=== PATIENT | female | born 1965 | race Two or more races ===

== ENCOUNTER 2023-08-13 10:44 | Outpatient (REF) | payer OTHER, SELFPAY | END 2023-08-13 10:45 | disposition home or self-care (01) | LOC: HO.LNP 10:44 | PROVIDERS: Visit Provider Advanced Practice Midwife | DX: D21.9 Benign neoplasm of connective and other soft tissue, unspecified (principal); R10.2 Pelvic and perineal pain | CPT/HCPCS: 81003; 99202 ==

== ENCOUNTER 2023-08-13 10:44 | Outpatient (AMB) | payer OTHER, SELFPAY ==
[2023-08-13 10:55] VITALS: BP 110/62; BMI 30.4
--- NOTE | 2023-08-13 10:55 | A.OFFVIS_ITS ---
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 She reports a history of low back pain for a year that now has radiated towards the front she feels an intermittent discomfort. She has a history of a myomectomy with subsequent fibroids and treatment with Interventional Radiology in [place]. Last Pap she reports with her primary care recently, records not available, patient reports Pap history is normal. She also has a history of herpes diagnosed a year ago after being newly and needs refills on her medication. She has had several outbreaks since the initial diagnosis. She also reports a vaginal odor that is pretty strong, she has an occasional burning with urination. [facility] Medical History High cholesterol Diabetes mellitus Surgical History H/O myomectomy Hx of section Family History Maternal Aunt History of breast cancer Social History Alcohol intake: current Alcohol intake frequency: holidays/special occasions only Alcohol type: wine Patient Tobacco Use Status: Never used Tobacco Female Reproductive History Menstrual Menopause type: natural Total pregnancies: 3 Full term: 2 Number of Living Children: 2 Ectopics: 1 Review of Systems Const All systems reviewed & are unremarkable except as noted in HPI and below Physical Exam Vital Signs: Last Vital Signs BP 110/62 08/13/23 10:55 BMI result Body Mass Index 30.4 Const General: cooperative, healthy appearing and no acute distress Orientation/consciousness: patient oriented x3 GI Inspection: Yes normal to inspection Palpation (GI): Soft to palpation and Other GI palpation findings present (Nontender) Rectal Exam - Female: visual inspection normal General: Yes bladder normal to palpation External Female Exam: normal appearance of the urethra Speculum Exam - Vagina: normal appearance of the vagina, normal palpation and normal vaginal discharge Speculum Exam - Cervix: normal appearance of the cervix and normal palpation Bimanual exam- vagina & uterus: normal bimanual exam, normal palpation, bladder normal to palpation, normal palpation, uterine shape normal, non-tender and enlarged (Rotated to the left) Bimanual Exam- Adnexa, other: normal adnexae Neuro General: patient oriented x3 Results AMB Urinalysis, Automated UA Leukoctes 0 Joseph/uL Last Edit by HOOD Groves on 08/13/23 11:02 UA Nitrite Negative Last Edit by Naida Blake Kris on 08/13/23 11:02 UA Urobilinogen 0 mg/dL Last Edit by Naida Blake Kris on 08/13/23 11:0 2 UA Protein 0 mg/dL Last Edit by Naida Blake Kris on 08/13/23 11:02 UA pH 6.0 Last Edit by Naida Blake Kris on 08/13/23 11:02 UA Blood 0 Colin/uL Last Edit by Naida Blake Kris on 08/13/23 11:02 UA Specific [place] 1.010 Last Edit by HOOD Groves on 08/13/23 11:02 UA Ketone Negative Last Edit by Naida Blake Kris on 08/13/23 11:02 UA Bilirubin 0 mg/dL Last Edit by Naida Blake Kris on 08/13/23 11:02 UA Glucose 0 mg/dL Last Edit by Naida Blake [facility] on 08/13/23 11:02 Results Reviewed Results Reviewed: Laboratory Last Values Urine pH (Auto) 6.0 08/13/23 11:02 Specific [place] (Auto) 1.010 08/13/23 11:02 Urine Protein (Auto) 0 mg/dL 08/13/23 11:02 Glucose (UA)(Auto) 0 mg/dL 08/13/23 11:02 Urine Ketones (Auto) Negative 08/13/23 11:02 Urine Blood (Auto) 0 Colin/uL 08/13/23 11:02 Urine Nitrite (Auto) Negative 08/13/23 11:02 Urine Bilirubin (Auto) 0 mg/dL 08/13/23 11:02 Urine Urobilinogen (Auto) 0 mg/dL 08/13/23 11:02 Leukocyte Esterase (Auto) 0 Joseph/uL 08/13/23 11:02 Assessment & Plan Assessment & Plan (1) Fibroids: Code(s): D21.9 - Benign neoplasm of connective and other soft tissue, unspecified (2) Pelvic pain: Code(s): R10.2 - Pelvic and perineal pain Plan Discussed: Workup to include cultures, pelvic ultrasound. Release of records for her Pap. Urine dip was normal today. Rx for Valtrex sent in with instructions on how to use episodic treatment. Return to the office pending ultrasound results for plan of care. Patient reports she is returning to [place] at the beginning of August bird 2 week visit and will be back mid August. All of her questions and concerns were addressed to the best of my ability and shared decision making. She is agreeable to the plan of care. This note is constructed using voice recognition software. While every effort has been made to ensure accuracy, paper machine tender errors may have been included. Orders: Orders AMB Urinalysis Automated Today R10.2 - Pelvic and perineal pain CT NG by PCR Today R10.2 - Pelvic and perineal pain Bacterial Vaginosis Panel Today R10.2 - Pelvic and perineal pain US pelvic and transvaginal Today D21.9 - Benign neoplasm of connective and other soft tissue, unspecified, R10.2 - Pelvic and perineal pain Medications: New valacyclovir (Valtrex) take with onset on of symptoms, take for three days, may repeat dosing per episode prn 500 mg PO BID 30 tabs 1RF Coding Level of Care Code New Pt Level 4 (14453) Diagnoses Fibroids D21.9 Pelvic pain R10.2
== END 2023-08-13 11:34 | disposition home or self-care (01) ==
PROVIDERS: Visit Provider Advanced Practice Midwife
DX: D21.9 Benign neoplasm of connective and other soft tissue, unspecified (principal); R10.2 Pelvic and perineal pain
CPT/HCPCS: 99204

== ENCOUNTER 2023-08-13 11:21 | Outpatient (REF) | payer OTHER, SELFPAY ==
[2023-08-13 15:24] LABS: CT PCR NOT DETECTED (Not Detect.); NG PCR NOT DETECTED (Not Detect.)
[2023-08-14 14:04] LABS: BV Int Neg Control Negative (Negative); BV Int Pos Control Positive (Positive)
== END 2023-08-13 11:22 | disposition home or self-care (01) ==
LOC: HO.LAB 11:21
PROVIDERS: Visit Provider Advanced Practice Midwife
DX: R10.2 Pelvic and perineal pain (principal)
CPT/HCPCS: 0353U; 87480; 87510; 87660

== ENCOUNTER 2023-08-15 13:32 | Outpatient (REF) | payer OTHER, SELFPAY ==
--- NOTE | ~2023-08-15 | US_ITS ---
EXAMINATION: US PELVIS CLINICAL INFORMATION: Benign neoplasm of connective tissue. COMPARISON: None available. TECHNIQUE: Ultrasound of the pelvis is performed using both transabdominal and transvaginal transducers along with Doppler. Transvaginal imaging is performed due to inadequate visualization transabdominally. FINDINGS: Uterus: The uterus is anteverted and measures 5.3 x 2.2 x 2.4 cm. The uterus is unremarkable though limited visualization due to bowel gas. The double wall endometrial thickness is 2 mm. Adnexa: The right ovary measures 1.6 x 1.0 x 1.4 cm, volume 1.0 mL. The right ovary appears normal. Color Doppler appears normal. The left ovary is not seen. No free fluid. US/US pelvic and transvaginal IMPRESSION: Nonvisualization of the left ovary. Unremarkable right ovary and uterus though exam is mildly limited due to bowel gas.
== END 2023-08-15 13:33 | disposition home or self-care (01) ==
LOC: HO.US 13:32
PROVIDERS: Visit Provider Advanced Practice Midwife
DX: D21.9 Benign neoplasm of connective and other soft tissue, unspecified (principal); R10.2 Pelvic and perineal pain
CPT/HCPCS: 76830; 76856

== ENCOUNTER 2023-08-27 07:42 | Outpatient (AMB) | payer OTHER, SELFPAY ==
--- NOTE | 2023-08-27 07:51 | MHC.OFFVIS ---
Intake Vital Signs 08/27/23 07:56 Height 5 ft 2 in Weight 166 lb BMI 30.4 BP 122/66 Intake Visit Reasons: Ultrasound follow up Budget Coordinator: Budget Coordinator Present Allergies No Known Allergies Allergy (Verified 08/27/23 07:57) Is last menstrual period known: Yes HPI HPI Comments History of Present Illness Details Is here for a follow up ultrasound. She has a history of lower back pain radiating to the front over the last year. Reports it is occasionally occurring still. History of myomectomy and subsequent fibroids treated with Interventional Radiology in the past. PFSH Medical History High cholesterol Diabetes mellitus Surgical History H/O myomectomy Hx of section Family History Maternal Aunt History of breast cancer Social History Alcohol intake: current Alcohol intake frequency: holidays/special occasions only Alcohol type: wine Patient Tobacco Use Status: Never used Tobacco Review of Systems Const All systems reviewed & are unremarkable except as noted in HPI and below Endo Reports no additional complaints Physical Exam Vital Signs: Last Vital Signs BP 122/66 08/27/23 07:56 BMI result Body Mass Index 30.4 Const General: cooperative, healthy appearing and no acute distress Psych Appearance: well kempt Attitude: cooperative Thought process: Normal thought process present Results Reviewed Results Reviewed: [place] [id number] Ultrasound Report Signed Patient: Karon Ingram MR#: [id number] : 1965 Acct:[id number] Age/Sex: 58 / F ADM Date: 08/15/23 Loc: [facility] Attending Dr: Belia Alvarez CNM Ordering Physician: Belia Alvarez CNM Date of Service: 08/15/23 Procedure(s): US pelvic and transvaginal Accession Number(s): [id number] cc: Belia Alvarez CNM~ EXAMINATION: US PELVIS CLINICAL INFORMATION: Benign neoplasm of connective tissue. COMPARISON: None available. TECHNIQUE: Ultrasound of the pelvis is performed using both transabdominal and transvaginal transducers along with Doppler. Transvaginal imaging is performed due to inadequate visualization transabdominally. FINDINGS: Uterus: The uterus is anteverted and measures 5.3 x 2.2 x 2.4 cm. The uterus is unremarkable though limited visualization due to bowel gas. The double wall endometrial thickness is 2 mm. Adnexa: The right ovary measures 1.6 x 1.0 x 1.4 cm, volume 1.0 mL. The right ovary appears normal. Color Doppler appears normal. The left ovary is not seen. No free fluid. US/US pelvic and transvaginal IMPRESSION: Nonvisualization of the left ovary. Unremarkable right ovary and uterus though exam is mildly limited due to bowel gas. Dictated By: Mu Dang MD Signed By: <Electronically signed by Mu Dang MD in [place]> 08/18/23 1043 DD/ 1409 TD/TT: Laminator Hand: HONORIO Assessment & Plan Assessment & Plan (1) Encounter to discuss test results: Code(s): Z71.2 - Person consulting for explanation of examination or test findings Plan Discussed: Ultrasound findings-normal. Reviewed various causes of low back pain that can radiate to the front may of other origins. Advised to see her primary care for a follow-up of her symptoms for further evaluation. Schedule annual customer operations manager for April 2024. Call if any vaginal bleeding. All of her questions and concerns were addressed to the best of my ability and shared decision making. She is agreeable to the plan of care. This note is constructed using voice recognition software. While every effort has been made to ensure accuracy, wire fence builder errors may have been included. Coding Level of Care Code Est Pt Level 3 (52861) Diagnoses Encounter to discuss test results Z71.2
[2023-08-27 07:56] VITALS: BP 122/66; BMI 30.4
== END 2023-08-27 08:11 | disposition home or self-care (01) ==
LOC: HO.HWS 07:42
PROVIDERS: PCP Internal Medicine; Visit Provider Advanced Practice Midwife
DX: Z71.2 Person consulting for explanation of examination or test findings (principal)
CPT/HCPCS: 99213

== ENCOUNTER → 2023-08-27 07:42 | Outpatient (BNVA) | payer OTHER, SELFPAY | PROVIDERS: PCP Internal Medicine; Visit Provider Advanced Practice Midwife | DX: M54.50 Low back pain, unspecified (principal); Z71.2 Person consulting for explanation of examination or test findings | CPT/HCPCS: 99212 ==

== ENCOUNTER 2023-09-17 09:59 | Outpatient (REF) | payer OTHER, SELFPAY ==
--- NOTE | ~2023-09-17 | MM_ITS ---
EXAMINATION: BONE DENSITOMETRY CLINICAL INDICATION: Postmenopausal. COMPARISON: This is the patient's baseline examination. TECHNIQUE: Using a SuperSport DXA System (software version: 13.1) manufactured by [employer], dual-energy x-ray absorptiometry was performed of the lumbar spine and left hip. The images are of good technical quality. Summary results are attached. FINDINGS: LEFT FEMUR, NECK: BMD 0.945 g/cm2, Z-score -0.7, T-score -0.7, normal. LEFT FEMUR, TOTAL: BMD 1.060 g/cm2, Z-score 0.0, T-score 0.4, normal. AP SPINE L1-L4: BMD 1.262 g/cm2, Z-score 0.7, T-score 0.7, normal. IDENTIFIED RISK FACTORS: Menopause. HISTORY OF FRACTURE: None listed. MEDICATIONS: Multivitamin. MM/XR DEXA axial skeleton IMPRESSION: 1. DIAGNOSIS: Normal bone density based on the lowest T-score value of -0.7 in the femoral neck applying World Health Organization criteria. 2. 10-YEAR FRACTURE RISK PREDICTION, FRAX: According to the guidelines, FRAX calculation should only be performed on patients in the osteopenia bone density category. Therefore, FRAX was not performed on this patient. 3. Treatment Recommendations: NOF guidelines recommend consideration for treatment in postmenopausal women and men age 50 and older presenting with the following: -A hip or vertebral (clinical or morphometric) fracture. -T-score less than or equal to -2.5 at the femoral neck or spine after appropriate evaluation to exclude secondary causes. -Low bone mass at the hip or spine and a 10-year fracture probability by FRAX of greater than or equal to 3% for hip fracture or greater than or equal to 20% for major osteoporotic fracture based on the [place] adapted WHO algorithm. 4. Other Recommendations: All treatment decisions require clinical judgment and consideration of individual patient factors, including patient preferences, comorbidities, previous drug use, risk factors not captured in the FRAX model (e.g. frailty, falls, vitamin D deficiency, increased bone turnover, interval significant decline in bone density) and possible under or overestimation of fracture risk by FRAX. FUTURE SCAN RECOMMENDATION: People with diagnosed cases of osteoporosis or at high risk for fracture should have regular bone mineral density tests. For patients eligible for Medicare, routine testing is allowed once every 2 years. The testing frequency can be increased to one year for patients who have rapidly progressing disease, those who are receiving or discontinuing medical therapy to restore bone mass, or have additional risk factors.
--- NOTE | ~2023-09-17 | MM_ITS ---
EXAMINATION: MM SCREENING DIGITAL BREAST TOMOSYNTHESIS, BILATERAL CLINICAL INFORMATION: Screening. Asymptomatic. The patient is status post bilateral breast reduction performed in the remote past. COMPARISON: Mammography: There are no prior mammograms for comparison at this time. TECHNIQUE: Digital breast tomosynthesis is performed in both the craniocaudal and mediolateral oblique views along with computer-aided detection (CAD). Synthesized 2D images are generated from the tomosynthesis. FINDINGS: There are scattered areas of fibroglandular density (ACR BI-RADS breast composition Category b). There are no significant masses, abnormal calcifications, or other abnormalities. Post reduction changes are present in each breast. There are scattered, bilateral benign calcifications throughout each breast. MM/MM tomosynthesis screening BI IMPRESSION: No mammographic evidence of malignancy. ASSESSMENT: BI-RADS BI-RADS 2 - Benign Findings RECOMMENDATION: Routine annual mammography screening. 1 year F/U This examination should not preclude the clinical evaluation of a suspicious palpable abnormality. This patient's information was entered into a reminder system with a target due date for their next mammogram.
== END 2023-09-17 10:00 | disposition home or self-care (01) ==
LOC: HO.MAMMO 09:59
PROVIDERS: PCP Internal Medicine; Visit Provider Internal Medicine
DX: Z12.31 Encounter for screening mammogram for malignant neoplasm of breast (principal); Z13.820 Encounter for screening for osteoporosis; Z78.0 Asymptomatic menopausal state
CPT/HCPCS: 77063; 77067; 77080

== ENCOUNTER → 2023-09-17 10:00 | Outpatient (BNV) | payer OTHER, SELFPAY | PROVIDERS: PCP Internal Medicine; Visit Provider Radiology Diagnostic Radiology | DX: Z12.31 Encounter for screening mammogram for malignant neoplasm of breast (principal) | CPT/HCPCS: 77063; 77067 ==

== ENCOUNTER 2024-04-07 09:56 | Outpatient (AMB) | payer OTHER, SELFPAY ==
--- NOTE | 2024-04-07 10:03 | MHC.OFFVIS ---
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 She is doing well with concerns: abdominal pain with eating, not seen by her primary care for this concerns. No bowel changes or urinary symptoms. She requests med refill for occasional outbreaks. Pain in low transverse scar area. Attempting to eat a healthy diet with calcium and vitamin D and stays active with exercise. Currently sexually active. Denies any vaginal dryness or irritation. STI testing offered; she declined. Last pap smear; with PCP, no records available, she reports negative in the past. Last mammogram; 2023. Colonoscopy is not done. Denies any family history of ovarian or colon cancer. Breast cancer-M.aunt. [facility] Medical History (Updated 04/07/24 @ 10:36 by Belia Alvarez CNM) Pelvic pain High cholesterol Diabetes mellitus Surgical History (Updated 04/07/24 @ 12:06 by Belia Alvarez CNM) H/O bilateral breast reduction surgery H/O abdominoplasty H/O myomectomy Hx of section Family History Maternal Aunt History of breast cancer Social History Alcohol intake: current Alcohol intake frequency: holidays/special occasions only Alcohol type: wine Patient Tobacco Use Status: Never used Tobacco Female Reproductive History Menstrual Total pregnancies: 3 Full term: 2 Ectopics: 1 Date of Mammogram: 09/17/23 (bi-rad 2) Date of last Bone Density Screenin09/17/23 Review of Systems Const All systems reviewed & are unremarkable except as noted in HPI and below Reports as per HPI Eyes Reports no additional complaints ENT Reports no additional complaints Card Reports no additional complaints Resp Reports no additional complaints GI Reports as per HPI and Reports no additional complaints Reports as per HPI Musc Reports no additional complaints Skin/Breast Reports as per HPI Neuro Reports no additional complaints Psych Reports no additional complaints Endo Reports no additional complaints Bishnu/Lymph Reports no additional complaints Aller/Immun Reports no additional complaints Physical Exam Vital Signs: Last Vital Signs BP 120/72 11/06/24 10:08 BMI result Body Mass Index 31.3 Const General: cooperative, healthy appearing, no acute distress, well developed and alert Orientation/consciousness: patient oriented x3 HEENT Head: Yes normal to inspection Eyes General: appearance normal, both eyes and all related structures Neck Neck: Yes normal visual inspection Thyroid: Thyroid normal Chest Other: Breast reduction scars Chest palpation & inspection: normal inspection of the chest and other (no puckering, dimpling, peau de orange, retraction, discharge, masses) Breast/axilla inspection: normal inspection of the breasts Breast/axilla palpation: normal palpation of the breasts Resp Effort & Inspection: normal respiratory effort GI Inspection: Yes normal to inspection and Yes scar (Reports tenderness in the scar mid region ) Palpation (GI): Soft to palpation Rectal Exam - Female: deferred General: Yes bladder normal to palpation External Female Exam: normal external appearance and normal appearance of the urethra Speculum Exam - Vagina: normal appearance of the vagina, normal palpation and normal vaginal discharge Speculum Exam - Cervix: normal appearance of the cervix and normal palpation Bimanual exam- vagina & uterus: normal bimanual exam, normal palpation, uterine size normal, bladder normal to palpation, normal palpation and non-tender Bimanual Exam- Adnexa, other: no masses Skin General skin exam: no rashes or lesions noted Rashes: no rashes Neuro General: patient oriented x3 Cognition (Neuro): normal cognition Extrem General: Yes normal to inspection Psych Attitude: cooperative Thought process: Normal thought process present Results AMB Urinalysis, Automated UA Leukoctes 0 Joseph/uL Last Edit by HOOD Groves on 04/07/24 10:54 UA Nitrite Negative Last Edit by HOOD Groves on 04/07/24 10:54 UA Urobilinogen 0 mg/dL Last Edit by HOOD Groves on 04/07/24 10:54 UA Protein 0 mg/dL Last Edit by HOOD Groves on 04/07/24 10:54 UA pH 6.0 Last Edit by HOOD Groves on 04/07/24 10:54 UA Blood 0 Colin/uL Last Edit by HOOD Groves on 04/07/24 10:54 UA Specific [place] 1.015 Last Edit by Naida Blake, RMA on 04/07/24 10:54 UA Ketone Negative Last Edit by Naida BlakeBRITTA on 04/07/24 10:54 UA Bilirubin 0 mg/dL Last Edit by Naida Blake, RMA on 04/07/24 10:54 UA Glucose 0 mg/dL Last Edit by Naida Riveraoumar A on 04/07/24 10:54 Results Reviewed Results Reviewed: Laboratory Last Values Urine pH (Auto) 6.0 04/07/24 10:48 Specific [place] (Auto) 1.015 04/07/24 10:48 Urine Protein (Auto) 0 mg/dL 04/07/24 10:48 Glucose (UA)(Auto) 0 mg/dL 04/07/24 10:48 Urine Ketones (Auto) Negative 04/07/24 10:48 Urine Blood (Auto) 0 Colin/uL 04/07/24 10:48 Urine Nitrite (Auto) Negative 04/07/24 10:48 Urine Bilirubin (Auto) 0 mg/dL 04/07/24 10:48 Urine Urobilinogen (Auto) 0 mg/dL 04/07/24 10:48 Leukocyte Esterase (Auto) 0 Joseph/uL 04/07/24 10:48 Assessment & Plan Assessment & Plan (1) Encounter for well woman exam with routine gynecological exam: Code(s): Z01.419 - Encounter for gynecological examination (general) (routine) without abnormal findings Category: Medical (2) Pelvic pain: Code(s): R10.2 - Pelvic and perineal pain Category: Medical Plan Discussed: Current recommendations for pap smears per ASCCP guidelines. Pap smear obtained today. Breast awareness, periodic self breast exams and yearly mammogram. Maintain a healthy lifestyle, well balanced diet including Calcium 1,200 mg and Vitamin D 600 IU daily, and routine exercise. Pelvic ultrasound and follow up in person. Make appointment with your primary care as soon as possible to evaluate your abdominal pain. Contact the office with any postmenopausal bleeding. Patient verbalizes understanding and agrees to the plan of care. She was given opportunity to ask questions and all questions were answered to the best of my ability. RTO in 1 year for annual terrazzo polisher helper exam. This note is constructed using voice recognition software. While every effort has been made to ensure accuracy, highway maintenance crew worker errors may have been included. Orders: Orders US pelvic and transvaginal Today R10.2 - Pelvic and perineal pain HPV High risk Today Z01.419 - Encounter for gynecological examination (general) (routine) without abnormal findings Pap Smear Today Z01.419 - Encounter for gynecological examination (general) (routine) without abnormal findings CT NG by PCR Today R10.2 - Pelvic and perineal pain AMB Urinalysis Automated Today R10.2 - Pelvic and perineal pain Medications: New valacyclovir (Valtrex) Take with onset of symptoms for 3 days 500 mg PO BID 90 tabs 0RF 3 days acyclovir 5% (Zovirax) 1 appl topical 6XD PRN 30 grams 2RF prn 7 days Coding Level of Care Code Est Pt Prev Care 40-64y(36627) Diagnoses Encounter for well woman exam with routine gynecological exam Z01.419 Pelvic pain R10.2
[2024-04-07 10:08] VITALS: BP 120/72; BMI 31.3
== END 2024-04-07 10:51 | disposition home or self-care (01) ==
LOC: HO.HWS 09:57
PROVIDERS: PCP Internal Medicine; Visit Provider Advanced Practice Midwife
DX: Z01.419 Encounter for gynecological examination (general) (routine) without abnormal findings (principal); R10.2 Pelvic and perineal pain
CPT/HCPCS: 99396

== ENCOUNTER 2024-04-07 09:56 | Outpatient (REF) | payer OTHER, SELFPAY ==
[2024-04-08 05:16] LABS: CT PCR NOT DETECTED (Not Detect.); NG PCR NOT DETECTED (Not Detect.)
[2024-04-08 10:31] LABS: HPV 16,18/45 See PAP report
== END 2024-04-07 09:57 | disposition home or self-care (01) ==
LOC: HO.LNP 09:56
PROVIDERS: PCP Internal Medicine; Visit Provider Advanced Practice Midwife
DX: Z01.419 Encounter for gynecological examination (general) (routine) without abnormal findings (principal); R10.2 Pelvic and perineal pain; R87.810 Cervical high risk human papillomavirus (HPV) DNA test positive
CPT/HCPCS: 81003; 87491; 87591; 87624; 88175; 99396

== ENCOUNTER 2024-04-19 14:02 | Outpatient (REF) | payer OTHER, SELFPAY ==
--- NOTE | ~2024-04-19 | US_ITS ---
EXAMINATION:US PELVIS TRANSABDOMINAL AND TRANSVAGINAL CLINICAL INFORMATION: R10.2 - Pelvic and perineal pain COMPARISON: Prior ultrasound August 15, 2023 LMP: Postmenopausal FINDINGS: UTERUS: The uterus is anteverted. Size: 13.3 x 10.2 x 9 cm. Uterine mass: Intramural uterine mass likely fibroid measuring up to 4.4 x 3.3 x 5.1 cm, another fibroid 4.3 x 4.4 x 4.2 cm., Intense shadowing of the fibroids probably due to internal callus patient's necrosis. Cervix: Grossly unremarkable. Endometrium: Endometrium could not be visualized obscured by the fibroid. ADNEXA: Normal Right ovary: Normal in size. Left ovary: Normal in size. Not visualized obscured by bowel gas. Doppler exam: Normal Doppler flow identified in both ovaries. FREE FLUID: Trace amount of free fluid. OTHER FINDINGS: None US/US pelvic and transvaginal IMPRESSION: 1. Enlarged fibroid uterus. Intense shadowing from the fibroids probably calcified necrotic, has obscured the endometrium. 2. Left ovary not visualized obscured by bowel gas. 3. If patient is symptomatic would recommend correlation with follow-up cross-sectional imaging preferably MRI with contrast. If not performed TIN WORKER consultation and D&C may be indicated. Electronically signed by: Agueda Montes MD 05/29/2024 04:17 PM [facility] [place]
== END 2024-04-19 14:03 | disposition home or self-care (01) ==
LOC: HO.HMGCX 14:02
PROVIDERS: Visit Provider Advanced Practice Midwife
DX: D25.9 Leiomyoma of uterus, unspecified (principal)
CPT/HCPCS: 76830; 76856

== ENCOUNTER 2024-06-10 11:10 | Outpatient (AMB) | payer OTHER, SELFPAY ==
--- NOTE | 2024-06-10 11:11 | MHC.OFFVIS ---
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 She reports intimacy is painful, no vaginal bleeding. She is not interested in monitoring the fibroid she reports she would really like to have a hysterectomy at this time to be done with surveillance and worries. PFS Medical History (Updated 06/10/24 @ 11:32 by Belia Alvarez CNM) Fibroid Pelvic pain High cholesterol Diabetes mellitus Surgical History H/O bilateral breast reduction surgery H/O abdominoplasty H/O myomectomy Hx of section Family History Maternal Aunt History of breast cancer Social History Alcohol intake: current Alcohol intake frequency: holidays/special occasions only Alcohol type: wine Patient Tobacco Use Status: Never used Tobacco Review of Systems Const All systems reviewed & are unremarkable except as noted in HPI and below Endo Reports no additional complaints Physical Exam Const General: cooperative, healthy appearing and no acute distress Psych Appearance: well kempt Attitude: cooperative Thought process: Normal thought process present Results Reviewed Results Reviewed: [facility] [address] [place] [address] Ultrasound Report Signed Patient: Karon Ingram MR#: [id number] : 1965 Acct:[id number] Age/Sex: 59 / F ADM Date: 04/19/24 Loc: HO.HMGCX Attending Dr: Belia Alvarez CNM Ordering Physician: Belia Alvarez CNM Date of Service: 04/19/24 Procedure(s): US pelvic and transvaginal Accession Number(s): [id number] cc: Belia Alvarez CNM~ EXAMINATION:US PELVIS TRANSABDOMINAL AND TRANSVAGINAL CLINICAL INFORMATION: R10.2 - Pelvic and perineal pain COMPARISON: Prior ultrasound August 15, 2023 LMP: Postmenopausal FINDINGS: UTERUS: The uterus is anteverted. Size: 13.3 x 10.2 x 9 cm. Uterine mass: Intramural uterine mass likely fibroid measuring up to 4.4 x 3.3 x 5.1 cm, another fibroid 4.3 x 4.4 x 4.2 cm., Intense shadowing of the fibroids probably due to internal callus patient's necrosis. Cervix: Grossly unremarkable. Endometrium: Endometrium could not be visualized obscured by the fibroid. ADNEXA: Normal Right ovary: Normal in size. Left ovary: Normal in size. Not visualized obscured by bowel gas. Doppler exam: Normal Doppler flow identified in both ovaries. FREE FLUID: Trace amount of free fluid. OTHER FINDINGS: None US/US pelvic and transvaginal IMPRESSION: 1. Enlarged fibroid uterus. Intense shadowing from the fibroids probably calcified necrotic, has obscured the endometrium. 2. Left ovary not visualized obscured by bowel gas. 3. If patient is symptomatic would recommend correlation with follow-up cross-sectional imaging preferably MRI with contrast. If not performed HIGHWAY WORKER consultation and D&C may be indicated. Electronically signed by: Agueda Montes MD 05/29/2024 04:17 PM [facility] Dictated By: Agueda Montes MD Signed By: <Electronically signed by Agueda Montes MD in OV> 05/29/24 1617 DD/ 1416 TD/TT: 04/19/24 1500 Bundles Hanger: HS Assessment & Plan Assessment & Plan (1) Fibroid: Code(s): D21.9 - Benign neoplasm of connective and other soft tissue, unspecified Category: Medical (2) Pelvic pain: Code(s): R10.2 - Pelvic and perineal pain Category: Medical (3) Encounter to discuss test results: Code(s): Z71.2 - Person consulting for explanation of examination or test findings Plan Discussed: Ultrasound findings with necrotic tissue and enlarging fibroid, endometrial lining obscured. Plan MRI for further evaluation of fibroid, once report is back to review and then referral will be placed to [facility] for a surgical consult. Await test results for plan of care advised to call if there is any concerns, pelvic pain changes, or any vaginal bleeding. The patient expressed understanding and agreement with the plan of care. All of her questions and concerns were addressed to the best of my ability. This note is constructed using voice recognition software. While every effort has been made to ensure accuracy, supervisor securities vault errors may have been included. Orders: Orders MR pelvis wo/w con Today D21.9 - Benign neoplasm of connective and other soft tissue, unspecified Coding Level of Care Code Est Pt Level 3 (47978) Diagnoses Fibroid D21.9 Pelvic pain R10.2 Encounter to discuss test results Z71.2
== END 2024-06-10 11:29 | disposition home or self-care (01) ==
PROVIDERS: PCP Internal Medicine; Visit Provider Advanced Practice Midwife
DX: D25.9 Leiomyoma of uterus, unspecified (principal); R10.2 Pelvic and perineal pain; Z71.2 Person consulting for explanation of examination or test findings
CPT/HCPCS: 99213

== ENCOUNTER → 2024-06-10 11:10 | Outpatient (BNVA) | payer OTHER, SELFPAY | PROVIDERS: PCP Internal Medicine; Visit Provider Advanced Practice Midwife | DX: Z71.2 Person consulting for explanation of examination or test findings (principal); D21.9 Benign neoplasm of connective and other soft tissue, unspecified; R10.2 Pelvic and perineal pain | CPT/HCPCS: 99212 ==

== ENCOUNTER 2024-06-28 12:50 | Outpatient (REF) | payer OTHER, SELFPAY ==
--- NOTE | ~2024-06-28 | MR_ITS ---
EXAMINATION: MR PELVIS WITHOUT THEN WITH IV CONTRAST HISTORY: D21.9 - Benign neoplasm of connective and other soft tissue, unspecified. TECHNIQUE: Axial T1 and fat-suppressed T2, and sagittal and coronal T2-weighted MR images of the pelvis were obtained. Subsequently, axial fat-suppressed T1-weighted images were obtained after the intravenous administration of 7.5 mm Gadavist. COMPARISON: Correlation is made with a pelvic ultrasound dated 04/19/2024. FINDINGS: The uterus is enlarged and contains multiple T2 hypointense fibroids. The largest fibroids are as follows: Posterior fundal fibroid measuring 4.4 x 4.2 x 4.7 cm without significant enhancement. Anterior subserosal fibroid measuring 5.4 x 3.4 x 3.9 cm which demonstrates intense homogeneous enhancement. Anterior uterine fibroid measuring 2.6 x 2.9 x 3.0 cm which may be submucosal. No significant enhancement. Left-sided intramural fibroid measuring 2.5 x 1.5 x 2.0 cm without significant enhancement. Right-sided subserosal fibroid measuring 2.1 x 1.9 x 2.1 cm, which demonstrates minimal enhancement. Multiple additional smaller fibroids are noted. The endometrium is markedly distorted by the multiple fibroids. The junctional zone does not appear thickened. The right ovary measures 2.1 x 1.2 x 1.6 cm is unremarkable. The left ovary measures 1.2 x 1.9 x 1.3 cm and is unremarkable. No free fluid is seen in the pelvis. There is no lymphadenopathy. There is diverticulosis of the sigmoid colon, without evidence of diverticulitis. The urinary bladder is collapsed. MR/MR pelvis wo/w con IMPRESSION: Fibroid uterus as described. Electronically signed by: Emanuel Olivas MD 06/28/2024 03:14 PM [facility] [place]
[2024-06-28] MEDS: gadobutroL 7.5 ML VIAL IVPUSH (14:01)
--- OUTSIDE RECORDS SUMMARY | 2024-06-28 17:31 | XMS_ITS | Encounter Summary ---
Author Organization [facility] Address [address] [place] [address] Care Team Providers Care Property Portfolio Officer Name Role Phone Yair Eaton MD Primary Care Provider Reason for Visit * Reason Comments Blood Sugar Problem Encounter Details Date Type Department Care Team (Late st Contact Info) Description 06/17/2024 9:30 AM EST Office Visit Endocrinology - [place] [address] [place] [phone] Patricia Lerma MD [address] [place] [address] Type 2 diabetes mellitus with diabetic polyneuropathy, with long-term current use of insulin ([facility]) (Primary Dx) Social History Tobacco Use Types Packs/Day Years Used Date Smoking Tobacco: Never Smokeless Tobacco: Never Tobacco Cessation:Counseling Given: Not Answered Alcohol Use Standard Drinks/Week Comments Yes 0 (1 standard drink = 0.6 oz pur e alcohol) rare Sex and Gender Information Value Date Recorded Sex Assigned at Not on file Gender Identity Not on file Sexual Orientation Not on file Job Start Date Occupation Industry Not on file Not on file Not on file documented as of this encounter Last Filed Vital Signs Vital Sign Reading Time Taken Comments Blood Pressure 137/70 06/17/2024 9:36 AM EST Pulse 88 06/17/2024 9:36 AM EST Temperature 36.1 ??C (97 ??F) 06/17/2024 9:36 AM EST Respiratory Rate - - Oxygen Saturation 96% 06/17/2024 9:36 AM EST Inhaled Oxygen Concentration - - Weight 80.3 kg (177 lb) 06/17/2024 9:36 AM EST Height 157.5 cm (5' 2 ) 06/17/2024 9:36 AM EST Body Mass Index 32.37 06/17/2024 9:36 AM EST documented in this encounter Progress Notes * Patricia Lerma MD - 06/17/2024 9:30 AM EST Scan reader at least 4 times a day. Take insulin Novolog before meals. * Patricia Lerma MD - 06/17/2024 9:30 AM EST CHIEF COMPLAINT: Blood Sugar Problem IDENTIFIER: Karon Ingram is a 59 y.o. old female. HPI: 59 years old F, following for DM type 2 last seen 02/2024. Diagnosed since >20 years Currently on Insulin Levemir 60 units BID, insulin NL 20 units (taking with levemir NOT before meals) metformin 1000 mg BID. NOT taking ozempic, stopped as blamed hair fall, nail issues, constipationand vision issues on it. Checking sugars, on CGM michelle 2, data shows ave 195, in target 44 %, above55 %, below 1%. Capture 61%. Much worse sugars then before. ROS: No new complaints PAST MEDICAL HISTORY: Patient Active Problem List Diagnosis Date Noted Essential thrombocytosis ([facility]) 05/14/2024 Type 2 diabetes mellitus with diabetic polyneuropathy, with long-term current use of insulin ([facility]) 03/16/2024 No past surgical history on file. SOCIAL HISTORY: Social History Tobacco Use Smoking status: Never Smokeless tobacco: Never Substance Use Topics Alcohol use: Yes Comment: rare FAMILY HISTORY: Family History Problem Relation Name Age of Onset Prostate cancer Father Breast cancer Mother's Sister Breast cancer Father's Sister Family Status Relation Name Status Father (Not Specified) Mat Aunt (Not Specified) Pat Aunt (Not Specified) No partnership data on file MEDICATIONS DISCONTINUED/REORDERED: There are no discontinued medications. ACTIVE MEDICATIONS: Outpatient Medications Marked as Taking for the 06/17/24 encounter (Office Visit) with Patricia Lerma MD Medication Sig Dispense Refill aspirin 81 mg chewable tablet Chew 1 tablet (81 mg total) 1 (one) time each day. atorvastatin (LIPITOR) 40 mg tablet Take 1 tablet (40 mg total) by mouth 1 (one) time each day. diclofenac (VOLTAREN) 1 % topical gel Apply 4 g topically 2 times daily. fexofenadine (WARREN) 60 mg tablet Take 1 tablet (60 mg total) by mouth 1 (one) time each day. insulin aspart (NovoLOG Flexpen U-100 Insulin) 100 unit/mL (3 mL) injection pen Inject into the skin 2 times daily. 12 units insulin detemir (LEVEMIR) 100 unit/mL injection Inject into the skin 2 times daily. 60 units metFORMIN (GLUCOPHAGE) 1,000 mg tablet Take 1 Tablet by mouth 2 times daily (with meals). multivitamin (MULTIPLE VITAMINS ORAL) Take by mouth. ALLERGIES: No Known Allergies PHYSICAL EXAM: Visit Vitals BP 137/70 Pulse 88 Temp 36.1 ??C (97 ??F) (Temporal) Ht 1.575 m (62 ) Wt 80.3 kg (177 lb) SpO2 96% BMI 32.37 kg/m?? Smoking Status Never BSA 1.82 m?? APPEARANCE: Alert and in no acute distress EYES: EOMI. No resp distress NEURO: Awake, alert LABS: Lab Results Component Value Date HGBA1C 8.9 (H) 05/17/2024 CHOL 131 05/17/2024 LDL 70 11/13/2023 HDL 49 05/17/2024 TRIG 83 05/17/2024 IMPRESSION: 1. Type 2 diabetes mellitus with diabetic polyneuropathy, with long-term current use of insulin ([facility]) PLAN: Had a detailed discussion, worse control then before. Off ozempic, not taking NL as supposed to. Also not scanning as should so less capture. Asked to scan 4 times atleast, take NL before meals and had a detailed discussion. Asked to fup in 4 weeks. All questions answered. Retinopathy: present; Overdue Neuropathy: present Nephropathy: last UAC in range Lipids: on statin Medication and lab orders: No orders of the defined types were placed in this encounter. Other orders: None Patricia Lerma MD on 06/17/2024 at 10:06 AM EST documented in this encounter Plan of Treatment Upcoming Encounters Date Type Department Care Team (Late st Contact Info) Description 07/16/2024 11:15 AM EST Office Visit Endocrinology - [place] [address] [place] [address] Patricia Lerma MD [address] [place] [address] 08/10/2024 10:00 AM EDT Ancillary Procedure [facility] - [address] [place] [place] [phone] 08/13/2024 10:00 AM EDT Office Visit [facility] Hematology Oncology [address] [place] [phone] Chelo Valencia PA [address] [place] [address] documented as of this encounter Visit Diagnoses Diagnosis Type 2 diabetes mellitus with diabetic polyneuropathy, with long-term current use of insulin ([facility])- Primary documented in this encounter Care Teams Property Portfolio Officer Relationship Specialty Start Date End Date Yair Eaton MD [address] [place] [address] PCP - General 01/01/24 documented as of this encounter
--- OUTSIDE RECORDS SUMMARY | 2024-06-28 17:31 | XMS_ITS | Encounter Summary ---
Author Organization [facility] Address [address] [place] [address] Care Team Providers Care Licensed Social Worker Name Role Phone Yair Eaton MD Primary Care Provider Reason for Visit * Cardiac Stress Testing (Routine) - Closed Specialty Diagnoses / Procedures Referred By Contac t Referred To Contact Cardiology Diagnoses Shortness of breath Procedures Exercise stress test Yair Eaton MD [address] [place] [address] [facility] Referral ID Status Reason Start Date Expiration Date Visits Re quested Visits Authorized [id number] Closed 05/14/2024 05/14/2025 1 1 Encounter Details Date Type Department Care Team (Latest Contact Info) Description 06/15/2024 1:15 PM EST Ancillary Procedure [facility] - [facility] [place] [address] [facility] [address] [place] [phone] Shortness of breath Social History Tobacco Use Types Packs/Day Years Used Date Smoking Tobacco: Never Smokeless Tobacco: Never Alcohol Use Standard Drinks/Week Comments Yes 0 [...] Sign Reading Time Taken Comments Blood Pressure 142/80 06/15/2024 12:51 PM EST Pulse - - Temperature - - Respiratory Rate - - Oxygen Saturation - - Inhaled Oxygen Concentration - - Weight 79.4 kg (175 lb) 06/15/2024 12:51 PM EST Height 157.5 cm (5' 2 ) 06/15/2024 12:51 PM EST Body Mass Index 32.01 06/15/2024 12:51 PM EST documented in this encounter Plan of Treatment Upcoming Encounters Date Type Department Care Team (Late st Contact Info) Description 07/16/2024 11:15 AM EST Office Visit Endocrinology - [place] [address] [place] [address] Patricia Lerma MD [address] [place] [address] 08/10/2024 10:00 AM EDT Ancillary Procedure [facility] - [facility] [address] [facility] [address] [place] [phone] 08/13/2024 10:00 AM EDT Office Visit [facility] Hematology Oncology [address] [place] [address] Chelo Valencia PA [address] [place] [address] documented as of this encounter Procedures Procedure Name Priority Date/Time Associated Diagnosis Comments STRESS TEST ONLY EXERCISE Routine 06/15/2024 1:35 PM EST Shortness of breath documented in this encounter Results * Exercise stress test (06/15/2024 1:35 PM EST) Target HR 137 bpm CV STRESS ONLY Baseline HR 78 bpm CV STRES S ONLY Baseline SBP 142 mmHg CV STRE SS ONLY Baseline DBP 80 mmHg CV STRE SS ONLY O2 sat rest 97 % CV STRES S ONLY Peak HR 176 bpm CV STRESS ONLY Peak SBP 176 mmHg CV STRESS ONLY Peak DBP 60 mmHg CV STRESS ONLY Estimated workload 10.9 METS CV STRESS ONLY Rate Pressure Product 30,976.0 mmHg*bpm CV STRESS ONLY Percent HR 109 % CV STRESS ONLY Exercise/injec tion duration (min) 9 min CV STRESS ONLY Exercise/injec tion duration (sec) 24 sec CV STRESS ONLY Angina Index 0 CV STRE SS ONLY Max HR Percent 107 % CV ST RESS ONLY Anatomical Region Laterality Modality Cardiac Diagnost ic Narrative 06/15/2024 5:26 PM EST ?Probably normal exercise EKG stress test. ?Subtle ST depression at the high heart rate, non diagnostic for ischemia. ?Exercise capacity was above average. Normal blood pressure and heart rate response. ??No chest pain. ?If clinical suspicion persists, would recommend repeating stress testing with images such as with stress echocardiogram. Stress Findings A David protocol stress test was performed. Overall, the patient's exercise capacity was above average. The patient reached stage 4. Total stress time was 9 min and 24 sec. The patient experienced no angina during the test. The test was stopped because the patient experienced fatigue and shortness of breath. The patient's hemodynamic response was adequate for diagnosis. Blood pressure demonstrated a normal response. Heart rate demonstrated a normal response. Onset of symptoms occurred at Stage 4 of the protocol. The patient reported shortness of breath during the stress test. ECG 59-year-old female with a history of shortness of breath with exertion; rule out ischemia. Cardiac risk factors include diabetes, hyperlipidemia, obesity, and a family history of coronary artery disease. No previous cardiac events. Baseline ECG shows sinus rhythm with nonspecific T wave abnormality in lead III only. Arrhythmias during stress: rare premature ventricular contractions (PVCs) . Stress ECG somewhat obscured by baseline movement artifact making accurate interpretation difficult. Exacerbation of baseline T wave abnormality noted as well as 1.0 mm J-point depressions with horizontal to upsloping ST segments in leads V3 through V6 at a heart rate 176. There were no arrhythmias during recovery. ST changes returned to normal during recovery. No diagnostic ECG changes meeting strict criteria for ischemia; however the patient had 1.0 mm J-point depressions with horizontal to upsloping ST segments in leads V3 through V6. If clinical suspicion persists, would recommend repeating stress testing with images such as with stress echocardiogram. Procedure Note Ekaterina Peoples NP / Chuck Lindsay MD - 06/15/2024 ? ? Probably normal exercise EKG stress test. ? ? Subtle ST depression at the high heart rate, non diagnostic forischemia. ? ? Exercise capacity was above average. Normal blood pressure and heartrate response. No chest pain. ? ? If clinical suspicion persists, would recommend repeating stresstesting with images such as with stress echocardiogram. Yair Eaton MD CV STRESS PROC EDURES documented in this encounter Visit Diagnoses Diagnosis Shortness of breath documented in this encounter Care Teams Licensed Social Worker Relationship Specialty Start Date End Date Yair Eaton MD [address] [place] [address] PCP - General 01/01/24 documented as of this encounter
--- OUTSIDE RECORDS SUMMARY | 2024-06-28 17:31 | XMS_ITS | Encounter Summary ---
Author Organization [facility] Address [address] [place] [address] Care Team Providers Care Fountain Waitress/Waiter Name Role Phone Claudette Diego NP Primary Care Provider [phone] Encounter Details Date Type Department Care Team (Late st Contact Info) Description 05/31/2024 Refill [facility] [address] [place] [phone] Economics Professor: Angelina Garza CPhT Type 2 diabetes mellitus without complication, with long-term current use of insulin (CMS/HCC) (HCC) (Primary Dx) Social History Tobacco Use Types Packs/Day Years Used Date Smoking Tobacco: Never Smokeless Tobacco: Never Alcohol Use Standard Drinks/Week Comments Not Currently 0 (1 standard drink = 0.6 oz pur e alcohol) Comments No Sex and Gender Information Value Date Recorded Sex Assigned at Female 03/19/2022 8:42 AM EDT Legal Sex Female 2:23 PM EDT Gender Identity Female 03/19/2022 8:42 AM EDT Sexual Orientation Straight 03/19/2022 8: 42 AM EDT documented as of this encounter Miscellaneous Notes * Telephone Encounter - Angelina Carter CPhT - 05/31/2024 3:39 PM EST Good Afternoon, Levemir has been discontinued by the tape librarian and can not longer be ordered. Pt is due for her basal insulin so an alternative will be required. Test claims show that Lantus, Tresiba and Toujeo are covered while Basaglar, Semglee, and insulin glargine-yfgn are not. Please send one of the covered alternatives the the [facility] when you are able Thank you Angelina documented in this encounter Plan of Treatment Not on file documented as of this encounter Visit Diagnoses Diagnosis Type 2 diabetes mellitus without complication, with long-term current use of insulin (CMS/HCC) (HCC)- Primary documented in this encounter Care Teams Fountain Waitress/Waiter Relationship Specialty Start Date End Date Claudette Diego NP PCP - General 12/04/21 documented as of this encounter
--- OUTSIDE RECORDS SUMMARY | 2024-06-28 17:31 | XMS_ITS | Encounter Summary ---
Author Organization [facility] Address [address] [place] [address] Care Team Providers Care Air Sampler Name Role Phone Yair Eaton MD Primary Care Provider Encounter Details Date Type Department Care Team (Late st Contact Info) Description 05/18/2024 Telephone Adult Medicine [facility] [address] [place], [place] [phone] Yair Eaton MD [address] [place], [place] Social History Tobacco Use Types Packs/Day Years Used Date Smoking Tobacco: Never Smokeless Tobacco: Never Alcohol Use Standard Drinks/Week Comments Not Currently 0 (1 standard drink = 0.6 oz pur e alcohol) Sex and Gender Information Value Date Recorded Sex Assigned at Not on file Gender Identity Not on file Sexual Orientation Not on file Job Start Date Occupation Industry Not on file Not on file Not on file documented as of this encounter Progress Notes * Dede Petersen MA - 05/25/2024 3:22 PM EST Patient is aware of results * Yair Eaton MD - 05/18/2024 4:16 PM EST Please call this patient inform her that her chest x-ray was normal. Her labs show slight worseningin the diabetes numbers. She should follow-up with endocrinology to further adjust her regimen. Herkidney function, electrolytes are normal. Cholesterol is normal. She does have elevated platelets for which she is on a low-dose aspirin and follows with hematology. If she has any question, we can discuss at the next visit in June. documented in this encounter Plan of Treatment Upcoming Encounters Date Type Department Care Team (Late st Contact Info) Description 07/16/2024 11:15 AM EST Office Visit Endocrinology - [place] [address] [place] [address] Patricia Lerma MD [address] [place] [address] 08/10/2024 10:00 AM EDT Ancillary Procedure [facility] - [address] [place] [phone] 08/13/2024 10:00 AM EDT Office Visit [facility] Hematology Oncology [address] [place] [address] Chelo Valencia PA [address] [place] [address] documented as of this encounter Visit Diagnoses Not on filedocumented in this encounter Care Teams Air Sampler Relationship Specialty Start Date End Date Yair Eaton MD [address] [place] [address] PCP - General 01/01/24 documented as of this encounter
--- OUTSIDE RECORDS SUMMARY | 2024-06-28 17:31 | XMS_ITS | Referral Summary ---
Author Organization [facility] Address [address] [place] [address] Care Team Providers Care Grades 1 6 Tutor Name Role Phone ChaseClaudette wu TRISTEN Primary Care Provider Encounters Date Type Department Care Team Description 06/28/2024 Refill [facility] [address] [place] [id number] Nurse Practitioner: Mario Ramírez MD 06/11/2024 Refill [facility] [address] [place] [address] 09[address] Nurse Practitioner: Mario Ramírez MD 06/01/2024 Orders Only [facility] [address] [place] [address]34 Nurse Practitioner: Li Gonzalez NP 05/31/2024 Refill [facility] [address] [place] [address] 14321 Nurse Practitioner: Angelina Garza CPhT Type 2 diabetes mellitus without complication, with long-term current use of insulin ([facility] ([facility]) (Primary Dx) from Last 3 Months Allergies Active Allergy Reactions Criticality Noted Date Comments Pollen Extracts Nasal congestion 11/01/2022 Medications flash glucose scanning reader (Rotech HealthcareStyle Juarez 2 [place]) [facility] Use to monitor blood sugars. 1 each 2 9:49 AM EDT 09/22/19 Active blood glucose diagnostic test strip Use to test 3 times daily. Dx: E11.65 100 strip 11 10/02/19 Active blood glucose diagnostic lancet 28 gauge Use to test 3 times daily. Dx: E11.65 100 each 11 10/02/19 Active blood glucose diagnostic meter Use to test up to 4 times daily. 1 each 10/02/19 Active FreeStyle Lite Meter meter Use 1 daily. E11.65 1 each 2 12:30 PM EDT 12/22/19 Active Freestyle Lite test strips Use 3 daily. E11.65 100 strip 11 2 8:07 AM EDT 12/22/19 Active Freestyle lancets 28 gauge Use 3 daily. E11.65 100 each 11 2 8:07 AM EDT 12/22/19 Active polyethylene glycol 3350 (MIRALAX) 17 gram packet Take 1 packet (17 g total) by mouth daily as needed for constipation. Mix powder in 4 to 8 oz of water, juice, coffee, or tea prior to administration. 30 packet 3 2 1:07 PM EDT 03/22/20 Active estradioL (ESTRACE) 0.01 % (0.1 mg/gram) vaginal cream Insert 2 g into the vagina once a day. Use daily for two weeks, then three times a week for maintenance. 42.5 g 1 2 7:58 AM EST 05/24/20 Active cyanocobalamin 50 mcg tablet Take 1 tablet by oral route daily 01/16/20 Active pen needle, diabetic (BD Ultra-Fine Short Pen Needle) 31 gauge x 5/16 needle Use to inject 4 times daily as directed 360 each 3 4 2:41 AM EDT 09/01/19 Active metFORMIN (GLUCOPHAGE) 1,000 mg tablet Take 1 tablet (1,000 mg total) by mouth 2 times a day with meals. 180 tablet 3 5 9:10 PM EST 09/01/19 24 025 Active atorvastatin (LIPITOR) 40 mg tablet Take 1 tablet (40 mg total) by mouth once a day. 90 tablet 3 5 9:10 PM EST 09/01/19 24 025 Active gabapentin (NEURONTIN) 300 mg capsule Take 1 capsule (300 mg total) by mouth 2 times a day as needed (nerve pain). 60 capsule 5 4 7:25 PM EDT 01/14/20 24 025 Active diclofenac (VOLTAREN) 1% gel Apply 4 g topically 2 times daily. 100 g 2 4 9:16 PM EDT 01/26/20 24 Active aspirin 81 mg EC tablet Take 1 tablet (81 mg total) by mouth daily. 90 tablet 1 5 1:55 AM EST 02/13/20 24 Active insulin detemir U-100 (Levemir FlexPen) 100 units/mL injection pen Inject up to 60 units under the skin 2 times a day. 45 mL 1 4 8:48 AM EDT 03/17/20 24 Active acyclovir (ZOVIRAX) 5 % ointment Apply topically 6 times a day as needed for 7 days 30 g 2 04/07/20 24 Active Lantus Solostar U-100 Insulin 100 unit/mL (3 mL) pen injectionIndic ations:Type 2 diabetes mellitus without complication, with long-term current use of insulin ([facility] ([facility]) Inject up to 60 units under skin twice daily. MDD 120 unit(s). 120 mL 3 5 1:55 AM EST 05/31/20 24 Active insulin aspart 100 unit/mL insulin pen Inject 0-10 Units under the skin 3 times a day with meals. Take as directed. 15 mL 2 5 9:10 PM EST 06/11/19 25 Active flash glucose sensor (FreeStyle Juarez 2 Sensor) kit Use 1 sensor every 14 days. 2 kit 11 06/28/19 25 Active semaglutide (Ozempic) 1 mg/dose (4 mg/3 mL) pen injector Inject 1 mg subcutaneously once per week. E11.65 (please note increased dose of medication). 3 mL 11 4 11:07 AM EST 10/08/19 24 025 Discontinu ed(Discont inued by Patient) valACYclovir (VALTREX) 500 mg tablet Take 1 tablet (500 mg total) by mouth 2 times a day for 3 days. Take with onset of symptoms for 3 days 90 tablet 4 1:33 PM EST 04/07/20 24 024 Hospital, Clinic, or Other Facility Administered Medication Ordered Dose Route Frequency Start Date End Date Status COVID-19 bivalent vaccine PF, mRNA (age 5-11 yr)(Pfizer) injection 0.2 mL 0.2 mL intramuscu Once 03/21/2022 Active Active Problems Problem Noted Date Diagnosed Date Lipoma of forehead 11/01/2022 Hyperlipidemia 03/07/2006 Foot Pain (Soft Tissue) 03/07/2006 Recent Weight Gain (___ Lbs) 11/06/2005 Type 2 diabetes mellitus wit hout complication, with long-term current use of insulin ([facility]) 11/06/2005 Immunizations Name Administration Dates Next Due COVID-19, Pfizer, mRNA, Biva lent Booster, PF, 30 mcg/0.3 mL dose (for age 12 y and up) 03/21/2022 Social History Tobacco Use Types Packs/Day Years Used Date Smoking Tobacco: Never Smokeless Tobacco: Never Tobacco Cessation:Counseling Given: Not Answered Alcohol Use Standard Drinks/Week Comments Not Currently 0 (1 standard drink = 0.6 oz pur e alcohol) Comments No Sex and Gender Information Value Date Recorded Sex Assigned at Female 03/19/2022 8:42 AM EDT Legal Sex Female 2:23 PM EDT Gender Identity Female 03/19/2022 8:42 AM EDT Sexual Orientation Straight 03/19/2022 8: 42 AM EDT Last Filed Vital Signs Vital Sign Reading Time Taken Comments Blood Pressure 131/75 10/08/2023 4:25 PM EDT Pulse 93 10/08/2023 4:25 PM EDT Temperature 37 ??C (98.6 ??F) 06/09/2021 12:50 PM EST Respiratory Rate 18 06/09/2021 12:50 PM EST Oxygen Saturation 99% 06/09/2021 12:50 PM EST Inhaled Oxygen Concentration - - Weight 76 kg (167 lb 8.8 oz) 10/08/2023 4:25 PM EDT Height 157.5 cm (5' 2 ) 08/23/2022 10:32 AM EDT Body Mass Index 30.65 08/23/2022 10:32 AM EDT Plan of Treatment Not on file Procedures * Due to [place] [employer] law, this organization might not be sharing negative HIV tests. Procedure Name Priority Date/Time Associated Diagnosis Comments POCT GLYCOSYLATED HEMOGLOBIN (HGB A1C) Routine 10/08/2023 4:19 PM EDT MADAI BILATERAL SCREENING DIGITAL MAMMOGRAM WITH MEDARDO Routine 01/10/2022 7:51 AM EDT Encounter for screening mammogram for malignant neoplasm of breast PAP W/REFLEX HPV, CONVERSION Routine 11/06/2005 4:21 PM EDT from Last 3 Months or Most Recently Relevant to Health Maintenance Results * Due to [place] [employer] law, this organization might not be sharing negative HIV tests. * (ABNORMAL) POCT Glycosylated Hemoglobin (HGB A1C), interfaced (10/08/2023 4:19 PM EDT) Hemoglobin A1C, POCT 8.1(H) <=5.6 % 10/08/2023 4:32 PM EDT [facility] Comment: A1C Recommendation for Non- Adults with Diabetes: <7.0% ADA 2011 Standards of Medical Care in Diabetes Blood 10/08/2023 4:19 PM EDT 10/08/2023 4:32 PM EDT us Li Medina PRINCIPAL RESEARCH ECONOMIST LAB POCT ORDERABLES - DEVICE Final Result [facility] [address] [place] [address], [place] * MADAI Bilateral Screening Digital Mammogram With Medardo (01/10/2022 7:51 AM EDT) Anatomical Region Laterality Modality Breast Bilateral Mammography Addenda Addendum by Cris Flowers MD on 01/25/2022 9:21 PM EDT Comparison is now made to prior outside mammograms dated 02/21/2016, 06/21/2011, 01/25/2011, 07/03/2010 and 05/31/2010. Findings: The breasts have scattered areas of fibroglandular density. ??Status post bilateral reduction mammoplasty. ??There are benign-appearing calcifications scattered throughout both breasts. ??There is no dominant mass, unexplained architectural distortion or suspicious grouped microcalcifications in either breast. ??There has been no significant change compared to the prior exams. Impression: No specific mammographic evidence of malignancy in either breast. ??Annual screening mammography is recommended. BI-RADS?? ATLAS category (overall): 2 - Benign MANAGEMENT Routine Screening Mammogram in 1 Year is recommended for bilateral. ?? The patient was entered into a reminder system with a target date for their next mammogram. Narrative 01/12/2022 6:25 PM EDT EXAMINATION MADAI Bilateral Screening Digital Mammogram With Medardo. INDICATION Karon Ingram is a 56 y.o. female and is seen for: MADAI Bilateral Screening Digital Mammogram With Medardo. R2 CAD was used in the interpretation of this study. COMPARISON No prior mammograms available for comparison at the time of dictation. Bilateral Breast Findings: The breasts have scattered areas of fibroglandular density. ??Status post bilateral reduction mammoplasty. ??There are benign-appearing calcifications scattered throughout both breasts. ??There is no dominant mass, unexplained architectural distortion or suspicious grouped microcalcifications in either breast. IMPRESSION No specific mammographic evidence of malignancy in either breast. ??No prior mammograms are available for comparison at the time of dictation. ?? Prior outside mammograms have been requested. ??If prior mammograms become available comparison can be made and an addendum to this report may be issued. BI-RADS?? ATLAS category (overall): 2 - Benign MANAGEMENT Routine Screening Mammogram in 1 Year is recommended for bilateral. ??The patient was entered into a reminder system with a target date for their next mammogram. If this radiology report contains a blank impression section, it is an incomplete radiology report. ??Please contact the interpreting radiologist or applicable radiology division as soon as possible to obtain the completed interpretation. Claudette Diego NP IMG BI PROCEDURES Edited Resul t - Final * Pap w/Reflex HPV (11/06/2005 4:21 PM EDT) Path Procedure TPGA ([id number]) 1 ?? Edited by: [id number] [facility] ANATOMIC PATHOLOGY - BIOTECH THREE Specimen Labeled As: 1 CERVICAL/ENDOCERVI RAFI CYTO MATERIAL - Edited by: [id number] [facility] ANATOMIC PATHOLOGY - BIOTECH THREE Diagnosis ThinPrep Pap Test ? Adequacy: Satisfactory for evaluation - no evidence of Transformation Zone ? sampling. ? Interpretation: Negative for Intraepithelial Lesion or Malignancy ? Remarks/Recommenda tions: ?? This is the result of a morphological screening test with an inherent ?? probability of a false negative interpretation. ??A negative HPV test in ?? combination with the morphological Pap test greatly reduces the probability of ?? a serious cervical epithelial abnormality. ??This Pap test was examined in ?? accordance with the [facility] Cytopathology Laboratory written policy. ? This Pap test was examined by the ThinPrep Imaging System, [employer], ?? [place], [place]. ?? Edited by: [id number] [facility] ANATOMIC PATHOLOGY - BIOTECH THREE Gynecologic Clinical Data Specimen source:, THINPREP (CERVICAL AND ENDOCERVICAL) [facility] ANATOMIC PATHOLOGY - BIOTECH THREE Gynecologic Clinical Data First date of LMP:, 10/13/05 [facility] ANATOMIC PATHOLOGY - BIOTECH THREE Marker 1 NILM,NILM [facility] ANATOMIC PATHOLOGY - BIOTECH THREE Marker 2 KATELYNN BURTON [facility] ANATOMIC PATHOLOGY - BIOTECH THREE Cc Results To LISA VALENTINE [id number] [facility] ANATOMIC PATHOLOGY - BIOTECH THREE Signature REPORT SIGNED: KATELYNN DUNBAR 11/12/05 [facility] ANATOMIC PATHOLOGY - BIOTECH THREE Sign Out Audit KATELYNN DUNBAR [id number] FINAL [place] [facility] [id number] [facility] ANATOMIC PATHOLOGY - BIOTECH THREE Cytology / Unknown 6 4:21 PM EDT 11/07/2005 4:21 PM EDT Soha Hodges MD LAB HISTORICAL RESULTS Li hall Result [facility] ANATOMIC PATHOLOGY - BIOTECH THREE [address] [place] [id number], from Last 3 Months or Most Recently Relevant to Health Maintenance Insurance HSNO/FREE CARE [facility] Care Teams Grades 1 6 Tutor Relationship Specialty Start Date End Date Claudette Diego NP PCP - General 12/04/21
--- OUTSIDE RECORDS SUMMARY | 2024-06-28 17:31 | XMS_ITS | Clinical Summary ---
Author Organization [facility] Address [address] [place] [address] Care Team Providers Care Ecological Modeler Name Role Phone Yair Eaton Primary Care Provid er Allergies No known active allergies Medications Medication Sig Dispensed Refills Start Date End Date Status insulin detemir (LEVEMIR) injection 100 units/mL Inject 80 Units under the skin 2 (two) times a day. 0 Active Insulin Aspart FlexPen 100 UNIT/ML SOPN Inject 18 Units under the skin 2 (two) times a day. 0 Active Semaglutide, 1 MG/DOSE, (Ozempic, 1 MG/DOSE,) 2 MG/1.5ML SOPN Inject under the skin. 0 Active atorvastatin (LIPITOR) tablet 40 mg Take 1 tablet (40 mg total) by mouth daily. 0 Active gabapentin (NEURONTIN) 300 MG capsule Take 1 capsule (300 mg total) by mouth 3 (three) times a day. 0 Active metFORMIN (GLUCOPHAGE) tablet 1000 mg Take 1 tablet (1,000 mg total) by mouth 2 (two) times a day with meals. 0 Active aspirin EC 81 MG tablet Take 1 tablet (81 mg total) by mouth daily. 90 tablet 1 02/13/2024 Active Active Problems Problem Noted Date Diagnosed Date Essential thrombocytosis 03/12/2024 Family History Medical History Relation Name Comments Prostate cancer Father Breast cancer Maternal Aunt Breast cancer Paternal Aunt Relation Name Status Comments Father Maternal Aunt Paternal Aunt Social History Tobacco Use Types Packs/Day Years [...] file Not on file Not on file Last Filed Vital Signs Vital Sign Reading Time Taken Comments Blood Pressure 131/68 02/13/2024 11:44 AM EDT Pulse 99 02/13/2024 11:44 AM EDT Temperature 36.7 ??C (98 ??F) 02/13/2024 11:44 AM EDT Respiratory Rate - - Oxygen Saturation 97% 02/13/2024 11:44 AM EDT Inhaled Oxygen Concentration - - Weight 77.1 kg (170 lb) 02/13/2024 11:44 AM EDT Height 157.5 cm (5' 2 ) 02/13/2024 11:44 AM EDT Body Mass Index 31.09 02/13/2024 11:44 AM EDT Plan of Treatment Health Maintenance Due Date Last Done Comments Hepatitis B Vaccines (1 of 3 - 3-dose series) 1965 Hepatitis C Screening 1965 Pneumococcal Vaccine (1 of 2 - PCV) 1971 Depression Screening 1977 Preventative Health Evaluation 1983 DTap / Tdap / Td (1 - Tdap) 02/21/1984 Shingrix-Zoster Vaccine (1 of 2) 02/21/1984 Cervical Cancer Screening (P ap Smear) 1986 Colon Cancer Screening (Colonoscopy) 2010 Breast Cancer Screening (Mammogram) 2015 COVID-19 Vaccine (2 - Pfizer risk series) 04/11/2022 03/21/2022 Influenza Vaccine (#1) 2024 RSV Ped < 20 months Aged Out No longe r eligible based on patient's age to complete this topic Care Teams Ecological Modeler Relationship Specialty Start Date End Date Yair Eaton MBBS [address] [place] [address] PCP - General Internal Medicine 01/01/24
--- OUTSIDE RECORDS SUMMARY | 2024-06-28 17:31 | XMS_ITS | Encounter Summary ---
Author Organization [facility] Address [address] [id number] Care Team Providers Care Oil Rig Roughneck Name Role Phone Claudette Diego LINE STAKER Primary Care Provider [phone] Reason for Visit * Reason Comments Med Refill Encounter Details Date Type Department Care Team (Late st Contact Info) Description 06/28/2024 Refill [facility] [address] [place] [address] Board Stacker: Mikki Nolasco, Mario Cruz MD [address] [place] [phone] Social History Tobacco Use Types Packs/Day Years [...] AM EDT documented as of this encounter Plan of Treatment Not on file documented as of this encounter Visit Diagnoses Not on filedocumented in this encounter Care Teams Oil Rig Roughneck Relationship Specialty Start Date End Date Claudette Diego NP PCP - General 12/04/21 documented as of this encounter
--- OUTSIDE RECORDS SUMMARY | 2024-06-28 17:31 | XMS_ITS | Clinical Summary ---
Author Organization [facility] Address [address] [place] [address] Care Team Providers Care Grain Picker Name Role Phone Claudette Diego MATERIAL EXPEDITER Primary Care Provider [phone] Allergies Active Allergy Reactions Criticality Noted Date Comments Pollen Extracts Nasal congestion 11/01/2022 Medications flash glucose scanning reader (FreeStyle Juarez 2 [place]) [facility] Use to monitor blood sugars. 1 each [...] strip 11 2 8:07 AM EDT 12/22/19 22 Active Freestyle lancets 28 gauge Use 3 daily. E11.65 100 each 2 8:07 AM EDT 12/22/19 Active polyethylene glycol 3350 (MIRALAX) 17 gram packet Take 1 packet (17 g total) by mouth daily as needed for constipation. Mix powder in 4 to 8 oz of water, juice, coffee, or tea prior to administration. 30 packet 3 2 1:07 PM EDT 10/21/20 22 Active estradioL (ESTRACE) 0.01 % (0.1 mg/gram) [...] complication, with long-term current use of insulin ([facility] ([facility]) Inject up to 60 units under skin [...] COVID-19 bivalent vaccine PF, mRNA (age 5-11 yr)(Matchal[employer]) injection 0.2 mL 0.2 mL intramuscu Once 03/21/2022 Active Active Problems Problem Noted Date Diagnosed Date Lipoma of forehead 11/01/2022 Hyperlipidemia 03/07/2006 Foot Pain (Soft Tissue) 03/07/2006 Recent Weight Gain (___ Lbs) 11/06/2005 Type 2 diabetes mellitus wit hout complication, with long-term current use of insulin ([facility]) 11/06/2005 Encounters Date Type Department Care Team Description 06/28/2024 Refill [facility] [address] [place] [address] Tenant Coordinator: Mikki Nolasco, Mario Cruz MD 06/11/2024 Refill [facility] [address] [place] [address] Tenant Coordinator: Mario Ramírez MD 06/01/2024 Orders Only [facility] [address] [place] [address] Tenant Coordinator: Li Gonzalez NP 05/31/2024 Refill [facility] [address] [place] [address] Tenant Coordinator: Angelina Garza, Fr[place] Type 2 diabetes mellitus without complication, with long-term current use of insulin (CMS/HCC) (HCC) (Primary Dx) from Last 3 Months Immunizations Name Administration Dates Next Due COVID-19, [...] 08/23/2022 10:32 AM EDT Plan of Treatment Health Maintenance Due Date Last Done Comments Basic Metabolic Panel 1965 Cologuard 1965 Colon Cancer Screening 1965 Colonoscopy 1965 FOBT / Fit Test 1965 HIV Screening 1965 Hepatitis C Screening 1965 Sigmoidoscopy 1965 Pneumococcal Vaccine: Pediat partha (0-5 Years) and At-Risk Patients (6-64 Years) (1 of 2 - PCV) 1971 Urine Microalbumin 1975 Hepatitis B Vaccines (1 of 3 - 19+ 3-dose series) 02/21/1984 DTaP,Tdap,and Td Vaccines (1 - Tdap) 1987 HPV and Pap Smear 11/06/2010 11/06/2005, , 10/26/2002 Zoster Vaccines (1 of 2) 2015 Ophthalmology Exam 08/22/2022 08/22/2021 Mammogram 01/11/2024 01/10/2022 COVID-19 Vaccine (3 - 2023-2 5 season) 2024 03/21/2022, 10/20/2020 Influenza Vaccine (#1) 2024 04/01/2023, 2021 Hemoglobin A1C 04/09/2024 10/08/2023, 08/01, 06/28/2022, Additional history exists Alcohol/Substance Use Screening 06/02/2024 Depression Screening and Follow-Up 06/02/2024 Social Drivers of Health Nusrat ual Screening 06/02/2024 Cervical Cancer Screening 01/09/2025 Pap Smear 01/09/2025 01/09/2022, 06/0 11/2005, 03/29/2004, Additional history exists RSV Vaccine (60+ years old a nd patients) (1 - 1-dose 75+ series) 02/21/2040 Procedures * Due to [place] state law, this organization might not be sharing [...] to Health Maintenance Results * Due to [place] state law, this organization might not be sharing negative HIV tests. * (ABNORMAL) POCT Glycosylated Hemoglobin (HGB A1C), interfaced (10/08/2023 4:19 PM EDT) Hemoglobin A1C, POCT 8.1(H) <=5.6 % 10/08/2023 4:32 PM EDT [facility] Comment: A1C Recommendation for Non- Adults with Diabetes: <7.0% ADA 2011 Standards of Medical Care in Diabetes Blood 10/08/2023 4:19 PM EDT 10/08/2023 4:32 PM EDT us Li Medina MATERIAL EXPEDITER LAB POCT ORDERABLES - DEVICE Final Result [facility] [address] [place] [address], * MADAI Bilateral Screening Digital Mammogram With [...] obtain the completed interpretation. Claudette Diego NP IM BI PROCEDURES Edited Resul t - Final * Pap w/Reflex HPV (11/06/2005 4:21 PM EDT) Path Procedure TPGA ([id number]) 1 ?? Edited by: [id number] [facility] ANATOMIC PATHOLOGY - BIOTECH THREE Specimen Labeled As: 1 CERVICAL/ENDOCERVI RAFI CYTO MATERIAL - Edited by: [id number] [facility] ANATOMIC PATHOLOGY - BIOTECH THREE Diagnosis [...] was examined in ?? accordance with the [facility] Cytopathology Laboratory written policy. ? This Pap test was examined by the CadeePrep Imaging System, [employer], ?? [place], [place]. ?? Edited by: [id number] [facility] ANATOMIC PATHOLOGY - BIOTECH THREE Gynecologic Clinical Data Specimen source:, THINPREP (CERVICAL AND ENDOCERVICAL) [facility] ANATOMIC PATHOLOGY - BIOTECH THREE Gynecologic Clinical Data First date of LMP:, 10/13/05 [facility] ANATOMIC PATHOLOGY - BIOTECH THREE Marker 1 NILM,NILM [facility] ANATOMIC PATHOLOGY - BIOTECH THREE Marker 2 MIKKI [facility] ANATOMIC PATHOLOGY - BIOTECH THREE Cc Results To LISA VALENTINE [id number] [facility] ANATOMIC PATHOLOGY - BIOTECH THREE Signature REPORT SIGNED: MIKKI DUNBAR 11/12/05 [facility] ANATOMIC PATHOLOGY - BIOTECH THREE Sign Out Audit MIKKI DUNBAR [id number] FINAL [facility] [id number] [facility] ANATOMIC PATHOLOGY - BIOTECH THREE Cytology / Unknown 6 4:21 PM EDT 11/07/2005 4:21 PM EDT us Soha Hodges MD LAB HISTORICAL RESULTS Li hall Result [facility] ANATOMIC PATHOLOGY - [place] [address], from Last 3 Months or Most Recently Relevant to Health Maintenance Insurance HSNO/FREE CARE Care Teams Grain Picker Relationship Specialty Start Date End Date Claudette Diego NP PCP - General 12/04/21
--- OUTSIDE RECORDS SUMMARY | 2024-06-28 17:31 | XMS_ITS | Encounter Summary ---
Author Organization [facility] Address [address] [place] [address] Care Team Providers Care Discharging Machine Operator Name Role Phone Claudette Diego CAN LINE OPERATOR Primary Care Provider [phone] Encounter Details Date Type Department Care Team (Late st Contact Info) Description 06/01/2024 Orders Only [facility] [address] [place] [address] Respiratory Equipment Assistant: Li Gonzalez NP [address] [place] [address] Social History Tobacco Use Types Packs/Day Years [...] on filedocumented in this encounter Care Teams Discharging Machine Operator Relationship Specialty Start Date End Date Claudette Diego NP PCP - General 12/04/21 documented as of this encounter
--- OUTSIDE RECORDS SUMMARY | 2024-06-28 17:31 | XMS_ITS | Encounter Summary ---
Author Organization [facility] Address [address] [id number] Care Team Providers Care Cushion Worker Name Role Phone Claudette Diego ACCOUNT GENERAL MANAGER Primary Care Provider [phone] Reason for Visit * Reason Comments Med Refill Encounter Details Date Type Department Care Team (Late st Contact Info) Description 06/11/2024 Refill [facility] [address] [place] [address] Cement Patcher: Mikki Nolasco, Mario Cruz MD [address] [place] [address] Social History Tobacco Use Types Packs/Day Years [...] on filedocumented in this encounter Care Teams Cushion Worker Relationship Specialty Start Date End Date Claudette Diego NP PCP - General 12/04/21 documented as of this encounter
--- OUTSIDE RECORDS SUMMARY | 2024-06-28 17:31 | XMS_ITS | Clinical Summary ---
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 Phone Unavailable Primary Care Provider Unavailabl e Social History Tobacco Use Types Packs/Day Years Used Date Smoking Tobacco: Never Assessed Comments Unknown Sex and Gender Information Value Date Recorded Sex Assigned at Not on file Legal Sex Female 6:14 PM EDT Gender Identity Female 11/05/2023 6:14 PM EDT Sexual Orientation Straight 11/05/2023 6: 14 PM EDT Plan of Treatment Health Maintenance Due Date Last Done Comments CT Colonography 1965 Colonoscopy 1965 Depression Screening 1965 FIT 1965 FOBT 1965 HIV Screening 1965 Lipid Panel 1965 SDOH Screening 1965 Sigmoidoscopy 1965 Alcohol/Substance Use Screening 1977 Tobacco Screening 1977 Hepatitis C Screening 1983 DTaP/Tdap/Td Vaccines (1 - Tdap) 02/21/1984 Hepatitis B Vaccines (1 of 3 - 19+ 3-dose series) 02/21/1984 Pap Smear 1986 Cervical Cancer Screening 1995 HPV/Cotest 1995 Zoster Vaccines (1 of 2) 2015 Colorectal Cancer Screening 08/03/2022 FIT DNA/Cologuard 08/03/2022 08/03/2021 Mammogram 01/11/2024 01/10/2022 COVID-19 Vaccine (2 - 2023-2 5 season) 2024 03/21/2022 Influenza Vaccine (#1) 2024 RSV Patients and Pa tients Aged 60 years or older (1 - 1-dose 75+ series) 02/21/2040 HIB Vaccines Aged Out No longer eligi ble based on patient's age to complete this topic HPV Vaccines Aged Out No longer eligi ble based on patient's age to complete this topic Hepatitis A Vaccines Aged Out No long er eligible based on patient's age to complete this topic IPV Vaccines Aged Out No longer eligi ble based on patient's age to complete this topic Meningococcal Vaccine Aged Out No radha khadijah eligible based on patient's age to complete this topic Pneumococcal Vaccine: Pediat rics (0 to 5 Years) and At-Risk Patients (6 to 64 Years) Aged Out No longer eligi ble based on patient's age to complete this topic RSV under 20 months Aged Out No longe r eligible based on patient's age to complete this topic Rotavirus Vaccines Aged Out No longer eligible based on patient's age to complete this topic Procedures Procedure Name Priority Date/Time Associated Diagnosis Comments HM FIT DNA/COLOGUARD CANCER SCREENING Routine 08/03/2021 from Last 3 Months or Most Recently Relevant to Health Maintenance Results * FIT DNA/Cologuard Cancer Screening (08/03/2021) Cologuard Cancer Screen Negative Stool Historical Provider MD HEALTH MAINTENANCE Final Result from Last 3 Months or Most Recently Relevant to Health Maintenance
--- OUTSIDE RECORDS SUMMARY | 2024-06-28 17:31 | XMS_ITS | Clinical Summary ---
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 Active diclofenac (VOLTAREN) 1 % topical gel Apply 4 g topically 2 times daily. 01/26/2024 Active fexofenadine (WARREN) 60 mg tablet Take 1 tablet (60 mg total) by mouth 1 (one) time each day. 02/04/2024 Active insulin aspart (NovoLOG Flexpen U-100 Insulin) 100 unit/mL (3 mL) injection pen Inject into the skin 2 times daily. 12 units Active insulin detemir (LEVEMIR) 100 unit/mL injection Inject into the skin 2 times daily. 60 units Active metFORMIN (GLUCOPHAGE) 1,000 mg tablet Take 1 Tablet by mouth 2 times daily (with meals). Active multivitamin (MULTIPLE VITAMINS ORAL) Take by mouth. Active aspirin 81 mg chewable tablet Chew 1 tablet (81 mg total) 1 (one) time each day. Active Active Problems Problem Noted Date Diagnosed Date Essential thrombocytosis 05/14/2024 Type 2 diabetes mellitus wit h diabetic polyneuropathy, with long-term current use of insulin 03/16/2024 Encounters Date Type Department Care Team Description 06/17/2024 9:30 AM EST Office Visit Endocrinology [address] [phone] Patricia Lerma MD Type 2 diabetes mellitus with diabetic polyneuropathy, with long-term current use of insulin (CMS/HCC) (Primary Dx) 06/15/2024 1:15 PM EST Ancillary Procedure [facility] [address] [place] [address] Shortness of breath 05/18/2024 Telephone Adult Medicine [address] [phone] Yair Eaton MD 05/14/2024 3:57 PM EST - 05/14/2024 11:59 PM EST Hospital Encounter [address] [phone] Shortness of breath Discharge Disposition: Home or Self Care 05/14/2024 2:30 PM EST Office Visit Adult Medicine [address] [phone] Yair Eaton MD Type 2 diabetes mellitus with diabetic polyneuropathy, with long-term current use of insulin (CMS/HCC) (Primary Dx); Shortness of breath; Essential thrombocytosis (CMS/HCC); Numbness and tingling of both lower extremities; Sensation of fullness in both ears; Other infective acute otitis externa of right ear; Hair loss; Family history of coronary artery disease in father; Encounter for screening for coronary artery disease 04/13/2024 9:00 AM EST Office Visit Adult Medicine [address] [phone] Feli Calloway NP Plantar fasciitis of right foot (Primary Dx); Chronic pain of right heel; Itching of ear 04/12/2024 Telephone Adult Medicine [address] [phone] Nel Silva LPN 04/09/2024 Telephone Adult Medicine [address] [phone] Yair Eaton MD Foot Pain (Pain on the top of the right foot, abnormally warm to the touch, theres a numbung sensation the radiates all the way the her knee. Patient has been having the pain for 3 days, right ear pain) from Last 3 Months Immunizations Name Administration Dates Next Due Pfizer SARS-CoV-2 COVID-19, mRNA, LNP-S, preservative free 03/21/2022 Medical History Medical History Date Comments Diabetes mellitus ([facility]/HCC) DX:D iabetes mellitus ([facility]) Family History Medical History Relation Name Comments Prostate cancer Father Breast cancer Father's Sister Breast cancer Mother's Sister Relation Name Status Comments Father Father's Sister Mother's Sister Social History Tobacco Use Types Packs/Day Years [...] file Not on file Not on file Obstetrics History Last Filed Vital Signs Vital Sign Reading Time Taken Comments Blood Pressure 137/70 06/17/2024 9:36 AM EST Pulse 88 06/17/2024 9:36 AM EST Temperature 36.1 ??C (97 ??F) 06/17/2024 9:36 AM EST Respiratory Rate 16 05/14/2024 2:33 PM EST Oxygen Saturation 96% 06/17/2024 9:36 AM EST Inhaled Oxygen Concentration - - Weight 80.3 kg (177 lb) 06/17/2024 9:36 AM EST Height 157.5 cm (5' 2 ) 06/17/2024 9:36 AM EST Body Mass Index 32.37 06/17/2024 9:36 AM EST Plan of Treatment Upcoming Encounters Date Type Department Care Team (Late st Contact Info) Description 07/16/2024 11:15 AM EST Office Visit Endocrinology - [place] [address] [place], [place] [phone] Patricia Lerma MD [address] [place] [address] 08/10/2024 10:00 AM EDT Ancillary Procedure [facility] [address] [place] [phone] 08/13/2024 10:00 AM EDT Office Visit [facility] Hematology Oncology [address] [place] [phone] Chelo Valencia PA [address] [place] [address] Health Maintenance Due Date Last Done Comments Pneumococcal Vaccine: Pediatrics (0 to 5 Years) and At-Risk Patients (6 to 64 Years) (1 of 2 - PCV) 1971 Diabetes: Annual Retina Eye Exam 1975 DTaP,Tdap,and Td Vaccines (1 - Tdap) 02/21/1984 Hepatitis B Vaccines (1 of 3 - 19+ 3-dose series) 02/21/1984 Zoster Vaccines (1 of 2) 02/21/1984 Cervical Cancer Screening: P ap Smear 1986 COVID-19 Vaccine (2 - Pfizer risk series) 04/11/2022 03/21/2022 Breast Cancer Screening 01/11/2024 01/10/2022 Influenza Vaccine (#1) 2024 Colorectal Cancer Screening: Colonoscopy 03/10/2024 Depression Screening 03/10/2024 HIV Screening 03/10/2024 Social Influencers of Health Screening 03/10/2024 Diabetes: Blood Sugar Contro l Test (HGBA1C) 11/15/2024 05/17/2024, 11/13/2023, 10/08/2023 Diabetes: Annual Foot Exam 02/03/2025 02/04/2024 Diabetes: Annual Urine Albumin-Creatinine Ratio (uACR) 05/17/2025 05/17/2024, 11/13/2023 Diabetes: Annual GFR (Glomerular Filtration Rate) 05/17/2025 05/17/2024, 11/13/2023 Cholesterol Screening (Lipid Panel) 05/17/2029 05/17/2024, 11/13/2023 RSV Immunization Patients 60 + Years Old (1 - 1-dose 75+ series) 02/21/2040 Hepatitis C Screening Completed 11/13/2023 HIB Vaccines Aged Out No longer eligi [...] on patient's age to complete this topic MMR Vaccines Aged Out No longer eligi ble based on patient's age to complete this topic Meningococcal ACWY Vaccine Aged Out N o longer eligible based on patient's age to complete this topic RSV Immunization Patients Under 20 months Aged Out No longer eligible b ased on patient's age to complete this topic Varicella Vaccines Aged Out No longer eligible based on patient's age to complete this topic Procedures Procedure Name Priority Date/Time Associated Diagnosis Comments STRESS TEST ONLY EXERCISE Routine 06/15/2024 1:35 PM EST Shortness of breath CBC WITH AUTO DIFFERENTIAL Routine 05/17/2024 12:06 PM EST Type 2 diabetes mellitus with diabetic polyneuropathy, with long-term current use of insulin (CMS/HCC) Essential thrombocytosis (CMS/HCC) CBC AND DIFFERENTIAL Routine 05/17/2024 12:06 PM EST Type 2 diabetes mellitus with diabetic polyneuropathy, with long-term current use of insulin (CMS/HCC) Essential thrombocytosis (CMS/HCC) LIPID PANEL WITH REFLEX TO DIRECT LDL Routine 05/17/2024 12:06 PM EST Type 2 diabetes mellitus with diabetic polyneuropathy, with long-term current use of insulin (CMS/HCC) MICROALBUMIN CREATININE URINE RATIO Routine 05/17/2024 12:06 PM EST Type 2 diabetes mellitus with diabetic polyneuropathy, with long-term current use of insulin (CMS/HCC) COMPREHENSIVE METABOLIC PANEL Routine 05/17/2024 12:06 PM EST Type 2 diabetes mellitus with diabetic polyneuropathy, with long-term current use of insulin (CMS/HCC) HEMOGLOBIN A1C Routine 05/17/2024 12:06 PM EST Type 2 diabetes mellitus with diabetic polyneuropathy, with long-term current use of insulin (CMS/HCC) XR CHEST 2 VIEWS Routine 05/14/2024 4:05 PM EST Shortness of breath ECG 12-LEAD TRACING ONLY Routine 05/14/2024 4:03 PM EST Shortness of breath HM DIABETES FOOT EXAM Routine 02/04/2024 HM HEPATITIS C SCREENING Routine 11/13/2023 from Last 3 Months or Most Recently Relevant to Health Maintenance Results * Exercise stress test (06/15/2024 1:35 [...] Yair Eaton MD CV STRESS PROC EDURES * Lipid panel with reflex to direct LDL (05/17/2024 12:06 PM EST) Cholesterol 131 0 - 200 mg/dL LAB CHEMISTRY METHOD 05/17/2024 7:34 PM EST [facility] Triglycerides 83 0 - 150 mg/dL LAB CHEMISTRY METHOD 05/17/2024 7:34 PM EST [facility] HDL 49 >=40 mg/dL LAB CHEMISTRY METHOD 05/17/2024 7:34 PM EST [facility] LDL Calculated 65 0 - 100 mg/dL LAB CHEMISTRY METHOD 05/17/2024 7:34 PM [facility] VLDL Cholesterol Osman 16.6 mg/dL LAB CHEMISTRY METHOD 05/17/2024 7:34 PM [facility] Non HDL Chol. (LDL+VLDL) 82 <145 mg/dL LAB CHEMISTRY METHOD 05/17/2024 7:34 PM [facility] Chol/HDL Ratio 2.7 0.0 - 4.4 LAB CHEMISTRY METHOD 05/17/2024 7:34 PM [facility] Blood Venous blood specimen / Unknown Venipuncture / Unknown 05/17/2024 12:06 PM EST 05/17/2024 12:06 PM EST Yair Eaton MD LAB BLOOD [facility] Organization Address City/State/ZIP Co de Phone Number [facility] [address] [place] [address], * (ABNORMAL) CBC auto differential (05/17/2024 12:06 PM EST) WBC 8.0 4.8 - 10.8 K/mcL LAB HEMETOLOGY METHOD 05/17/2024 2:06 PM [facility] RBC 4.80 3.80 - 4.80 M/mcL LAB HEMETOLOGY METHOD 05/17/2024 2:06 PM [facility] Hemoglobin 13.6 11.5 - 16.0 g/dL LAB HEMETOLOGY METHOD 05/17/2024 2:06 PM [facility] Hematocrit 42.8 35.0 - 47.0 % LAB HEMETOLOGY METHOD 05/17/2024 2:06 PM [facility] MCV 90.1 79.0 - 98.0 FL LAB HEMETOLOGY METHOD 05/17/2024 2:06 PM [facility] MCH 28.6 27.0 - 32.0 pcg LAB HEMETOLOGY METHOD 05/17/2024 2:06 PM [facility] MCHC 31.8(L) 32.0 - 37.0 g/dL LAB HEMETOLOGY METHOD 05/17/2024 2:06 PM [facility] RDW 14.5 11.0 - 15.0 % LAB HEMETOLOGY METHOD 05/17/2024 2:06 PM [facility] Platelets 612(H) 130 - 400 K/mcL LAB HEMETOLOGY METHOD 05/17/2024 2:06 PM [facility] MPV 9.4 7.0 - 11.0 FL LAB HEMETOLOGY METHOD 05/17/2024 2:06 PM [facility] NRBC 0.0 <1.0 % LAB HEMETOLOGY METHOD 05/17/2024 2:06 PM [facility] NRBC Absolute 0.00 <0.10 K/mcL LAB HEMETOLOGY METHOD 05/17/2024 2:06 PM [facility] Neutrophils Relative 57.4 % LAB HEMETOLOGY METHOD 05/17/2024 2:06 PM [facility] Lymphocytes Relative 33.0 % LAB HEMETOLOGY METHOD 05/17/2024 2:06 PM [facility] Monocytes Relative 6.8 % LAB HEMETOLOGY METHOD 05/17/2024 2:06 PM [facility] Eosinophils Relative 1.9 % LAB HEMETOLOGY METHOD 05/17/2024 2:06 PM [facility] Basophils Relative 0.6 % LAB HEMETOLOGY METHOD 05/17/2024 2:06 PM [facility] Immature Granulocytes Relative 0.3 % LAB HEMETOLOGY METHOD 05/17/2024 2:06 PM [facility] Neutrophils Absolute 4.57 1.50 - 7.00 K/mcL LAB HEMETOLOGY METHOD 05/17/2024 2:06 PM EST [facility] Lymphocytes Absolute 2.62 1.00 - 5.00 K/mcL LAB HEMETOLOGY METHOD 05/17/2024 2:06 PM EST [facility] Monocytes Absolute 0.54 0.20 - 1.00 K/mcL LAB HEMETOLOGY METHOD 05/17/2024 2:06 PM EST [facility] Eosinophils Absolute 0.15 0.00 - 0.50 K/mcL LAB HEMETOLOGY METHOD 05/17/2024 2:06 PM EST [facility] Basophils Absolute 0.05 0.00 - 0.20 K/mcL LAB HEMETOLOGY METHOD 05/17/2024 2:06 PM EST [facility] Immature Granulocytes Absolute 0.02 0.00 - 0.03 K/[facility] LAB HEMETOLOGY METHOD 05/17/2024 2:06 PM EST [facility] Blood Venous blood specimen / Unknown Venipuncture / Unknown 05/17/2024 12:06 PM EST 05/17/2024 12:06 PM EST Yair Eaton MD [facility] Organization Address City/State/ZIP Co de Phone Number [facility] [address] [place] [address], * Microalbumin creatinine urine ratio (05/17/2024 12:06 PM EST) Creatinine, Urine 141.0 mg/dL LAB CHEMISTRY METHOD 05/17/2024 5:59 PM [facility] Microalb, Ur 10.0 0.0 - 29.0 mg/L LAB CHEMISTRY METHOD 05/17/2024 5:59 PM [facility] Microalb/Creat Ratio 7 <30 mg/g creat LAB CHEMISTRY METHOD 05/17/2024 5:59 PM EST [facility] Urine Urine specimen obtained by clean catch procedure / Unknown Non-blood Collection / Unknown 05/17/2024 12:06 PM EST 05/17/2024 12:06 PM EST Yair Eaton MD LAB URINE ORDTrung EATON Performing Organization Address [facility]/ZIP Co de Phone Number [facility] [address] [place] [address], [place] [phone] * (ABNORMAL) Hemoglobin A1c (05/17/2024 12:06 PM EST) Hemoglobin A1C 8.9(H) <6.5 % LAB CHEMISTRY METHOD 05/17/2024 10:18 PM EST [facility] Mean Bld Glu Estim. 209 mg/dL LAB CHEMISTRY METHOD 05/17/2024 10:18 PM EST [facility] Blood Venous blood specimen / Unknown Venipuncture / Unknown 05/17/2024 12:06 PM EST 05/17/2024 12:06 PM EST Yair Eaton MD LAB BLOOD ORDTrung EATON Performing Organization Address [facility]/ZIP Co de Phone Number [facility] [address] [place] [address], [place] [phone] * (ABNORMAL) Comprehensive metabolic panel (05/17/2024 12:06 PM EST) Sodium 142 133 - 145 mmol/L LAB CHEMISTRY METHOD 05/17/2024 7:34 PM EST [facility] Potassium 4.5 3.5 - 5.5 mmol/L LAB CHEMISTRY METHOD 05/17/2024 7:34 PM EST [facility] Chloride 109 96 - 110 mmol/L LAB CHEMISTRY METHOD 05/17/2024 7:34 PM EST [facility] CO2 26 21 - 32 mmol/L LAB CHEMISTRY METHOD 05/17/2024 7:34 PM [facility] Anion Gap 7 3 - 11 LAB CHEMISTRY METHOD 05/17/2024 7:34 PM [facility] Glucose 143(H) 70 - 100 mg/dL LAB CHEMISTRY METHOD 05/17/2024 7:34 PM [facility] BUN 10 5 - 25 mg/dL LAB CHEMISTRY METHOD 05/17/2024 7:34 PM [facility] Creatinine 0.70 0.50 - 1.10 mg/dL LAB CHEMISTRY METHOD 05/17/2024 7:34 PM [facility] eGFR 100 >=60 mL/min/1. 73m2 LAB CHEMISTRY METHOD 05/17/2024 7:34 PM [facility] Comment:Calculation based on the??Chronic Kidney Disease Epidemiology Collaboration (CKD-EPI) equation refit??without adjustment for race. BUN/Creatinine Ratio 14.3 LAB CHEMISTRY METHOD 05/17/2024 7:34 PM [facility] Calcium 9.5 8.5 - 10.5 mg/dL LAB CHEMISTRY METHOD 05/17/2024 7:34 PM [facility] AST (SGOT) 28 10 - 42 unit/L LAB CHEMISTRY METHOD 05/17/2024 7:34 PM [facility] ALT (SGPT) 47 10 - 60 unit/L LAB CHEMISTRY METHOD 05/17/2024 7:34 PM [facility] Alkaline Phosphatase 75 42 - 121 unit/L LAB CHEMISTRY METHOD 05/17/2024 7:34 PM [facility] Total Protein 7.1 6.0 - 8.0 g/dL LAB CHEMISTRY METHOD 05/17/2024 7:34 PM [facility] Albumin 3.9 3.2 - 5.0 g/dL LAB CHEMISTRY METHOD 05/17/2024 7:34 PM [facility] Total Bilirubin 0.4 0.0 - 1.4 mg/dL LAB CHEMISTRY METHOD 05/17/2024 7:34 PM EST [facility] Blood Venous blood specimen / Unknown Venipuncture / Unknown 05/17/2024 12:06 PM EST 05/17/2024 12:06 PM EST Yair Eaton MD LAB BLOOD TORI EATON [facility] Organization Address City/State/ZIP Co de Phone Number [facility] [address] [place] [address], [place] [phone] * XR Chest 2 Views (05/14/2024 4:05 PM EST) Anatomical Region Laterality Modality Body Radiographic Hamida ging 05/14/2024 7:14 PM EST Impressions 05/14/2024 7:17 PM EST No evidence of an acute chest process. POS - [id number] -------- FINAL REPORT -------- Dictated By: Angelica Smith Dictated Date: 05/14/2024 19:14 ET Assigned Physician: Angelica Smith Reviewed and Electronically Signed By: Angelica Smith Signed Date: 05/14/2024 19:17 ET Workstation ID: [id number] Transcribed By: Self Edit Transcribed Date: 05/14/2024 19:14 ET Narrative 05/14/2024 7:17 PM EST EXAM: Chest x-ray HISTORY: ??Shortness of breath. COMPARISON: None FINDINGS: PA and lateral views of the chest were performed. ?? No focal infiltrate, pleural effusion, or evidence of pulmonary edema. ??No pneumothorax. ??Heart and mediastinal contours appear within normal limits. Extensive bridging endplate osteophytes. Procedure Note Angelica Smith MD - 05/14/2024 EXAM: Chest x-ray HISTORY: Shortness of breath. COMPARISON: None FINDINGS: PA and lateral views of the chest were performed. No focal infiltrate, pleural effusion, or evidence of pulmonary edema. Nopneumothorax. Heart and mediastinal contours appear within normal limits.Extensive bridging endplate osteophytes. IMPRESSION: No evidence of an acute chest process. POS - [id number] -------- FINAL REPORT -------- Dictated By: Angelica Smith Dictated Date: 05/14/2024 19:14 ET Assigned Physician: Angelica Smith Reviewed and Electronically Signed By: Angelica Smith Signed Date: 05/14/2024 19:17 ET Workstation ID: [id number] Transcribed By: Self Edit Transcribed Date: 05/14/2024 19:14 ET Yair Eaton MD IMG XR PROCEDU RES * ECG 12 lead Tracing Only (05/14/2024 4:03 PM EST) Angela Valenzuela MD ECG ORDERA BLES * Diabetes Foot Exam (02/04/2024) Pathologist [facility] Diabetes: Annual Foot Exam abstracted Historical Provider MD ALMA MCINTYRE E * Hepatitis C Screening (11/13/2023) [facility] Hepatitis C Screening abstracted Historical Provider MD MARQUEZ MAINMURRAY E from Last 3 Months or Most Recently Relevant to Health Maintenance Care Teams 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
== END 2024-06-28 12:51 | disposition home or self-care (01) ==
LOC: HO.MRI 12:50
PROVIDERS: Visit Provider Advanced Practice Midwife
DX: D21.9 Benign neoplasm of connective and other soft tissue, unspecified (principal)
CPT/HCPCS: 72197; A9585

== ENCOUNTER → 2024-06-28 12:57 | Outpatient (BNV) | payer OTHER, SELFPAY | PROVIDERS: Visit Provider Radiology Diagnostic Radiology | DX: D25.9 Leiomyoma of uterus, unspecified (principal) | CPT/HCPCS: 72197 ==

== ENCOUNTER 2024-07-20 09:56 | Outpatient (AMB) | payer OTHER, SELFPAY ==
--- NOTE | 2024-07-20 10:11 | A.OFFVIS_ITS ---
Intake Visit Reasons: MRI Results Interior Design Instructor: Interior Design Instructor Present (Allison) Accompanied by: Self / Same As Patient Allergies No Known Allergies Allergy (Verified 07/20/24 10:12) Is last menstrual period known: Yes HPI Comments Details: Patient is here today for a follow up MRI of the pelvis. She has a history of fibroids. She admits to pelvic pain and pressure. She has tried medical suppression in her 20s, had also reported trial of interventional radiology. At this time she is requesting a hysterectomy to to her discomfort in increasing size in number of fibroids noted. [facility] Medical History (Updated 07/20/24 @ 10:30 by Belia Alvarez CNM) Bloating Fibroid Pelvic pain High cholesterol Diabetes mellitus Surgical History H/O bilateral breast reduction surgery H/O abdominoplasty H/O myomectomy Hx of section Family History Maternal Aunt History of breast cancer Social History Alcohol intake: current Alcohol intake frequency: holidays/special occasions only Alcohol type: wine Patient Tobacco Use Status: Never used Tobacco Review of Systems Const All systems reviewed & are unremarkable except as noted in HPI and below Endo Reports no additional complaints Physical Exam Const General: cooperative, healthy appearing and no acute distress Psych Appearance: well kempt Attitude: cooperative Thought process: Normal thought process present Results Reviewed Results Reviewed: [address] [address] Magnetic Resonance Report Signed Patient: Karon Ingram MR#: [id number] : 1965 Acct:[id number] Age/Sex: 59 / F ADM Date: 06/28/24 Loc: HO.MRI Attending Dr: Belia Alvarez CNM Ordering Physician: Belia Alvarez CNM Date of Service: 06/28/24 Procedure(s): MR pelvis wo/w con Accession Number(s): [id number] cc: Belia Alvarez CNM~ EXAMINATION: MR PELVIS WITHOUT THEN WITH IV CONTRAST HISTORY: D21.9 - Benign neoplasm of connective and other soft tissue, unspecified. TECHNIQUE: Axial T1 and fat-suppressed T2, and sagittal and coronal T2-weighted MR images of the pelvis were obtained. Subsequently, axial fat-suppressed T1-weighted images were obtained after the intravenous administration of 7.5 mm Gadavist. COMPARISON: Correlation is made with a pelvic ultrasound dated 04/19/2024. FINDINGS: The uterus is enlarged and contains multiple T2 hypointense fibroids. The largest fibroids are as follows: Posterior fundal fibroid measuring 4.4 x 4.2 x 4.7 cm without significant enhancement. Anterior subserosal fibroid measuring 5.4 x 3.4 x 3.9 cm which demonstrates intense homogeneous enhancement. Anterior uterine fibroid measuring 2.6 x 2.9 x 3.0 cm which may be submucosal. No significant enhancement. Left-sided intramural fibroid measuring 2.5 x 1.5 x 2.0 cm without significant enhancement. Right-sided subserosal fibroid measuring 2.1 x 1.9 x 2.1 cm, which demonstrates minimal enhancement. Multiple additional smaller fibroids are noted. The endometrium is markedly distorted by the multiple fibroids. The junctional zone does not appear thickened. The right ovary measures 2.1 x 1.2 x 1.6 cm is unremarkable. The left ovary measures 1.2 x 1.9 x 1.3 cm and is unremarkable. No free fluid is seen in the pelvis. There is no lymphadenopathy. There is diverticulosis of the sigmoid colon, without evidence of diverticulitis. The urinary bladder is collapsed. MR/MR pelvis wo/w con IMPRESSION: Fibroid uterus as described. Electronically signed by: Emanuel Olivas MD 06/28/2024 03:14 PM [facility] Dictated By: Emanuel Olivas MD Signed By: <Electronically signed by Emanuel Olivas MD in OV> 06/28/24 1514 DD/ 1257 TD/TT: 06/28/24 1330 Private Eye: Assessment & Plan Assessment & Plan (1) Fibroid: Code(s): D21.9 - Benign neoplasm of connective and other soft tissue, unspecified Category: Medical (2) Encounter to discuss test results: Code(s): Z71.2 - Person consulting for explanation of examination or test findings Plan: Discussed: MRI results-multiple fibroids with new ones described today. Patient requests to proceed with consult for surgery. Plan Counseled re: Leiomyoma: common pelvic neoplasm. Differential diagnosis-may include but not limited to- leiomyosarcoma which is a rare uterine sarcoma 3- 7/100,000, difficult to distinguish from fibroids on ultrasound from uterine sarcoma's. Unlikely any single test will have a highly positive predictive value. Hysterectomy is not recommended for sole purpose of excluding malignant neoplasm. Consult for surgical exploration, medical treatment, other treatments, verses expectant management, pros and cons, risks and benefits. Patient does not want to proceed with the expectant management and requests to have a hysterectomy. Report any PMB, increase pelvic pressure, bloating, or pain. Referral to MD at [facility] for surgical consult. Annual exam scheduled for April of 2025. The patient expressed understanding and agreement with the plan of care. All of her questions and concerns were addressed to the best of my ability. This note is constructed using voice recognition software. While every effort has been made to ensure accuracy, programmer business errors may have been included. Orders: Referrals RN NEUROLOGY Referral D21.9 - Benign neoplasm of connective and other soft tissue, unspecified, R10.2 - Pelvic and perineal pain, R14.0 - Abdominal distension (gaseous) Coding Level of Care Code Est Pt Level 3 (71237) Diagnoses Fibroid D21.9 Encounter to discuss test results Z71.2
--- OUTSIDE RECORDS SUMMARY | 2024-07-20 10:40 | XMS_ITS | Clinical Summary ---
Author Organization [employer] Address [address] [place] [address] [address] [place] [address] Care Team Providers Care Hot Blast Worker Name Role Phone Unavailable Primary Care Provider [...] 1986 Cervical Cancer Screening 1995 HPV/Cotest 1995 Pneumococcal Vaccine: 50+ Ye ars (1 of 1 - PCV) 2015 Zoster Vaccines (1 of 2) 2015 Colorectal [...] Screening (08/03/2021) Cologuard Cancer Screen Negative Stool us Historical Provider MD HEALTH MAINTENANCE Final Result from Last 3 Months or Most Recently Relevant to Health Maintenance
--- OUTSIDE RECORDS SUMMARY | 2024-07-20 10:41 | XMS_ITS | Referral Summary ---
Author Organization [facility] Address [address] [place] [address] Care Team Providers Care Fibreglass Laminator Name Role Phone ChaseClaudette wu TRISTEN Primary Care Provider [phone] Encounters Date Type Department Care Team Description 06/28/2024 Refill [facility] [address] [place] [id number] Agent Producer: Mario Ramírez MD 06/11/2024 Refill [facility] [address] [place] [id number] Agent Producer: Mario Ramírez MD 06/01/2024 Orders Only [facility] [address] [place] [phone] Agent Producer: Li Gonzalez NP 05/31/2024 Refill [facility] [address] [place] [id number] Agent Producer: Angelina Garza CPhT Type 2 diabetes mellitus without complication, with long-term current use of insulin ([facility]) ([facility]) (Primary Dx) from Last 3 Months Allergies Active Allergy Reactions Criticality Noted Date Comments Pollen Extracts Nasal congestion 11/01/2022 Medications flash glucose scanning reader (PageStitchStyle Juarez 2 Mccrory) [facility] Use to monitor blood sugars. 1 each 10/10/2021 9:49 AM EDT 2 Active blood glucose diagnostic test strip Use to test 3 times daily. Dx: E11.65 100 strip 11 2 Active blood glucose diagnostic lancet 28 gauge Use to test 3 times daily. Dx: E11.65 100 each 11 2 Active blood glucose diagnostic meter Use to test up to 4 times daily. 1 each 2 Active FreeStyle Lite Meter meter Use 1 daily. E11.65 1 each 12/21/2021 12:30 PM EDT 2 Active Freestyle Lite test strips Use 3 daily. E11.65 100 strip 11 02/18/2022 8:07 AM EDT 2 Active Freestyle lancets 28 gauge Use 3 daily. E11.65 100 each 11 02/18/2022 8:07 AM EDT 2 Active polyethylene glycol 3350 (MIRALAX) 17 gram packet Take 1 packet (17 g total) by mouth daily as needed for constipation. Mix powder in 4 to 8 oz of water, juice, coffee, or tea prior to administratio n. 30 packet 3 03/22/2022 1:07 PM EDT 2 Active estradioL (ESTRACE) 0.01 % (0.1 mg/gram) vaginal cream Insert 2 g into the vagina once a day. Use daily for two weeks, then three times a week for maintenance. 42.5 g 1 05/30/2022 7:58 AM EST 2 Active cyanocobalamin 50 mcg tablet Take 1 tablet by oral route daily 2 Active pen needle, diabetic (BD Ultra-Fine Short Pen Needle) 31 gauge x 5/16 needle Use to inject 4 times daily as directed 360 each 3 12/24/2023 2:41 AM EDT 4 Active metFORMIN (GLUCOPHAGE) 1,000 mg tablet Take 1 tablet (1,000 mg total) by mouth 2 times a day with meals. 180 tablet 3 06/15/2024 9:10 PM EST 4 09/24/19 25 Active atorvastatin (LIPITOR) 40 mg tablet Take 1 tablet (40 mg total) by mouth once a day. 90 tablet 3 06/15/2024 9:10 PM EST 4 09/24/19 25 Active gabapentin (NEURONTIN) 300 mg capsule Take 1 capsule (300 mg total) by mouth 2 times a day as needed (nerve pain). 60 capsule 5 01/14/2024 7:25 PM EDT 4 01/14/20 25 Active diclofenac (VOLTAREN) 1% gel Apply 4 g topically 2 times daily. 100 g 2 01/27/2024 9:16 PM EDT 4 Active aspirin 81 mg EC tablet Take 1 tablet (81 mg total) by mouth daily. 90 tablet 1 06/04/2024 1:55 AM EST 4 Active acyclovir (ZOVIRAX) 5 % ointment Apply topically 6 times a day as needed for 7 days 30 g 2 4 Active Lantus Solostar U-100 Insulin 100 unit/mL (3 mL) pen injectionIndica tions:Type 2 diabetes mellitus without complication, with long-term current use of insulin ([facility]) ([facility]) Inject up to 60 units under skin twice daily. MDD 120 unit(s). 120 mL 3 07/06/2024 4:56 PM EST 4 Active insulin aspart 100 unit/mL insulin pen Inject 0-10 Units under the skin 3 times a day with meals. Take as directed. 15 mL 2 06/15/2024 9:10 PM EST 5 Active flash glucose sensor (FreeStyle Juarez 2 Sensor) kit Use 1 sensor every 14 days. 2 kit 11 07/05/2024 3:21 PM EST 5 Active tirzepatide (Mounjaro) 2.5 mg/0.5 mL pen injector Inject 0.5 mL (2.5 mg total) under the skin every 7 (seven) days. 2 mL 1 5 Active insulin detemir U-100 (Levemir FlexPen) 100 units/mL injection pen Inject up to 60 units under the skin 2 times a day. 45 mL 1 03/27/2024 8:48 AM EDT 4 07/02/19 25 Discontinu ed(Other (enter Order note)) Hospital, Clinic, or Other Facility Administered Medication [...] complication, with long-term current use of insulin ([facility]) 11/06/2005 Immunizations Immunization Administration Dates Next Due COVID-19, Pfizer, mRNA, [...] Not on file Procedures * Due to [place] state law, this organization might not be [...] to Health Maintenance Results * Due to [place] state law, this organization might not be sharing negative HIV tests. * (ABNORMAL) POCT Glycosylated Hemoglobin (HGB A1C), interfaced (10/08/2023 4:19 PM EDT) Hemoglobin A1C, POCT 8.1(H) <=5.6 % 10/08/2023 4:32 PM EDT [facility], [facility] Comment: A1C Recommendation for Non- Adults with Diabetes: <7.0% ADA 2011 Standards of Medical Care in Diabetes Blood 10/08/2023 4:19 PM EDT 10/08/2023 4:32 PM EDT us Li Medina TANKAGE GRINDER LAB POCT ORDERABLES - DEVICE Final Result Performing Organization Address City/State/[facility] Co de Phone Number [facility] [address] [place] [address], [place] * [facility] Bilateral Screening Digital Mammogram With Medardo (01/10/2022 [...] as possible to obtain the completed interpretation. us Claudette Diego NP IMG BI PROCEDURES Edited Resul t - Final * Pap w/Reflex HPV (11/06/2005 4:21 PM EDT) Path Procedure TPGA ([id number]) 1 ?? Edited by: [id number] [facility] ANATOMIC PATHOLOGY - BI[facility] THREE Specimen Labeled As: 1 CERVICAL/ENDOCERVI RAFI CYTO MATERIAL - Edited by: [id number] KANAR[facility] ANATOMIC PATHOLOGY - BIOTECH THREE Diagnosis [...] was examined in ?? accordance with the [facility] Cytopathology Laboratory written policy. ? This Pap test was examined by the ThinPrep Imaging System, [employer], ?? [place], [place]. ?? Edited by: [id number] DENNY [facility] ANATOMIC PATHOLOGY - BIOTECH THREE Gynecologic Clinical Data Specimen source:, THINPREP (CERVICAL AND ENDOCERVICAL) [facility] ANATOMIC PATHOLOGY - BIOTECH THREE Gynecologic Clinical Data First date of LMP:, 10/13/05 [facility] ANATOMIC PATHOLOGY - [facility] THREE Marker 1 NILM,NILM [facility] ANATOMIC PATHOLOGY - BIOTECH THREE Marker 2 KATELYNN BURTON [facility] ANATOMIC PATHOLOGY - BIOTECH THREE Cc Results To LISA VALENTINE [id number] [facility] ANATOMIC PATHOLOGY - BI[facility] THREE Signature REPORT SIGNED: KATELYNN DUNBAR 11/12/05 [facility] ANATOMIC PATHOLOGY - [facility] THREE Sign Out Audit KATELYNN DUNBAR [id number] FINAL [place] [id number] [facility] ANATOMIC PATHOLOGY - BIOTE[facility] THREE Cytology / Unknown 6 4:21 PM EDT 11/07/2005 4:21 PM EDT us Soha Hodges MD LAB HISTORICAL RESULTS Li hall Result [facility] ANATOMIC PATHOLOGY - BIOTECH THREE [address] [place] [address], from Last 3 Months or Most Recently Relevant to Health Maintenance Insurance HSNO/FREE CARE [facility] Care Teams Fibreglass Laminator Relationship Specialty Start Date End Date Claudette Diego NP PCP - General 12/04/21
--- OUTSIDE RECORDS SUMMARY | 2024-07-20 10:41 | XMS_ITS | Encounter Summary ---
Author Organization [facility] Address [address] [id number] Care Team Providers Care Wicker Worker Name Role Phone Claudette Diego COLLECTION SYSTEMS WORKER Primary Care Provider [phone] Reason for Visit * Reason Comments Med Refill Encounter Details Date Type Department Care Team (Late st Contact Info) Description 06/28/2024 Refill [facility] [address] [place] [address] Internet Marketing Intern: Mikki Nolasco, Mario Cruz MD [address] [place] [address] Social History Tobacco Use Types Packs/Day Years [...] on filedocumented in this encounter Care Teams Wicker Worker Relationship Specialty Start Date End Date Claudette Diego NP PCP - General 12/04/21 documented as of this encounter
--- OUTSIDE RECORDS SUMMARY | 2024-07-20 10:41 | XMS_ITS | Clinical Summary ---
Author Organization [facility] Address [address] [place] [address] Care Team Providers Care Auto Overhauler Name Role Phone Yair Eaton Primary Care [...] age to complete this topic Care Teams Auto Overhauler Relationship Specialty Start Date End Date Yair Eaton MBBS [address] [place] [address] PCP - General Internal Medicine 01/01/24
--- OUTSIDE RECORDS SUMMARY | 2024-07-20 10:41 | XMS_ITS | Clinical Summary ---
Author Organization [facility] Address [address] [place] [address] Care Team Providers Care Newspaper Library Manager Name Role Phone Claudette Diego EDITOR PUBLICATIONS Primary Care Provider [phone] Allergies Active Allergy Reactions Criticality Noted Date Comments Pollen Extracts Nasal congestion 11/01/2022 Medications flash glucose scanning reader (FreeStyle Juarez 2 Booker) [facility] [place] Use to monitor blood sugars. 1 each [...] long-term current use of insulin (CMS/HCC) (HCC) Inject up to 60 units under skin [...] COVID-19 bivalent vaccine PF, mRNA (age 5-11 yr)([place] Pellets) injection 0.2 mL 0.2 mL intramuscu Once 03/21/2022 Active Active Problems Problem Noted Date Diagnosed Date Lipoma of forehead 11/01/2022 Hyperlipidemia 03/07/2006 Foot Pain (Soft Tissue) 03/07/2006 Recent Weight Gain (___ Lbs) 11/06/2005 Type 2 diabetes mellitus wit hout complication, with long-term current use of insulin ([facility]) 11/06/2005 Encounters Date Type Department Care Team Description 06/28/2024 Refill [facility] [address] [place] [phone] Fur Remodeler: Mario Ramírez MD 06/11/2024 Refill [facility] [address] [place] [address] Fur Remodeler: Mario Ramírez MD 06/01/2024 Orders Only [facility] [address] [place] [phone] Fur Remodeler: Li Gonzalez NP 05/31/2024 [facility] [address] [place] [address] Fur Remodeler: Angelina Garza CPhT Type 2 diabetes mellitus without complication, with long-term current use of insulin (CMS/HCC) (HCC) (Primary Dx) from Last 3 Months Immunizations Immunization Administration Dates Next Due COVID-19, [...] Pediat partha (0-5 Years) and At-Risk Patients (6-50 Years) (1 of 2 - PCV) 1971 Urine Microalbumin 1975 Hepatitis B Vaccines (1 of 3 - 19+ 3-dose series) 02/21/1984 Pneumococcal Vaccine: 50+ Ye ars (1 of 2 - PCV) 02/21/1984 DTaP,Tdap,and Td Vaccines (1 - Tdap) [...] 75+ series) 02/21/2040 Procedures * Due to [place] state law, this organization might not be [...] to Health Maintenance Results * Due to [place] state law, this organization might not be sharing negative HIV tests. * (ABNORMAL) POCT Glycosylated Hemoglobin (HGB A1C), interfaced (10/08/2023 4:19 PM EDT) Hemoglobin A1C, POCT 8.1(H) <=5.6 % 10/08/2023 4:32 PM EDT [facility], POC Comment: A1C Recommendation for Non- Adults with Diabetes: <7.0% ADA 2011 Standards of Medical Care in Diabetes Blood 10/08/2023 4:19 PM EDT 10/08/2023 4:32 PM EDT us Li Medina EDITOR PUBLICATIONS LAB POCT ORDERABLES - DEVICE Final Result Performing Organization Address City/State/[facility] Co de Phone Number [facility] [address] [place] [address], [place] * [facility] Bilateral Screening Digital Mammogram [...] obtain the completed interpretation. Claudette Diego NP [facility] BI PROCEDURES Edited Resul t - Final * Pap w/Reflex HPV (11/06/2005 4:21 PM EDT) Path Procedure TPGA ([id number]) 1 ?? Edited by: [id number] [facility] ANATOMIC PATHOLOGY - BIOTECH THREE Specimen Labeled As: 1 CERVICAL/ENDOCERVI RAFI CYTO MATERIAL - Edited by: [id number] [facility] ANATOMIC PATHOLOGY - BIOTECH THREE Diagnosis [...] was examined in ?? accordance with the [facility] Cytopathology Laboratory written policy. ? This Pap test was examined by the [employer] Imaging System, [employer], ?? [place], [place]. ?? Edited by: [id number] [address]NY [facility] ANATOMIC PATHOLOGY - BIOTECH THREE Gynecologic Clinical Data Specimen source:, THINPREP (CERVICAL AND ENDOCERVICAL) [facility] ANATOMIC PATHOLOGY - BIOTECH THREE Gynecologic Clinical Data First date of LMP:, 10/13/05 [facility] ANATOMIC PATHOLOGY - BIOTECH THREE Marker 1 NILM,NILM [facility] ANATOMIC PATHOLOGY - BIOTECH THREE Marker 2 KATELYNN BURTON [facility] ANATOMIC PATHOLOGY - BIOTECH THREE Cc Results To LISA VALENTINE [id number] [facility] ANATOMIC PATHOLOGY - BIOTECH THREE Signature REPORT SIGNED: KATELYNN DUNBAR 11/12/05 [facility] ANATOMIC PATHOLOGY - BIOTECH THREE Sign Out Audit KATELYNN DUNBAR [id number] FINAL [place] [id number] [facility] ANATOMIC PATHOLOGY - BIOTECH THREE Cytology / Unknown 6 4:21 PM EDT 11/07/2005 4:21 PM EDT us Soha Hodges MD LAB HISTORICAL RESULTS Li hall Result [facility] ANATOMIC PATHOLOGY - BIOTECH THREE [address] [place] [address], from Last 3 Months or Most Recently Relevant to Health Maintenance Insurance HSNO/FREE CARE Care Teams Newspaper Library Manager Relationship Specialty Start Date End Date Claudette Diego NP PCP - General 12/04/21
--- OUTSIDE RECORDS SUMMARY | 2024-07-20 10:41 | XMS_ITS | Encounter Summary ---
Author Organization [facility] Address [address] [place] [address] Care Team Providers Care Air Bag Curer Name Role Phone Yair Eaton MD Primary Care Provider Reason for Visit * Reason Comments Blood Sugar Problem Encounter Details Date Type Department Care Team ([facility] st Contact Info) Description 07/16/2024 11:15 AM EST Office Visit Endocrinology - [place] [id number] [place] [phone] Patricia Lerma MD [address] [place] [address] Type 2 diabetes mellitus with diabetic polyneuropathy, with long-term current use of insulin ([facility]) (Primary Dx) Social History Tobacco Use Types Packs/Day Years Used Date Smoking Tobacco: Never Smokeless Tobacco: Never Tobacco Cessation:Counseling Given: Not Answered Alcohol Use Standard Drinks/Week Comments Yes 0 (1 standard drink = 0.6 oz pur e alcohol) rare Comments Unknown Sex and Gender Information Value Date Recorded Sex Assigned at Not on file Legal Sex Female 11:40 AM EDT Gender Identity Not on file Sexual Orientation Not on file documented as of this encounter Last Filed Vital Signs Vital Sign Reading Time Taken Comments Blood Pressure 138/72 07/16/2024 11:11 AM EST Pulse 77 07/16/2024 11:11 AM EST Temperature 36.2 ??C (97.2 ??F) 07/16/2024 11:[address] Respiratory Rate - - Oxygen Saturation 98% 07/16/2024 11:11 AM EST Inhaled Oxygen Concentration - - Weight 79.8 kg (176 lb) 07/16/2024 11:11 AM EST Height 157.5 cm (5' 2 ) 07/16/2024 11:11 AM EST Body Mass Index 32.19 07/16/2024 11:11 AM EST documented in this encounter Ordered Prescriptions Prescription Sig Dispense Quantity Refills Last Filled Start Date End Date tirzepatide (Mounjaro) 2.5 mg/0.5 mL injectionIndication s:Type 2 diabetes mellitus with diabetic polyneuropathy, with long-term current use of insulin ([facility]) Inject 0.5 mL (2.5 mg total) under the skin every 7 (seven) days. 2 mL 1 07/16/2024 documented in this encounter Progress Notes * Patricia Lerma MD - 07/16/2024 11:15 AM EST Start on Mounjaro at 2.5 mg weekly. Cut down on the insulin levemir to 55 units two times a day * Patricia Lerma MD - 07/16/2024 11:15 AM EST CHIEF COMPLAINT: Blood Sugar Problem IDENTIFIER: Karon Ingram is a 59 y.o. old female. HPI: 59 years old F, following for DM type 2 last seen 02/2024. Diagnosed since >20 years Currently on Insulin Levemir 60 units BID, insulin NL 20 units before dinner, metformin 1000 mg BID. NOT taking ozempic, stopped as blamed hair fall, nail issues, constipation and vision issues on it. Checking sugars, on CGM michelle 2, data shows ave [address], in target 47 %, above 53 %, below 0%. Bulcdor82%. It seems has spikes after dinner, on detailed questioning has snacks after. ROS: No new complaints PAST MEDICAL HISTORY: Patient Active Problem List Diagnosis Date Noted Essential thrombocytosis ([facility]) 05/14/2024 Type 2 diabetes mellitus with diabetic polyneuropathy, with long-term current use of insulin ([facility]) 03/16/2024 No past surgical history on file. [...] Outpatient Medications Marked as Taking for the 07/16/24 encounter (Office Visit) with Patricia Lerma MD [...] Known Allergies PHYSICAL EXAM: Visit Vitals BP 138/72 Pulse 77 Temp 36.2 ??C (97.2 ??F) (Temporal) Ht 1.575 m (62 ) Wt 79.8 kg (176 lb) SpO2 98% BMI 32.19 kg/m?? Smoking Status Never BSA 1.81 m?? APPEARANCE: Alert and in no acute distress EYES: EOMI. No resp distress NEURO: Awake, alert LABS: Lab Results Component Value Date HGBA1C 8.9 (H) 05/17/2024 CHOL 131 05/17/2024 LDL 70 11/13/2023 HDL 49 05/17/2024 TRIG 83 05/17/2024 IMPRESSION: 1. Type 2 diabetes mellitus with diabetic polyneuropathy, with long-term current use of insulin ([facility]) PLAN: Had a detailed discussion, discussed options.She agrees for mounjaro, asked to be watchful of diet.take NL before meals and had a detailed discussion. Asked to fup in 4 weeks. All questions answered. Retinopathy: present; Overdue Neuropathy: present Nephropathy: last UAC in range Lipids: on statin Medication and lab orders: No orders of the defined types were placed in this encounter. Other orders: None Patricia Lerma MD on 07/16/2024 at 12:39 PM EST documented in this encounter Plan of Treatment Upcoming Encounters Date Type Department Care Team (Late st Contact Info) Description 08/10/2024 10:00 AM EDT Ancillary Procedure [facility] - [facility] [address] [facility] [address] [place] [phone] 08/13/2024 10:00 AM EDT Office Visit [facility] Hematology Oncology [address] [place] [address] Chelo Valencia PA [address] [place] [address] 08/20/2024 11:00 AM EDT Office Visit Endocrinology [facility] [address] [place] [phone] Patricia Lerma MD [address] [place] [phone] documented as of this encounter Visit Diagnoses Diagnosis Type 2 diabetes mellitus with diabetic polyneuropathy, with long-term current use of insulin ([facility])- Primary documented in this encounter Care Teams Air Bag Curer Relationship Specialty Start Date End Date Yair Eaton MD [address] [place] [address] PCP - General 01/01/24 documented as of this encounter
--- OUTSIDE RECORDS SUMMARY | 2024-07-20 10:41 | XMS_ITS | Clinical Summary ---
Author Organization [facility] [address] [place] [address] Address [address] [place] [address] Phone Care Team Providers Care Field Marketing Lead Name Role Phone Yair Eaton MD Primary Care Provider Allergies No known active allergies Medications atorvastatin (LIPITOR) 40 mg tablet Take 1 tablet (40 mg total) by mouth 1 (one) time each day. Active diclofenac (VOLTAREN) 1 % topical gel Apply 4 g topically 2 times daily. 4 Active fexofenadine (WARREN) 60 mg tablet Take 1 tablet (60 mg total) by mouth 1 (one) time each day. 4 Active insulin aspart (NovoLOG Flexpen U-100 Insulin) [...] total) 1 (one) time each day. Active tirzepatide (Mounjaro) 2.5 mg/0.5 mL injectionIndica tions:Type 2 diabetes mellitus with diabetic polyneuropathy, with long-term current use of insulin ([facility]) Inject 0.5 mL (2.5 mg total) under the skin every 7 (seven) days. 2 mL 1 Active Active Problems Problem Noted Date Diagnosed Date Essential thrombocytosis 05/14/2024 Type 2 diabetes mellitus wit h diabetic polyneuropathy, with long-term current use of insulin 03/16/2024 Encounters Date Type Department Care Team Description 07/16/2024 11:15 AM EST Office Visit [address] [phone] Patricia Lerma MD Type 2 diabetes mellitus with diabetic polyneuropathy, with long-term current use of insulin (CMS/HCC) (Primary Dx) 06/17/2024 9:30 AM EST Office Visit [address] [phone] Patricia Lerma MD Type 2 diabetes mellitus with diabetic polyneuropathy, with long-term current use of insulin (CMS/HCC) (Primary Dx) 06/15/2024 1:15 PM EST Ancillary Procedure [facility] - [facility] [address] [facility] [address] [place] [address] Shortness of breath 05/18/2024 Telephone Adult Medicine [address] [phone] Yair Eaton MD 05/14/2024 3:57 PM EST - 05/14/2024 11:59 PM EST Hospital Encounter [address] [phone] Shortness of breath Discharge Disposition: Home or Self Care 05/14/2024 2:30 PM EST Office Visit Adult Medicine [address] [phone] Yair Eaton MD Type 2 diabetes mellitus with diabetic polyneuropathy, with long-term current use of insulin (CMS/HCC) (Primary Dx); Shortness of breath; Essential thrombocytosis (CMS/HCC); Numbness and tingling of both lower extremities; Sensation of fullness in both ears; Other infective acute otitis externa of right ear; Hair loss; Family history of coronary artery disease in father; Encounter for screening for coronary artery disease from Last 3 Months Immunizations Name Administration Dates Next Due Pfizer SARS-CoV-2 COVID-19, mRNA, LNP-S, preservative free 03/21/2022 Medical History Medical History Date Comments Diabetes mellitus (CMS/HCC) DX:D iabetes mellitus (HCC) Family History Medical History Relation Name Comments [...] on file Sexual Orientation Not on file Obstetrics History Last Filed Vital Signs Vital Sign Reading Time Taken Comments Blood Pressure 138/72 07/16/2024 11:11 AM EST Pulse 77 07/16/2024 11:11 AM EST Temperature 36.2 ??C (97.2 ??F) 07/16/2024 11:[address] Respiratory Rate 16 05/14/2024 2:33 PM EST Oxygen Saturation 98% 07/16/2024 11:11 AM EST Inhaled Oxygen Concentration - - Weight 79.8 kg (176 lb) 07/16/2024 11:11 AM EST Height 157.5 cm (5' 2 ) 07/16/2024 11:11 AM EST Body Mass Index 32.19 07/16/2024 11:11 AM EST Plan of Treatment Upcoming Encounters Date Type Department Care Team (Late st Contact Info) Description 08/10/2024 10:00 AM EDT Ancillary Procedure [facility] - [address] [place] [address] 08/13/2024 10:00 AM EDT Office Visit [facility] Hematology Oncology [address] [place] [phone] Chelo Valencia PA [address] [place] [address] 08/20/2024 11:00 AM EDT Office Visit Endocrinology [address] [phone] Patricia Lerma MD [address] [place] [address] Health Maintenance Due Date Last Done Comments Diabetes: Annual Retina Eye Exam 1975 DTaP,Tdap,and Td Vaccines (1 - Tdap) 02/21/1984 Hepatitis B Vaccines (1 of 3 - 19+ 3-dose series) 02/21/1984 Pneumococcal Vaccine: 50+ Years (1 of 2 - PCV) 02/21/1984 Pneumococcal Vaccine: Pediatrics (0 to 5 Years) and At-Risk Patients (6 to 64 Years) (1 of 2 - PCV) 02/21/1984 Zoster Vaccines (1 of 2) 02/21/1984 [...] patient's age to complete this topic Meningococcal B Vacine Aged Out No lo nger eligible based on patient's age to complete [...] breath HM DIABETES FOOT EXAM Routine 02/04/2024 HEPATITIS C SCREENING Routine 11/13/2023 from Last [...] with images such as with stress echocardiogram. us Yair Eaton MD CV STRESS PROCEDURES F inal Result * Lipid panel with reflex to direct LDL (05/17/2024 12:06 PM EST) Cholesterol 131 0 - 200 mg/dL LAB CHEMISTRY METHOD 05/17/2024 7:34 PM EST [facility] Triglycerides 83 0 - 150 mg/dL LAB CHEMISTRY METHOD 05/17/2024 7:34 PM EST [facility] HDL 49 >=40 mg/dL LAB CHEMISTRY METHOD 05/17/2024 7:34 PM EST [facility] LDL Calculated 65 0 - 100 mg/dL LAB CHEMISTRY METHOD 05/17/2024 7:34 PM EST [facility] VLDL Cholesterol Osman 16.6 mg/dL LAB CHEMISTRY METHOD 05/17/2024 7:34 PM [facility] Non HDL Chol. (LDL+VLDL) 82 <145 mg/dL LAB CHEMISTRY METHOD 05/17/2024 7:34 PM [facility] Chol/HDL Ratio 2.7 0.0 - 4.4 LAB CHEMISTRY METHOD 05/17/2024 7:34 PM [facility] Blood Venous blood specimen / Unknown Venipuncture / Unknown 05/17/2024 12:06 PM EST 05/17/2024 12:06 PM EST us Yair Eaton MD LAB BLOOD ORDERABLES F inal Result [facility] [address] [place] [address], [place] [phone] * (ABNORMAL) CBC auto differential (05/17/2024 12:06 PM EST) WBC 8.0 4.8 - 10.8 K/mcL LAB HEMETOLOGY METHOD 05/17/2024 2:06 PM [facility] RBC 4.80 3.80 - 4.80 M/mcL LAB HEMETOLOGY METHOD 05/17/2024 2:06 PM [facility] Hemoglobin 13.6 11.5 - 16.0 g/dL LAB HEMETOLOGY METHOD 05/17/2024 2:06 PM [facility] Hematocrit 42.8 35.0 - 47.0 % LAB HEMETOLOGY METHOD 05/17/2024 2:06 PM [facility] MCV 90.1 79.0 - 98.0 FL LAB HEMETOLOGY METHOD 05/17/2024 2:06 PM [facility] MCH 28.6 27.0 - 32.0 pcg LAB HEMETOLOGY METHOD 05/17/2024 2:06 PM [facility] MCHC 31.8(L) 32.0 - 37.0 g/dL LAB HEMETOLOGY METHOD 05/17/2024 2:06 PM [facility] RDW 14.5 11.0 - 15.0 % LAB HEMETOLOGY METHOD 05/17/2024 2:06 PM [facility] Platelets 612(H) 130 - 400 K/mcL LAB HEMETOLOGY METHOD 05/17/2024 2:06 PM [facility] MPV 9.4 7.0 - 11.0 FL LAB HEMETOLOGY METHOD 05/17/2024 2:06 PM [facility] NRBC 0.0 <1.0 % LAB HEMETOLOGY METHOD 05/17/2024 2:06 PM [facility] NRBC Absolute 0.00 <0.10 K/mcL LAB HEMETOLOGY METHOD 05/17/2024 2:06 PM [facility] Neutrophils Relative 57.4 % LAB HEMETOLOGY METHOD 05/17/2024 2:06 PM [facility] Lymphocytes Relative 33.0 % LAB HEMETOLOGY METHOD 05/17/2024 2:06 PM [facility] Monocytes Relative 6.8 % LAB HEMETOLOGY METHOD 05/17/2024 2:06 PM [facility] Eosinophils Relative 1.9 % LAB HEMETOLOGY METHOD 05/17/2024 2:06 PM [facility] Basophils Relative 0.6 % LAB HEMETOLOGY METHOD 05/17/2024 2:06 PM [facility] Immature Granulocytes Relative 0.3 % LAB HEMETOLOGY METHOD 05/17/2024 2:06 PM [facility] Neutrophils Absolute 4.57 1.50 - 7.00 K/mcL LAB HEMETOLOGY METHOD 05/17/2024 2:06 PM EST [facility] Lymphocytes Absolute 2.62 1.00 - 5.00 K/mcL LAB HEMETOLOGY METHOD 05/17/2024 2:06 PM EST [facility] Monocytes Absolute 0.54 0.20 - 1.00 K/[facility] LAB HEMETOLOGY METHOD 05/17/2024 2:06 PM EST [facility] Eosinophils Absolute 0.15 0.00 - 0.50 K/[facility] LAB HEMETOLOGY METHOD 05/17/2024 2:06 PM EST [facility] Basophils Absolute 0.05 0.00 - 0.20 K/[facility] LAB HEMETOLOGY METHOD 05/17/2024 2:06 PM [facility] Immature Granulocytes Absolute 0.02 0.00 - 0.03 K/[facility] LAB HEMETOLOGY METHOD 05/17/2024 2:06 PM [facility] Blood Venous blood specimen / Unknown Venipuncture / Unknown 05/17/2024 12:06 PM EST 05/17/2024 12:06 PM EST us Yair Eaton MD LAB BLOOD ORDERABLES F inal Result [facility] [address] [place] [address], * Microalbumin creatinine urine ratio (05/17/2024 12:06 PM EST) Creatinine, Urine 141.0 mg/dL LAB CHEMISTRY METHOD 05/17/2024 5:59 PM [facility] Microalb, Ur 10.0 0.0 - 29.0 mg/L LAB CHEMISTRY METHOD 05/17/2024 5:59 PM [facility] Microalb/Creat Ratio 7 <30 mg/g creat LAB CHEMISTRY METHOD 05/17/2024 5:59 PM EST [facility] Urine Urine specimen obtained by clean catch procedure / Unknown Non-blood Collection / Unknown 05/17/2024 12:06 PM EST 05/17/2024 12:06 PM EST us Yair Eaton MD LAB URINE ORDERABLES F inal Result Performing Organization Address [facility]/ZIP Co de Phone Number [facility] [address] [place] [address], [place] [phone] * (ABNORMAL) Hemoglobin A1c (05/17/2024 12:06 PM EST) Hemoglobin A1C 8.9(H) <6.5 % LAB CHEMISTRY METHOD 05/17/2024 10:18 PM EST [facility] Mean Bld Glu Estim. 209 mg/dL LAB CHEMISTRY METHOD 05/17/2024 10:18 PM EST [facility] Blood Venous blood specimen / Unknown Venipuncture / Unknown 05/17/2024 12:06 PM EST 05/17/2024 12:06 PM EST us Yair Eaton MD LAB BLOOD ORDERABLES F inal Result Performing Organization Address [facility]/ZIP Co de Phone Number [facility] [address] [place] [address], [place] [phone] * (ABNORMAL) Comprehensive metabolic panel (05/17/2024 12:06 PM EST) Sodium 142 133 - 145 mmol/L LAB CHEMISTRY METHOD 05/17/2024 7:34 PM EST [facility] Potassium 4.5 3.5 - 5.5 mmol/L LAB CHEMISTRY METHOD 05/17/2024 7:34 PM EST [facility] Chloride 109 96 - 110 mmol/L LAB CHEMISTRY METHOD 05/17/2024 7:34 PM [facility] CO2 26 21 - 32 mmol/L LAB CHEMISTRY METHOD 05/17/2024 7:34 PM [facility] Anion Gap 7 3 - 11 LAB CHEMISTRY METHOD 05/17/2024 7:34 PM [facility] Glucose 143(H) 70 - 100 mg/dL LAB CHEMISTRY METHOD 05/17/2024 7:34 PM [facility] BUN 10 5 - 25 mg/dL LAB CHEMISTRY METHOD 05/17/2024 7:34 PM [facility] Creatinine 0.70 0.50 - 1.10 mg/dL LAB CHEMISTRY METHOD 05/17/2024 7:34 PM [facility] eGFR 100 >=60 mL/min/1. 73m2 LAB CHEMISTRY METHOD 05/17/2024 7:34 PM [facility] Comment:Calculation based on the??Chronic Kidney Disease Epidemiology Collaboration (CKD-EPI) equation refit??without adjustment for race. BUN/Creatinine Ratio 14.3 LAB CHEMISTRY METHOD 05/17/2024 7:34 PM [facility] Calcium 9.5 8.5 - 10.5 mg/dL LAB CHEMISTRY METHOD 05/17/2024 7:34 PM [facility] AST (SGOT) 28 10 - 42 unit/L LAB CHEMISTRY METHOD 05/17/2024 7:34 PM [facility] ALT (SGPT) 47 10 - 60 unit/L LAB CHEMISTRY METHOD 05/17/2024 7:34 PM [facility] Alkaline Phosphatase 75 42 - 121 unit/L LAB CHEMISTRY METHOD 05/17/2024 7:34 PM [facility] Total Protein 7.1 6.0 - 8.0 g/dL LAB CHEMISTRY METHOD 05/17/2024 7:34 PM [facility] Albumin 3.9 3.2 - 5.0 g/dL LAB CHEMISTRY METHOD 05/17/2024 7:34 PM EST [facility] Total Bilirubin 0.4 0.0 - 1.4 mg/dL LAB CHEMISTRY METHOD 05/17/2024 7:34 PM EST [facility] Blood Venous blood specimen / Unknown Venipuncture / Unknown 05/17/2024 12:06 PM EST 05/17/2024 12:06 PM EST us Yair Eaton MD LAB BLOOD ORDERABLES F inal Result [facility] [address] [place] [address], [place] [phone] * XR Chest 2 Views (05/14/2024 4:05 PM EST) Anatomical Region Laterality Modality Body Radiographic Hamida ging 05/14/2024 7:14 PM EST Impressions 05/14/2024 7:17 PM EST No evidence of an acute chest process. POS - [id number] -------- FINAL REPORT -------- Dictated By: Angelica Smith Dictated Date: 05/14/2024 19:14 ET Assigned Physician: Angelica Smith Reviewed and Electronically Signed By: Angelica Smith Signed Date: 05/14/2024 19:17 ET Workstation ID: [id number] Transcribed By: Self Edit Transcribed Date: 05/14/2024 [...] of an acute chest process. POS - [id number] -------- FINAL REPORT -------- Dictated By: Angelica Smith Dictated Date: 05/14/2024 19:14 ET Assigned Physician: Angelica Smith Reviewed and Electronically Signed By: Angelica Smith Signed Date: 05/14/2024 19:17 ET Workstation ID: [id number] Transcribed By: Self Edit Transcribed Date: 05/14/2024 19:14 ET us Yair Eaton MD IMG XR PROCEDURES Li l Result * ECG 12 lead Tracing Only (05/14/2024 4:03 PM EST) Angela Valenzuela MD ECG ORDERABLES Fi nal Result * Diabetes Foot Exam (02/04/2024) Pathologist formerly [facility] Diabetes: Annual Foot Exam abstracted Historical Provider HEALTH MAINTENANCE Final Result * Hepatitis C Screening (11/13/2023) [facility] Hepatitis C Screening abstracted Historical Provider HEALTH MAINTENANCE Final Result from Last 3 Months or Most Recently Relevant to Health Maintenance Insurance [facility] Care Teams Field Marketing Lead Relationship Specialty Start Date End Date Yair Eaton MD [address] [place] [address] [facility] - General 01/01/24
== END 2024-07-20 10:52 | disposition home or self-care (01) ==
LOC: HO.HWS 09:56
PROVIDERS: Visit Provider Advanced Practice Midwife
DX: D21.9 Benign neoplasm of connective and other soft tissue, unspecified (principal); Z71.2 Person consulting for explanation of examination or test findings
CPT/HCPCS: 99213

== ENCOUNTER → 2024-07-20 09:56 | Outpatient (BNVA) | payer OTHER, SELFPAY | PROVIDERS: Visit Provider Advanced Practice Midwife | DX: R10.2 Pelvic and perineal pain (principal); D21.9 Benign neoplasm of connective and other soft tissue, unspecified; R14.0 Abdominal distension (gaseous); Z71.2 Person consulting for explanation of examination or test findings | CPT/HCPCS: 99212 ==

== ENCOUNTER → 2024-10-15 11:45 | Outpatient (BNV) | payer OTHER, SELFPAY | PROVIDERS: PCP Internal Medicine; Visit Provider Internal Medicine | DX: Z12.31 Encounter for screening mammogram for malignant neoplasm of breast (principal) | CPT/HCPCS: 77063; 77067 ==

== ENCOUNTER 2024-10-15 13:27 | Outpatient (REF) | payer OTHER, SELFPAY ==
--- OUTSIDE RECORDS SUMMARY | 2024-10-15 13:31 | XMS_ITS | Clinical Summary ---
Author Organization [employer] Address [address] [place] [address] [address] [place] [address] Care Team Providers Care Comb Winder Name Role Phone Unavailable Primary Care Provider [...] Colonoscopy 1965 Depression Screening 1965 FIT 1965 HIV Screening 1965 SDOH Screening 1965 Sigmoidoscopy 1965 Alcohol/Substance [...] Cancer Screening 08/03/2022 FIT DNA/Cologuard 08/03/2022 08/03/2021 FOBT 08/03/2022 08/03/2021 Mammogram 01/11/2024 01/10/2022 COVID-19 Vaccine [...] age to complete this topic Meningococcal B Vaccine Aged Out No l onger eligible based on patient's age to complete [...]
--- OUTSIDE RECORDS SUMMARY | 2024-10-15 13:31 | XMS_ITS | Clinical Summary ---
Author Organization [facility] Address [address] [place] [address] Care Team Providers Care Boats Renter Name Role Phone Claudette Diego VICE CHAIRMAN Primary Care Provider [phone] Allergies Active Allergy Reactions Criticality Noted Date Comments Pollen Extracts Nasal congestion 11/01/2022 Medications flash glucose scanning reader (FreeStyle Juarez 2 [place]) [facility] Use to monitor blood sugars. 1 each [...] water, juice, coffee, or tea prior to administration . 30 packet 3 03/22/2022 1:07 PM EDT [...] times daily as directed 360 each 3 08/03/2024 1:38 PM EST 4 Active gabapentin (NEURONTIN) 300 mg capsule Take [...] complication, with long-term current use of insulin (HCC) Inject up to 60 units under skin twice daily. MDD 120 unit(s). 120 mL 3 08/03/2024 1:38 PM EST 4 Active insulin aspart 100 unit/mL insulin pen Inject 0-10 Units under the skin 3 times a day with meals. Take as directed. 15 mL 2 08/03/2024 1:38 PM EST 5 Active flash glucose sensor (FreeStyle Juarez 2 Sensor) kit Use 1 sensor every 14 days. 2 kit 11 08/03/2024 1:38 PM EST 5 Active metFORMIN (GLUCOPHAGE) 1,000 mg tablet Take 1 tablet (1,000 mg total) by mouth 2 times a day with meals. 180 tablet 3 09/13/2024 4:12 PM EDT 5 09/10/19 26 Active atorvastatin (LIPITOR) 40 mg tablet Take 1 tablet (40 mg total) by mouth once a day. 90 tablet 3 09/13/2024 4:12 PM EDT 5 09/10/19 26 Active dulaglutide (Trulicity) 0.75 mg/0.5 mL injection dose Inject 0.5 mL (0.75 mg total) under the skin every 7 (seven) days. 2 mL 1 5 Active Hospital, Clinic, or Other Facility Administered Medication [...] complication, with long-term current use of insulin 11/06/2005 Encounters Date Type Department Care Team Description 09/09/2024 Refill [facility] [address] [place] [address] Polymerization Helper: Mikki Nolasco, Mario Cruz MD from Last 3 Months Immunizations Immunization Administration [...] 1965 Hepatitis C Screening 1965 Sigmoidoscopy 1965 Urine Microalbumin 1975 Hepatitis B Vaccines (1 of 3 - 19+ 3-dose series) 02/21/1984 Pneumococcal Vaccine: 50+ Ye ars (1 of 2 - PCV) 02/21/1984 DTaP,Tdap,and Td Vaccines (1 - Tdap) 1987 HPV and Pap Smear 11/06/2010 11/06/2005, , 10/26/2002 Zoster Vaccines (1 of 2) 2015 Ophthalmology Exam 08/22/2022 08/22/2021 Mammogram 01/11/2024 01/10/2022 COVID-19 Vaccine (3 - 2023-2 5 season) 2024 03/21/2022, 10/20/2020 Hemoglobin A1C 04/09/2024 10/08/2023, 08/01, 06/28/2022, Additional history exists Alcohol/Substance Use Screening 06/02/2024 Depression Screening and Follow-Up 06/02/2024 Social Drivers of Health Nusrat ual Screening 06/02/2024 Cervical Cancer Screening 01/09/2025 Pap Smear 01/09/2025 01/09/2022, 0611/2005, 03/29/2004, Additional history exists Influenza Vaccine (Season Ended) 2025 04/01/20, 04/19/2022 RSV Vaccine (60+ years old a nd patients) (1 - 1-dose 75+ series) 02/21/2040 Procedures * Due to [place] [employer] law, this organization might not be sharing [...] to Health Maintenance Results * Due to [place] [employer] law, this organization might not be sharing negative HIV tests. * (ABNORMAL) POCT Glycosylated Hemoglobin (HGB A1C), interfaced (10/08/2023 4:19 PM EDT) Hemoglobin A1C, POCT 8.1(H) <=5.6 % 10/08/2023 4:32 PM EDT [facility] Comment: A1C Recommendation for Non- Adults with Diabetes: <7.0% ADA 2011 Standards of Medical Care in Diabetes Blood 10/08/2023 4:19 PM EDT 10/08/2023 4:32 PM EDT us Li Medina VICE CHAIRMAN LAB POCT ORDERABLES - DEVICE Final Result [facility] [address] [place] [address], * [facility] Bilateral Screening Digital Mammogram With [...] (11/06/2005 4:21 PM EDT) Path Procedure TPGA ([id number]) 1 ?? Edited by: [id number] [facility] ANATOMIC PATHOLOGY - BIOTECH THREE Specimen Labeled As: 1 CERVICAL/ENDOCERVI RAFI CYTO MATERIAL - Edited by: [id number] [facility] ANATOMIC PATHOLOGY - BIOTECH THREE Diagnosis [...] in ?? accordance with the [facility] Cytopathology Laboratory written policy. ? This Pap test was examined by the ThinPrep Imaging System, [employer], ?? [place], [place]. ?? Edited by: [id number] - [address] [facility] ANATOMIC PATHOLOGY - BIOTECH THREE Gynecologic Clinical Data Specimen source:, THINPREP (CERVICAL AND ENDOCERVICAL) [facility] ANATOMIC PATHOLOGY - BIOTECH THREE Gynecologic Clinical Data First date of LMP:, 10/13/05 [facility] ANATOMIC PATHOLOGY - BIOTECH THREE Marker 1 NILM,NILM [facility] ANATOMIC PATHOLOGY - BIOTECH THREE Marker 2 MIKKI BURTON [facility] ANATOMIC PATHOLOGY - BIOTECH THREE Cc Results To LISA VALENTINE [id number] [facility] ANATOMIC PATHOLOGY - BIOTECH THREE Signature REPORT SIGNED: MIKKI DUNBAR 11/12/05 [facility] ANATOMIC PATHOLOGY - BIOTECH THREE Sign Out Audit MIKKI DUNBAR [id number] [place] [id number] [facility] ANATOMIC PATHOLOGY - BIOTECH THREE Cytology / Unknown 6 4:21 PM EDT 11/07/2005 4:21 PM EDT us Soha Hodges MD LAB HISTORICAL RESULTS Li hall Result [facility] ANATOMIC PATHOLOGY - BIOTECH THREE [address] [place] [id number], from Last 3 Months or Most Recently Relevant to Health Maintenance Insurance HSNO/[place] [address] Care Teams Boats Renter Relationship Specialty Start Date End Date Claudette Diego NP PCP - General 12/04/21
--- OUTSIDE RECORDS SUMMARY | 2024-10-15 13:31 | XMS_ITS | Referral Summary ---
Author Organization [facility] Address [address] [place] [address] Care Team Providers Care Cocoa Bean Roaster Name Role Phone Claudette Diego TRISTEN Primary Care Provider Encounters Date Type Department Care Team Description 09/09/2024 Refill [facility] [address] [place] [id number] Lawnmower Mechanic: Mikki Nolasco, Mario Cruz MD from Last 3 Months Allergies Active Allergy Reactions Criticality Noted Date Comments Pollen Extracts Nasal congestion 11/01/2022 Medications flash glucose scanning reader (FreeStyle Juarez 2 [place]) [facility] Use to monitor blood sugars. 1 each [...] 2 kit 11 08/03/2024 1:38 PM EST Active metFORMIN (GLUCOPHAGE) 1,000 mg tablet Take 1 tablet (1,000 mg total) by mouth 2 times a day with meals. 180 tablet 3 09/13/2024 4:12 PM EDT 5 09/10/19 Active atorvastatin (LIPITOR) 40 mg tablet Take 1 tablet (40 mg total) by mouth once a day. 90 tablet 3 09/13/2024 4:12 PM EDT 5 09/10/19 26 Active dulaglutide (Trulicity) 0.75 mg/0.5 mL injection dose Inject 0.5 mL (0.75 mg total) under the skin every 7 (seven) days. 2 mL 1 Active Hospital, Clinic, or Other Facility Administered [...] with long-term current use of insulin 11/06/2005 Immunizations Immunization Administration Dates Next Due [...] Not on file Procedures * Due to [place] Known law, this organization might not be sharing [...] to Health Maintenance Results * Due to [place] Known law, this organization might not be sharing negative HIV tests. * (ABNORMAL) POCT Glycosylated Hemoglobin (HGB A1C), interfaced (10/08/2023 4:19 PM EDT) Hemoglobin A1C, POCT 8.1(H) <=5.6 % 10/08/2023 4:32 PM EDT [facility] Comment: A1C Recommendation for Non- Adults with Diabetes: <7.0% ADA 2011 Standards of Medical Care in Diabetes Blood 10/08/2023 4:19 PM EDT 10/08/2023 4:32 PM EDT Li Medina RETAIL STORE ASSOCIATE LAB POCT ORDERABLES - DEVICE Final Result [facility] [address] [place] [address], * [facility] Bilateral Screening Digital Mammogram With Medardo (01/10/2022 [...] mammogram. Narrative 01/12/2022 6:25 PM EDT EXAMINATION [facility] Bilateral Screening Digital Mammogram With Medardo. INDICATION Karon Ingram is a 56 y.o. female and is seen for: [facility] Bilateral Screening Digital Mammogram With Medardo. R2 [...] (11/06/2005 4:21 PM EDT) Path Procedure TPGA ([id number]) 1 ?? Edited by: [id number] [facility] ANATOMIC PATHOLOGY - BIOTECH THREE Specimen Labeled As: 1 CERVICAL/ENDOCERVI RAFI CYTO MATERIAL - Edited by: [id number] [facility] ANATOMIC PATHOLOGY - BIOTECH THREE Diagnosis ThinPrep [...] was examined in ?? accordance with the [facility] Cytopathology Laboratory written policy. ? This Pap test was examined by the ThinPrep Imaging System, [employer], ?? [place], [place]. ?? Edited by: [id number] - [id number] [facility] ANATOMIC PATHOLOGY - BIOTECH THREE Gynecologic Clinical Data Specimen source:, THINPREP (CERVICAL AND ENDOCERVICAL) [facility] ANATOMIC PATHOLOGY - BIOTECH THREE Gynecologic Clinical Data First date of LMP:, 10/13/05 [facility] ANATOMIC PATHOLOGY - BIOTECH THREE Marker 1 NILM,NILM [facility] ANATOMIC PATHOLOGY - BIOTECH THREE Marker 2 MIKKI BURTON [facility] ANATOMIC PATHOLOGY - BIOTECH THREE Cc Results To LISA VALENTINE [id number] [facility] ANATOMIC PATHOLOGY - BIOTECH THREE Signature REPORT SIGNED: [email or web address] 11/12/05 [facility] ANATOMIC PATHOLOGY - BIOTECH THREE Sign Out Audit MIKKI DUNBAR [id number] [place]AL [place] [id number] [facility] ANATOMIC PATHOLOGY - BIOTECH THREE Cytology / Unknown 6 4:21 PM EDT 11/07/2005 4:21 PM EDT us Soha Hodges MD LAB HISTORICAL RESULTS Li hall Result [facility] ANATOMIC PATHOLOGY - BIOTECH THREE [address] [place] [address], from Last 3 Months or Most Recently Relevant to Health Maintenance Insurance HSNO/FREE CARE Care Teams Cocoa Bean Roaster Relationship Specialty Start Date End Date Claudette Diego NP [facility] - General 12/04/21
--- OUTSIDE RECORDS SUMMARY | 2024-10-15 13:31 | XMS_ITS | Clinical Summary ---
Author Organization [facility] Address [address] [place] [address] Care Team Providers Care Forging Machine Operator Name Role Phone Yair Eaton Primary Care [...] age to complete this topic Care Teams Forging Machine Operator Relationship Specialty Start Date End Date Yair Eaton MBBS [address] [place] [address] PCP - General Internal Medicine 01/01/24
--- OUTSIDE RECORDS SUMMARY | 2024-10-15 13:31 | XMS_ITS | Encounter Summary ---
Author Organization [facility] Address [address] [place] [address] Care Team Providers Care Mill Attendant Name Role Phone Yair Eaton MD Primary Care Provider Reason for Visit * Reason Onset Date Comments PRIOR AUTHORIZATION 09/27/2024 Encounter Details Date Type Department Care Team (Late st Contact Info) Description 09/27/2024 Telephone [facility] [address], [place] [phone] Patricia Lerma MD [address] [place] [address] PRIOR AUTHORIZATION Social History Tobacco Use Types Packs/Day Years Used Date Smoking Tobacco: Never Smokeless Tobacco: Never Alcohol Use Standard Drinks/Week Comments Yes 0 (1 standard drink = 0.6 oz pur e alcohol) rare Comments No Sex and Gender Information Value Date Recorded Sex Assigned at Not on file Legal Sex Female 11:40 AM EDT Gender Identity Not on file Sexual Orientation Not on file documented as of this encounter Progress Notes * Pilar Avila MA - 10/08/2024 12:25 PM EDT Pt has a commerical plan therefore pt must try another oral medication first. Sorry my mistake. Then it has to be trulicity . Thank you Please reply back to [facility] (Prior Auth [place]) Pilar [facility] Prior Authorization Ext [phone] * Selene Jill - 09/27/2024 12:49 PM EDT Prior Authorization for Medication-do not complete and send this encounter unless you have the fax from the pharmacy. Is this a Cover My Meds request: Cross Keys of Medication Trulicity Dose of Medication 0.75 What is the RX # from the faxed refill? [id number] How does patient take this med? Inject 0.5 mL (0.75 mg total) under the skin every 7 (seven) days., What Pharmacy did the fax come from: [facility] Pharmacy fax #: [phone] [employer] Party Information from fax: What Prescription Plan does the patient have? [facility] BIN/PCN if applicable: Cardholder ID: [id number] Person Code: Relationship Code: Help desk phone: [phone] documented in this encounter Plan of Treatment Upcoming Encounters Date Type Department Care Team (Late st Contact Info) Description 08/15/2025 10:00 AM EDT Office Visit [facility] Hematology Oncology [address] [place] [phone] Chelo Valencia PA [address] [place] [address] documented as of this encounter Visit Diagnoses Not on filedocumented in this encounter Care Teams Mill Attendant Relationship Specialty Start Date End Date Yair Eaton MD [address] [place] [address] PCP - General 01/01/24 documented as of this encounter
--- OUTSIDE RECORDS SUMMARY | 2024-10-15 13:31 | XMS_ITS | Clinical Summary ---
Author Organization [facility] [address] [place] [address] Address [address] [place] [address] Phone Care Team Providers Care Joint Supervisor Name Role Phone Yair Eaton MD Primary Care Provider Allergies No known active allergies Medications atorvastatin (LIPITOR) 40 mg tablet Take 1 tablet (40 mg total) by mouth 1 (one) time each day. Active fexofenadine (WARREN) 60 mg tablet Take 1 tablet (60 mg total) by mouth 1 (one) time each day. 4 Active insulin aspart (NovoLOG Flexpen U-100 Insulin) 100 unit/mL (3 mL) injection pen Inject into the skin 2 times daily. 12 units Active metFORMIN (GLUCOPHAGE) 1,000 mg tablet Take 1 Tablet by mouth 2 times daily (with meals). Active multivitamin (MULTIPLE VITAMINS ORAL) Take by mouth. Active aspirin 81 mg chewable tablet Chew 1 tablet (81 mg total) 1 (one) time each day. 90 each 1 5 02/04/20 25 Active Lantus Solostar U-100 Insulin 100 unit/mL (3 mL) injection pen 5 Active dulaglutide (Trulicity) 0.75 mg/0.5 mL pen injector injectionIndica tions:Type 2 diabetes mellitus with diabetic polyneuropathy, with long-term current use of insulin (CMS/HCC V24, CMS/HCC V28) Inject 0.5 mL (0.75 mg total) under the skin every 7 (seven) days. 2 mL 1 5 Active tirzepatide (Mounjaro) 2.5 mg/0.5 mL injectionIndica tions:Type 2 diabetes mellitus with diabetic polyneuropathy, with long-term current use of insulin ([facility] V24, [facility] V28) Inject 0.5 mL (2.5 mg total) under the skin every 7 (seven) days. 2 mL 1 5 09/27/19 25 Discontinued Active Problems Problem Noted Date Diagnosed Date Essential thrombocytosis ([facility] V24, [facility] V 28) 05/14/2024 Type 2 diabetes mellitus wit h diabetic polyneuropathy, with long-term current use of insulin ([facility] V24, [facility] V28) 03/16/2024 Encounters Date Type Department Care Team Description 09/27/2024 [address]ocr[address] [phone] Patricia Lerma MD PRIOR AUTHORIZATION 09/14/2024 Telephone Endocrinology [address] [phone] Patricia Lerma MD PRIOR AUTHORIZATION 08/18/2024 Telephone Adult Medicine [address] [phone] Yair Eaton MD 08/13/2024 10:00 AM EDT Office Visit [facility] Hematology Oncology [address] [place] [phone] Chelo Valencia PA Right ear pain (Primary Dx); Facial pain; Essential thrombocytosis ([facility] V24, [facility] V28) 08/10/2024 10:00 AM EDT Ancillary Procedure [facility] [address] [facility] Jerod [address] [place] [phone] Shortness of breath 08/03/2024 10:15 AM EST Office Visit Adult Medicine [address] [phone] Landy Cazares PA Elevated blood pressure reading (Primary Dx); Type 2 diabetes mellitus with diabetic polyneuropathy, with long-term current use of insulin ([facility] V24, [facility] V28) 08/03/2024 Telephone Adult Medicine [address] [phone] Yair Eaton MD Hypertension (Bp: 179/110 Pulse:89 as of this morning); Dizziness; Vomiting; Fatigue from Last 3 Months Immunizations Name Administration Dates Next Due Pfizer SARS-CoV-2 COVID-19, mRNA, LNP-S, preservative free 03/21/2022 Medical History Medical History Date Comments Diabetes mellitus ([facility] V24, [facility] V28) DX:Diabetes mellitus ([facility]) Family History Medical History [...] Sign Reading Time Taken Comments Blood Pressure 120/59 08/13/2024 10:08 AM EDT Pulse 84 08/13/2024 10:08 AM EDT Temperature 36.3 ??C (97.3 ??F) 08/13/2024 10:08 AM E DT Respiratory Rate 18 08/03/2024 10:11 AM EST Oxygen Saturation 100% 08/13/2024 10:08 AM EDT Inhaled Oxygen Concentration - - Weight 78.9 kg (174 lb) 08/13/2024 10:08 AM EDT Height 157.5 cm (5' 2 ) 08/13/2024 10:08 AM EDT Body Mass Index 31.83 08/13/2024 10:08 AM EDT Plan of Treatment Upcoming Encounters Date Type Department Care Team (Late st Contact Info) Description 08/15/2025 10:00 AM EDT Office Visit [facility] Hematology Oncology [address] [phone] Chelo Valencia PA [address] [place] [address] Health Maintenance Due Date Last Done Comments [...] 04/11/2022 03/21/2022 Breast Cancer Screening 01/11/2024 01/10/2022 Colorectal Cancer Screening: Colonoscopy 03/10/2024 Depression Screening 03/10/2024 HIV Screening 03/10/2024 Social Influencers of Health Screening 03/10/2024 Diabetes: Blood Sugar Contro l Test (HGBA1C) 11/15/2024 05/17/2024, 11/13/2023, 10/08/2023 Influenza Vaccine (Season Ended) 2025 Diabetes: Annual Foot Exam 02/03/2025 02/04/2024 Diabetes: Annual Urine Albumin-Creatinine Ratio (uACR) 05/17/2025 05/17/2024, 11/13/2023 Diabetes: Annual GFR (Glomerular Filtration Rate) 05/17/2025 05/17/2024, 11/13/2023 Cholesterol Screening (Lipid Panel) 05/17/2029 05/17/2024, 11/13/2023 RSV Immunization Adult Patients (1 - 1-dose 75+ series) 02/21/2040 Hepatitis [...] Procedure Name Priority Date/Time Associated Diagnosis Comments CBC WITH AUTO DIFFERENTIAL Routine 08/13/2024 10:40 AM EDT Essential thrombocytosis ([facility] V24, [facility] V28) CBC AND DIFFERENTIAL Routine 08/13/2024 10:40 AM EDT Essential thrombocytosis ([facility] V24, [facility] V28) ..MISCELLANEOUS REFERENCE LAB TEST 08/13/2024 TRANSTHORACIC ECHOCARDIOGRAM (TTE) COMPLETE W/ CONTRAST Routine 08/10/2024 11:03 AM EDT Shortness of breath MICROALBUMIN CREATININE URINE RATIO Routine 05/17/2024 12:06 PM EST Type 2 diabetes mellitus with diabetic polyneuropathy, with long-term current use of insulin ([facility] V24, [facility] V28) COMPREHENSIVE METABOLIC PANEL Routine 05/17/2024 12:06 PM EST Type 2 diabetes mellitus with diabetic polyneuropathy, with long-term current use of insulin ([facility] V24, [facility] V28) HEMOGLOBIN A1C Routine 05/17/2024 12:06 PM EST Type 2 diabetes mellitus with diabetic polyneuropathy, with long-term current use of insulin ([facility] V24, [facility] V28) LIPID PANEL WITH REFLEX TO DIRECT LDL Routine 05/17/2024 12:06 PM EST Type 2 diabetes mellitus with diabetic polyneuropathy, with long-term current use of insulin ([facility] V24, [facility] V28) DIABETES FOOT EXAM Routine 02/04/2024 HEPATITIS C SCREENING Routine 11/13/2023 from Last 3 Months or Most Recently Relevant to Health Maintenance Results * (ABNORMAL) CBC auto differential (08/13/2024 10:40 AM EDT) [facility] WBC 7.2 4.8 - 10.8 K/mcL LAB HEMETOLOGY METHOD 08/13/2024 12:27 PM EDT [facility] RBC 4.60 3.80 - 4.80 M/mcL [facility] Hemoglobin 13.3 11.5 - 16.0 g/dL LAB HEMETOLOGY METHOD 08/13/2024 12:27 PM [facility] Hematocrit 42.2 35.0 - 47.0 % LAB HEMETOLOGY METHOD 08/13/2024 12:27 PM [facility] MCV 90.9 79.0 - 98.0 FL LAB HEMETOLOGY METHOD 08/13/2024 12:27 PM [facility] MCH 28.7 27.0 - 32.0 pcg LAB HEMETOLOGY METHOD 08/13/2024 12:27 PM [facility] MCHC 31.5(L) 32.0 - 37.0 g/dL LAB HEMETOLOGY METHOD 08/13/2024 12:27 PM [facility] RDW 14.2 11.0 - 15.0 % LAB HEMETOLOGY METHOD 08/13/2024 12:27 PM [facility] Platelets 612(H) 130 - 400 K/mcL LAB HEMETOLOGY METHOD 08/13/2024 12:27 PM EDT [facility] MPV 9.6 7.0 - 11.0 FL LAB HEMETOLOGY METHOD [facility] NRBC 0.0 <1.0 % LAB HEMETOLOGY METHOD 08/13/2024 12:27 PM [facility] NRBC Absolute 0.00 <0.10 K/mcL LAB HEMETOLOGY METHOD 08/13/2024 12:27 PM [facility] Neutrophils Relative 48.1 % LAB HEMETOLOGY METHOD 08/13/2024 12:27 PM [facility] Lymphocytes Relative 41.2 % LAB HEMETOLOGY METHOD 08/13/2024 12:27 PM [facility] Monocytes Relative 7.7 % LAB HEMETOLOGY METHOD 08/13/2024 12:27 PM [facility] Eosinophils Relative 2.1 % LAB HEMETOLOGY METHOD 08/13/2024 12:27 PM [facility] Basophils Relative 0.6 % LAB HEMETOLOGY METHOD 08/13/2024 12:27 PM [facility] Immature Granulocytes Relative 0.3 % LAB HEMETOLOGY METHOD 08/13/2024 12:27 PM [facility] Neutrophils Absolute 3.48 1.50 - 7.00 K/mcL LAB HEMETOLOGY METHOD 08/13/2024 12:27 PM [facility] Lymphocytes Absolute 2.98 1.00 - 5.00 K/mcL LAB HEMETOLOGY METHOD 08/13/2024 12:27 PM [facility] Monocytes Absolute 0.56 0.20 - 1.00 K/mcL LAB HEMETOLOGY METHOD 08/13/2024 12:27 PM [facility] Eosinophils Absolute 0.15 0.00 - 0.50 K/mcL LAB HEMETOLOGY METHOD 08/13/2024 12:27 PM EDT [facility] Basophils Absolute 0.04 0.00 - 0.20 K/mcL LAB HEMETOLOGY METHOD 08/13/2024 12:27 PM EDT [facility] Immature Granulocytes Absolute 0.02 0.00 - 0.03 K/mcL LAB HEMETOLOGY METHOD 08/13/2024 12:27 PM EDT [facility] Blood Venous blood specimen / Unknown Venipuncture / Unknown 08/13/2024 10:40 AM EDT 08/13/2024 11:40 AM EDT us Chelo HANKINS LAB BLOOD ORDERABLES Final Re sult [facility] [address] [place] [address], [place] [phone] * Miscellaneous reference lab test (08/13/2024) us Provider Onbase MD LAB BLOOD ORDERABLES Final Re sult * (ABNORMAL) TRANSTHORACIC ECHOCARDIOGRAM (TTE) COMPLETE W/ CONTRAST (08/10/2024 11:03 AM EDT) Left Atrium Minor [place] 5.2 cm CV PACS Left Atrium Major [place] 5.0 cm CV PACS LA Area Sys (A2C) 17 cm2 CV PACS LA Area Sys (A4C) 15 cm2 CV PACS LA Volume (BP) 40 mL CV PACS RA Area 12.7 cm2 CV PACS RA 2D Volume 31 mL CV PACS AV Mean Gradient 6 mmHg CV PACS AV Mean Gradient 6 mmHg CV PACS Ao VTI 28.5 cm CV PACS AV Peak Robby 1.6 m/s CV PACS AV Peak Robby 1.6 m/s CV PACS AV Peak Gradient 10 mmHg CV PACS AV Area Continuity Equation 2.0 cm2 CV PACS AV Area Peak Velocity 2.0 cm2 CV PACS Aortic Sinus Valsalva 2.8 cm CV PACS Ascending Aorta 3.5 cm CV PACS IVSD 1.0(A) 0.6 - 0.9 cm CV PACS LVIDD 3.6(A) 3.8 - 5.2 cm CV PACS LVIDS 2.2 2.2 - 3.5 cm CV PACS LVOT Diameter 1.8 cm CV PACS LVOT Mean Robby 0.9 m/s CV PACS LVOT Mean Grad 3 mmHg CV PACS LVOT Mean Grad 3 mmHg CV PACS LVOT Peak VTI 22.2 cm CV PACS LVOT Peak Robby 1.3 m/s CV PACS LVOT Peak Gradient 7 mmHg CV PACS LVPWD 1.0(A) 0.6 - 0.9 cm CV PACS MV E' Tissue Velocity Lateral 7 cm/s CV PACS MV E' Tissue Velocity Septal 6 cm/s CV PACS LVOT Area 2.5 cm2 CV PACS LVOT Stroke Volume 56 mL CV PACS MV Deceleration [place] 3.9 m/s2 CV PACS E Wave Deceleration Time 133 119 - 242 ms CV PACS MV PHT 39 ms CV PACS MV Peak A Robby 0.79 m/s CV PACS MV Peak E Robby 0.51 m/s CV PACS MV Mean Gradient 2 mmHg CV PACS MV VTI 17.9 cm CV PACS Mitral Valve Max Velocity 0.9 m/s CV PACS MV Peak Gradient 3 mmHg CV PACS MV Area PHT 5.6 cm2 CV PACS MV Area Continuity Equation 3.2 cm2 CV PACS PV Acceleration Time 115 ms CV PACS RV Diastolic Basal Dimension 3.0 2.5 - 4.1 cm CV PACS RV S' 14 cm/s CV PACS TAPSE 22 mm CV PACS TR Peak Velocity 1.60 m/s CV PACS TR Peak Gradient 10 mmHg CV PACS E/E' Ratio Septal 9 CV PACS E/E' Ratio Averaged 8 CV PACS Relative Wall Thickness ratio 0.56 CV PACS LVOT:AV VTI Index 0.78 CV PACS FS 39 % CV PACS LV Mass 2D 108 g CV PACS MV VTI:LVOT VTI ratio 0.8 CV PACS LVOT flow 229 mL/s CV PACS E/A Ratio 0.6 CV PACS E/E' Ratio Lateral 7 CV PACS BSA 1.84 m2 CV PACS LA Volume Index (BP) 22 mL/m2 CV PACS LVIDD Index 2.01 cm/m2 CV PACS LVIDS Index 1.23 cm/m2 CV PACS LV Mass Index 2D 60 44 - 88 g/m2 CV PACS LVOT Stroke Index 31 mL/m2 CV PACS RA 2D Volume Index 17 15 - 27 mL/m2 CV PACS JOHN Index (VTI) 1.11 cm2/m2 CV PACS JOHN Index (Pk Robby) 1.12 cm2/m2 CV PACS Ascending Aorta Index 1.96 cm/m2 CV PACS Anatomical Region Laterality Modality Ultrasound Narrative 08/12/2024 1:34 PM EDT ?This echo was technically limited but enhanced by Definity echo contrast. ??LV wall thickness is upper limits of normal at 1 cm. ??Systolic function is quite vigorous without wall motion abnormality. ??EF in the range of 65%. ??Parameters of diastolic function are normal. ?RV size and function normal. ?Left and right atrium normal. ?No significant valvular abnormalities. ?Inferior vena cava diameter normal suggesting a normal CVP. ?No prior echo for comparison. Left Ventricle Left ventricle cavity size is normal. Wall thickness is normal. Systolic function is normal with an ejection fraction of 60-65%. There are no regional LV wall motion abnormalities. Diastolic function is indeterminate. Right Ventricle Right ventricle cavity appears normal. Systolic function is normal. Left Atrium Left atrium cavity size is normal. Right Atrium Right atrium cavity is normal. IVC/SVC Inferior vena cava structure is normal. RA pressures is estimated to be 3 mmHg (IVC diameter <21 mm and decreases >50% during inspiration). Mitral Valve The leaflets are mildly thickened. There is mild annular calcification. There is trace regurgitation. There is no evidence of mitral valve stenosis. Tricuspid Valve Tricuspid valve structure is normal. There is trace regurgitation. There is no evidence of tricuspid valve stenosis. Aortic Valve The aortic valve is trileaflet. The leaflets are mildly thickened. There is no regurgitation or stenosis. Pulmonic Valve Pulmonic valve structure is normal. No significant pulmonic valve regurgitation. There is no evidence of pulmonic valve stenosis. Ascending Aorta The Sinus of Valsalva is (2.8 cm). The ascending aorta is (3.5 cm). Pericardium Pericardium appears normal. There is no pericardial effusion. Study Details Overall the study quality was suboptimal. Definity contrast was given to enhance imaging. Study was difficult due to: poor endocardial visualization. us Yair Eaton MD CV ECHO PROCEDURES Fin al Result * Lipid panel with reflex to direct LDL (05/17/2024 12:06 PM EST) Cholesterol 131 0 - 200 mg/dL LAB CHEMISTRY METHOD 05/17/2024 7:34 PM EST [facility] Triglycerides 83 0 - 150 mg/dL LAB CHEMISTRY METHOD 05/17/2024 7:34 PM EST [facility] HDL 49 >=40 mg/dL LAB CHEMISTRY METHOD 05/17/2024 7:34 PM EST [facility] LDL Calculated 65 0 - 100 mg/dL LAB CHEMISTRY METHOD 05/17/2024 7:34 PM EST [facility] VLDL Cholesterol Osman 16.6 mg/dL LAB CHEMISTRY METHOD 05/17/2024 7:34 PM EST [facility] Non HDL Chol. (LDL+VLDL) 82 <145 mg/dL LAB CHEMISTRY METHOD 05/17/2024 7:34 PM EST [facility] Chol/HDL Ratio 2.7 0.0 - 4.4 LAB CHEMISTRY METHOD 05/17/2024 7:34 PM EST [facility] Blood Venous blood specimen / Unknown Venipuncture / Unknown 05/17/2024 12:06 PM EST 05/17/2024 12:06 PM EST us Yair Eaton MD LAB BLOOD ORDERABLES F inal Result [facility] [address] [place] [address], [place] [phone] * Microalbumin creatinine urine ratio (05/17/2024 12:06 PM EST) Creatinine, Urine 141.0 mg/dL LAB CHEMISTRY METHOD 05/17/2024 5:59 PM EST [facility] Microalb, Ur 10.0 0.0 - 29.0 mg/L LAB CHEMISTRY METHOD 05/17/2024 5:59 PM EST [facility] Microalb/Creat Ratio 7 <30 mg/g creat LAB CHEMISTRY METHOD 05/17/2024 5:59 PM EST [facility] Urine Urine specimen obtained by clean catch procedure / Unknown Non-blood Collection / Unknown 05/17/2024 12:06 PM EST 05/17/2024 12:06 PM EST us Yair Eaton MD LAB URINE ORDERABLES F inal Result Performing Organization Address [facility]/ZIP Co de Phone Number [facility] [address] [place] [address], [place] [phone] * (ABNORMAL) Hemoglobin A1c (05/17/2024 12:06 PM EST) Hemoglobin A1C 8.9(H) <6.5 % LAB CHEMISTRY METHOD 05/17/2024 10:18 PM EST [facility] Mean Bld Glu Estim. 209 mg/dL LAB CHEMISTRY METHOD 05/17/2024 10:18 PM EST [facility] Blood Venous blood specimen / Unknown Venipuncture / Unknown 05/17/2024 12:06 PM EST 05/17/2024 12:06 PM EST Yair Eaton MD LAB BLOOD ORDERABLES F inal Result [facility] [address] [place] [address], [place] [phone] * (ABNORMAL) Comprehensive metabolic panel (05/17/2024 12:06 PM EST) Sodium 142 133 - 145 mmol/L LAB CHEMISTRY METHOD 05/17/2024 7:34 PM [facility] Potassium 4.5 3.5 - 5.5 mmol/L LAB CHEMISTRY METHOD 05/17/2024 7:34 PM [facility] Chloride 109 96 - 110 mmol/L LAB CHEMISTRY METHOD 05/17/2024 7:34 PM [facility] CO2 26 21 - 32 mmol/L LAB CHEMISTRY METHOD 05/17/2024 7:34 PM [facility] Anion Gap 7 3 - 11 LAB CHEMISTRY METHOD 05/17/2024 7:34 PM [facility] Glucose 143(H) 70 - 100 mg/dL LAB CHEMISTRY METHOD 05/17/2024 7:34 PM [facility] BUN 10 5 - 25 mg/dL LAB CHEMISTRY METHOD 05/17/2024 7:34 PM [facility] Creatinine 0.70 0.50 - 1.10 mg/dL LAB CHEMISTRY METHOD 05/17/2024 7:34 PM [facility] eGFR 100 >=60 mL/min/1. 73m2 LAB CHEMISTRY METHOD 05/17/2024 7:34 PM [facility] Comment:Calculation based on the??Chronic Kidney Disease Epidemiology Collaboration (CKD-EPI) equation refit??without adjustment for race. BUN/Creatinine Ratio 14.3 LAB CHEMISTRY METHOD 05/17/2024 7:34 PM [facility] Calcium 9.5 8.5 - 10.5 mg/dL LAB CHEMISTRY METHOD 05/17/2024 7:34 PM [facility] AST (SGOT) 28 10 - 42 unit/L LAB CHEMISTRY METHOD 05/17/2024 7:34 PM [facility] ALT (SGPT) 47 10 - 60 unit/L LAB CHEMISTRY METHOD 05/17/2024 7:34 PM [facility] Alkaline Phosphatase 75 42 - 121 unit/L LAB CHEMISTRY METHOD 05/17/2024 7:34 PM [facility] Total Protein 7.1 6.0 - 8.0 g/dL LAB CHEMISTRY METHOD 05/17/2024 7:34 PM EST [facility] Albumin 3.9 3.2 - 5.0 g/dL LAB CHEMISTRY METHOD 05/17/2024 7:34 PM EST [facility] Total Bilirubin 0.4 0.0 - 1.4 mg/dL LAB CHEMISTRY METHOD 05/17/2024 7:34 PM EST [facility] Blood Venous blood specimen / Unknown Venipuncture / Unknown 05/17/2024 12:06 PM EST 05/17/2024 12:06 PM EST Yair Eaton MD LAB BLOOD ORDERABLES F inal Result [facility] [address] [place] [address], * Diabetes Foot Exam (02/04/2024) Pathologist Critical [facility] hospital Diabetes: Annual Foot Exam abstracted Historical Provider HEALTH MAINTENANCE Final Result * Hepatitis C Screening (11/13/2023) [facility] Hepatitis C Screening abstracted Historical Provider HEALTH MAINTENANCE Final Result from Last 3 Months or Most Recently Relevant to Health Maintenance Insurance [facility] Care Teams Joint Supervisor Relationship Specialty Start Date End Date Yair Eaton MD [address] [place] [address] PCP - General 01/01/24
--- OUTSIDE RECORDS SUMMARY | 2024-10-15 13:31 | XMS_ITS | Data Portability ---
Author Organization [place] - [facility], Allergy Address [address] [address] Care Team Providers Care Window Installation Subcontractor Name Role Phone SALENA JONES Primary Care Provider Assessment Encounter Date Assessment Date Assessment LastModified by Organization Details LastModified Time 09/24/2024 09/24/2024 59-year-old female presents for evaluation of intermittent sharp otalgia. Physical exam reveals no identifiable source of otalgia involving the auricle, external auditory canal, or tympanic membrane. Audiometry demonstrated normal sloping to moderate sensorineural hearing loss with excellent word recognition. Tympanometry is normal. The patient's auricular discomfort is most likely consistent with intermittent inflammation of the jaw joint or spasm of the surrounding musculature. I recommended the patient use light massage, warm compresses and anti-inflammator ies for symptomatic management. Stressed chewing evenly on both sides of the mouth to keep from overworking the jaw joint. Use soft food diet as needed. Jaw Joint Program information sheet was shared. Recommend considering medical-grade mouth guard through their dentist if symptoms persist despite supportive management. She will follow-up as needed. [email or web address] Not available 09/24/2024 15:14:50 Plan of Treatment Reminders Order Date Submit Date Provider Last Modified By Organization Details Last Modified Time Details Appointments None record ed. Lab None record ed. Referral None record ed. Procedures None record ed. Surgeries None record ed. Imaging None record ed. Medication Orders None record ed. Patient TargetsNo targets recorded. Patient InstructionsNo instructions recorded. Reason for Referral None Reported. Results Created Date Observation Date Name Description Value Unit Range Abnormal Flag Note LastModifiedBy Organization Detail LastModifiedTime 09/25/19 25 audio gram No observ ation record ed. BARCODE Not Available 2024 17:09:05 Result Notes None recorded. Problems Name Problem SNOMED Code Status Onset Date Resolution Date Notes Provider Name and Address Organization Details Recorded Time Sensorineur al hearing loss of bilateral ears 869452793 Active 2024 JUAN JOSE EUBANKS, Rachael [address] [facility] [address], [place], [address], [facility] 14:41:10 Referred otalgia of right ear [id number] 100 Active 2024 SUE VINCENT PA-C 100 [facility] 100, [place], [address], [facility] 15:14:58 Problem Notes None recorded. Procedures Surgical History Date Name Laterality Status Provider Name and Address Organization Details Recorded Time 09/24/2024 Comp Audio with Tymps - 02110 & 27465 completed Rachael DIEGO [address] [facility] [address], [place], [address], [facility] 09/24/2024 14:30:24 Imaging Results Imaging Date Name Status LastModified by Organiz ation Details LastModified Time 09/24/2024 audiogram completed BARCODE Information no t available 09/24/2024 17:09:05 Procedure Notes None recorded. Medical Equipment None Reported. Allergies No known drug allergies Medications Name Sig Start Date Stop Date Status Note LastModified by Organization Details LastModified Time atorvastati n 40 mg tablet active Not Available Not Available Not Available neomycin-po lymyxin-hyd rocort 3.5 mg/mL-10,00 0 unit/mL-1 % ear solution INSTILL 3 DROPS INTO RIGHT EAR 3 TIMES A DAY FOR 7 DAYS active Not Available Not Available No t Available fexofenadin e 60 mg tablet TAKE 1 TABLET BY MOUTH EVERY DAY active Not Available Not Available No t Available valacyclovi r 500 mg tablet PLEASE SEE ATTACHED FOR DETAILED DIRECTION S active Not Available Not Available No t Available aspirin 81 mg tablet,henry yed release 09/24 completed Not Available Not Available Not Available acyclovir 5 % topical ointment APPLY 1 APPLICATI ON TOPICALLY 6 TIMES A DAY FOR 7 DAYS active Not Available Not Available No t Available metformin 1,000 mg tablet active Not Available Not Available Not Available gabapentin 300 mg capsule active Not Available Not Available Not Available aspirin 81 mg chewable tablet CHEW 1 TABLET BY MOUTH EVERY DAY active Not Available Not Available No t Available ibuprofen 600 mg tablet TAKE 1 TABLET BY MOUTH 3 TIMES A DAY IF NEEDED FOR MILD PAIN active Not Available Not Available No t Available amoxicillin 500 mg-potassiu m clavulanate 125 mg tablet TAKE 1 TABLET BY MOUTH TWICE A DAY FOR 7 DAYS 09/24 completed Not Available Not Available Not Available Novolog FlexPen U-100 Insulin aspart 100 unit/mL (3 mL) subcutaneou s active Not Available Not Available Not Available Levemir FlexPen 100 unit/mL (3 mL) solution subcutaneou s insulin pen active Not Available Not Available Not Available BD Ultra-Fine Short Pen Needle 31 gauge x 5/16 active Not Available Not Available Not Available Lantus Solostar U-100 Insulin 100 unit/mL (3 mL) subcutaneou s pen active Not Available Not Available Not Available diclofenac 1 % topical gel active Not Available Not Available Not Available FreeStyle Juarez 2 Sensor kit active Not Available Not Available N ot Available Ozempic 1 mg/dose (4 mg/3 mL) subcutaneou s pen injector active Not Available Not Available Not Available Ozempic 0.25 mg or 0.5 mg (2 mg/3 mL) subcutaneou s pen injector active Not Available Not Available Not Available Vitals Date Recorded Body height Body mass index (BMI) Body weight Provider Name and Address Organization Details Last Updated DateTime 09/24/2024 157.48 cm 30.7 kg/m2 92209.52 g Va Shaffer [place] - [facility] 09/24/2024 14:53:18 Social History None recorded. Functional Status Question Answer Note LastModified by Organization D etails LastModified Time What is your level of alcohol consumption? None [email or web address] Information not available 09/24/2024 Mental Status None recorded. Family History Nothing Reported. Medical History Condition Response Allergies/Hayfever N Heart Problems N Anxiety N Tonsil Infections N Emphysema N Migraines N Thyroid Problems N Glaucoma N Depression N COPD N Developmental Delay N Nasal or Sinus Problems N Anemia N Immune System Disorder N Anesthesia Complications N Heart Attack ([place]) N Other Skin Condition N Diabetes Y Rhinitis N Bleeding Disorder N Food Allergy N Arthritis N Hearing Loss N Hyperlipidemia N Cancer N Stroke N Dementia N Nasal polyps N Asthma N High Cholesterol Y Sleep Disorder N GERD/Reflux N Liver Disease N Headaches N Fibromyalgia N Hypertension N Speech Delay N Kidney Disease N Gynecological HistoryNo gynecological history recorded. Obstetrics History GPAL:G 0 P 0 0 0 0 Past Encounters Encounter ID Performer Location Encounter Start Date Encounter Closed Date Diagnosis/Indication Diagnosis SNOMED-CT Code Diagnosis ICD10 Code Diagnosis Note [id number] SUE VINCENT PA-C [facility] [address] [address] 09/24/2024 13:58:41 09/24/2024 16:00:49 Sensorineural hearing loss of bilateral ears 459155827 H90.3 Audiologic al evaluation results: Right ear: {{Normal* Mild Moder ate Modera tely severe Sev ere Profou nd No response}} {{hearing* sensorine ural hearing loss condu ctive hearing loss mixed hearing loss}} from 250 through {{500 313 7718 1500 2000 3000 4000* 6000 8000}} Hz {{sloping to* rising to}} {{normal a mild a moderate* a moderately severe a severe a profound}} {{hearing with senso rineural hearing loss with* cond uctive hearing loss with mixed hearing loss with}} {{excellen t* good fa ir poor no measurable }} word recognitio n. Left ear: {{Normal* Mild Moder ate Modera tely severe Sev ere Profou nd No response}} {{hearing* sensorine ural hearing loss condu ctive hearing loss mixed hearing loss}} from 250 through {{233 267 3463 1500 2000 3000 4000* 6000 8000}} Hz {{sloping to* rising to}} {{normal a mild a moderate* a moderately severe a severe a profound}} {{hearing with senso rineural hearing loss with* cond uctive hearing loss with mixed hearing loss with}} {{excellen t* good fa ir poor no measurable }} word recognitio n. Tympanomet ry: Right Ear:{{Type A* Type A with rounded peak Type A with double peak Type As Type As with rounded peak Type Ad Type C Type C, shallow & rounded peak Type B Type B with large volume Cou ld not maintain a hermetic seal}} Left Ear:{{Type A* Type A with rounded peak Type A with double peak Type As Type As with rounded peak Type Ad Type C Type C, shallow & rounded peak Type B Type B with large volume Cou ld not maintain a hermetic seal}} Referred o talgia of right ear [id number] 490783 H92.01 Health Concerns Section Related Observation LastModified by Organization Detai ls LastModified Time None Recorded Concern Status LastModified by Organization Details LastModified Time None Recorded Advance Directives Directive None Recorded Payers Insurance Date Sequence Insurance Name Policy Number Policy Bender Covered Member ID Bender Member ID Guarantor Name 09/24/2024 1 [facility] (MEDICAID HMO) [id number] Karon Ingram [id number] Karon Ingram Notes Date Note Type Note Provider Name and Address Organization Details Recorded Time 09/24/2024 text/html 59yo female with diabetes mellitus and allergic rhinitis presents for evaluation of recurrent right-sided ear pain. This started 2 months ago. Episodes last 1 week. She describes the pain as sharp and denies any noticeable triggers. Associated ear itchiness. She notices mild left-sided hearing loss. Denies ear drainage or associated dizziness. Denies prior ear infections or ear surgeries. No history of loud noise exposure. SUE VINCENT PA-C [address] [place] [address], [phone], [facility] - [facility] 09/24/2024 15:15:12 OBGyn Episode No OBEpisode recorded.
--- OUTSIDE RECORDS SUMMARY | 2024-10-15 13:31 | XMS_ITS ---
Author Name [facility] Organization Unknown Encounters Encounter Type Encounter Reason Primary Diagnosis Location Date Ambulatory [facility] 03/12/2024 Care Team Organization Name Specialty Phone Email Start Date End Da te [facility] 2024
== END 2024-10-15 13:28 | disposition home or self-care (01) ==
LOC: HO.MAMMO 13:27
PROVIDERS: PCP Internal Medicine; Visit Provider Internal Medicine
DX: Z12.31 Encounter for screening mammogram for malignant neoplasm of breast (principal)
CPT/HCPCS: 77063; 77067

== ENCOUNTER 2025-03-11 10:21 | Outpatient (REF) | payer OTHER, SELFPAY ==
[2025-03-11 12:28] LABS: Hematocrit 44.3 % (37.0-47.0); Hemoglobin 14.1 g/dl (12.0-16.0); Mean Corpuscular HGB Conc 31.8 g/dl (31.0-35.0); Mean Corpuscular Hemoglobin 28.0 pg (27.0-33.0); Mean Corpuscular Volume 88.1 fL (80.0-98.0); NRBC Abs Auto 0.000 X10*3/uL (0.0-0.012); NRBC Pct Auto 0.0 /100WBC (0.0-0.2); Platelet Count 575 X10*3/uL (160-400); Red Blood Count 5.03 X10*6/uL (4.20-5.50); White Blood Count 8.1 X10*3/uL (4.8-10.8)
[2025-03-11 13:40] LABS: Vitamin B12 701 pg/mL (200-900)
[2025-03-11 13:45] LABS: Microalbum/Creatinine Ratio Ur 12.9 ug/mg cr (<30)
[2025-03-11 13:47] LABS: Alanine Aminotransferase 42 U/L (0-31); Aspartate Amino Transferase 34 U/L (5-31); Cholesterol 147 mg/dL (<200); Estimated Glomerular Filt Rate > 60; HDL Cholesterol 41 mg/dL (>40); Triglycerides 117 mg/dL (<150)
== END 2025-03-11 10:22 | disposition home or self-care (01) ==
LOC: HO.LAB 10:21
PROVIDERS: PCP Internal Medicine; Visit Provider Student in an Organized Health Care Education/Training Program
DX: E11.42 Type 2 diabetes mellitus with diabetic polyneuropathy (principal); E11.69 Type 2 diabetes mellitus with other specified complication; E78.5 Hyperlipidemia, unspecified; E66.811 Obesity, class 1; Z68.33 Body mass index [BMI] 33.0-33.9, adult; Z79.4 Long term (current) use of insulin
CPT/HCPCS: 36415; 80061; 82043; 82565; 82570; 82607; 82947; 83036; 84450; 84460; 84681; 85027; 86341; 99202

== ENCOUNTER 2025-03-11 10:21 | Outpatient (AMB) | payer OTHER, SELFPAY ==
[2025-03-11 10:30] VITALS: BP 132/66; PULSE 82; O2SAT 95; BMI 33.2
--- NOTE | 2025-03-11 10:30 | A.OFFVIS_ITS ---
Vital Signs 3 03/11/25 10:30 Height 5 ft 2 in Weight 181 lb 7.047 oz BMI 33.2 BP 132/66 Blood Pressure Location Lt brachial Position Sitting Pulse 82 Pulse Source Pulse Oximeter Pulse Oximetry (%) 95 Oxygen Delivery Method Room Air Intake Visit Reasons: T2DM w/diabetic polyneuropathy Intake Note: Patient present today for Type 2 Diabetes Mellitus with diabetic polyneuropathy. Last Diabetic eye exam: Last exam was about a year ago Last Podiatry Visit: Doesn't have one but would like a referral to one. Random Glucose: 86 mg/dl HgA1C: 8.7% Roofing Apprentice Required: No Accompanied by: Self / Same As Patient Allergies No Known Allergies Allergy (Verified 03/11/25 10:36) Medication List - Last Reconciled 03/11/25 by Tessie Marlow MD acyclovir 5% 1 appl topical 6XD 7 days aspirin 81 mg PO DAILY atorvastatin 40 mg PO DAILY insulin aspart U-100 1 sliding scale dose subcut USEASDIRECTD insulin glargine (Lantus Solostar U-100 Insulin) units subcut metformin 1,000 mg PO BID valacyclovir (Valtrex) 500 mg PO BID 3 days HPI Comments Details: 60-year-old female coming in today for initial evaluation of type 2 diabetes mellitus History of diabetes Diagnosed at age [address] Jj Lerma at [place], last seen November 2024. Wants to switch care because wasnt happy with her care A1c 03/11/25 : 8.7 % 12/02/24: 8.2% Random Glucose: 86 mg/dl Prior therapy: Ozempic in 2021, was having vision changes, numbness intolerant to it Jardiance cause yeast infections repeatedly Current regimen: Metformin 1000 mg b.i.d. Insulin Lantus 62 units BID in AM and before dinner NovoLog 12 to 20 units twice daily, always has dinner, sometimes she skips breakfast sometimes she skips lunch Denies any symptoms of hyperglycemia including polyphagia, polyuria, polydipsia. Denies any hypoglycemic symptoms. SMBG's Wears Aptara juarez 2 , not wearing it for the past 2 weeks as she doesnt wear it on vacations Didnt bring meter today Was checking sugars twice daily Fasting from recall in 200s Before dinner late 300s Reports few hypoglycemic episodes, mostly when she goes without food for long periods Treats lows with candy , juice Feels symptoms in 60s . Vaccines: still has to flu shot this season Vaccinated for voicd initally with 1 booster Complications Last Diabetic eye exam: Last exam was in Jul 2024, no retinopathy, goes to [facility] Reports neuropathy sx: numbness tingling in feet B/L . Last Podiatry Visit: Doesn't have one but would like a referral to one. Kidney disease: no history egfr > November Macrovascular complications: No history of macrovascular complications. Statin:atorvastatin 40 mg daily SHAYNE/ARB: none Exercise: walk 2 miles 2 days a week, does home pilates 3 times a week 30 mins Diet control: BF: 9 am : skips some days, scrambled eggs with coffee with stevia and cream with keto bread 2 slices, sometimes sausage snack noon: apple or and orange Dinner at 8 pm: mashed potatoes with salad plus de la cruz, protein with some potatoes and salad Diet marii quinton No juices or reg sodas Sometimes fruit after dinner Has seen sanitary landfill operator long time ago He has never had any hospitalizations for DKA/ hyperglycemia/hypoglycemia. Physical exam General: sitting comfortably in no acute distress HEENT: normocephalic/atraumatic, Neck: supple, Cardiac: normal heart sounds Pulm: normal breath sounds B/L, no added breath sounds Abd: not distended, no tenderness Extremities: no edema, no signs of myxedema Foot exam: intact sensation to monofilament, intact pulses, intact vibration PFSH Medical History (Updated 03/11/25 @ 11:55 by Tessie Marlow MD) Dyslipidemia associated with type 2 diabetes mellitus Obesity (BMI 30.0-34.9) Type 2 diabetes mellitus Bloating Fibroid Pelvic pain High cholesterol Diabetes mellitus Surgical History H/O bilateral breast reduction surgery H/O abdominoplasty H/O myomectomy Hx of section Family History Maternal Aunt History of breast cancer Social History Alcohol intake: current Alcohol intake frequency: holidays/special occasions only Alcohol type: wine Patient Tobacco Use Status: Never used Tobacco Physical Exam Vital Signs: Last Vital Signs Pulse 82 03/11/25 10:30 BP 132/66 03/11/25 10:30 Pulse Ox 95 03/11/25 10:30 Oxygen Delivery Method Room Air 03/11/25 10:30 BMI result Body Mass Index 33.2 Results AMB Hemoglobin A1c 2 AMB Hemoglobin A1c 8.7 % Last Edit by HOOD Leung on 03/11/25 11:17 Results Reviewed Results Reviewed: Laboratory Last Values Glucose (Clinic) 86 mg/dL (60-115) 03/11/25 10:40 Assessment & Plan Assessment & Plan (1) Type 2 diabetes mellitus: Code(s): E11.9 - Type 2 diabetes mellitus without complications Category: Medical Qualifiers: Diabetes mellitus adjunct faculty for medical terminology insulin use: with residential use Diabetes mellitus complication status: with neurologic complications Diabetes mellitus complication detail: with polyneuropathy Qualified Code(s): E11.42 - Type 2 diabetes mellitus with diabetic polyneuropathy; Z79.4 - half-way (current) use of insulin Plan: 60-year-old female with type 2 diabetes mellitus with complications of neuropathy with long-term insulin use. A1c POC 03/11/2025 at 8.7% up from 8.2% back in November 2024. She is very insulin resistant and using a lot of insulin. She was diagnosed early in her late 20s with type 2 diabetes mellitus, I will check her antibody levels and C-peptide level to confirm this is indeed type 2 diabetes mellitus. She is obese and does have multiple family members with type 2 diabetes mellitus so that is consistent with having history of type 2 diabetes mellitus. At this time I would not have much data today as she did not bring her meter, and has not been wearing her sensor. We will upgrade her to freestyle Juarez 3+. I have sent her new prescriptions if she has any trouble with connecting the new sensor she is going to call us for educator appointment She is obese with BMI of 33.2 kilogram/meters squared with current weight 181 lb She has tried Ozempic in the past, could not tolerate it due to vision changes/numbness. She would be a good candidate for GLP 1/GI P inhibitor. We will start her on Mounjaro 2.5 mg weekly injection. Discussed with her common side effects of GI intolerance as well as rare side effects of worsening retinopathy, pancreatitis, association of medullary thyroid cancer in mice. She does not have gallstones, denies history of pancreatitis, minimal alcohol use, no family history of thyroid cancer. She is not a good candidate for SGLT2 inhibitors due to prior history of yeast infections. I will also give more structure to her NovoLog use. Right now she is just guessing how many units to give. Very infrequent hypoglycemia mostly when she is not consistent with her eating. Plan: -Continue insulin Lantus current dose 62 units twice daily -For insulin NovoLog follow the instructions below: <100:10 units 101-200: 12 units > 200:14 units 3 times daily with meals -Start Mounjaro 2.5 mg weekly injection, if you do not hear from the pharmacy with the in the next 2-3 weeks regarding this medication, please give our office a call during office our to follow the status of your prescription -Continue monitoring blood sugars, please put back your sensor on, we have sent a prescription for Juarez 3+, if you are unable to set this up, please call our office to request a family life educator appointment -See the sanitary landfill operator -Referral to Podiatry sent, see youth services specialist -Follow up with the eye doctor annually -ordered fasting blood work and urine test (2) Obesity (BMI 30.0-34.9): Code(s): E66.811 - Obesity, class 1 Category: Medical Plan: See above (3) Dyslipidemia associated with type 2 diabetes mellitus: Code(s): E11.69 - Type 2 diabetes mellitus with other specified complication; E78.5 - Hyperlipidemia, unspecified Category: Medical Plan: No recent lipid panel in the chart Lipid panel ordered Continue atorvastatin 40 mg daily Plan I spent 60 minutes in reviewing the record, seeing the patient and documenting in the medical record. Orders: Orders 2 AMB Hemoglobin A1c Today E11.42 - Type 2 diabetes mellitus with diabetic polyneuropathy, Z13.9 - Encounter for screening, unspecified, Z79.4 - intermodal owner operator truck driver (current) use of insulin Glutamic acid decarboxylase Ab Today E11.42 - Type 2 diabetes mellitus with diabetic polyneuropathy, Z79.4 - intermodal owner operator truck driver (current) use of insulin Lipid Panel Today E11.42 - Type 2 diabetes mellitus with diabetic polyneuropathy, Z79.4 - half-way (current) use of insulin Islet Cell Antibody Scrn/Titer Today E11.42 - Type 2 diabetes mellitus with diabetic polyneuropathy, Z79.4 - half-way (current) use of insulin C Peptide Today E11.42 - Type 2 diabetes mellitus with diabetic polyneuropathy, Z79.4 - intermodal owner operator truck driver (current) use of insulin Aspartate Amino Transferase Today E11.42 - Type 2 diabetes mellitus with diabetic polyneuropathy, Z79.4 - intermodal owner operator truck driver (current) use of insulin Complete Blood Count no Diff Today E11.42 - Type 2 diabetes mellitus with diabetic polyneuropathy, Z79.4 - half-way (current) use of insulin Vitamin B12 Today E11.42 - Type 2 diabetes mellitus with diabetic polyneuropathy, Z79.4 - half-way (current) use of insulin Microalbumin, Random (w Creat) Today E11.42 - Type 2 diabetes mellitus with diabetic polyneuropathy, Z79.4 - intermodal owner operator truck driver (current) use of insulin Glucose Random Today E11.42 - Type 2 diabetes mellitus with diabetic polyneuropathy, Z79.4 - intermodal owner operator truck driver (current) use of insulin Creatinine Today E11.42 - Type 2 diabetes mellitus with diabetic polyneuropathy, Z79.4 - intermodal owner operator truck driver (current) use of insulin Alanine Aminotransferase Today E11.42 - Type 2 diabetes mellitus with diabetic polyneuropathy, Z79.4 - half-way (current) use of insulin Referrals 2 Podiatry Referral E11.42 - Type 2 diabetes mellitus with diabetic polyneuropathy, Z79.4 - intermodal owner operator truck driver (current) use of insulin Building Energy Retrofit Technician Nutrition Referral E11.42 - Type 2 diabetes mellitus with diabetic polyneuropathy, Z79.4 - half-way (current) use of insulin Medications: New 2 blood-glucose,rolling mill operator,cont (FreeStyle Juarez 3 [place]) As directed to monitor sugars continuously 1 ea 0RF E11.42 - Type 2 diabetes mellitus with diabetic polyneuropathy, Z79.4 - half-way (current) use of insulin blood-glucose sensor (FreeStyle Juarez 3 Plus Sensor device) As directed every 15 days 6 ea 3RF E11.42 - Type 2 diabetes mellitus with diabetic polyneuropathy, Z79.4 - half-way (current) use of insulin Lantus Solostar U-100 Insulin (insulin glargine) 62 units (0.62 mL) subcut BID 45 mL 3RF NS E11.42 - Type 2 diabetes mellitus with diabetic polyneuropathy, Z79.4 - intermodal owner operator truck driver (current) use of insulin Novolog FlexPen U-100 Insulin (insulin aspart U-100) subcutaneously 3 times a day; <100: 10 units <200 : 12 units >200: 14 units max 42 units daily 15 mL 6RF NS tirzepatide (Mounjaro) for 4 weeks 2.5 mg (0.5 mL) subcut QWEEK 2 mL 4RF E11.42 - Type 2 diabetes mellitus with diabetic polyneuropathy, Z79.4 - intermodal owner operator truck driver (current) use of insulin Patient Instructions: Continue insulin Lantus current dose 62 units twice daily For insulin NovoLog follow the instructions below: <100:10 units 101-200: 12 units > 200:14 units 3 times daily with meals Start Mounjaro 2.5 mg weekly injection, if you do not hear from the pharmacy with the in the next 2-3 weeks regarding this medication, please give our office a call during office our to follow the status of your prescription Continue monitoring blood sugars, please put back your sensor on, we have sent a prescription for Juarez 3+, if you are unable to set this up, please call our office to request a family life educator appointment See the sanitary landfill operator Referral to Podiatry sent, see youth services specialist Follow up with the eye doctor annually Check your feet daily looking for any signs of infection, drainage, redness, ulceration and seek medical attention if this occurs. Break in shoes gradually and do not wear open-toed shoes or walk bare footed Rule of 15 Treatment for Hypoglycemia (Low blood sugar) If your blood glucose is low (70 and below)*, follow the steps below to treat: Eat or drink something from the list below equal to 15 grams of carbohydrate (carb). Rest for 15 minutes Re-check your blood glucose. If it is still low, (below 70), repeat step 1 above. ? If your next meal is more than an hour away, you will need to eat one carbohydrate choice as a snack to keep your blood glucose from going low again. ?If you can't figure out why you have low blood glucose, call your healthcare provider, as your medicine may need to be adjusted. ?Always carry something with you to treat an insulin reaction. Use food from the list below. ? Foods equal to One Carbohydrate Choice (15 grams of carbohydrate): 3 Glucose ?tablets or 4 Dextrose tablets 4 ounces of fruit juice 5-6 ounces (about 1/2 can) of regular soda such as Coke or Pepsi ? 7-8 gummy or regular Life Savers ? 1 Tbsp. of sugar or jelly NOTE: If your blood sugar is less than 50, double the portion above for a total of 30 gm. ?Carbohydrate. ? Follow meal plan of 45-60 g of consistent carbohydrates at 3 meals each day and 15 g of carbohydrate at 1-2 snacks each day. do fasting blood work and urine test Coding Level of Care Code New Pt Level 5 (88095) Complex EM visit Add On G2211 Diagnoses Type 2 diabetes mellitus with diabetic polyneuropathy, with long-term current use of insulin E11.42; Z79.4 Diabetes mellitus residential insulin use: with residential use Diabetes mellitus complication status: with neurologic complications Diabetes mellitus complication detail: with polyneuropathy Obesity (BMI 30.0-34.9) E66.811 Dyslipidemia associated with type 2 diabetes mellitus E11.69; E78.5 Time Spent (min) 60
[2025-03-11 10:46] LABS: Glucose, Whole Blood 86 mg/dL (60-115)
== END 2025-03-11 11:48 | disposition home or self-care (01) ==
LOC: HO.ENCR 10:21
PROVIDERS: PCP Internal Medicine; Visit Provider Student in an Organized Health Care Education/Training Program
DX: E11.42 Type 2 diabetes mellitus with diabetic polyneuropathy (principal); Z79.4 Long term (current) use of insulin; E11.69 Type 2 diabetes mellitus with other specified complication; E66.9 Obesity, unspecified; E78.5 Hyperlipidemia, unspecified; Z13.9 Encounter for screening, unspecified
CPT/HCPCS: 99205

== ENCOUNTER 2025-03-28 09:47 | Outpatient (AMB) | payer OTHER, SELFPAY ==
[2025-03-28 09:57] VITALS: BMI 32.0
--- NOTE | 2025-03-28 09:57 | A.OFFVIS_ITS ---
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 Pt reports her glucose is currently at 135 this morning and her last reported A1c was 8.7%. She experiences numbness and tingling with a burning sensation in both her feet however she notes she experiences this more in the left foot. Patient denies and any history of injuries to her back or feet and no previous history of wounds or amputations to her feet. She experiences occasional low back back with no injury for almost a year and has worsened in the past month. Patient mentioned she stopped taking her gabapentin prescription recently due to finding it has not helped aleviate her pain symptoms. 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 She is seeing improvement with the new Mounjaro prescription. She complains of burning numbness and tingling in her feet, worst during the nighttime. She also complains of soreness to her feet that worsens after activity. She is taking oral analgesic for pain. She has tried multiple various orthotics before including a custom diabetic shoe, however she states she is unable to wear the shoes since they are large and heavy for her. She also endorses lower back pain, stating she has not had treatment for it so far either. [facility] Medical History (Updated 03/28/25 @ 13:00 by Bassem Rushing DPM) Dyslipidemia associated with type 2 diabetes mellitus Obesity (BMI 30.0-34.9) Type 2 diabetes mellitus Bloating Fibroid Pelvic pain High cholesterol Diabetes mellitus Surgical History H/O bilateral breast reduction surgery H/O abdominoplasty H/O myomectomy Hx of section Family History Maternal Aunt History of breast cancer Social History Alcohol intake: current Alcohol intake frequency: holidays/special occasions only Alcohol type: wine Patient Tobacco Use Status: Never used Tobacco Review of Systems Const All systems reviewed & are unremarkable except as noted in HPI and below Physical Exam Vital Signs: BMI result Body Mass Index 32.0 Extrem Other: *Bilateral Lower Extremity Focused Diabetic Foot Exam Vascular: DP/PT 2/4, CFT<3s to digits, TG warm to cool, no pedal edema, pedal hair present Derm: Skin: No open lesions, ulcerations, or calluses. Interdigital spaces: Clear, no maceration or fungal infection. Nails: No onychomycosis, paronychia, or ingrown nails. Neuro: Lincoln-ricardo monofilament (10g) test 101/10 intact to right foot, 0/10 intact to left foot. Msk: Severe medial arch collapse pes planus deformity with talar uncovering, no significant abduction. Proximally 5 degree heel valgus bilaterally, calcaneus inverts on bilateral heel raise. Deformities: No evidence of hammertoes, bunions, Charcot changes. Muscle strength: 5/5 in all muscle groups. Gait: Early heel rise bilaterally. Footwear Assessment: Shoes inspected; appropriate fit, no excessive wear, or foreign objects noted. Assessment & Plan Assessment & Plan (1) Diabetes mellitus with neuropathy: Code(s): E11.40 - Type 2 diabetes mellitus with diabetic neuropathy, unspecified Category: Medical Qualifiers: Diabetes mellitus type: type 2 Diabetes mellitus superintendent container terminal insulin use: unspecified snf insulin use status Qualified Code(s): E11.40 - Type 2 diabetes mellitus with diabetic neuropathy, unspecified Plan: Risk Stratification: No current ulceration, infection, or pre-ulcerative lesion. Mild loss of protective sensation. No peripheral arterial disease. No plans for further testing/referrals for non-invasive vascular studies. Patient is at low risk for diabetic foot complications at this time. Recommendations: Continue routine foot care and daily self-inspection. Recommend moisturizing joel ly. Recommend supportive proper fitting shoe-wear. The patient may require diabetic shoes in the future. Reinforced diabetic foot education and risks from peripheral neuropathy. * Referred to pain management for Qutenza treatment. (2) Posterior tibial tendon dysfunction (PTTD) of both lower extremities: Code(s): M76.821 - Posterior tibial tendinitis, right leg; M76.822 - Posterior tibial tendinitis, left leg Category: Medical Plan: * Recommended range of motion and stretching exercises * Instructed to use over the counter orthotics and supportive sneakers/shoes. * Rx bilateral foot x-rays (3) Pes planus of both feet: Code(s): M21.41 - Flat foot [pes planus] (acquired), right foot; M21.42 - Flat foot [pes planus] (acquired), left foot Category: Medical Plan: * Recommended Powerstep orthotics. * May require custom foot orthotics in the future. 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 (4) Lumbar radiculopathy, chronic: Code(s): M54.16 - Radiculopathy, lumbar region Category: Medical Plan: * Referred to Pain management Orders: Referrals Pain Management Referral E11.40 - Type 2 diabetes mellitus with diabetic neuropathy, unspecified, M54.16 - Radiculopathy, lumbar region Coding Level of Care Code New Pt Level 4 (51851) Diagnoses Type 2 diabetes mellitus with diabetic neuropathy, unspecified whether superintendent container terminal insulin use E11.40 Diabetes mellitus type: type 2 Diabetes mellitus superintendent container terminal insulin use: unspecified snf insulin use status Posterior tibial tendon dysfunction (PTTD) of both lower extremities M76.821; M76.822 Pes planus of both feet M21.41; M21.42 Lumbar radiculopathy, chronic M54.16 Time Spent (min) 45
--- OUTSIDE RECORDS SUMMARY | 2025-03-28 11:17 | XMS_ITS | Clinical Summary ---
Author Organization [email or web address] Address [address] [place] [address] [address] [place] [address] Care Team Providers Care Relocation Commissioner Name Role Phone Unavailable Primary Care Provider [...] Colonoscopy 1965 Depression Screening 1965 FIT 1965 Sigmoidoscopy 1965 Disability Screening 1965 Alcohol/Substance Use Screening 1977 Tobacco Screening 1977 DTaP/Tdap/Td Vaccines (1 - Tdap) 02/21/1984 Pap Smear 1986 Cervical Cancer Screening 1995 HPV/Cotest 1995 Pneumococcal Vaccine: 50+ Ye ars (1 of 1 - PCV) 2015 Zoster Vaccines (1 of 2) 2015 Colorectal Cancer Screening 08/03/2022 FIT DNA/Cologuard 08/03/2022 08/03/2021 FOBT 08/03/2022 08/03/2021 Mammogram 01/11/2024 01/10/2022 COVID-19 Vaccine (2 - 2024-2 6 season) 2025 03/21/2022 Influenza Vaccine (#1) 2025 RSV Patients and Pa tients Aged 60 [...] patient's age to complete this topic Hepatitis B Vaccines Aged Out No long er eligible [...] Procedure Name Priority Date/Time Associated Diagnosis Comments FIT DNA/COLOGUARD CANCER SCREENING Routine 08/03/2021 from Last 3 Months or Most Recently Relevant to Health Maintenance Results * FIT DNA/Cologuard Cancer Screening (08/03/2021) Cologuard Cancer Screen Negative Stool Historical Provider MD HEALTH MAINTENANCE Final Result from Last 3 Months or Most Recently Relevant to Health Maintenance
--- OUTSIDE RECORDS SUMMARY | 2025-03-28 11:17 | XMS_ITS | Patient Health Record ---
Author Organization Diabetes And Endocri nology [facility] Address [address] [place], [place] [id number] Care Team Providers Care Broomcorn Thresher Name Role Phone dr Izaiah Bryan Unavailable Unavaila ble Reason For Referral No Information Medications Medication SIG (Take, Route, Frequency, Duration) Notes Start Date End Date Status FreeStyle Juarez 14 Day [place] - as directed subq [id number]; Duration: 90 days Active BD Pen Needle Paulette U/F 32G X 4 MM 5x daily 5x; Duration: 90 days 06/11/2018 Active Lisinopril 10 MG 1 tablet Orally Once a day; Duration: 90 days Active Pravastatin Sodium 10 MG 1 tablet Orally Once a day; Duration: 90 days 04/07/2018 Active FreeStyle Juarez 14 Day Sensor - as directed subq 14 days; Duration: 90 days Active Tresiba FlexTouch 100 UNIT/ML as directed Subcutaneous 92u qhs; Duration: 90 days 10/30/2018 Activ e metFORMIN HCl 500 MG 1 tablet with meals Orally Twice a day; Duration: 90 days Active Jardiance 10 MG 1 tablet Orally Once a day; Duration: 90 days 10/30/2018 Active HumaLOG KwikPen 100 UNIT/ML 38u units AC TID Subcutaneous AC TID; Duration: 90 days Active Social History Tobacco Use: Social History Observation Description Date Details (start date - stop date) Never Smoker NA - NA Tobacco Use/Smoking Question Answer Notes Are you a nonsmoker Problems Problem Type SNOMED Code ICD Code Onset Dates Problem Status W/U Status Risk Notes Problem Neurologic disorder associated with type II diabetes mellitus (538537062) Type 2 diabetes mellitus with other diabetic neurological complication (E11.49) Active confirmed Problem Hyperglycemia due to type 2 diabetes mellitus (884191472100277) Type 2 diabetes mellitus with hyperglycemia (E11.65) Active confirmed Problem Mixed hyperlipidemia (317089082) Mixed hyperlipidemia (E78.2) Active confirmed Problem Non-toxic nodular goiter (353934716) Nontoxic nodular goiter (E04.9) Active confirmed Problem Essential hypertension (58504528) Essential hypertension (I10) Active confirmed Problem Obese class I (finding) (412706442984172) Obesity (BMI 30.0-34.9) (E66.9) Active confirmed Problem Obesity (691909280) Obesity (BMI 30-39.9) (E66.9) Active confirmed Plan Of Treatment No Information Insurance Providers Payer Name Payer Address Payer Phone Subscriber Number Group Number Insured Name Patient Relationship to Insured Coverage Start Date Coverage End Date [facility] [address] [place] [address] [phone] [id number] Karon Ingram Self - patient is the insured 8 Medical (General) History Medical History History ICD Code back trouble diabetes Surgical History Surgery Date(Month/Year)
--- OUTSIDE RECORDS SUMMARY | 2025-03-28 11:17 | XMS_ITS | Patient Health Record ---
Author Organization [facility] Address [address] [place] [address] Care Team Providers Care Motor Tune Up Specialist Name Role Phone Kennedy Hurtado Primary Care Provider [phone] Reason For Referral No Information Medications Medication SIG (Take, Route, Frequency, Duration) Notes Start Date End Date Status Levemir 100 UNIT/ML 12 units Subcutaneou s three times a day; Duration: 30 days Active Aspirin 81 MG 1 tablet Orally Once a day Active HumaLOG 100 UNIT/ML Subcutaneous Active Doxycycline Hyclate 100 MG 1 capsule Ora lly every 12 hrs; Duration: 5 day(s) 12/12/2015 Active Lisinopril 10 MG 1 tablet Orally Once a day Active Naproxen 500 MG 1 tablet as needed O rally every 12 hrs; Duration: 14 days 12/13/2015 Active Diflucan 150 MG 1 tablet Orally toda y and then in 72 hours; Duration: 4 days 01/09/2016 Active Atorvastatin Calcium 10 MG 1 tablet Orally Once a day Active Problems No Known Problems Plan Of Treatment Pending Test Test Name Order Date Electrocardiogram (EKG) 01/09/2016 Urinalysis, Routine 01/09/2016 Genital Culture, Routine 01/09/2016 rapid glucose 01/09/2016 TSH, 3RD GENERATION 01/09/2016 TSH, 3RD GENERATION 12/12/2015 CBC (INCLUDES DIFF/PLT) 12/12/2015 CBC (INCLUDES DIFF/PLT) 01/09/2016 COMPREHENSIVE METABOLIC$PANEL W/EGFR 02/2016 COMPREHENSIVE METABOLIC$PANEL W/EGFR 05/2016 ThinPrep Imaging System Pap 01/09/2016 Lipid Panel With LDL/HDL Ratio 6 Lipid Panel With LDL/HDL Ratio 6 Medical (General) History Medical History History ICD Code DM II Hyperlipidemia Surgical History Surgery Date(Month/Year) Fibroids Removed Breast Reduction
--- OUTSIDE RECORDS SUMMARY | 2025-03-28 11:17 | XMS_ITS | Clinical Summary ---
Author Organization [facility] [address] [place] [address] Address [address] [place] [address] Phone Care Team Providers Care Customer Engagement Analyst Name Role Phone Yair Eaton MD Primary [...] (MULTIPLE VITAMINS ORAL) Take by mouth. Active Lantus Solostar U-100 Insulin 100 unit/mL (3 mL) injection pen 5 Active tirzepatide (Mounjaro) 2.5 mg/0.5 mL injectionIndicati ons:Type 2 diabetes mellitus with diabetic polyneuropathy, with long-term current use of insulin (CMS/[facility] V24, CMS/HCC V28) Inject 0.5 mL (2.5 mg total) under the skin every 7 (seven) days. 2 mL 1 5 Active Additional Information Patient not taking.Reported on 12/07/2024 aspirin 81 mg chewable tablet CHEW 1 TABLET BY MOUTH EVERY DAY 90 tablet 1 5 Active naproxen (NAPROSYN) 500 mg tabletIndications :Type 2 diabetes mellitus with diabetic polyneuropathy, with long-term current use of insulin ([facility] V24, [facility] V28),Bilateral shoulder bursitis,Lateral epicondylitis of right elbow TAKE 1 TABLET BY MOUTH TWICE A DAY NEEDED FOR MILD PAIN 60 tablet 5 Active Active Problems Problem Noted Date Diagnosed Date Essential thrombocytosis ([facility] V24, [facility] V 28) 05/14/2024 Type 2 diabetes mellitus wit h diabetic polyneuropathy, with long-term current use of insulin ([facility] V24, [facility] V28) 03/16/2024 Encounters Date Type Department Care Team Description 03/23/2025 Results Follow-Up [facility] Hematology Oncology [address] [place] [address] Chelo Valencia PA 02/11/2025 9:00 AM EDT Treatment Outpatient Rehabilitation [address] [phone] Evi Cortes, RN CIRCULATING Bilateral shoulder bursitis (Primary Dx); Lateral epicondylitis of both elbows 02/04/2025 10:30 AM EDT Treatment Outpatient [address] [phone] Evi Cortes, RN CIRCULATING Bilateral shoulder bursitis (Primary Dx); Lateral epicondylitis of both elbows 02/01/2025 12:30 PM EDT Treatment Outpatient [address] [phone] Heladio Raygoza, PT Bilateral shoulder bursitis (Primary Dx) 01/28/2025 10:30 AM EDT Treatment Outpatient [address] [phone] Heladio Raygoza, PT Bilateral shoulder bursitis (Primary Dx) 01/24/2025 11:00 AM EDT Treatment Outpatient [address] [phone] Dina Lackey, RN CIRCULATING Bilateral shoulder bursitis (Primary Dx); Lateral epicondylitis of both elbows 01/17/2025 11:30 AM EDT Treatment Outpatient Rehabilitation [address] [phone] Evi Cortes H, RN CIRCULATING Bilateral shoulder bursitis (Primary Dx); Lateral epicondylitis of both elbows 01/13/2025 11:30 AM EDT Treatment Outpatient [address] [phone] Evi Cortes H, RN CIRCULATING Bilateral shoulder bursitis (Primary Dx); Lateral epicondylitis of both elbows 01/06/2025 12:30 PM EDT Treatment Outpatient [address] [phone] Heladio Raygoza, PT Bilateral shoulder bursitis (Primary Dx) 12/28/2024 12:30 PM EDT Evaluation Outpatient [facility] [address] [phone] Heladio Raygoza, PT Lateral epicondylitis of both elbows (Primary Dx); Bilateral shoulder bursitis from Last 3 Months Immunizations Immunization Administration Dates Next Due Pfizer SARS-CoV-2 COVID-19, mRNA, LNP-S, preservative free 03/21/2022 Medical History Medical History Date Comments Diabetes mellitus ([facility]/HCC V24, CMS/HCC V28) DX:Diabetes mellitus (HCC) Family History Medical History Relation [...] = 0.6 oz pur e alcohol) rare Housing Instability Answer Date Recorde d Are you worried that in the next 2 months you may not have stable housing? No 11/16/2024 Food Access & Nutrition Answer Date Rec orded Do you have access to a vari ety of food including fruits and vegetables? Yes 11/16/2024 Health Literacy Answer Date Recorded How often do you need to hav e someone help you when you read instructions, pamphlets, or other written material from your doctor or pharmacy? Never 11/16/2024 Caregiver: How often do you need to have someone help you when you read instructions, pamphlets, or other written material from your doctor or pharmacy? Not on file 11/16/2024 Financial Risk Answer Date Recorded How hard is it for you to pa y for the very basics like food, housing, medical care, and air conditioning / heating? Very hard 11/16/2024 Transportation Answer Date Recorded Has the lack of transportati on kept you from meetings, work, or from getting things needed for daily living? No Has the lack of transportati on kept you from medical appointments or from getting medications? No 11/16/2024 Social Isolation Answer Date Recorded How often do you feel lonely or isolated from th ose around you? Never 11/16/2024 Food Risk Answer Date Recorded Within the past 12 months we worried whether our food would run out before we got money to buy more. Never true 11/16/2024 Within the past 12 months th e food we bought just didn't last and we didn't have money to get more. Never true 11/16/2024 Dependent Care Answer Date Recorded Do you need help finding or paying for care for your loved ones. For example, child support investigator or elderly care for an older adult? No 11/16/2024 Education Answer Date Recorded Do you think completing more education or training, like finishing a GED, going to college, or learning a trade, would be helpful for you? No 11/16/2024 Employment and Income Answer Date Recor ded During the last four weeks, have you been actively looking for work? No 11/16/2024 Living Situation Answer Date Recorded What is your living situation? Unrecognized valu e 11/16/2024 Comments No Sex and Gender Information Value Date Recorded Sex Assigned at Not on file Legal Sex Female 11:40 AM EDT Gender Identity Not on file Sexual Orientation Not on file Obstetrics History Last Filed Vital Signs Vital Sign Reading Time Taken Comments Blood Pressure 119/72 12/07/2024 12:36 PM EDT Pulse 83 12/07/2024 12:36 PM EDT Temperature 36.6 C (97.8 F) 12/07/2024 12:36 PM EDT Respiratory Rate 16 11/16/2024 8:22 AM EDT Oxygen Saturation 97% 10/26/2024 3:49 PM EDT Inhaled Oxygen Concentration - - Weight 79.8 kg (176 lb) 12/07/2024 12:36 PM EDT Height 157.5 cm (5' 2 ) 11/16/2024 8:22 AM EDT Body Mass Index 32.19 11/16/2024 8:22 AM EDT Plan of Treatment Upcoming Encounters Date Type Department Care Team (Late st Contact Info) Description 08/15/2025 10:00 AM EDT Office Visit [facility] Hematology Oncology [address] [place] [id number] Chelo Valencia PA [address] [place] [address] Health Maintenance Due Date Last Done Comments Colorectal Cancer Screening: Colonoscopy 1965 Diabetes: Annual Retina Eye Exam 1975 DTaP,Tdap,and Td Vaccines (1 - Tdap) 02/21/1984 Pneumococcal Vaccine: 50+ Years (1 of 2 - PCV) 02/21/1984 Zoster Vaccines (1 of 2) 02/21/1984 Cervical Cancer Screening: Pap Smear 1986 RSV Immunization Adult Patients (1 - Risk 50-74 years 1-dose series) 2015 COVID-19 Vaccine (2 - Pfizer risk series) 04/11/2022 03/21/2022 HIV Screening 03/10/2024 Influenza Vaccine (#1) 2025 Diabetes: Annual Foot Exam 02/03/2025 02/04/2024 Diabetes: Annual Urine Albumin-Creatinine Ratio (uACR) 05/17/2025 05/17/2024, 11/13/2023 Diabetes: Blood Sugar Control Test (HGBA1C) 06/04/2025 12/02/2024, 05/17/2024, 11/13/2023, Additional history exists Social Influencers of Health Screening 11/16/2025 11/16/2024 Diabetes: Annual GFR (Glomerular Filtration Rate) 12/02/2025 12/02/2024, 05/17/2024, 11/13/2023 Breast Cancer Screening 10/15/2026 10/15/2024, 01/10 Cholesterol Screening (Lipid Panel) 05/17/2029 05/17/2024, 11/13/2023 Hepatitis C Screening Completed 11/13/2023 Depression Screening Completed 11/16/2024 HIB Vaccines Aged Out No longer eligi [...] 20 months Aged Out No longer eligible based on patient's age to complete this topic Varicella Vaccines Aged Out No longer eligible based on patient's age to complete this topic Goals Goal Patient Goal Type Associated Problems Recent Progress Patient-Stated? Author STG's 6 visits General Yes Heladio Raygoza, PT Note: Pt will report a 50% or better decrease in B elbow pain during daily activities and work activities. (Met) Pt will demonstrate a 5 foot lb torque improvement of R chief hospital administrator strength. Met) Pt is Independent and compliant with initial HEP. (Met). 01/28/2025 Pt will demonstrate B shoulder elevations to 140 degrees or better for overhead IADL's Pt will demonstrate combined bilateral shoulder ext, adduction and IR to L4 for dressing behind back. LTG's 12 visits General Yes Heladio Raygoza, PT Note: Pt will report a 75% or better decrease in B elbow pain during daily activities and work activities. Pt will demonstrate a 10 foot lb torque improvement of R chief hospital administrator strength. Pt will be Independent and compliant with final HEP. 01/28/2025 Pt will demonstrate B shoulder elevations to 140 degrees or better for overhead IADL's. Pt will demonstrate combined bilateral shoulder extension, adduction and IR to T12 or better for dressing behind back. Procedures Procedure Name Priority Date/Time Associated Diagnosis Comments CBC WITH AUTO DIFFERENTIAL Routine 03/17/2025 10:25 AM EDT Essential thrombocytosis ([facility]/HCC V24, CMS/[facility] V28) CBC AND DIFFERENTIAL Routine 03/17/2025 10:25 AM EDT Essential thrombocytosis ([facility]/HCC V24, CMS/HCC V28) EXTERNAL CLINICAL LAB 03/11/2025 CREATININE, SERUM Routine 12/02/2024 10: 35 AM EDT Type 2 diabetes mellitus with diabetic polyneuropathy, with long-term current use of insulin ([facility] V24, CMS/[facility] V28) HEMOGLOBIN A1C Routine 12/02/2024 10:35 AM EDT Type 2 diabetes mellitus with diabetic polyneuropathy, with long-term current use of insulin ([facility] V24, CMS/[facility] V28) EXTERNAL MAMMOGRAM REPORT 10/15/2024 MICROALBUMIN CREATININE URINE RATIO Routine 05/17/2024 12:06 PM EST Type 2 diabetes mellitus with diabetic polyneuropathy, with long-term current use of insulin ([facility] V24, CMS/[facility] V28) LIPID PANEL WITH REFLEX TO DIRECT LDL Routine 05/17/2024 12:06 PM EST Type 2 diabetes mellitus with diabetic polyneuropathy, with long-term current use of insulin ([facility] V24, CMS/[facility] V28) DIABETES FOOT EXAM Routine 02/04/2024 HEPATITIS C SCREENING Routine 11/13/2023 from Last 3 Months or Most Recently Relevant to Health Maintenance Results * (ABNORMAL) CBC auto differential (03/17/2025 10:25 AM EDT) WBC 7.9 4.8 - 10.8 K/[facility] LAB HEMETOLOGY METHOD 03/17/2025 12:43 PM [facility] RBC 4.80 3.80 - 4.80 M/mcL LAB HEMETOLOGY METHOD 03/17/2025 12:43 PM [facility] Hemoglobin 13.5 11.5 - 16.0 g/dL LAB HEMETOLOGY METHOD 03/17/2025 12:43 PM [facility] Hematocrit 42.8 35.0 - 47.0 % LAB HEMETOLOGY METHOD 03/17/2025 12:43 PM [facility] MCV 89.9 79.0 - 98.0 FL LAB HEMETOLOGY METHOD 03/17/2025 12:43 PM [facility] MCH 28.4 27.0 - 32.0 pcg LAB HEMETOLOGY METHOD 03/17/2025 12:43 PM [facility] MCHC 31.5(L) 32.0 - 37.0 g/dL LAB HEMETOLOGY METHOD 03/17/2025 12:43 PM [facility] RDW 14.6 11.0 - 15.0 % LAB HEMETOLOGY METHOD 03/17/2025 12:43 PM [facility] Platelets 621(H) 130 - 400 K/mcL LAB HEMETOLOGY METHOD 03/17/2025 12:43 PM [facility] MPV 9.4 7.0 - 11.0 FL LAB HEMETOLOGY METHOD 03/17/2025 12:43 PM [facility] NRBC 0.0 <1.0 % LAB HEMETOLOGY METHOD 03/17/2025 12:43 PM [facility] NRBC Absolute 0.00 <0.10 K/mcL LAB HEMETOLOGY METHOD 03/17/2025 12:43 PM [facility] Neutrophils Relative 54.6 % LAB HEMETOLOGY METHOD 03/17/2025 12:43 PM [facility] Lymphocytes Relative 33.1 % LAB HEMETOLOGY METHOD 03/17/2025 12:43 PM [facility] Monocytes Relative 8.2 % LAB HEMETOLOGY METHOD 03/17/2025 12:43 PM [facility] Eosinophils Relative 3.0 % LAB HEMETOLOGY METHOD 03/17/2025 12:43 PM [facility] Basophils Relative 0.5 % LAB HEMETOLOGY METHOD 03/17/2025 12:43 PM [facility] Immature Granulocytes Relative 0.6 % LAB HEMETOLOGY METHOD 03/17/2025 12:43 PM [facility] Neutrophils Absolute 4.30 1.50 - 7.00 K/mcL LAB HEMETOLOGY METHOD 03/17/2025 12:43 PM [facility] Lymphocytes Absolute 2.61 1.00 - 5.00 K/mcL LAB HEMETOLOGY METHOD 03/17/2025 12:43 PM [facility] Monocytes Absolute 0.65 0.20 - 1.00 K/mcL LAB HEMETOLOGY METHOD 03/17/2025 12:43 PM [facility] Eosinophils Absolute 0.24 0.00 - 0.50 K/mcL LAB HEMETOLOGY METHOD 03/17/2025 12:43 PM [facility] Basophils Absolute 0.04 0.00 - 0.20 K/mcL LAB HEMETOLOGY METHOD 03/17/2025 12:43 PM [facility] Immature Granulocytes Absolute 0.05(H) 0.00 - 0.03 K/mcL LAB HEMETOLOGY METHOD 03/17/2025 12:43 PM [facility] Blood Venous blood specimen / Unknown Venipuncture / Unknown 03/17/2025 10:25 AM EDT 03/17/2025 12:10 PM EDT us Chelo HANKINS LAB BLOOD ORDERABLES Final Re sult Performing Organization Address City/[facility]/ZIP Co de Phone Number [facility] [address] [place] [address], [place] [phone] * External clinical lab (03/11/2025) us Provider [facility] LAB BLOOD ORDERABLES Fin al Result * Creatinine (12/02/2024 10:35 AM EDT) Creatinine 0.62 0.50 - 1.10 mg/dL LAB CHEMISTRY METHOD 12/02/2024 1:[address] [facility] eGFR 103 >=60 mL/min/1. 73m2 LAB CHEMISTRY METHOD 12/02/2024 1:[address] [facility] Comment:Calculation based on the Chronic Kidney Disease Epidemiology Collaboration (CKD-EPI) equation refit without adjustment for race. Blood Venous blood specimen / Unknown Venipuncture / Unknown 12/02/2024 10:35 AM EDT 12/02/2024 10:35 AM EDT Patricia Lerma MD LAB BLOOD ORDERABLES Final Resul t Performing Organization Address City/[facility]/ZIP Co de Phone Number [facility] [address] [place] [address], [place] [phone] * (ABNORMAL) Hemoglobin A1c (12/02/2024 10:35 AM EDT) Hemoglobin A1C 8.2(H) <6.5 % LAB CHEMISTRY METHOD 12/02/2024 2:[address] [facility] Mean Bld Glu Estim. 189 mg/dL LAB CHEMISTRY METHOD 12/02/2024 2:[address] [facility] Blood Venous blood specimen / Unknown Venipuncture / Unknown 12/02/2024 10:35 AM EDT 12/02/2024 10:35 AM EDT us Patricia Lerma MD LAB BLOOD ORDERABLES Final Resul t [facility] [address] [place] [address], [place] [phone] * External Mammogram Report (10/15/2024) Anatomical Region Laterality Modality Mammography us Provider [facility] IMG BI PROCEDURES Final Result * Lipid panel with reflex to direct LDL (05/17/2024 12:06 PM EST) Cholesterol 131 0 - 200 mg/dL LAB CHEMISTRY METHOD 05/17/2024 7:34 PM [facility] Triglycerides 83 0 - 150 mg/dL LAB CHEMISTRY METHOD 05/17/2024 7:34 PM [facility] HDL 49 >=40 mg/dL LAB CHEMISTRY METHOD 05/17/2024 7:[address] [facility] LDL Calculated 65 0 - 100 mg/dL LAB CHEMISTRY METHOD 05/17/2024 7:34 PM [facility] VLDL Cholesterol Osman 16.6 mg/dL LAB CHEMISTRY METHOD 05/17/2024 7:34 PM [facility] Non HDL Chol. (LDL+VLDL) 82 <145 mg/dL LAB CHEMISTRY METHOD 05/17/2024 7:34 PM [facility] Chol/HDL Ratio 2.7 0.0 - 4.4 LAB CHEMISTRY METHOD 05/17/2024 7:34 PM [facility] Blood Venous blood specimen / Unknown Venipuncture / Unknown 05/17/2024 12:06 PM EST 05/17/2024 12:06 PM EST Yair Eaton MD LAB BLOOD ORDERABLES F inal Result Performing Organization Address [facility]/ZIP Co de Phone Number [facility] [address] [place] [address], * Microalbumin creatinine urine ratio (05/17/2024 12:06 PM EST) [facility] Creatinine, Urine 141.0 mg/dL LAB CHEMISTRY METHOD 05/17/2024 5:[address] [facility] Microalb, Ur 10.0 0.0 - 29.0 mg/L LAB CHEMISTRY METHOD 05/17/2024 5:[address] [facility] Microalb/Creat Ratio 7 <30 mg/g creat LAB CHEMISTRY METHOD 05/17/2024 5:[address] [facility] Urine Urine specimen obtained by clean catch procedure / Unknown Non-blood Collection / Unknown 05/17/2024 12:06 PM EST 05/17/2024 12:06 PM EST Yair Eaton MD LAB URINE ORDERABLES F inal Result Performing Organization Address City/[facility]/ZIP Co de Phone Number [facility] [address] [place] [address], * Diabetes Foot Exam (02/04/2024) Pathologist [facility] Diabetes: Annual Foot Exam abstracted Historical Provider HEALTH MAINTENANCE Final Result * Hepatitis C Screening (11/13/2023) [facility] Hepatitis C Screening abstracted us Historical Provider HEALTH MAINTENANCE Final Result from Last 3 Months or Most Recently Relevant to Health Maintenance Insurance [employer] Care Teams Customer Engagement Analyst Relationship Specialty Start Date End Date Yair Eaton MD [address] [place] [address] PCP - General 01/01/24
--- OUTSIDE RECORDS SUMMARY | 2025-03-28 11:18 | XMS_ITS | Data Portability ---
Author Organization [place] - [facility], Allergy Address [address] [place] [phone] Care Team Providers Care Training Associate Name Role Phone SALENA JONES Primary Care Provider [phone] Assessment Encounter Date Assessment Date Assessment LastModified [...] Sensorineur al hearing loss of bilateral ears [id number] Active 2024 JUAN JOSE EUBANKS, Rachael [address] [facility] [[email or web address] [address], [place], [address], [facility] 14:41:10 Referred otalgia of right ear [id number] 100 Active 2024 SUE VINCENT PA-C 100 [facility] [[email or web address]] [address], [place], [address], [facility] 15:14:58 Problem Notes None recorded. Procedures Surgical History Date Name Laterality Status Provider Name and Address Organization Details Recorded Time 09/24/2024 Comp Audio with Tymps - 21312 & 47746 completed JUAN JOSE EUBANKS, Rachael 100 [facility] 100, [place], [address], [facility] 09/24/2024 14:30:24 Imaging Results None recorded. Procedure Notes None recorded. Medical Equipment None [...] Not Available No t Available amoxicillin 500 mg-jany chan clavulanate 125 mg tablet TAKE 1 TABLET [...] Updated DateTime 09/24/2024 157.48 cm 30.7 kg/m2 88937.52 g Va Shaffer [facility] 09/24/2024 14:53:18 Social History None recorded. Functional Status Question Answer Note LastModified by Organization D etails LastModified Time What is your level of alcohol consumption? None [email or web address] Information not available 09/24/2024 Mental Status None recorded. Family History Nothing Reported. Medical History Condition Response Allergies/Hayfever N Heart Problems N Anxiety N Tonsil Infections N Emphysema N Migraines N Thyroid Problems N COPD N Depression N Developmental Delay N Glaucoma N Nasal or Sinus Problems N Anemia N Immune System Disorder N Anesthesia Complications N Heart Attack (DE) N Other Skin Condition N Diabetes Y Rhinitis N Bleeding Disorder N Food Allergy N Hearing Loss N Arthritis N Hyperlipidemia N Cancer N Stroke N Dementia N Nasal polyps N Asthma N Sleep Disorder N High Cholesterol Y GERD/Reflux N Liver Disease N Headaches N Fibromyalgia N Hypertension N Speech Delay N Kidney Disease N Gynecological HistoryNo gynecological history recorded. Obstetrics History GPAL:G 0 P 0 0 0 0 Past Encounters Encounter ID Performer Location Encounter Start Date Encounter Closed Date Diagnosis/Indication Diagnosis SNOMED-CT Code Diagnosis ICD10 Code Diagnosis IMO Codes Diagnosis Note [id number] SUE VINCENT PA-C [facility] [address] [place] [address] 09/24/2024 13:58:41 09/24/2024 16:00:49 Sensorineural hearing loss of bilateral ears [id number] H90.3 Audiologic al evaluation results: Right ear: Normal hearing from 250 through 4000 Hz sloping to a moderate sensorineu ral hearing loss with excellent word recognitio n. Left ear: Normal hearing from 250 through 4000 Hz sloping to a moderate sensorineu ral hearing loss with excellent word recognitio n. Tympanomet ry: Right Ear:Type A Left Ear:Type A Referred o talgia of right ear [id number] 466638 H92.01 Health Concerns Section Related Observation LastModified by Organization Detai ls LastModified Time None Recorded Concern Status LastModified by Organization Details LastModified Time None Recorded Advance Directives Directive None Recorded Payers Insurance Date Sequence Insurance Name Policy Number Policy Bender Covered Member ID Bender Member ID Guarantor Name 09/24/2024 1 [facility] NET PLAN (MEDICAID HMO) [id number] Karon Juan Jose [id number] [facility] Notes Date Note Type Note Provider Name and Address Organization Details Recorded Time 09/24/2024 text/html ROS as noted in the HPI 59yo female with diabetes mellitus and allergic [...] of loud noise exposure. SUE VINCENT PA-C [address] [place] [address], [phone], [facility] - [facility] 09/24/2024 15:15:12 OBGyn Episode No OBEpisode recorded.
--- OUTSIDE RECORDS SUMMARY | 2025-03-28 11:18 | XMS_ITS | Clinical Summary ---
Author Organization [facility] Address [address] [place] [address] Care Team Providers Care Rod Placer Name Role Phone Yair Eaton Primary Care [...] 99 02/13/2024 11:44 AM EDT Temperature 36.7 C (98 F) 02/13/2024 11:44 AM EDT Respiratory Rate - - Oxygen Saturation 97% 02/13/2024 11:44 AM EDT Inhaled Oxygen Concentration - - Weight 77.1 kg (170 lb) 02/13/2024 11:44 AM EDT Height 157.5 cm (5' 2 ) 02/13/2024 11:44 AM EDT Body Mass Index 31.09 02/13/2024 11:44 AM EDT Plan of Treatment Health Maintenance Due Date Last Done Comments Hepatitis C Screening 1965 Pneumococcal Vaccine (1 of 2 - PCV) 1971 Depression Screening 1977 Preventative Health Evaluation 1983 DTap / Tdap / Td (1 - Tdap) 02/21/1984 Shingrix-Zoster Vaccine (1 of 2) 02/21/1984 Cervical Cancer Screening (P ap Smear) 1986 Colon Cancer Screening (Colonoscopy) 2010 Breast Cancer Screening (Mammogram) 2015 COVID-19 Vaccine (2 - Pfizer risk series) 04/11/2022 03/21/2022 Influenza Vaccine (#1) 2025 RSV Adult > 60+ Yrs or Pregn ant (1 - 1-dose 75+ series) 02/21/2040 Hepatitis B Vaccines Aged Out No long er eligible based on patient's age to complete this topic RSV Ped < 20 months Aged Out No longe r eligible based on patient's age to complete this topic Care Teams Rod Placer Relationship Specialty Start Date End Date Yair Eaton MBBS [address] [place] [address] PCP - General Internal Medicine 01/01/24
--- OUTSIDE RECORDS SUMMARY | 2025-03-28 11:18 | XMS_ITS ---
Author Name [facility] Organization Unknown Encounters Encounter Type Encounter Reason Primary Diagnosis Location Date Ambulatory [facility] 03/12/2024 Care Team Organization Name Specialty Phone Email Start Date End Da te [facility] 2024
--- OUTSIDE RECORDS SUMMARY | 2025-03-28 11:18 | XMS_ITS | Patient Health Record ---
Author Organization [facility] Address [address] [facility] [address] [place] [address] Care Team Providers Care Dental Surgeon Name Role Phone Lisandro Leija Primary Care Provider [phone] Reason For Referral No Information Medications Medication SIG (Take, Route, Frequency, Duration) Notes Start Date End Date Status Lantus 100 UNIT/ML Solution Subcutaneous 40units BID Act corazon HumaLOG 100 UNIT/ML Solution Subcutaneous Sliding scale start at 30units Active Social History Social History Drugs/Alcohol: Social Info Question Answer Notes Alcohol Screen Did you have a drink containing alcohol in the past year? Yes How often did you have a drink containing alcohol in the past year? Monthly or less (1 point) How many drinks did you have on a typical day when you were drinking in the past year? 1 or 2 drinks (0 point) How often did you have 6 or more drinks on one occasion in the past year? Never (0 point) Points 1 Interpretation Negative Plan Of Treatment Pending Test Test Name Order Date Chest X-ray PA and lateral 07/23/2018 Chest X-ray PA and lateral 07/04/2016 Insurance Providers Payer Name Payer Address Payer Phone Subscriber Number Group Number Insured Name Patient Relationship to Insured Coverage Start Date [facility]age End Date [facility] [address] [place] [address] [phone] Karon Ingram Self - patient is the insured Medical (General) History Medical History History ICD Code diabetes mellitus
--- OUTSIDE RECORDS SUMMARY | 2025-03-28 11:18 | XMS_ITS | Clinical Summary ---
Author Organization [facility] Address [address] [place] [address] Care Team Providers Care Green Feed Attendant Name Role Phone Claudette Diego YARN WORKER Primary Care Provider [phone] Allergies Active Allergy Reactions Criticality Noted Date Comments Pollen Extracts Nasal congestion 11/01/2022 Medications flash glucose scanning reader (FreeStyle Juarez 2 [place]) [facility] Use to monitor blood sugars. 1 each [...] tea prior to administration. 30 packet 3 03/22/2022 1:07 PM EDT 2 Active estradioL (ESTRACE) 0.01 % (0.1 mg/gram) vaginal cream Insert 2 g into the vagina once a day. Use daily for two weeks, then three times a week for maintenance. 42.5 g 1 05/30/2022 7:58 AM EST 2 Active cyanocobalamin 50 mcg tablet Take 1 tablet by oral route daily 2 Active gabapentin (NEURONTIN) 300 mg capsule Take 1 capsule (300 mg total) by mouth 2 times a day as needed (nerve pain). 60 capsule 5 01/14/2024 7:25 PM EDT 4 Active diclofenac (VOLTAREN) 1% gel Apply 4 [...] 7 days 30 g 2 4 Active metFORMIN (GLUCOPHAGE) 1,000 mg tablet Take 1 tablet (1,000 mg total) by mouth 2 times a day with meals. 180 tablet 3 03/10/2025 1:14 PM EDT 5 026 Active atorvastatin (LIPITOR) 40 mg tablet Take 1 tablet (40 mg total) by mouth once a day. 90 tablet 3 03/10/2025 1:14 PM EDT 5 026 Active flash glucose sensor (FreeStyle Juarez 2 Sensor) kit Change sensor every 14 days. 2 kit 7 01/05/2025 2:34 AM EDT 5 Active pen needle, diabetic (BD Ultra-Fine Short Pen Needle) 31 gauge x 5/16 needle Use to inject 4 times daily as directed 360 each 3 01/11/2025 9:52 PM EDT 5 Active blood-glucose sensor (FreeStyle Juarez 3 Plus Sensor) device Change as directed every 15 days 6 each 3 5 Active blood-glucose, records management engineer,cont (FreeStyle Juarez 3 [place]) misc Use as directed to monitor sugars continuously 1 each 5 Active Lantus Solostar U-100 Insulin 100 unit/mL (3 mL) pen injection Inject 62 Units under the skin 2 times a day. 45 mL 3 5 Active NovoLOG Flexpen U-100 Insulin 100 unit/mL (3 mL) injection pen Inject under the skin 3 times a day as directed. Max 42 units daily. <100: 10 units, <200: 12 units, >200: 14 Units. 15 mL 6 5 Active Lantus Solostar U-100 Insulin 100 unit/mL (3 mL) pen injectionIndic ations:Type 2 diabetes mellitus without complication, with long-term current use of insulin Inject up to 60 units under skin twice daily. MDD 120 unit(s). 120 mL 3 01/11/2025 9:52 PM EDT 4 025 Discontin ued(Other (enter Order note)) Hospital, Clinic, or Other [...] 93 10/08/2023 4:25 PM EDT Temperature 37 C (98.6 F) 06/09/2021 12:50 PM EST Respiratory Rate 18 [...] Screening 1965 Sigmoidoscopy 1965 Urine Microalbumin 1975 Pneumococcal Vaccine: 50+ Years (1 of 2 - PCV) 02/21/1984 DTaP,Tdap,and Td Vaccines (1 - Tdap) 1987 HPV and Pap Smear 11/06/2010 11/06/2005, , 10/26/2002 Zoster Vaccines (1 of 2) 2015 Ophthalmology Exam 08/22/2022 08/22/2021 Mammogram 01/11/2024 01/10/2022 Hemoglobin A1C 04/09/2024 10/08/2023, 03/2 08/2022, 06/28/2022, Additional history exists Alcohol/Substance Use Screening 06/02/2024 Depression Screening and Follow-Up 06/02/2024 Social Drivers of Health Annual Screening 06/02/2024 Cervical Cancer Screening 01/09/2025 Pap Smear 01/09/2025 01/09/2022, 06/0 11/2005, 03/29/2004, Additional history exists COVID-19 Vaccine (3 - season) 2025 03/21/2022, 10/20/2020 Influenza Vaccine (#1) 2025 04/01/2023, 2021 RSV Vaccine (60+ years old and patients) (1 - Risk 60-74 years 1-dose series) 2025 Hepatitis B Vaccines Aged Out No long er eligible based on patient's age to complete this topic Procedures * Due to [facility] law, this organization might not be sharing [...] Health Maintenance Results * Due to [place] [employer] law, this organization might not be sharing negative HIV tests. * (ABNORMAL) POCT Glycosylated Hemoglobin (HGB A1C), interfaced (10/08/2023 4:19 PM EDT) Hemoglobin A1C, POCT 8.1(H) <=5.6 % 10/08/2023 4:32 PM EDT [facility], [facility] Comment: A1C Recommendation for Non- Adults with Diabetes: <7.0% ADA 2011 Standards of Medical Care in Diabetes Blood 10/08/2023 4:19 PM EDT 10/08/2023 4:32 PM EDT us Li Medina YARN WORKER LAB POCT ORDERABLES - DEVICE Final Result [facility] [address] [place] [address], * MADAI Bilateral Screening Digital Mammogram With Medardo (01/10/2022 7:51 AM EDT) Anatomical Region Laterality Modality Breast Bilateral Mammography Addenda Addendum by Cris Flowers MD on 01/25/2022 9:21 PM EDT Comparison is now made to prior outside mammograms dated 02/21/2016, 06/21/2011, 01/25/2011, 07/03/2010 and 05/31/2010. Findings: The breasts have scattered areas of fibroglandular density. Status post bilateral reduction mammoplasty. There are benign-appearing calcifications scattered throughout both breasts. There is no dominant mass, unexplained architectural distortion or suspicious grouped microcalcifications in either breast. There has been no significant change compared to the prior exams. Impression: No specific mammographic evidence of malignancy in either breast. Annual screening mammography is recommended. BI-RADS ATLAS category (overall): 2 - Benign MANAGEMENT Routine Screening Mammogram in 1 Year is recommended for bilateral. The patient was entered into a reminder system with a target date for their next mammogram. Narrative 01/12/2022 6:25 PM EDT EXAMINATION [facility] Bilateral Screening Digital Mammogram With Medardo. INDICATION Karon Ingram is a 56 y.o. female and is seen for: [facility] Bilateral Screening Digital Mammogram With Medardo. R2 CAD was used in the interpretation of this study. COMPARISON No prior mammograms available for comparison at the time of dictation. Bilateral Breast Findings: The breasts have scattered areas of fibroglandular density. Status post bilateral reduction mammoplasty. There are benign-appearing calcifications scattered throughout both breasts. There is no dominant mass, unexplained architectural distortion or suspicious grouped microcalcifications in either breast. IMPRESSION No specific mammographic evidence of malignancy in either breast. No prior mammograms are available for comparison at the time of dictation. Prior outside mammograms have been requested. If prior mammograms become available comparison can be made and an addendum to this report may be issued. BI-RADS ATLAS category (overall): 2 - Benign MANAGEMENT Routine Screening Mammogram in 1 Year is recommended for bilateral. The patient was entered into a reminder system with a target date for their next mammogram. If this radiology report contains a blank impression section, it is an incomplete radiology report. Please contact the interpreting radiologist or applicable radiology division as soon as possible to obtain the completed interpretation. Claudette Diego NP IMG BI PROCEDURES Edited Resul t - Final * Pap w/Reflex HPV (11/06/2005 4:21 PM EDT) Path Procedure TPGA ([id number]) 1 Edited by: [id number] [facility] ANATOMIC PATHOLOGY - BIOTECH THREE Specimen Labeled As: 1 CERVICAL/ENDOCERVI RAFI CYTO MATERIAL - Edited by: [id number] [facility] ANATOMIC PATHOLOGY - BIOTECH THREE Diagnosis ThinPrep Pap Test Adequacy: Satisfactory for evaluation - no evidence of Transformation Zone sampling. Interpretation: Negative for Intraepithelial Lesion or Malignancy Remarks/Recommenda tions: This is the result of a morphological screening test with an inherent probability of a false negative interpretation. A negative HPV test in combination with the morphological Pap test greatly reduces the probability of a serious cervical epithelial abnormality. This Pap test was examined in accordance with the [facility] Cytopathology Laboratory written policy. This Pap test was examined by the ThinPrep Imaging System, [employer], [place], [place]. Edited by: [id number] [facility] ANATOMIC PATHOLOGY - BIOTECH THREE Gynecologic Clinical Data Specimen source:, THINPREP (CERVICAL AND ENDOCERVICAL) [facility] ANATOMIC PATHOLOGY - BIOTECH THREE Gynecologic Clinical Data First date of LMP:, 10/13/05 [facility] ANATOMIC PATHOLOGY - BIOTECH THREE Marker 1 NILM,NILM [facility] ANATOMIC PATHOLOGY - BIOTECH THREE Marker 2 [facility]ATELYNN [facility] ANATOMIC PATHOLOGY - BIOTECH THREE Cc Results To LISA VALENTINE [id number] [facility] ANATOMIC PATHOLOGY - BIOTECH THREE Signature REPORT SIGNED: KATELYNN DUNBAR 11/12/05 [facility] ANATOMIC PATHOLOGY - BIOTECH THREE Sign Out Audit KATELYNN DUNBAR [id number] [place] [place] [id number] [facility] ANATOMIC PATHOLOGY - BIOTECH THREE Cytology / Unknown 6 4:21 PM EDT 11/07/2005 4:21 PM EDT us Soha Hodges MD LAB HISTORICAL RESULTS Li hall Result [facility] ANATOMIC PATHOLOGY - BIOTECH THREE [address] [place] [id number] from Last 3 Months or Most Recently Relevant to Health Maintenance Insurance HSNO/FREE CARE [facility] Care Teams Green Feed Attendant Relationship Specialty Start Date End Date Claudette Diego NP PCP - General 12/04/21
--- OUTSIDE RECORDS SUMMARY | 2025-03-28 11:18 | XMS_ITS | Encounter Summary ---
Author Organization [facility] Address [address] [place] [address] Care Team Providers Care Sewage Plant Supervisor Name Role Phone Yair Eaton MD Primary Care Provider Encounter Details Date Type Department Care Team ([facility] st Contact Info) Description 03/23/2025 Results Follow-Up [facility] Hematology Oncology [address] [place] [phone] Chelo Valencia PA [address] [place] [address] Social History Tobacco Use Types Packs/Day Years [...] care for your loved ones. For example, childhood development teacher or elderly care for an older adult? [...] on file documented as of this encounter Plan of Treatment Upcoming Encounters Date Type Department Care Team (Late st Contact Info) Description 08/15/2025 10:00 AM EDT Office Visit [facility] Hematology Oncology [address] [place] [phone] Chelo Valencia PA [address] [place] [address] documented as of this encounter Goals Goal Patient Goal Type Associated Problems Recent Progress Patient-Stated? Author STG's 6 visits General Yes Heladio Raygoza, PT Note: Pt will report a 50% or better decrease in B elbow pain during daily activities and work activities. (Met) Pt will demonstrate a 5 foot lb torque improvement of R hosiery operator strength. Met) Pt is Independent and compliant [...] 10 foot lb torque improvement of R hosiery operator strength. Pt will be Independent and compliant with final HEP. 01/28/2025 Pt will demonstrate B shoulder elevations to 140 degrees or better for overhead IADL's. Pt will demonstrate combined bilateral shoulder extension, adduction and IR to T12 or better for dressing behind back. documented as of this encounter Visit Diagnoses Not on filedocumented in this encounter Additional Health Concerns Assessment Noted Time PHQ-9 Depression Total Score: 0 11/17/19 25 8:25 AM EDT documented as of this encounter Care Teams Sewage Plant Supervisor Relationship Specialty Start Date End Date Yair Eaton MD [address] [place] [address] PCP - General 01/01/24 documented as of this encounter
== END 2025-03-28 11:16 | disposition home or self-care (01) ==
LOC: HO.HPODS 09:47
PROVIDERS: PCP Internal Medicine; Visit Provider Student in an Organized Health Care Education/Training Program
DX: E11.40 Type 2 diabetes mellitus with diabetic neuropathy, unspecified (principal); M76.821 Posterior tibial tendinitis, right leg; M76.822 Posterior tibial tendinitis, left leg; M21.41 Flat foot [pes planus] (acquired), right foot; M21.42 Flat foot [pes planus] (acquired), left foot; M54.16 Radiculopathy, lumbar region
CPT/HCPCS: 99204

== ENCOUNTER → 2025-03-28 09:47 | Outpatient (BNVA) | payer OTHER, SELFPAY | PROVIDERS: PCP Internal Medicine; Visit Provider Student in an Organized Health Care Education/Training Program | DX: E11.40 Type 2 diabetes mellitus with diabetic neuropathy, unspecified (principal); M76.821 Posterior tibial tendinitis, right leg; M76.822 Posterior tibial tendinitis, left leg; M21.41 Flat foot [pes planus] (acquired), right foot; M54.16 Radiculopathy, lumbar region | CPT/HCPCS: 99202 ==

== ENCOUNTER 2025-04-12 10:00 | Outpatient (REF) | payer OTHER, SELFPAY ==
[2025-04-13 03:03] LABS: Bacterial Vaginosis PCR NEGATIVE (Negative); Candida Group PCR NOT DETECTED (Not Detect); Candida glab krusei PCR NOT DETECTED (Not Detect); Trichomonas vaginalis PCR NOT DETECTED (Not Detect)
[2025-04-13 04:32] LABS: CT PCR NOT DETECTED (Not Detect.); NG PCR NOT DETECTED (Not Detect.)
== END 2025-04-12 10:01 | disposition home or self-care (01) ==
LOC: HO.LNP 10:00
PROVIDERS: PCP Internal Medicine; Visit Provider Advanced Practice Midwife
DX: Z01.419 Encounter for gynecological examination (general) (routine) without abnormal findings (principal); N89.8 Other specified noninflammatory disorders of vagina; R30.0 Dysuria; Z20.2 Contact with and (suspected) exposure to infections with a predominantly sexual mode of transmission
CPT/HCPCS: 81002; 81515; 87491; 87591; 87626; 88175; 99396

== ENCOUNTER 2025-04-12 10:00 | Outpatient (AMB) | payer OTHER, SELFPAY ==
--- NOTE | 2025-04-12 10:02 | MHC.OFFVIS ---
Vital Signs 04/12/25 10:13 Height 5 ft 2 in Weight 178 lb BMI 32.6 BP 102/66 Blood Pressure Location Rt brachial Position Sitting Intake Visit Reasons: SVP PROGRAMMATIC TV annual exam Intake Note: Here for staff development nurse annual. Wants vaginal swabs for burning and bad odor Drapery Head Former Required: No Information Interpreted: non-clinical & clinical Auto Service Representative: Auto Service Representative Present (Eunice) Accompanied by: Self / Same As Patient Allergies No Known Allergies Allergy (Verified 04/12/25 10:06) Medication List - Last Reconciled 04/12/25 by Jazmyn Gomez LPN acyclovir 5% 1 appl topical 6XD 7 days aspirin 81 mg PO DAILY atorvastatin 40 mg PO DAILY blood-glucose sensor (HatchStyle Juarez 3 Plus Sensor device) As directed every 15 days blood-glucose,faro dealer,cont (FreeStyle Juarez 3 [place]) As directed to monitor sugars continuously Lantus Solostar U-100 Insulin (insulin glargine) 62 units (0.62 mL) subcut BID NS metformin 1,000 mg PO BID Novolog FlexPen U-100 Insulin (insulin aspart U-100) subcutaneously 3 times a day; <100: 10 units <200 : 12 units >200: 14 units max 42 units daily NS tirzepatide (Mounjaro) 2.5 mg (0.5 mL) subcut QWEEK valacyclovir (Valtrex) 500 mg PO BID 3 days Do you need a note to return to daycare/school/sports/work: No HPI Comments Details: Patient is a postmenopausal woman presenting for her annual staff development nurse examination. Word Processor concerns: UTI a month ago treated, now has burning w/urination and a odor. She did not have an appt. at [place] for fibroids this year. History of low libido many years ago was taking supplements. Currently sexually active several times a year. Has pain with intimacy. Attempting to eat a healthy diet with calcium and vitamin D and stays active with exercise. Last pap smear; 2023, ASCUS. Last mammogram; 2024. Denies any family history of breast, ovarian or colon cancer. [facility] Medical History Dyslipidemia associated with type 2 diabetes mellitus Obesity (BMI 30.0-34.9) Type 2 diabetes mellitus Bloating Fibroid Pelvic pain High cholesterol Diabetes mellitus Surgical History H/O bilateral breast reduction surgery H/O abdominoplasty H/O myomectomy Hx of section Family History Maternal Aunt History of breast cancer Social History Housing: House Alcohol intake: current Alcohol intake frequency: holidays/special occasions only Alcohol type: wine Patient Tobacco Use Status: Never used Tobacco Current occupational status: employed Female Reproductive History Menstrual Age of Menarche: 10 control method: permanent sterilization Total pregnancies: 23 Number of Living Children: 2 Ectopics: 1 Date of last pap smear: 04/07/24 History of abnormal pap smear: Yes (Ascus HPV Neg) Date of Mammogram: 10/15/24 History of abnormal mammogram: No Review of Systems Const All systems reviewed & are unremarkable except as noted in HPI and below Reports as per HPI Eyes Reports no additional complaints ENT Reports no additional complaints Card Reports no additional complaints Resp Reports no additional complaints GI Reports as per HPI and Reports no additional complaints Reports as per HPI Musc Reports no additional complaints Skin/Breast Reports as per HPI Neuro Reports no additional complaints Psych Reports no additional complaints Endo Reports no additional complaints Bishnu/Lymph Reports no additional complaints Aller/Immun Reports no additional complaints Physical Exam Vital Signs: Last Vital Signs BP 102/66 04/12/25 10:13 BMI result Body Mass Index 32.6 Const General: cooperative, healthy appearing, no acute distress, well developed and alert Orientation/consciousness: patient oriented x3 HEENT Head: Yes normal to inspection Eyes General: appearance normal, both eyes and all related structures Neck Neck: Yes normal visual inspection Thyroid: Thyroid normal Chest Chest palpation & inspection: normal inspection of the chest and other (no puckering, dimpling, peau de orange, retraction, discharge, masses) Breast/axilla inspection: normal inspection of the breasts Breast/axilla palpation: normal palpation of the breasts Resp Effort & Inspection: normal respiratory effort GI Inspection: Yes normal to inspection Palpation (GI): Soft to palpation Rectal Exam - Female: deferred General: Yes bladder normal to palpation External Female Exam: normal external appearance and normal appearance of the urethra Speculum Exam - Vagina: normal appearance of the vagina, normal palpation, normal vaginal discharge and vagina atrophic Speculum Exam - Cervix: normal appearance of the cervix and normal palpation Bimanual exam- vagina & uterus: normal bimanual exam, normal palpation, uterine size normal, bladder normal to palpation, normal palpation and non-tender Bimanual Exam- Adnexa, other: no masses Skin General skin exam: no rashes or lesions noted Rashes: no rashes Neuro General: patient oriented x3 Cognition (Neuro): normal cognition Extrem General: Yes normal to inspection Psych Attitude: cooperative Thought process: Normal thought process present Results AMB Urinalysis Dipstick UR Leukocytes Negative Last Edit by Jazmyn Gomez LPN on 04/12/25 11:30 UR Nitrite Negative Last Edit by Jazmyn Gomez LPN on 04/12/25 11:30 UR Urobilinogen 4 Last Edit by Jazmyn Gomez LPN on 04/12/25 11:30 UR Protein Negative Last Edit by Jazmyn Gomez LPN on 04/12/25 11:30 UR Ph 6.0 Last Edit by Jazmyn Gomez LPN on 04/12/25 11:30 UR Blood Negative Last Edit by Jazmyn Gomez LPN on 04/12/25 11:30 UR Specific [place] 1.010 Last Edit by Jazmyn Gomez LPN on 04/12/25 11:30 UR Ketone Negative Last Edit by Jazmyn Gomez LPN on 04/12/25 11:30 UR Bilirubin Negative Last Edit by Jazmyn Gomez LPN on 04/12/25 11:30 UR Glucose Negative Last Edit by Jazmyn Gomez LPN on 04/12/25 11:30 Results Reviewed Results Reviewed: Laboratory Last Values Urine pH (Clinic) 6.0 04/12/25 11:27 Specific [place] (Clinic) 1.010 04/12/25 11:27 Ur Protein (Clinic) Negative 04/12/25 11:27 Ur Ketones (Clinic) Negative 04/12/25 11:27 Urine Blood (Clinic) Negative 04/12/25 11:27 Urine Nitrite Negative 04/12/25 11:27 Urine Bilirubin (Clinic) Negative 04/12/25 11:27 Urobilinogen (Clinic) 4 04/12/25 11:27 Leukocyte Esterase (Clinic) Negative 04/12/25 11:27 Urine Glucose (Clinic) Negative 04/12/25 11:27 Assessment & Plan Assessment & Plan (1) Encounter for well woman exam with routine gynecological exam: Code(s): Z01.419 - Encounter for gynecological examination (general) (routine) without abnormal findings Category: Medical Plan: Discussed: Current recommendations for pap smears per ASCCP guidelines. Breast awareness, periodic self breast exams and yearly mammogram. Maintain a healthy lifestyle, well balanced diet including Calcium 1,200 mg and Vitamin D 600 IU daily, and routine exercise. Contact the office with any postmenopausal bleeding. Patient verbalizes understanding and agrees to the plan of care. She was given opportunity to ask questions and all questions were answered to the best of my ability. RTO in 1 year for annual staff development nurse exam. This note is constructed using voice recognition software. While every effort has been made to ensure accuracy, tool and die repair errors may have been included. (2) Vaginal atrophy: Code(s): N95.2 - Postmenopausal atrophic vaginitis Plan: Discussed Replens moisturizer use. Follow up PRN, consider vaginal estrogens if indicated and no contraindications. The patient expressed understanding and agreement with the plan of care. All of her questions and concerns were addressed to the best of my ability. (3) Dysuria: Code(s): R30.0 - Dysuria Plan: UA -negative (4) Vaginal odor: Code(s): N89.8 - Other specified noninflammatory disorders of vagina Plan: BV swab and GC chlamydia obtained today await results for final plan of care. The patient expressed understanding and agreement with the plan of care. All of her questions and concerns were addressed to the best of my ability. (5) ASCUS of cervix with negative high risk HPV: Code(s): R87.610 - Atypical squamous cells of undetermined significance on cytologic smear of cervix (ASC-US) Plan: Pap smear obtained, await results final of care. The patient expressed understanding and agreement with the plan of care. All of her questions and concerns were addressed to the best of my ability. Plan This note is constructed using voice recognition software. While every effort has been made to ensure accuracy, tool and die repair errors may have been included. Orders: Orders Bacterial Vaginosis Panel Today Z11.3 - Encounter for screening for infections with a predominantly sexual mode of transmission AMB Urinalysis Dipstick Today N89.8 - Other specified noninflammatory disorders of vagina HPV High risk Today Z01.419 - Encounter for gynecological examination (general) (routine) without abnormal findings Pap Smear Today Z01.419 - Encounter for gynecological examination (general) (routine) without abnormal findings CT NG by PCR Vag/Cerv Today Z11.3 - Encounter for screening for infections with a predominantly sexual mode of transmission Coding Level of Care Code Est Pt Prev Care 40-64y(10785) Diagnoses Encounter for well woman exam with routine gynecological exam Z01.419 Vaginal atrophy N95.2 Dysuria R30.0 Vaginal odor N89.8 ASCUS of cervix with negative high risk HPV R87.610
[2025-04-12 10:13] VITALS: BP 102/66; BMI 32.6
--- OUTSIDE RECORDS SUMMARY | 2025-04-12 11:26 | XMS_ITS | Clinical Summary ---
Author Organization [facility] Address [address] [place] [address] Care Team Providers Care Pattern Grader Cutter Name Role Phone Claudette Diego BOOM TRUCK DRIVER Primary Care Provider [phone] Allergies Active Allergy Reactions Criticality Noted Date Comments Pollen Extracts Nasal congestion 11/01/2022 Medications flash glucose scanning reader (FreeStyle Juarez 2 B[place]) [facility] Use to monitor blood [...] days 6 each 3 5 Active blood-glucose, parts consultant,cont (FreeStyle Juarez 3 [place]um) misc Use as directed to monitor sugars [...] complete this topic Procedures * Due to [facility] law, this organization might not be [...] Health Maintenance Results * Due to [place] [employer] law, this organization might not be sharing negative HIV tests. * (ABNORMAL) POCT Glycosylated Hemoglobin (HGB A1C), interfaced (10/08/2023 4:19 PM EDT) Hemoglobin A1C, POCT 8.1(H) <=5.6 % 10/08/2023 4:32 PM EDT [facility], [facility] Comment: A1C Recommendation for Non- Adults with Diabetes: <7.0% ADA 2011 Standards of Medical Care in Diabetes Blood 10/08/2023 4:19 PM EDT 10/08/2023 4:32 PM EDT us Li Medina BOOM TRUCK DRIVER LAB POCT ORDERABLES - DEVICE Final Result [facility] [address] [place] [address], * MADAI Bilateral Screening Digital Mammogram With [...] mammogram. Narrative 01/12/2022 6:25 PM EDT EXAMINATION [facility] Bilateral Screening Digital Mammogram With Medardo. INDICATION Karon Ingram is a 56 y.o. female and is seen for: [facility] Bilateral Screening Digital Mammogram With Medardo. R2 [...] (11/06/2005 4:21 PM EDT) Path Procedure TPGA ([id number]) 1 Edited by: [id number] - [id number] [facility] - [facility] Specimen Labeled As: 1 CERVICAL/ENDOCERVI RAFI CYTO MATERIAL - Edited by: [id number] [facility]ATOM[facility]OLOG[facility] - [facility] Diagnosis ThinPrep [...] test was examined in accordance with the [facility] Cytopathology Laboratory written policy. This Pap test was examined by the ThinPrep Imaging System, [address], [place], [place]. Edited by: [id number] - [address] [facility] - [facility] Gynecologic Clinical Data Specimen source:, THINPREP (CERVICAL AND ENDOCERVICAL) [facility] Gynecologic Clinical Data First date of LMP:, 10/13/05 [facility] Marker 1 NILM,NILM [facility] Marker 2 K[facility]NN [facility] - [facility] Cc Results To LISA VALENTINE [id number] [facility] Signature REPORT SIGNED: KATELYNN DUNBAR 11/12/05 [facility] Sign Out Audit KATELYNN DUNBAR [id number] [place]AL [place] [id number] [facility] Cytology / Unknown 6 4:21 PM EDT 11/07/2005 4:21 PM EDT us Soha Hodges MD LAB HISTORICAL RESULTS Li hall Result [facility] [address] [place] [id number] from Last 3 Months or Most Recently Relevant to Health Maintenance Insurance HSNO/FREE CARE [facility] Care Teams Pattern Grader Cutter Relationship Specialty Start Date End Date Claudette Diego NP PCP - General 12/04/21
--- OUTSIDE RECORDS SUMMARY | 2025-04-12 11:26 | XMS_ITS | Data Portability ---
Author Organization [place] [facility], Allergy Address [address] [place] [id number] Care Team Providers Care Quarter Trimmer Name Role Phone SALENA JONES Primary Care [...] Sensorineur al hearing loss of bilateral ears [id number] Active 2024 JUAN JOSE EUBANKS, Rachael [address] [facility] [address], [place], [phone], [facility] 14:41:10 Referred otalgia of right ear [id number] 100 Active 2024 SUE VINCENT PA-C [address] [facility] [address], [place], [phone], [facility] 15:14:58 Problem Notes None recorded. Procedures Surgical History Date Name Laterality Status Provider Name and Address Organization Details Recorded Time 09/24/2024 Comp Audio with Tymps - 27650 & 01926 completed JUAN JOSE EUBANKS, Rachael [address] [facility] [address], [place], [phone], [facility] 09/24/2024 14:30:24 Imaging Results None recorded. [...] Updated DateTime 09/24/2024 157.48 cm 30.7 kg/m2 74805.52 g Va Shaffer [facility] 09/24/2024 14:53:18 Social History None recorded. [...] Disorder N Anesthesia Complications N Heart Attack ([place]) N Other Skin Condition N Diabetes Y [...] ICD10 Code Diagnosis IMO Codes Diagnosis Note [id number] SUE VINCENT PA-C [facility] [address] [place] [address] 09/24/2024 13:58:41 09/24/2024 16:00:49 Sensorineural hearing loss of bilateral ears [id number] H90.3 Audiologic al evaluation results: Right ear: Normal hearing from 250 through 4000 Hz sloping to a moderate sensorineu ral hearing loss with excellent word recognitio n. Left ear: Normal hearing from 250 through 4000 Hz sloping to a moderate sensorineu ral hearing loss with excellent word recognitio n. Tympanomet ry: Right Ear:Type A Left Ear:Type A Referred o talgia of right ear [id number] H92.01 Health Concerns Section Related Observation LastModified by Organization Detai ls LastModified Time None Recorded Concern Status LastModified by Organization Details LastModified Time None Recorded Advance Directives Directive None Recorded Payers Insurance Date Sequence Insurance Name Policy Number Policy Bender Covered Member ID Bender Member ID Guarantor Name 09/24/2024 1 [facility] NET PLAN (MEDICAID HMO) [id number] Karon Juan Jose [id number] [facility] Notes Date Note Type Note Provider [...] of loud noise exposure. SUE VINCENT PA-C [address] [place] [address], [phone], [facility] - [facility] 09/24/2024 15:15:12 OBGyn Episode No OBEpisode recorded.
--- OUTSIDE RECORDS SUMMARY | 2025-04-12 11:26 | XMS_ITS | Clinical Summary ---
Author Organization [facility] [address] [place] [address] Address [address] [place] [address] Phone Care Team Providers Care Interpretative Dancer Name Role Phone Yair Eaton MD Primary Care Provider Allergies No known active allergies Medications atorvastatin (LIPITOR) 40 mg tablet Take 1 tablet (40 mg total) by mouth 1 (one) time each day. Active fexofenadine (WARREN) 60 mg tablet Take 1 tablet (60 mg total) by mouth 1 (one) time each day. 02/04/20 24 Active insulin aspart (NovoLOG Flexpen U-100 Insulin) 100 unit/mL (3 mL) injection pen Inject into the skin 2 times daily. 12 units Active metFORMIN (GLUCOPHAGE) 1,000 mg tablet Take 1 Tablet by mouth 2 times daily (with meals). Active multivitamin (MULTIPLE VITAMINS ORAL) Take by mouth. Active Lantus Solostar U-100 Insulin 100 unit/mL (3 mL) injection pen 08/03/19 25 Active tirzepatide (Mounjaro) 2.5 mg/0.5 mL injectionIndicat ions:Type 2 diabetes mellitus with diabetic polyneuropathy, with long-term current use of insulin ([facility] V24, CMS/HCC V28) Inject 0.5 mL (2.5 mg total) under the skin every 7 (seven) days. 2 mL 1 10/27/19 25 Active Additional Information Patient not taking.Reported on 12/07/2024 aspirin 81 mg chewable tablet CHEW 1 TABLET BY MOUTH EVERY DAY 90 tablet 1 02/04/20 25 Active naproxen (NAPROSYN) 500 mg tabletIndication s:Type 2 diabetes mellitus with diabetic polyneuropathy, with long-term current use of insulin ([facility] V24, [facility] V28),Bilateral shoulder bursitis,Lateral epicondylitis of right elbow TAKE 1 TABLET BY MOUTH TWICE A DAY NEEDED FOR MILD PAIN 60 tablet 04/04/20 25 Active naproxen (NAPROSYN) 500 mg tabletIndication s:Type 2 diabetes mellitus with diabetic polyneuropathy, with long-term current use of insulin ([facility] V24, [facility] V28),Bilateral shoulder bursitis,Lateral epicondylitis of right elbow TAKE 1 TABLET BY MOUTH TWICE A DAY NEEDED FOR MILD PAIN 60 tablet 02/23/20 25 2024 Discontinued Active Problems Problem Noted Date Diagnosed Date Essential thrombocytosis ([facility] V24, [facility] V 28) 05/14/2024 Type 2 diabetes mellitus wit h diabetic polyneuropathy, with long-term current use of insulin ([facility] V24, [facility] V28) 03/16/2024 Encounters Date Type Department Care Team Description 03/23/2025 Results Follow-Up [facility] Hematology Oncology [address] [place] [phone] Chelo Valencia PA 02/11/2025 9:00 AM EDT Treatment Outpatient Rehabilitation [address] [phone] Evi Cortes, RADIOLOGY RESIDENT Bilateral shoulder bursitis (Primary Dx); Lateral epicondylitis of both elbows 02/04/2025 10:30 AM EDT Treatment Outpatient Rehabilitation - [address] [phone] Evi Cortes, RADIOLOGY RESIDENT Bilateral shoulder bursitis (Primary Dx); Lateral epicondylitis of both elbows 02/01/2025 12:30 PM EDT Treatment Outpatient Rehabilitation [address] [phone] Heladio Raygoza, PT Bilateral shoulder bursitis (Primary Dx) 01/28/2025 10:30 AM EDT Treatment Outpatient Rehabilitation - [address] [phone] Heladio Raygoza, PT Bilateral shoulder bursitis (Primary Dx) 01/24/2025 11:00 AM EDT Treatment Outpatient [facility] - [address] [phone] Dina Lackey, RADIOLOGY RESIDENT Bilateral shoulder bursitis (Primary Dx); Lateral epicondylitis of both elbows 01/17/2025 11:30 AM EDT Treatment Outpatient Rehabilitation - [address] [phone] Evi Cortes, RADIOLOGY RESIDENT Bilateral shoulder bursitis (Primary Dx); Lateral epicondylitis of both elbows 01/13/2025 11:30 AM EDT Treatment Outpatient [facility] - [address] [phone] Evi Cortes, RADIOLOGY RESIDENT Bilateral shoulder bursitis (Primary Dx); Lateral epicondylitis of both elbows from Last 3 Months Immunizations Immunization Administration Dates Next Due Pfizer SARS-CoV-2 COVID-19, mRNA, LNP-S, preservative free 03/21/2022 Medical History Medical History Date Comments Diabetes mellitus ([facility]/HCC V24, [facility] V28) DX:Diabetes mellitus (HCC) Family History Medical [...] do you feel lonely or isolated from ose around you? Never 11/16/2024 Food Risk [...] care for your loved ones. For example, early childhood education worker or elderly care for an older adult? [...] Description 08/15/2025 10:00 AM EDT Office Visit [facility] Hematology Oncology [address] [place] [phone] Chelo Valencia PA [address] [place] [address] Health Maintenance Due Date Last Done Comments [...] 5 foot lb torque improvement of R animal sticker strength. Met) Pt is Independent and compliant [...] 10 foot lb torque improvement of R animal sticker strength. Pt will be Independent and compliant with final HEP. 01/28/2025 Pt will demonstrate B shoulder elevations to 140 degrees or better for overhead IADL's. Pt will demonstrate combined bilateral shoulder extension, adduction and IR to T12 or better for dressing behind back. Procedures Procedure Name Priority Date/Time Associated Diagnosis Comments CBC WITH AUTO DIFFERENTIAL Routine 03/17/2025 10:25 AM EDT Essential thrombocytosis ([facility]/HCC V24, CMS/HCC V28) CBC AND DIFFERENTIAL Routine 03/17/2025 10:25 AM EDT Essential thrombocytosis (CMS/HCC V24, CMS/HCC V28) EXTERNAL CLINICAL LAB 03/11/2025 CREATININE, SERUM Routine 12/02/2024 10: 35 AM EDT Type 2 diabetes mellitus with diabetic polyneuropathy, with long-term current use of insulin (CMS/HCC V24, CMS/HCC V28) HEMOGLOBIN A1C Routine 12/02/2024 10:35 AM EDT Type 2 diabetes mellitus with diabetic polyneuropathy, with long-term current use of insulin ([facility] V24, CMS/HCC V28) EXTERNAL MAMMOGRAM REPORT 10/15/2024 MICROALBUMIN CREATININE URINE RATIO Routine 05/17/2024 12:06 PM EST Type 2 diabetes mellitus with diabetic polyneuropathy, with long-term current use of insulin ([facility]/HCC V24, CMS/HCC V28) LIPID PANEL WITH REFLEX TO DIRECT LDL Routine 05/17/2024 12:06 PM EST Type 2 diabetes mellitus with diabetic polyneuropathy, with long-term current use of insulin ([facility] V24, CMS/HCC V28) DIABETES FOOT EXAM Routine 02/04/2024 HEPATITIS C SCREENING Routine 11/13/2023 from Last 3 Months or Most Recently Relevant to Health Maintenance Results * (ABNORMAL) CBC auto differential (03/17/2025 10:25 AM EDT) [facility] WBC 7.9 4.8 - 10.8 K/mcL LAB HEMETOLOGY METHOD 03/17/2025 12:43 PM EDT [facility] RBC 4.80 3.80 - 4.80 M/mcL LAB HEMETOLOGY METHOD 03/17/2025 12:43 PM EDT [facility] Hemoglobin 13.5 11.5 - 16.0 g/dL LAB HEMETOLOGY [facility] Hematocrit 42.8 35.0 - 47.0 % LAB HEMETOLOGY METHOD [facility] MCV 89.9 79.0 - 98.0 FL LAB HEMETOLOGY METHOD [facility] MCH 28.4 27.0 - 32.0 pcg LAB HEMETOLOGY METHOD 03/17/2025 12:43 PM [facility] MCHC 31.5(L) 32.0 - 37.0 g/dL LAB HEMETOLOGY METHOD 03/17/2025 12:43 PM [facility] RDW 14.6 11.0 - 15.0 % LAB HEMETOLOGY METHOD 03/17/2025 12:43 PM [facility] Platelets 621(H) 130 - 400 K/mcL LAB HEMETOLOGY METHOD 03/17/2025 12:43 PM [facility] MPV 9.4 7.0 - 11.0 FL LAB HEMETOLOGY METHOD 03/[facility] NRBC 0.0 <1.0 % LAB HEMETOLOGY METHOD 03/17/2025 12:43 PM [facility] NRBC Absolute 0.00 <0.10 K/mcL LAB HEMETOLOGY METHOD 03/17/2025 12:43 PM [facility] Neutrophils Relative 54.6 % LAB HEMETOLOGY METHOD 03/[facility] Lymphocytes Relative 33.1 % LAB HEMETOLOGY METHOD 03/17/2025 12:43 PM EDT [facility] Monocytes Relative 8.2 % LAB HEMETOLOGY METHOD 03/17/2025 12:43 PM [facility] Eosinophils Relative 3.0 % LAB HEMETOLOGY METHOD 03/17/2025 12:43 PM [facility] Basophils Relative 0.5 % LAB HEMETOLOGY METHOD 03/17/2025 12:43 PM [facility] Immature Granulocytes Relative 0.6 % LAB HEMETOLOGY METHOD 03/17/2025 12:43 PM [facility] Neutrophils Absolute 4.30 1.50 - 7.00 K/mcL LAB HEMETOLOGY METHOD 03/17/2025 12:43 PM [facility] Lymphocytes Absolute 2.61 1.00 - 5.00 K/mcL LAB HEMETOLOGY METHOD 03/17/2025 12:43 PM [facility] Monocytes Absolute 0.65 0.20 - 1.00 K/mcL LAB HEMETOLOGY METHOD 03/17/2025 12:43 PM [facility] Eosinophils Absolute 0.24 0.00 - 0.50 K/mcL LAB HEMETOLOGY METHOD 03/17/2025 12:43 PM [facility] Basophils Absolute 0.04 0.00 - 0.20 K/mcL LAB HEMETOLOGY METHOD 03/17/2025 12:43 PM [facility] Immature Granulocytes Absolute 0.05(H) 0.00 - 0.03 K/mcL LAB HEMETOLOGY METHOD 03/17/2025 12:43 PM [facility] Blood Venous blood specimen / Unknown Venipuncture / Unknown 03/17/2025 10:25 AM EDT 03/17/2025 12:10 PM EDT us Chelo HANKINS LAB BLOOD ORDERABLES Final Re sult Performing Organization Address City/[facility]/ZIP Co de Phone Number [facility] [address] [place] [address], * External clinical lab (03/11/2025) us Provider [facility] LAB BLOOD ORDERABLES Fin al Result * Creatinine (12/02/2024 10:35 AM EDT) Creatinine 0.62 0.50 - 1.10 mg/dL LAB CHEMISTRY METHOD 12/02/2024 1:14 PM EDT [facility] eGFR 103 >=60 mL/min/1. 73m2 LAB CHEMISTRY METHOD 12/02/2024 1:14 PM EDT [facility] Comment:Calculation based on the Chronic Kidney Disease Epidemiology Collaboration (CKD-EPI) equation refit without adjustment for race. Blood Venous blood specimen / Unknown Venipuncture / Unknown 12/02/2024 10:35 AM EDT 12/02/2024 10:35 AM EDT Patricia Lerma MD LAB BLOOD ORDERABLES Final Resul t Performing Organization Address [facility]/ZIP Co de Phone Number [facility] [address] [place] [address], * (ABNORMAL) Hemoglobin A1c (12/02/2024 10:35 AM EDT) Hemoglobin A1C 8.2(H) <6.5 % LAB CHEMISTRY METHOD 12/02/2024 2:42 PM EDT [facility] Mean Bld Glu Estim. 189 mg/dL LAB CHEMISTRY METHOD 12/02/2024 2:42 PM EDT [facility] Blood Venous blood specimen / Unknown Venipuncture / Unknown 12/02/2024 10:35 AM EDT 12/02/2024 10:35 AM EDT Patricia Lerma MD LAB BLOOD ORDERABLES Final Resul t [facility] [address] [place] [address], [place] [phone] * External Mammogram Report (10/15/2024) Anatomical Region Laterality Modality Mammography Provider [facility] IMG BI PROCEDURES Final Result * Lipid panel with reflex to direct LDL (05/17/2024 12:06 PM EST) Cholesterol 131 0 - 200 mg/dL LAB CHEMISTRY METHOD 05/17/2024 7:34 PM EST [facility] Triglycerides 83 0 - 150 mg/dL LAB CHEMISTRY METHOD 05/17/2024 7:34 PM [facility] HDL 49 >=40 mg/dL LAB CHEMISTRY METHOD 05/17/2024 7:34 PM EST [facility] LDL Calculated 65 0 - 100 mg/dL LAB CHEMISTRY METHOD 05/17/2024 7:34 PM EST [facility] VLDL Cholesterol Osman 16.6 mg/dL LAB CHEMISTRY METHOD 05/17/2024 7:34 PM EST [facility] Non HDL Chol. (LDL+VLDL) 82 <145 mg/dL LAB CHEMISTRY METHOD 05/17/2024 7:34 PM EST [facility] Chol/HDL Ratio 2.7 0.0 - 4.4 LAB CHEMISTRY METHOD 05/17/2024 7:34 PM [facility] Blood Venous blood specimen / Unknown Venipuncture / Unknown 05/17/2024 12:06 PM EST 05/17/2024 12:06 PM EST Yair Eaton MD LAB BLOOD ORDERABLES F inal Result [facility] [address] [place] [address], [place] [phone] * Microalbumin creatinine urine ratio (05/17/2024 12:06 PM EST) [facility] Creatinine, Urine 141.0 mg/dL LAB CHEMISTRY METHOD 05/17/2024 5:59 PM EST [facility] Microalb, Ur 10.0 0.0 - 29.0 mg/L LAB CHEMISTRY METHOD 05/17/2024 5:59 PM EST [facility] Microalb/Creat Ratio 7 <30 mg/g creat LAB CHEMISTRY METHOD 05/17/2024 5:59 PM EST [facility] Urine Urine specimen obtained by clean catch procedure / Unknown Non-blood Collection / Unknown 05/17/2024 12:06 PM EST 05/17/2024 12:06 PM EST Yair Eaton MD LAB URINE ORDERABLES F inal Result [facility] [address] [place] [address], [place] [phone] * Diabetes Foot Exam (02/04/2024) [facility] Diabetes: Annual Foot Exam abstracted Historical Provider HEALTH MAINTENANCE Final Result * Hepatitis C Screening (11/13/2023) [facility] Hepatitis C Screening abstracted Historical Provider HEALTH MAINTENANCE Final Result from Last 3 Months or Most Recently Relevant to Health Maintenance Insurance [facility] Care Teams Interpretative Dancer Relationship Specialty Start Date End Date Yair Eaton MD [address] [place] [address] PCP - General 01/01/24
--- OUTSIDE RECORDS SUMMARY | 2025-04-12 11:26 | XMS_ITS | Patient Health Record ---
Author Organization [facility] Address [address] [facility] [address] [place] [address] Care Team Providers Care Licensed Optical Dispenser Name Role Phone Lisandro Leija Primary Care Provider Reason For Referral No Information Medications Medication [...] Insured Coverage Start Date [facility]age End [facility] [id number] [place] [address] Karon Ingram Self - patient is the insured Medical (General) History Medical History History ICD Code diabetes mellitus
--- OUTSIDE RECORDS SUMMARY | 2025-04-12 11:26 | XMS_ITS | Patient Health Record ---
Author Organization [facility] Address [address] [place], [place] [id number] Care Team Providers Care Platform Material Handler Manager Name Role Phone dr Izaiah Bryan Unavailable Unavaila ble Reason For Referral No Information Medications Medication SIG (Take, Route, Frequency, Duration) Notes Start Date End Date Status FreeStyle Juarez 14 Day Winona - as directed subq [id number]; Duration: 90 days Active BD Pen Needle Paulette U/F 32G X 4 MM 5x daily 5x; Duration: 90 days 06/11/2018 Active Lisinopril 10 MG 1 tablet Orally Once a day; Duration: 90 days Active Pravastatin Sodium 10 MG 1 tablet Orally Once a day; Duration: 90 days 04/07/2018 Active FreeStyle Juarze 14 Day Sensor - as directed subq [...] disorder associated with type II diabetes mellitus (000381389) Type 2 diabetes mellitus with other diabetic neurological complication (E11.49) Active confirmed Problem Hyperglycemia due to type 2 diabetes mellitus (115548926962996) Type 2 diabetes mellitus with hyperglycemia (E11.65) Active confirmed Problem Mixed hyperlipidemia (774680523) Mixed hyperlipidemia (E78.2) Active confirmed Problem Non-toxic nodular goiter (572515459) Nontoxic nodular goiter (E04.9) Active confirmed Problem Essential hypertension (40873739) Essential hypertension (I10) Active confirmed Problem Obese class I (finding) (753042729537594) Obesity (BMI 30.0-34.9) (E66.9) Active confirmed Problem Obesity (857016223) Obesity (BMI 30-39.9) (E66.9) Active confirmed Plan Of Treatment No Information Insurance Providers Payer Name Payer Address Payer Phone Subscriber Number Group Number Insured Name Patient Relationship to Insured Coverage Start Date Coverage End Date [facility] [address] [place] [address] [phone] [id number] Karon Ingram Self - patient is the insured 8 Medical (General) History Medical History History ICD Code back trouble diabetes Surgical History Surgery Date(Month/Year)
--- OUTSIDE RECORDS SUMMARY | 2025-04-12 11:26 | XMS_ITS | Encounter Summary ---
Author Organization [facility] Address [address] [place] [address] Care Team Providers Care Reconciling Clerk Name Role Phone Yair Eaton MD Primary Care Provider Encounter Details Date Type Department Care Team ([facility] st Contact Info) Description 03/23/2025 Results Follow-Up [facility] Hematology Oncology [address] [place] [phone] Chelo Valencia PA [address] [place] [address] Social History Tobacco Use Types Packs/Day Years [...] for your loved ones. For example, child daycare worker or elderly care for an older [...] Description 08/15/2025 10:00 AM EDT Office Visit [facility] Hematology Oncology [address] [place] [phone] Chelo Valencia PA [address] [place] [address] documented as of this encounter Goals Goal Patient Goal Type Associated Problems Recent Progress Patient-Stated? Author STG's 6 visits General Yes Heladio Raygoza, PT Note: Pt will report a 50% or better decrease in B elbow pain during daily activities and work activities. 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 Pt will be Independent and [...] documented as of this encounter Care Teams Reconciling Clerk Relationship Specialty Start Date End Date Yair Eaton MD [address] [place] [address] PCP - General 01/01/24 documented as of this encounter
--- OUTSIDE RECORDS SUMMARY | 2025-04-12 11:26 | XMS_ITS | Patient Health Record ---
Author Organization [facility] Address [address] [place] [address] Care Team Providers Care Access Service Representative Name Role Phone Kennedy Hurtado Primary Care Provider Reason For Referral No [...] 01/09/2016 rapid glucose 01/09/2016 TSH, 3RD GENERATION 12/12/2015 TSH, 3RD GENERATION 01/09/2016 CBC (INCLUDES DIFF/PLT) 01/09/2016 CBC (INCLUDES DIFF/PLT) 12/12/2015 COMPREHENSIVE METABOLIC$PANEL W/EGFR 02/2016 COMPREHENSIVE METABOLIC$PANEL W/EGFR 05/2016 ThinPrep [facility] System Pap 01/09/2016 Lipid Panel With LDL/HDL Ratio 6 Lipid Panel With LDL/HDL Ratio 6 Medical (General) History Medical History History ICD Code DM II Hyperlipidemia Surgical History Surgery Date(Month/Year) Fibroids Removed Breast Reduction
--- OUTSIDE RECORDS SUMMARY | 2025-04-12 11:26 | XMS_ITS | Clinical Summary ---
Author Organization [employer] Address [address] [place] [address] [address] [place] [address] Care Team Providers Care Support Associate Name Role Phone Unavailable Primary Care Provider [...]
== END 2025-04-12 12:08 | disposition home or self-care (01) ==
LOC: HO.HWS 10:01
PROVIDERS: PCP Internal Medicine; Visit Provider Advanced Practice Midwife
DX: Z01.419 Encounter for gynecological examination (general) (routine) without abnormal findings (principal); N95.2 Postmenopausal atrophic vaginitis; R30.0 Dysuria; N89.8 Other specified noninflammatory disorders of vagina; R87.610 Atypical squamous cells of undetermined significance on cytologic smear of cervix (ASC-US)
CPT/HCPCS: 99396; 99459

== ENCOUNTER 2025-04-18 08:00 | Outpatient (AMB) | payer OTHER, SELFPAY ==
[2025-04-18 08:02] VITALS: BP 147/71; PULSE 91; RESP 16; O2SAT 97; BMI 32.7
--- NOTE | 2025-04-18 08:02 | MHC.OFFVIS ---
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 The neuropathy has been present for a couple of years, characterized by burning pain primarily in the feet, with the left foot being more affected. 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 The patient also reports back pain, which has been persistent for over a year. The pain is described as aching, pinching, and sharp, with occasional heaviness in the legs, particularly at night. There is no history of back injections or surgeries, and the patient has not engaged in physical therapy for the back pain. The patient has a history of type 2 diabetes mellitus for over 30 years, with a recent A1c of 8.7%. She is currently on Mounjaro, which has shown some improvement in her glycemic control. The patient denies smoking and alcohol use, and consumes coffee occasionally. 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 - Analgesia: Previously tried gabapentin without success; considering Qutenza 8% capsaicin patch - Adverse Effects: None reported from current medications - Activities of Daily Living: Pain interferes with work and daily activities, especially at night - Aberrant Drug Related Behaviors: None reported [facility] Medical History Dyslipidemia associated with type 2 diabetes mellitus Obesity (BMI 30.0-34.9) Type 2 diabetes mellitus Bloating Fibroid Pelvic pain High cholesterol Diabetes mellitus Surgical History H/O bilateral breast reduction surgery H/O abdominoplasty H/O myomectomy Hx of section Family History Maternal Aunt History of breast cancer Social History Housing: House Alcohol intake: current Alcohol intake frequency: holidays/special occasions only Alcohol type: wine Patient Tobacco Use Status: Never used Tobacco Current occupational status: employed Female Reproductive History Menstrual Age of Menarche: 10 Review of Systems Const Details: - Musculoskeletal: Reports back pain, aching, pinching, and sharp, with heaviness in legs at night - Neurological: Reports burning pain in feet, more severe in the left foot, with numbness and tingling - Endocrine: Reports history of type 2 diabetes mellitus for over 30 years, A1C=8.7 All systems reviewed & are unremarkable except as noted in HPI and below Physical Exam Vital Signs: Last Vital Signs Pulse 91 04/18/25 08:02 Resp 16 04/18/25 08:02 BP 147/71 H 04/18/25 08:02 Pulse Ox 97 04/18/25 08:02 Oxygen Delivery Method Room Air 04/18/25 08:02 BMI result Body Mass Index 32.7 General: Appears afebrile. Alert and oriented. Mood and affect appropriate. Follows and participates in conversation appropriately. Respiratory effort is unlabored. No cough. Able to transition from sit to stand unassisted. Ambulates with bilaterally normal heel strike and toe off. General: Yes no CVA tenderness Back/Spine/Pelvis Back: no CVA tenderness Cervical Spine: cervical ROM normal, cervical muscular tenderness, No Cervical spine scars present and No Cervical spine tenderness Thoracic/Lumbar Spine: thoracic and lumbar spine normal to inspection, No Thoracic/lumbar spine scar(s), Lasegue's sign negative, straight leg raise negative bilaterally, pain with thoraco-lumbar ROM, thoraco-lumbar ROM limited, No thoracic spinal tenderness and No lumbar spinal tenderness Sacroiliac joints: bilaterally nontender Extrem Other: There is a decreased sensation over the soles of both feet and toes. Reports numbness, burning, tingling and bilateral foot pain, worse at night time. No breaks in the skin. Dry skin along soles of both feet. No soft tissue swelling or warmth. +2 pedal pulses bilaterally. General: Yes capillary refill normal, Yes no clubbing, cyanosis or edema and Yes no calf tenderness Assessment & Plan Assessment & Plan (1) Lumbar radiculopathy, chronic: Code(s): M54.16 - Radiculopathy, lumbar region Category: Medical (2) Lumbosacral spondylosis: Code(s): M47.817 - Spondylosis without myelopathy or radiculopathy, lumbosacral region Category: Medical (3) Chronic painful diabetic neuropathy: Code(s): E11.40 - Type 2 diabetes mellitus with diabetic neuropathy, unspecified Category: Medical (4) Lumbosacral spondylosis: Code(s): M47.817 - Spondylosis without myelopathy or radiculopathy, lumbosacral region Category: Medical (5) Chronic low back pain: Code(s): M54.50 - Low back pain, unspecified; G89.29 - Other chronic pain Category: Medical Plan The plan includes evaluating the patient's back pain with an x-ray and considering physical therapy as initial steps. For the diabetic neuropathy, the patient is being considered for Qutenza 8% capsaicin patch treatment, pending insurance approval. The patient will be instructed on the use of Emla cream prior to the procedure. Informational pamphlets were provided to patient. The patient is advised to continue working on glycemic control, as improved A1c levels may allow for more treatment options in the future. If the capsaicin patch is not approved, alternative modalities will be considered. Scripts provided for lidocaine patches and topical capsaicin cream for symptomatic relief. Side effects, precautions and medication use were discussed with patient. All questions and concerns have been answered and patient agreed with the treatment plan. Follow up for xray results/Qutenza and sooner as needed. Patient was informed and verbally consented to the use of an ambient scribe for clinic note documentation during this visit. Orders: Orders XR lumbar spine 6V w bending Today M47.817 - Spondylosis without myelopathy or radiculopathy, lumbosacral region, M54.16 - Radiculopathy, lumbar region PT Evaluation and Treatment Today E11.40 - Type 2 diabetes mellitus with diabetic neuropathy, unspecified, M47.817 - Spondylosis without myelopathy or radiculopathy, lumbosacral region, M54.16 - Radiculopathy, lumbar region Medications: New lidocaine 5% leave on most painful area for up to 12 hrs topically daily; 30 ea 3RF pain 30 days G89.29 - Other chronic pain, M47.817 - Spondylosis without myelopathy or radiculopathy, lumbosacral region, M54.50 - Low back pain, unspecified capsaicin 0.1% (Arthritis Pain Relief (capsaicin)) do not wash area for at least 30 min after application 1 appl topical TID 60 grams 1RF pain E11.40 - Type 2 diabetes mellitus with diabetic neuropathy, unspecified Coding Level of Care Code New Pt Level 4 (98400) Diagnoses Lumbar radiculopathy, chronic M54.16 Lumbosacral spondylosis M47.817 Chronic painful diabetic neuropathy E11.40 Chronic low back pain M54.50; G89.29
== END 2025-04-18 08:36 | disposition home or self-care (01) ==
LOC: HO.PMC 08:00
PROVIDERS: PCP Internal Medicine; Visit Provider Nurse Practitioner Family
DX: M54.16 Radiculopathy, lumbar region (principal); M47.817 Spondylosis without myelopathy or radiculopathy, lumbosacral region; E11.40 Type 2 diabetes mellitus with diabetic neuropathy, unspecified; M54.50 Low back pain, unspecified; G89.29 Other chronic pain
CPT/HCPCS: 99204

== ENCOUNTER 2025-04-18 08:00 | Outpatient (REF) | payer OTHER, SELFPAY ==
--- NOTE | ~2025-04-18 | XR_ITS ---
EXAMINATION: XR LUMBOSACRAL SPINE CLINICAL INFORMATION: M54.16 - Radiculopathy, lumbar region COMPARISON: None available. TECHNIQUE: 6 views of the lumbar spine, inclusive of flexion and extension views, were obtained. FINDINGS: 5 lumbar type vertebral bodies. Vertebral body heights are maintained. No evidence of acute fracture or spondylolisthesis. Multilevel disc degeneration, with endplate osteophytes. Multilevel facet degeneration. No suspicious bony lesions. No significant subluxation/ instability is identified on the flexion-extension views. Multiple prominent calcific foci in the pelvis. This presumably is related to the uterine fibroids, demonstrated on the previous MRI of 06/28/2024. SI joints are symmetric. XR/XR lumbar spine 6V w bending IMPRESSION: Mild-moderate lumbar spondylosis. No radiographic evidence of acute osseous findings Electronically signed by: Ryan Chin MD 04/18/2025 12:49 PM R[facility]
--- NOTE | ~2025-04-18 | XR_ITS ---
EXAMINATION: X-ray bilateral feet CLINICAL INFORMATION: Posterior tibial tendinitis COMPARISON: None TECHNIQUE: Right foot 3 views. Left foot 3 views. FINDINGS: Right foot: No evidence of acute fracture or dislocation. Alignment is anatomic. Mild hallux valgus. Dorsal spurring in the midfoot. Mild arthritis in some of the interphalangeal joints. Tarsometatarsal alignment is maintained. No erosions. No abnormal soft tissue calcification. Large plantar calcaneal enthesopathy. Moderate posterior calcaneal enthesopathy. Left foot: Alignment is anatomic. No evidence of acute fracture or dislocation. Mild arthritis in some of the interphalangeal joints. Tarsometatarsal alignment is maintained. Dorsal spurring in the midfoot. No erosions. Moderate plantar calcaneal and posterior calcaneal enthesopathy. No abnormal soft tissue calcification. XR/XR Foot Derrick 3V IMPRESSION: Right foot: No acute findings Calcaneal enthesopathy. Left foot: No acute findings. Calcaneal enthesopathy. Electronically signed by: Ryan Chin MD 04/18/2025 01:02 PM [facility]
== END 2025-04-18 08:01 | disposition home or self-care (01) ==
LOC: HO.XRAY 08:00
PROVIDERS: PCP Internal Medicine; Visit Provider Nurse Practitioner Family
DX: M47.26 Other spondylosis with radiculopathy, lumbar region (principal); E11.40 Type 2 diabetes mellitus with diabetic neuropathy, unspecified; M76.821 Posterior tibial tendinitis, right leg; M76.822 Posterior tibial tendinitis, left leg; M21.41 Flat foot [pes planus] (acquired), right foot; M21.42 Flat foot [pes planus] (acquired), left foot
CPT/HCPCS: 72114; 73630; 99202

== ENCOUNTER 2025-04-22 10:01 | Outpatient (AMB) | payer OTHER, SELFPAY ==
--- NOTE | 2025-04-22 10:08 | MHC.OFFVIS ---
Vital Signs 04/22/25 10:11 Height 5 ft 2 in Weight 180 lb 5.41 oz BMI 33.0 BP 110/54 L Blood Pressure Location Rt brachial Position Sitting Pulse 88 Pulse Source Pulse Oximeter Pulse Oximetry (%) 98 Oxygen Delivery Method Room Air Intake Visit Reasons: T2DM Intake Note: Patient present today for Type 2 Diabetes Mellitus with diabetic polyneuropathy. Last Diabetic eye exam: approx 1 year Last Podiatry Visit: Doesn't have one but would like a referral to one. Random Glucose: 145 mg/dl HgA1C: 8.7% 03/11/2025 Concrete Bucket Loader Required: No Accompanied by: Self / Same As Patient Allergies No Known Allergies Allergy (Verified 04/22/25 10:12) Medication List - Last Reconciled 04/22/25 by CR Acosta acyclovir 5% 1 appl topical 6XD 7 days aspirin 81 mg PO DAILY atorvastatin 40 mg PO DAILY blood-glucose sensor ([employer] Juarez 3 Plus Sensor device) As directed every 15 days blood-glucose,machine scallop cutter,cont (FreeStyle Juarez 3 [place]) As directed to monitor sugars continuously insulin glargine (Lantus Solostar U-100 Insulin) 45 units subcut BID lidocaine 5% leave on most painful area for up to 12 hrs topically daily; 30 days metformin 1,000 mg PO BID Novolog FlexPen U-100 Insulin (insulin aspart U-100) subcutaneously 3 times a day; <100: 10 units <200 : 12 units >200: 14 units max 42 units daily NS tirzepatide (Mounjaro) 5 mg (0.5 mL) subcut QWEEK valacyclovir (Valtrex) 500 mg PO BID 3 days HPI Comments Details: 60-year-old female coming in today for type 2 diabetes management. Diagnosed age 28 years. Negative PHANI and islet cell antibody. Hemoglobin A1c 8.7% 03/11/2025. Reviewed Juarez 2 data 87% active G NE 6.3% Very high 1% High 13% Target range 80% Low 6% My interpretation is that she has hypoglycemia in the afternoon, evening and nocturnally. Her blood sugars are within the target range when she wakes up and during the day. She does not always feel symptoms of low blood sugar when she gets an alert. She has not been checking a fingerstick glucose to confirm. If she does have symptoms she has a piece of candy. She just received the Juarez 3+. She is going to change to this in a day or 2 when her Juarez 2 is up. Prior therapy: Jonny in 2021, was having vision changes and numbness with it Jardiance cause yeast infections repeatedly Current medication: Lantus 50 units twice daily NovoLog less than 100 0 units, 101-200 5-8 units, over 200 10-14 units Metformin 1000 mg twice daily Mounjaro 2.5 mg weekly Endorses occasional nausea on Mounjaro. Eye exam is up-to-date. No known retinopathy. Patient says that she occasionally will have blurry vision of both eyes. No eye pain, redness or discharge. Denies symptoms currently. Complications: Neuropathy No hypertension or nephropathy. Statin:atorvastatin 40 mg daily She walks for exercise and does Pilates. ROS: Constitutional: No unexplained weight loss, fever, chills, fatigue Cardiovascular: No chest pain, chest pressure or chest discomfort. No palpitations or pedal edema. Gastrointestinal: No anorexia, nausea, vomiting or diarrhea. No abdominal pain Neurologic: No headache or dizziness Hematologic/Lymphatics: No bleeding or bruising. No painful lymph nodes. Skin: No wounds or ulcers Endocrine: No cold or heat intolerance. No polyuria or polydipsia. Physical exam: Constitutional: Alert, in no distress. Eyes: Pupils are equal, round and reactive to light. Extraocular muscles intact. Neck: Supple, Full range of motion. No lymphadenopathy. No palpable thyroid masses. Respiratory: Clear to auscultation. Cardiovascular: S1 S2 regular. Mild systolic murmur (patient says she has been told about this for years) Extremities: No edema PFSH Medical History Dyslipidemia associated with type 2 diabetes mellitus Obesity (BMI 30.0-34.9) Type 2 diabetes mellitus Bloating Fibroid Pelvic pain High cholesterol Diabetes mellitus Surgical History H/O bilateral breast reduction surgery H/O abdominoplasty H/O myomectomy Hx of section Family History Maternal Aunt History of breast cancer Social History Housing: House Alcohol intake: current Alcohol intake frequency: holidays/special occasions only Alcohol type: wine Patient Tobacco Use Status: Never used Tobacco Current occupational status: employed Female Reproductive History Menstrual Age of Menarche: 10 Physical Exam Vital Signs: Last Vital Signs Pulse 88 04/22/25 10:11 BP 110/54 L 04/22/25 10:11 Pulse Ox 98 04/22/25 10:11 Oxygen Delivery Method Room Air 04/22/25 10:11 BMI result Body Mass Index 33.0 Results Reviewed Results Reviewed: Laboratory Last Values Glucose (Clinic) 145 mg/dL (60-115) H 04/22/25 10:18 Laboratory Tests 03/11/25 03/11/25 12:03 12:07 Estimated GFR > 60 Random Glucose 81 AST 34 H ALT 42 H Triglycerides 117 Cholesterol 147 LDL Cholesterol, Calc 83 HDL Cholesterol 41 Urine Creatinine 46.47 Urine Microalbumin 6.0 Microalb/Creat Ratio 12.9 Islet Cell Ab Screen NEGATIVE Islet Cell Ab Titer TNP PHANI Antibody <5 Assessment & Plan Assessment & Plan (1) Type 2 diabetes mellitus: Code(s): E11.9 - Type 2 diabetes mellitus without complications Category: Medical Qualifiers: Diabetes mellitus complication detail: with polyneuropathy Diabetes mellitus complication status: with neurologic complications Diabetes mellitus long term care pharmacist insulin use: with shelter use Qualified Code(s): E11.42 - Type 2 diabetes mellitus with diabetic polyneuropathy; Z79.4 - longterm (current) use of insulin (2) Obesity (BMI 30.0-34.9): Code(s): E66.811 - Obesity, class 1 Category: Medical Plan: See above (3) Dyslipidemia associated with type 2 diabetes mellitus: Code(s): E11.69 - Type 2 diabetes mellitus with other specified complication; E78.5 - Hyperlipidemia, unspecified Category: Medical Plan In summary this is a 60-year-old female with type 2 diabetes on basal bolus insulin, metformin and Mounjaro. She would like to increase the dose of Mounjaro to support weight loss. Increase to 5 mg weekly. Reduce Lantus to 45 units twice daily. Continue metformin 1000 mg twice daily NovoLog less than 100 0 units, 101-200 5-8 units, over 200 10-14 units Diabetic diet reviewed. Continue regular exercise. She has advancing to Juarez 3+. Continue statin for hyperlipidemia. She has a podiatry appointment next month. Reviewed treatment of hypoglycemia. Written instructions provided. Glucose tablets sent to pharmacy. Follow up in 1 month. Medications: New tirzepatide (Mounjaro) 5 mg (0.5 mL) subcut QWEEK 2 mL 3RF CR Acosta glucose (Dex4 Glucose Quick Dissolve) until symptoms of low blood sugar are controlled 16 grams (4 x 4 gram) PO Q15M PRN 30 tabs 3RF hypoglycemia CR Acosta Changed From Lantus Solostar U-100 Insulin (insulin glargine) 62 units (0.62 mL) subcut BID 45 mL 3RF NS E11.42 - Type 2 diabetes mellitus with diabetic polyneuropathy, Z79.4 - longterm (current) use of insulin To insulin glargine (Lantus Solostar U-100 Insulin) 45 units subcut BID E11.42 - Type 2 diabetes mellitus with diabetic polyneuropathy, Z79.4 - long term care pharmacist (current) use of insulin Tessie Marlow MD Discontinued tirzepatide (Mounjaro) for 4 weeks Discontinued Reason: Doctor's Order 2.5 mg (0.5 mL) subcut QWEEK 2 mL 4RF E11.42 - Type 2 diabetes mellitus with diabetic polyneuropathy, Z79.4 - longterm (current) use of insulin Patient Instructions: Lantus 45 units twice daily Increase Mounjaro to 5 mg once weekly NovoLog less than 100 0 units, 101-200 5-8 units, over 200 10-14 units Continue Metformin 1000 mg twice daily If you experience low blood sugar (under 70), treat this by eating a chewable fruit candy like skittles or jelly beans (about 8 pieces), 4 ounces (1/2 cup) of fruit juice (not diet), 1 tablespoon of honey or 4 glucose tablets. If your blood sugar is under 50, take double the amount of one of the above. Recheck your blood sugar in 15 minutes. Coding Level of Care Code Complex visit Add On G2211 Diagnoses Type 2 diabetes mellitus with diabetic polyneuropathy, with long-term current use of insulin E11.42; Z79.4 Diabetes mellitus complication detail: with polyneuropathy Diabetes mellitus complication status: with neurologic complications Diabetes mellitus shelter insulin use: with shelter use Obesity (BMI 30.0-34.9) E66.811 Dyslipidemia associated with type 2 diabetes mellitus E11.69; E78.5
[2025-04-22 10:11] VITALS: BP 110/54; PULSE 88; O2SAT 98; BMI 33.0
[2025-04-22 10:22] LABS: Glucose, Whole Blood 145 mg/dL (60-115)
--- OUTSIDE RECORDS SUMMARY | 2025-04-22 10:39 | XMS_ITS | Patient Health Record ---
Author Organization [facility] Address [address] [place], [place] [id number] Care Team Providers Care Poultry Feed Supervisor Name Role Phone dr Izaiah Bryan Unavailable Unavaila ble Reason For Referral No Information Medications Medication SIG (Take, Route, Frequency, Duration) Notes Start Date End Date Status FreeStyle Juarez 14 Day [place] - as directed subq [id number]; Duration: 90 days Active BD Pen Needle [...] disorder associated with type II diabetes mellitus ([id number]) Type 2 diabetes mellitus with other diabetic neurological complication (E11.49) Active confirmed Problem Hyperglycemia due to type 2 diabetes mellitus (515561927281073) Type 2 diabetes mellitus with hyperglycemia (E11.65) Active confirmed Problem Mixed hyperlipidemia (438160413) Mixed hyperlipidemia (E78.2) Active confirmed Problem Non-toxic nodular goiter (404069109) Nontoxic nodular goiter (E04.9) Active confirmed Problem Essential hypertension (69740438) Essential hypertension (I10) Active confirmed Problem Obese class I (finding) (866718093537735) Obesity (BMI 30.0-34.9) (E66.9) Active confirmed Problem Obesity (038805199) Obesity (BMI 30-39.9) (E66.9) Active confirmed Plan Of Treatment No Information Insurance Providers Payer Name Payer Address Payer Phone Subscriber Number Group Number Insured Name Patient Relationship to Insured Coverage Start Date Coverage End Date [facility] [address] [place] [address] [id number] Karon Ingram Self - patient is the insured 8 Medical (General) History Medical History History ICD Code back trouble diabetes Surgical History Surgery Date(Month/Year)
--- OUTSIDE RECORDS SUMMARY | 2025-04-22 10:39 | XMS_ITS | Clinical Summary ---
Author Organization [facility] Address [address] [place] [address] Care Team Providers Care Legal Consultant Name Role Phone Claudette Diego MANAGER PRIVACY Primary Care Provider [phone] Allergies Active Allergy Reactions Criticality Noted Date Comments Pollen Extracts Nasal congestion 11/01/2022 Medications flash glucose scanning reader (FreeStyle Juarez 2 Piru) [facility] Use to monitor blood sugars. 1 each [...] 03/10/2025 1:14 PM EDT 5 026 Active pen needle, diabetic (BD Ultra-Fine Short Pen Needle) 31 gauge x 5/16 needle Use to inject 4 times daily as directed 360 each 3 01/11/2025 9:52 PM EDT 5 Active blood-glucose sensor (FreeStyle Juarez 3 Plus Sensor) device Change as directed every 15 days 6 each 3 04/18/2025 10:32 AM EST 5 Active blood-glucose, mathematician research,cont (FreeStyle Juarez 3 Piru) misc Use as directed to monitor sugars continuously 1 each 04/18/2025 10:32 AM EST 5 Active Lantus Solostar U-100 Insulin 100 unit/mL (3 mL) pen injection Inject 62 Units under the skin 2 times a day. 45 mL 3 5 Active NovoLOG Flexpen U-100 Insulin 100 unit/mL (3 mL) injection pen Inject under the skin 3 times a day as directed. Max 42 units daily. <100: 10 units, <200: 12 units, >200: 14 Units. 15 mL 6 04/18/2025 10:32 AM EST 5 Active flash glucose sensor (FreeStyle Juarez 2 Sensor) kit Change sensor every 14 days. 2 kit 7 01/05/2025 2:34 AM EDT 5 025 Discontin ued(Alter glen therapy) Hospital, Clinic, or Other Facility Administered Medication [...] and Pap Smear 11/06/2010 11/06/2005, , 10/26/2002 RSV Vaccine (60+ years old and patients) (1 - Risk 50-74 years 1-dose series) 2015 Zoster Vaccines (1 of 2) 2015 Ophthalmology Exam 08/22/2022 08/22/2021 Mammogram 01/11/2024 01/10/2022 Hemoglobin A1C 04/09/2024 10/08/2023, 08/01, 06/28/2022, Additional history exists Alcohol/Substance Use Screening 06/02/2024 Depression Screening and Follow-Up 06/02/2024 Social Drivers of Health Annual Screening 06/02/2024 Influenza Vaccine (#1) 2024 04/01/2023, 2021 Cervical Cancer Screening 01/09/2025 Pap Smear 01/09/2025 01/09/2022, 06/0 11/2005, 03/29/2004, Additional history exists COVID-19 Vaccine ( season) 2025 03/21/2022, 10/20/2020 Hepatitis B Vaccines Aged Out No long er eligible based on patient's age to complete this topic Procedures * Due to [place] [employer] law, this organization might not be sharing [...] to Health Maintenance Results * Due to [place] state law, this organization might not be sharing negative HIV tests. * (ABNORMAL) POCT Glycosylated Hemoglobin (HGB A1C), interfaced (10/08/2023 4:19 PM EDT) Hemoglobin A1C, POCT 8.1(H) <=5.6 % 10/08/2023 4:32 PM EDT [facility] Comment: A1C Recommendation for Non- Adults with Diabetes: <7.0% ADA 2011 Standards of Medical Care in Diabetes Blood 10/08/2023 4:1 9 PM EDT 10/08/2023 4:32 PM EDT us iL Medina MANAGER PRIVACY LAB POCT ORDERABLES - DEVICE Final Result [facility] [address] [place] [address], [place] * MADAI Bilateral Screening Digital Mammogram [...] (11/06/2005 4:21 PM EDT) Path Procedure TPGA (978382) 1 Edited by: [id number] - 2424 [facility] ANATOMIC PATHOLOGY - [facility] Specimen Labeled As: 1 CERVICAL/ENDOCERVI RAFI CYTO MATERIAL - Edited by: [id number] 1622 [facility] ANATOM[facility] - BIOTECH THREE [...] test was examined in accordance with the [facility] Cytopathology Laboratory written policy. This Pap test was examined by the [facility], [place], [place], [place]. Edited by: [id number] - 0751 [facility] ANATOMIC PATHOLOGY - [facility] Gynecologic Clinical Data Specimen source:, THINPREP (CERVICAL AND ENDOCERVICAL) [facility] ANATOMIC PATHOLOGY - [facility] Gynecologic Clinical Data First date of LMP:, 10/13/05 [facility] ANATOMIC PATHOLOGY - [facility] Marker 1 NILM,NILM [facility] ANATOMIC PATHOLOGY - [facility] Marker 2 JOSEPHINE,KATELYNNELZA DUNBAR [facility] ANATOMIC PATHOLOGY - [facility] THREE Cc Results To LISA VALENTINE [id number] [facility] ANATOMIC PATHOLOGY - [facility] Signature REPORT SIGNED: KATELYNN DUNBAR 11/12/05 [facility] ANATOMIC PATHOLOGY - [facility] Sign Out Audit KATELYNN DUNBAR [id number] FINAL NEW BETTINA [id number] [facility] ANATOMIC PATHOLOGY - [facility] Cytology / Unknown 6 4:21 PM EDT 11/07/2005 4:21 PM EDT us Soha Hodges MD LAB HISTORICAL RESULTS Li hall Result [facility] ANATOMIC PATHOLOGY - [facility] [place] [address], from Last 3 Months or Most Recently Relevant to Health Maintenance Insurance HSNO/FREE CARE Care Teams Legal Consultant Relationship Specialty Start Date End Date Claudette Diego NP PCP - General 12/04/21
--- OUTSIDE RECORDS SUMMARY | 2025-04-22 10:39 | XMS_ITS | Clinical Summary ---
Author Organization [facility] [employer] [facility] Address [address] [place] [address] [address] [place] [address] Care Team Providers Care Case Manager Specialist Name Role Phone Unavailable Primary Care Provider [...]
--- OUTSIDE RECORDS SUMMARY | 2025-04-22 10:39 | XMS_ITS | Clinical Summary ---
Author Organization [facility] Address [address] [place] [address] Care Team Providers Care Sales Representative Advertising Name Role Phone Yair Eaton Primary Care [...] age to complete this topic Care Teams Sales Representative Advertising Relationship Specialty Start Date End Date Yair Eaton MBBS [address] [place] [address] PCP - General Internal Medicine 01/01/24
--- OUTSIDE RECORDS SUMMARY | 2025-04-22 10:39 | XMS_ITS | Patient Health Record ---
Author Organization [facility] Address [address] [facility] [address] [place] [address] Care Team Providers Care Manufacturing Quality Engineer Name Role Phone Lisandro Leija Primary Care Provider [phone] Reason For Referral No Information Medications Medication [...] Order Date Chest X-ray PA and lateral 07/04/2016 Chest X-ray PA and lateral 07/23/2018 Insurance Providers Payer Name Payer Address Payer Phone Subscriber Number Group Number Insured Name Patient Relationship to Insured Coverage Start Date [facility]age End Date [facility] [address] [place] [address] [phone] Karon Ingram Self - patient is the insured Medical (General) History Medical History History ICD Code diabetes mellitus
--- OUTSIDE RECORDS SUMMARY | 2025-04-22 10:39 | XMS_ITS | Data Portability ---
Author Organization [facility] - [facility], [facility] Address [address] [place] [address] Care Team Providers Care Grinding Operator Name Role Phone SALENA JONES Primary Care [...] Sensorineur al hearing loss of bilateral ears [id number] Active 2024 JUAN JOSE EUBANKS, Rachael [address] [facility] [address], [place], [address], [facility] 14:41:10 Referred otalgia of right ear [id number] 100 Active 2024 SUE VINCENT PA-C [address] [facility] [address], [place], [address], [facility] 15:14:58 Problem Notes None recorded. Procedures Surgical History Date Name Laterality Status Provider Name and Address Organization Details Recorded Time 09/24/2024 Comp Audio with Tymps - 84058 & [id number] completed JUAN JOSE EUBANKS, Rachael [address] [facility] [address], [place], [address], [facility] 09/24/2024 14:30:24 Imaging Results None recorded. [...] Updated DateTime 09/24/2024 157.48 cm 30.7 kg/m2 36886.52 g Va Shaffer [facility] 09/24/2024 14:53:18 Social History None recorded. [...] Disorder N Anesthesia Complications N Heart Attack ([place]) N Other Skin Condition N Diabetes Y [...] ICD10 Code Diagnosis IMO Codes Diagnosis Note [id number] SUE VINCENT PA-C [facility] [address] [place] [address] 09/24/2024 13:58:41 09/24/2024 16:00:49 Sensorineural hearing loss of bilateral ears [id number] H90.3 Audiologic al evaluation results: Right ear: Normal hearing from 250 through 4000 Hz sloping to a moderate sensorineu ral hearing loss with excellent word recognitio n. Left ear: Normal hearing from 250 through 4000 Hz sloping to a moderate sensorineu ral hearing loss with excellent word recognitio n. Tympanomet ry: Right Ear:Type A Left Ear:Type A Referred o talgia of right ear [id number] 631958 H92.01 Health Concerns Section Related Observation LastModified by Organization Detai ls LastModified Time None Recorded Concern Status LastModified by Organization Details LastModified Time None Recorded Advance Directives Directive None Recorded Payers Insurance Date Sequence Insurance Name Policy Number Policy Bender Covered Member ID Bender Member ID Guarantor Name 09/24/2024 1 [facility] - HEALTH NET PLAN (MEDICAID HMO) [id number] Karon Juan Jose [id number] [facility] Notes Date Note Type Note Provider Name [...] of loud noise exposure. SUE VINCENT PA-C [address] [place] [address], [phone], [facility] - [facility] 09/24/2024 15:15:12 OBGyn Episode No OBEpisode recorded.
--- OUTSIDE RECORDS SUMMARY | 2025-04-22 10:39 | XMS_ITS | Encounter Summary ---
Author Organization [facility] Address [address] [place] [address] Care Team Providers Care Orthophoto Tech/Draftsman Name Role Phone Yair Eaton MD Primary Care Provider Encounter Details Date Type Department Care Team ([facility] st Contact Info) Description 03/23/2025 Results Follow-Up [facility] Hematology Oncology [address] [place] [phone] Chelo Valencia PA [address] [place] [address] Social History Tobacco Use Types Packs/Day Years [...] care for your loved ones. For example, residential child care counselor or elderly care for an older adult? [...] 08/15/2025 10:00 AM EDT Office Visit [facility] Hematology Oncology [address] [place] [phone] Chelo Valencia PA [address] [place] [address] documented as of this encounter Goals Goal Patient Goal Type Associated Problems Recent Progress Patient-Stated? Author STG's 6 visits General Yes Heladio Raygoza, PT Note: Pt will report a 50% or better decrease in B elbow pain during daily activities and work activities. (Met) Pt will demonstrate a 5 foot lb torque improvement of R cloud physicist strength. Met) Pt is Independent and compliant [...] 10 foot lb torque improvement of R cloud physicist strength. Pt will be Independent and compliant [...] documented as of this encounter Care Teams Orthophoto Tech/Draftsman Relationship Specialty Start Date End Date Yair Eaton MD [address] [place] [address] PCP - General 01/01/24 documented as of this encounter
--- OUTSIDE RECORDS SUMMARY | 2025-04-22 10:39 | XMS_ITS | Clinical Summary ---
Author Organization [facility] [address] [place] [address] Address [address] [place] [address] Phone Care Team Providers Care Geological Engineering Teacher Name Role Phone Yair Eaton MD Primary [...] polyneuropathy, with long-term current use of insulin ([facility] V24, CMS/HCC V28) Inject 0.5 mL (2.5 [...] polyneuropathy, with long-term current use of insulin ([facility] V24, [facility] V28),Bilateral shoulder bursitis,Lateral epicondylitis of right elbow TAKE 1 TABLET BY MOUTH TWICE A DAY NEEDED FOR MILD PAIN 60 tablet 04/04/20 25 Active naproxen (NAPROSYN) 500 mg tabletIndication s:Type 2 diabetes mellitus with diabetic polyneuropathy, with long-term current use of insulin ([facility] V24, [facility] V28),Bilateral shoulder bursitis,Lateral epicondylitis of right elbow TAKE 1 TABLET BY MOUTH TWICE A DAY NEEDED FOR MILD PAIN 60 tablet 02/23/20 25 2024 Discontinued Active Problems Problem Noted Date Diagnosed Date Essential thrombocytosis ([facility] V24, [facility] V 28) 05/14/2024 Type 2 diabetes mellitus wit h diabetic polyneuropathy, with long-term current use of insulin ([facility] V24, [facility] V28) 03/16/2024 Encounters Date Type Department Care Team Description 03/23/2025 Results Follow-Up [facility] Hematology Oncology [address] [place] [phone] Chelo Valencia PA 02/11/2025 9:00 AM EDT Treatment Outpatient Rehabilitation [address] [phone] Evi Cortes, COLLARETTE SEPARATOR Bilateral shoulder bursitis (Primary Dx); Lateral epicondylitis of both elbows 02/04/2025 10:30 AM EDT Treatment Outpatient Rehabilitation - [address] [phone] Evi Cortes, COLLARETTE SEPARATOR Bilateral shoulder bursitis (Primary Dx); Lateral epicondylitis of both elbows 02/01/2025 12:30 PM EDT Treatment Outpatient Rehabilitation [address] [phone] Heladio Raygoza, PT Bilateral shoulder bursitis (Primary Dx) 01/28/2025 10:30 AM EDT Treatment Outpatient Rehabilitation - [address] [phone] Heladio Raygoza, PT Bilateral shoulder bursitis (Primary Dx) 01/24/2025 11:00 AM EDT Treatment Outpatient Rehabilitation - [address] [phone] Dina Lackey, COLLARETTE SEPARATOR Bilateral shoulder bursitis (Primary Dx); Lateral epicondylitis of both elbows from Last 3 Months Immunizations Immunization Administration Dates Next Due Pfizer SARS-CoV-2 COVID-19, mRNA, LNP-S, preservative free 03/21/2022 Medical History Medical History Date Comments Diabetes mellitus ([facility] V24, [facility] V28) DX:Diabetes mellitus ([facility]) Family History Medical History Relation Name Comments [...] for your loved ones. For example, child watch attendant or elderly care for an older adult? [...] Description 08/15/2025 10:00 AM EDT Office Visit [facility] Hematology Oncology [address] [place] [address] Chelo Valencia PA [address] [place] [address] Health Maintenance Due Date Last Done Comments [...] 5 foot lb torque improvement of R assembler for puller over hand strength. Met) Pt is Independent and compliant [...] 10 foot lb torque improvement of R assembler for puller over hand strength. Pt will be Independent and compliant [...] EDT Essential thrombocytosis (CMS/HCC V24, CMS/HCC V28) CBC AND DIFFERENTIAL Routine 03/17/2025 10:25 AM EDT Essential thrombocytosis (CMS/HCC V24, CMS/HCC V28) EXTERNAL CLINICAL LAB 03/11/2025 CREATININE, SERUM Routine 12/02/2024 10: 35 AM EDT Type 2 diabetes mellitus with diabetic polyneuropathy, with long-term current use of insulin ([facility]/HCC V24, CMS/[facility] V28) HEMOGLOBIN A1C Routine 12/02/2024 10:35 AM EDT Type 2 diabetes mellitus with diabetic polyneuropathy, with long-term current use of insulin ([facility] V24, CMS/HCC V28) EXTERNAL MAMMOGRAM REPORT 10/15/2024 MICROALBUMIN CREATININE URINE RATIO Routine 05/17/2024 12:06 PM EST Type 2 diabetes mellitus with diabetic polyneuropathy, with long-term current use of insulin ([facility] V24, CMS/[facility] V28) LIPID PANEL WITH REFLEX TO DIRECT LDL Routine 05/17/2024 12:06 PM EST Type 2 diabetes mellitus with diabetic polyneuropathy, with long-term current use of insulin ([facility] V24, CMS/[facility] V28) DIABETES FOOT EXAM Routine 02/04/2024 HEPATITIS C SCREENING Routine 11/13/2023 from Last 3 Months or Most Recently Relevant to Health Maintenance Results * (ABNORMAL) CBC auto differential (03/17/2025 10:25 AM EDT) [facility] WBC 7.9 4.8 - 10.8 K/mcL LAB HEMETOLOGY METHOD 03/17/2025 12:43 PM EDT [facility] RBC 4.80 3.80 - 4.80 M/mcL LAB HEMETOLOGY METHOD 03/17/2025 12:43 PM EDT [facility] Hemoglobin 13.5 11.5 - 16.0 g/dL LAB HEMETOLOGY METHOD 03/17/2025 12:43 PM T [facility] Hematocrit 42.8 35.0 - 47.0 % LAB HEMETOLOGY METHOD 03/17/2025 12:43 PM EDT [facility] MCV 89.9 79.0 - 98.0 FL LAB HEMETOLOGY METHOD 03/17/2025 12:43 PM EDT [facility] MCH 28.4 27.0 - 32.0 pcg LAB HEMETOLOGY METHOD 03/17[facility]25 [facility] MCHC 31.5(L) 32.0 - 37.0 g/dL LAB HEMETOLOGY METHOD 03/17/2025 12:43 PM [facility] RDW 14.6 11.0 - 15.0 % LAB HEMETOLOGY METHOD 03/17/2025 12:43 PM [facility] Platelets 621(H) 130 - 400 K/mcL LAB HEMETOLOGY METHOD 03/17/2025 12:43 PM [facility] MPV 9.4 7.0 - 11.0 FL LAB HEMETOLOGY METHOD 03/17/2025 12:43 PM [facility] NRBC 0.0 <1.0 % LAB HEMETOLOGY METHOD 03/17/2025 12:43 PM [facility] NRBC Absolute 0.00 <0.10 K/mcL LAB HEMETOLOGY METHOD 03/17/2025 12:43 PM [facility] Neutrophils Relative 54.6 % LAB HEMETOLOGY METHOD 03/17/2025 12:43 PM [facility] Lymphocytes Relative 33.1 % LAB HEMETOLOGY METHOD 03/17/2025 12:43 PM [facility] Monocytes Relative 8.2 % LAB HEMETOLOGY METHOD 03/17/2025 12:43 PM [facility] Eosinophils Relative 3.0 % LAB HEMETOLOGY METHOD 03/17/2025 12:43 PM [facility] Basophils Relative 0.5 % LAB HEMETOLOGY METHOD 03/17/2025 12:43 PM [facility] Immature Granulocytes Relative 0.6 % LAB HEMETOLOGY METHOD 03/17/2025 12:43 PM EDT [facility] Neutrophils Absolute 4.30 1.50 - 7.00 K/mcL LAB HEMETOLOGY METHOD 03/17/2025 12:43 PM EDT [facility] Lymphocytes Absolute 2.61 1.00 - 5.00 K/mcL LAB HEMETOLOGY METHOD 03/17/2025 12:43 PM EDT [facility] Monocytes Absolute 0.65 0.20 - 1.00 K/mcL LAB HEMETOLOGY METHOD 03/17/2025 12:43 PM EDT [facility] Eosinophils Absolute 0.24 0.00 - 0.50 K/mcL LAB HEMETOLOGY METHOD 03/17/2025 12:43 PM EDT [facility] Basophils Absolute 0.04 0.00 - 0.20 K/mcL LAB HEMETOLOGY METHOD 03/17/2025 12:43 PM EDT [facility] Immature Granulocytes Absolute 0.05(H) 0.00 - 0.03 K/[facility] LAB HEMETOLOGY METHOD 03/17/2025 12:43 PM EDT [facility] Blood Venous blood specimen / Unknown Venipuncture / Unknown 03/17/2025 10:25 AM EDT 03/17/2025 12:10 PM EDT Chelo HANKINS LAB BLOOD ORDERABLES Final Re sult [facility] [address] [place] [address], * External clinical lab (03/11/2025) us Provider [facility] LAB BLOOD ORDERABLES Fin al Result * Creatinine (12/02/2024 10:35 AM EDT) Creatinine 0.62 0.50 - 1.10 mg/dL LAB CHEMISTRY METHOD 12/02/2024 1:14 PM EDT [facility] eGFR 103 >=60 mL/min/1. 73m2 LAB CHEMISTRY METHOD 12/02/2024 1:14 PM EDT [facility] Comment:Calculation based on the Chronic Kidney Disease Epidemiology Collaboration (CKD-EPI) equation refit without adjustment for race. Blood Venous blood specimen / Unknown Venipuncture / Unknown 12/02/2024 10:35 AM EDT 12/02/2024 10:35 AM EDT Patricia Lerma MD LAB BLOOD ORDERABLES Final Resul t Performing Organization Address [facility] Co de Phone Number [facility] [address] [place] [address], [place] [phone] * (ABNORMAL) Hemoglobin A1c (12/02/2024 10:35 AM EDT) Hemoglobin A1C 8.2(H) <6.5 % LAB CHEMISTRY METHOD 12/02/2024 2:42 PM EDT [facility] Mean Bld Glu Estim. 189 mg/dL LAB CHEMISTRY METHOD 12/02/2024 2:42 PM EDT [facility] Blood Venous blood specimen / Unknown Venipuncture / Unknown 12/02/2024 10:35 AM EDT 12/02/2024 10:35 AM EDT Patricia Lerma MD LAB BLOOD ORDERABLES Final Resul t Performing Organization Address City/[facility]/ZIP Co de Phone Number [facility] [address] [place] [address], [place] [phone] * External Mammogram Report (10/15/2024) Anatomical Region Laterality Modality Mammography Provider [facility] IMG BI PROCEDURES Final Result * Lipid panel with reflex to direct LDL (05/17/2024 12:06 PM EST) Cholesterol 131 0 - 200 mg/dL LAB CHEMISTRY METHOD 05/17/2024 7:34 PM EST [facility] Triglycerides 83 0 - 150 mg/dL LAB CHEMISTRY METHOD 05/17/2024 7:34 PM [facility] HDL 49 >=40 mg/dL LAB CHEMISTRY METHOD 05/17/2024 7:34 PM [facility] LDL Calculated 65 0 - 100 mg/dL LAB CHEMISTRY METHOD 05/17/2024 7:34 PM [facility] VLDL Cholesterol Osman 16.6 mg/dL LAB CHEMISTRY METHOD 05/17/2024 7:34 PM [facility] Non HDL Chol. (LDL+VLDL) 82 <145 mg/dL LAB CHEMISTRY METHOD 05/17/2024 7:34 PM [facility] Chol/HDL Ratio 2.7 0.0 - 4.4 LAB CHEMISTRY METHOD 05/17/2024 7:34 PM [facility] Blood Venous blood specimen / Unknown Venipuncture / Unknown 05/17/2024 12:06 PM EST 05/17/2024 12:06 PM EST Yair Eaton MD LAB BLOOD ORDERABLES F inal Result [facility] [address] [place] [address], * Microalbumin creatinine urine ratio (05/17/2024 12:06 PM EST) Creatinine, Urine 141.0 mg/dL LAB CHEMISTRY METHOD 05/17/2024 5:59 PM [facility] Microalb, Ur 10.0 0.0 - 29.0 mg/L LAB CHEMISTRY METHOD 05/17/2024 5:59 PM [facility] Microalb/Creat Ratio 7 <30 mg/g creat LAB CHEMISTRY METHOD 05/17/2024 5:59 PM EST [facility] Urine Urine specimen obtained by clean catch procedure / Unknown Non-blood Collection / Unknown 05/17/2024 12:06 PM EST 05/17/2024 12:06 PM EST Yair Eaton MD LAB URINE ORDERABLES F inal Result [facility] [address] [place] [address], [place] [phone] * Diabetes Foot Exam (02/04/2024) Diabetes: Annual Foot Exam abstracted Historical Provider HEALTH MAINTENANCE Final Result * Hepatitis C Screening (11/13/2023) Hepatitis C Screening abstracted Historical Provider HEALTH MAINTENANCE Final Result from Last 3 Months or Most Recently Relevant to Health Maintenance Insurance [facility] Care Teams Geological Engineering Teacher Relationship Specialty Start Date End Date Yair Eaton MD [address] [place] [address] PCP - General 01/01/24
--- OUTSIDE RECORDS SUMMARY | 2025-04-22 10:39 | XMS_ITS | Patient Health Record ---
Author Organization [facility] Address [address] [place] [address] Care Team Providers Care Cartridge Belt Puncher Name Role Phone Kennedy Hurtado Primary Care [...]
== END 2025-04-22 10:54 | disposition home or self-care (01) ==
LOC: HO.ENCR 10:01
PROVIDERS: PCP Internal Medicine; Visit Provider Physician Assistant Medical
DX: E11.42 Type 2 diabetes mellitus with diabetic polyneuropathy (principal); Z79.4 Long term (current) use of insulin; E66.811 Obesity, class 1; E11.69 Type 2 diabetes mellitus with other specified complication; E78.5 Hyperlipidemia, unspecified

== ENCOUNTER → 2025-04-22 10:01 | Outpatient (BNVA) | payer OTHER, SELFPAY | PROVIDERS: PCP Internal Medicine; Visit Provider Physician Assistant Medical | DX: E11.42 Type 2 diabetes mellitus with diabetic polyneuropathy (principal); E11.69 Type 2 diabetes mellitus with other specified complication; E66.811 Obesity, class 1; E78.5 Hyperlipidemia, unspecified; Z79.4 Long term (current) use of insulin | CPT/HCPCS: 82947 ==

== ENCOUNTER 2025-05-05 11:45 | Outpatient (AMB) | payer OTHER, SELFPAY ==
[2025-05-05 11:46] VITALS: BMI 32.9
--- NOTE | 2025-05-05 11:46 | A.OFFVIS_ITS ---
Vital Signs 05/05/25 11:46 Height 5 ft 2 in Weight 180 lb BMI 32.9 Intake Visit Reasons: follow up with x-rays Intake Note: Karon is a 60 year old female who presents to the office today for a follow up visit. Pt completed x-rays and states that since increasing her dose of Mounjaro she has noticed increasing pain in her feet. Pt states she did buy orothotic shoes but states they havent helped. She has been using OTC Ibuprofen/tylenol which gives her short term relief. Allergies No Known Allergies Allergy (Verified 05/05/25 11:47) HPI HPI follow up with x-rays: Details: 60-year-old female with past medical history of diabetes mellitus type 2, hypercholesterolemia, presents for annual diabetic foot evaluation and bilateral foot pain. She was performing range of motion and stretching exercises every day and finding improvement in her ankle pain from them however she states she to busy recently and was able to continue exercises. She now complains of pain worse of the top of her left foot and the bottom of her left heel. She was recently increased on her Mounjaro dose and believes she started experiencing worsening left foot pain since then. She complains of burning numbness and tingling in her feet, worst during the nighttime. She has a Qutenza appointment scheduled with Pain Management for her neuropathy. She is still taking oral analgesic for pain. She has tried multiple various orthotics before including a custom diabetic shoe, and recently just tried Powerstep after her last visit however she states she did not find relief from them. She also endorses lower back pain, stating she has not had treatment for it so far either. [facility] Medical History Dyslipidemia associated with type 2 diabetes mellitus Obesity (BMI 30.0-34.9) Type 2 diabetes mellitus Bloating Fibroid Pelvic pain High cholesterol Diabetes mellitus Surgical History H/O bilateral breast reduction surgery H/O abdominoplasty H/O myomectomy Hx of section Family History Maternal Aunt History of breast cancer Social History Housing: House Alcohol intake: current Alcohol intake frequency: holidays/special occasions only Alcohol type: wine Patient Tobacco Use Status: Never used Tobacco Current occupational status: employed Female Reproductive History Menstrual Age of Menarche: 10 Review of Systems Const All systems reviewed & are unremarkable except as noted in HPI and below Physical Exam Vital Signs: BMI result Body Mass Index 32.9 Extrem Other: *Bilateral Lower Extremity Focused Diabetic Foot Exam Vascular: DP/PT 2/4, CFT<3s to digits, TG warm to cool, no pedal edema, pedal hair present Derm: Skin: No open lesions, ulcerations, or calluses. Interdigital spaces: Clear, no maceration or fungal infection. Nails: No onychomycosis, paronychia, or ingrown nails. Neuro: [place]-ricardo monofilament (10g) test 101/10 intact to right foot, 0/10 intact to left foot. Msk: Mild tenderness on palpation of the plantar medial calcaneal tubercle left foot, mild tenderness over the extensor tendons the dorsal aspect of the left ankle. Severe medial arch collapse pes planus deformity with talar uncovering, no significant transverse plane abduction. Approximately 5 degree heel valgus bilaterally, calcaneus inverts on bilateral heel raise. Deformities: No evidence of hammertoes, bunions, Charcot changes. Muscle strength: 5/5 in all muscle groups. Gait: Early heel rise bilaterally. Footwear Assessment: Shoes inspected; appropriate fit, no excessive wear, or foreign objects noted. Results Reviewed Results Reviewed: X-ray Read: 04/18/2025 X-ray right foot 3 views (AP, MO, Lateral) reviewed which shows severe pes planus deformity, heterotrophic bone growth, plantar aspect of the calcaneus and cuboid joint, large plantar calcaneal spur, mild insertional Achilles spur I personally reviewed the imaging and my findings are listed above. X-ray Read: 04/18/2025 X-ray left foot 3 views (AP, MO, Lateral) reviewed which shows severe pes planus deformity, heterotrophic bone growth, plantar aspect of the calcaneus and cuboid joint, mild plantar calcaneal spur, mild insertional Achilles spur. I personally reviewed the imaging and my findings are listed above. Assessment & Plan Assessment & Plan (1) Posterior tibial tendon dysfunction (PTTD) of both lower extremities: Code(s): M76.821 - Posterior tibial tendinitis, right leg; M76.822 - Posterior tibial tendinitis, left leg Category: Medical Plan: * Continue range of motion and stretching exercises * Reviewed bilateral foot x-rays. No remarkable findings. * Recommended physical therapy which the patient deferred at this time * Follow up in 6 weeks (2) Diabetes mellitus with neuropathy: Code(s): E11.40 - Type 2 diabetes mellitus with diabetic neuropathy, unspecified Category: Medical Qualifiers: Diabetes mellitus type: type 2 Diabetes mellitus chemist enzymes insulin use: unspecified mcc insulin use status Qualified Code(s): E11.40 - Type 2 diabetes mellitus with diabetic neuropathy, unspecified Plan: * Pending Qutenza treatment with pain management (3) Pes planus of both feet: Code(s): M21.41 - Flat foot [pes planus] (acquired), right foot; M21.42 - Flat foot [pes planus] (acquired), left foot Category: Medical Plan: * Recommended continue trying to break in Powerstep orthotics. May require custom foot orthotics in the future. Patient refused JOY LOADER at this time. (4) Plantar fasciitis of left foot: Code(s): M72.2 - Plantar fascial fibromatosis Category: Medical Plan: * Continue range of motion and stretching exercises * She may benefit from a cortisone injection however recommend better glycemic control as well as trialing Qutenza treatment first. (5) Tendinitis of left ankle: Code(s): M77.52 - Other enthesopathy of left foot and ankle Category: Medical Plan: * Continue range of motion and stretching exercises * Recommended discussing Mounjaro dose with her fruit buying grader due to possible associated muscle aches Plan * Coding Level of Care Code Est Pt Level 3 (81028) Diagnoses Posterior tibial tendon dysfunction (PTTD) of both lower extremities M76.821; M76.822 Type 2 diabetes mellitus with diabetic neuropathy, unspecified whether chemist enzymes insulin use E11.40 Diabetes mellitus type: type 2 Diabetes mellitus chemist enzymes insulin use: unspecified chemist enzymes insulin use status Pes planus of both feet M21.41; M21.42 Plantar fasciitis of left foot M72.2 Tendinitis of left ankle M77.52
== END 2025-05-05 12:13 | disposition home or self-care (01) ==
LOC: HO.HPODS 11:45
PROVIDERS: PCP Internal Medicine; Visit Provider Student in an Organized Health Care Education/Training Program
DX: M76.821 Posterior tibial tendinitis, right leg (principal); M76.822 Posterior tibial tendinitis, left leg; E11.40 Type 2 diabetes mellitus with diabetic neuropathy, unspecified; M21.41 Flat foot [pes planus] (acquired), right foot; M21.42 Flat foot [pes planus] (acquired), left foot; M72.2 Plantar fascial fibromatosis; M77.52 Other enthesopathy of left foot and ankle
CPT/HCPCS: 99213

== ENCOUNTER → 2025-05-05 11:45 | Outpatient (BNVA) | payer OTHER, SELFPAY | PROVIDERS: PCP Internal Medicine; Visit Provider Student in an Organized Health Care Education/Training Program | DX: M76.821 Posterior tibial tendinitis, right leg (principal); Z79.85 Long-term (current) use of injectable non-insulin antidiabetic drugs; M76.822 Posterior tibial tendinitis, left leg; E11.40 Type 2 diabetes mellitus with diabetic neuropathy, unspecified; M21.41 Flat foot [pes planus] (acquired), right foot; M21.42 Flat foot [pes planus] (acquired), left foot; M72.2 Plantar fascial fibromatosis; M77.52 Other enthesopathy of left foot and ankle | CPT/HCPCS: 99212 ==

== ENCOUNTER 2025-05-20 10:00 | Outpatient (AMB) | payer OTHER, SELFPAY ==
--- NOTE | 2025-05-20 10:03 | A.OFFVIS_ITS ---
Vital Signs 05/20/25 10:06 Height 5 ft 2 in Weight 178 lb 2.136 oz BMI 32.6 BP 116/64 Blood Pressure Location Lt brachial Position Sitting Pulse 84 Pulse Source Pulse Oximeter Pulse Oximetry (%) 98 Oxygen Delivery Method Room Air Intake Visit Reasons: Type II diabetes Intake Note: Patient present today for Type 2 Diabetes Mellitus . Last Diabetic eye exam: approx 1 year Last Podiatry Visit: Doesn't have one but would like a referral to one. Random Glucose: 150 mg/dl HgA1C: 8.7% 03/11/2025 Security Sergeant Required: No Accompanied by: Self / Same As Patient Allergies No Known Allergies Allergy (Verified 05/20/25 10:06) Medication List - Last Reconciled 05/20/25 by CR Acosta acyclovir 5% 1 appl topical 6XD 7 days aspirin 81 mg PO DAILY atorvastatin 40 mg PO DAILY blood-glucose sensor ([employer] [place] 3 Plus Sensor device) As directed every 15 days blood-glucose,city alderman,cont ([email or web address] Juarez 3 [place]) As directed to monitor sugars continuously glucose (Dex4 Glucose Quick Dissolve) 16 grams (4 x 4 gram) PO Q15M PRN insulin aspart U-100 (Novolog FlexPen U-100 Insulin aspart) less than 100 0 units, 101-200 5-8 units, over 200 10-14 units insulin glargine (Lantus Solostar U-100 Insulin) 45 units subcut BID lidocaine 5% leave on most painful area for up to 12 hrs topically daily; 30 days lidocaine-prilocaine 2.5-2.5 % 1 appl topical ONCE metformin 1,000 mg PO BID tirzepatide (Mounjaro) 5 mg (0.5 mL) subcut QWEEK valacyclovir (Valtrex) 500 mg PO BID 3 days HPI Comments Details: 60-year-old female coming in today for type 2 diabetes management. Diagnosed age 28 years. Negative PHANI and islet cell antibody. Hemoglobin A1c 8.7% 03/11/2025. Reviewed Juarez download CGM active 94% G FL 6.6% Average glucose 139 Very high 2% High 14% Target range 81% Low 3% She has a pattern of hypoglycemia overnight and during the morning. She is checking a fingerstick glucose to confirm lows. She treats with candy or juice. Prior therapy: Jonny in 2021, was having vision changes and numbness with it Jardiance cause yeast infections repeatedly Current medication: Lantus 45 units twice daily NovoLog less than 100 0 units, 101-200 5-8 units, over 200 10-14 units Metformin 1000 mg twice daily Mounjaro 5 mg weekly Denies GI side effects on current dose of Mounjaro however she said she is having left foot pain. She says it started after she began the medication and it is different from her neuropathy and on the top of the foot and on the side. She saw her airport screener, and she says they thought it could be due to the medication. She is doing stretches which seems to help, and she said she also was given a boot to use at night. Complications: Neuropathy No hypertension or nephropathy. Statin:atorvastatin 40 mg daily She walks for exercise and does Pilates. ROS: Constitutional: No unexplained weight loss, fever, chills, fatigue Cardiovascular: No chest pain, chest pressure or chest discomfort. No palpitations or pedal edema. Gastrointestinal: No anorexia, nausea, vomiting or diarrhea. No abdominal pain Neurologic: No headache or dizziness Hematologic/Lymphatics: No bleeding or bruising. No painful lymph nodes. Skin: No wounds or ulcers Endocrine: No cold or heat intolerance. No polyuria or polydipsia. Physical exam: Constitutional: Alert, in no distress. Eyes: Pupils are equal, round and reactive to light. Extraocular muscles intact. Neck: Supple, Full range of motion. No lymphadenopathy. No palpable thyroid masses. Respiratory: Clear to auscultation. Cardiovascular: S1 S2 regular. Mild systolic murmur (patient says she has been told about this for years) Extremities: No edema [facility] Medical History Dyslipidemia associated with type 2 diabetes mellitus Obesity (BMI 30.0-34.9) Type 2 diabetes mellitus Bloating Fibroid Pelvic pain High cholesterol Diabetes mellitus Surgical History H/O bilateral breast reduction surgery H/O abdominoplasty H/O myomectomy Hx of section Family History Maternal Aunt History of breast cancer Social History Housing: House Alcohol intake: current Alcohol intake frequency: holidays/special occasions only Alcohol type: wine Patient Tobacco Use Status: Never used Tobacco Current occupational status: employed Female Reproductive History Menstrual Age of Menarche: 10 Physical Exam Vital Signs: Last Vital Signs Pulse 84 05/20/25 10:06 BP 116/64 05/20/25 10:06 Pulse Ox 98 05/20/25 10:06 Oxygen Delivery Method Room Air 05/20/25 10:06 BMI result Body Mass Index 32.6 Office Procedures Glucose Monitoring Details Details: See [facility] [address] - Glucose monitoring, continuous-physician I&R Procedure code (CPT) selection complete Results Reviewed Results Reviewed: Laboratory Tests 03/11/25 03/11/25 12:03 12:07 Estimated GFR > 60 Random Glucose 81 AST 34 H ALT 42 H Triglycerides 117 Cholesterol 147 LDL Cholesterol, Calc 83 HDL Cholesterol 41 Urine Creatinine 46.47 Urine Microalbumin 6.0 Microalb/Creat Ratio 12.9 Islet Cell Ab Screen NEGATIVE Islet Cell Ab Titer TNP PHANI Antibody <5 Assessment & Plan Assessment & Plan (1) Type 2 diabetes mellitus: Code(s): E11.9 - Type 2 diabetes mellitus without complications Category: Medical Qualifiers: Diabetes mellitus intermodal truck driver insulin use: with intermodal truck driver use Diabetes mellitus complication status: with neurologic complications Diabetes mellitus complication detail: with polyneuropathy Qualified Code(s): E11.42 - Type 2 diabetes mellitus with diabetic polyneuropathy; Z79.4 - roasterman (current) use of insulin (2) Obesity (BMI 30.0-34.9): Code(s): E66.811 - Obesity, class 1 Category: Medical Plan: See above (3) Dyslipidemia associated with type 2 diabetes mellitus: Code(s): E11.69 - Type 2 diabetes mellitus with other specified complication; E78.5 - Hyperlipidemia, unspecified Category: Medical Plan In summary this is a 60-year-old female with type 2 diabetes on basal bolus insulin, metformin and Mounjaro. We discussed that for pain was not seen in the clinical trials however rapid weight loss could cause loss of the fat pad resulting in foot pain, but she has only lost 2 lb so I am really not sure if it is the Mounjaro causing her pain. We decided to hold the medication for 3 weeks and re-evaluate with a telehealth visit. If the pain resolves she can try Trulicity instead. If there is no difference in pain she can resume Mounjaro with plans to titrate after a month to 7.5 mg with further reduction of insulin given low sugars. For now continue Lantus 45 units twice a day, metformin a 1000 mg twice daily NovoLog less than 100 0 units, 101-200 5-8 units, over 200 10-14 units Diabetic diet reviewed. Continue regular exercise. Continue statin for hyperlipidemia. Reviewed treatment of hypoglycemia. Written instructions provided. Schedule telehealth appointment in 3 weeks. Orders: Orders AMB Glucose Monitoring Today E11.9 - Type 2 diabetes mellitus without complications Patient Instructions: Stop Mounjaro 5 mg weekly for the next 3 weeks. Continue Lantus to 45 units twice daily. Continue metformin 1000 mg twice daily NovoLog less than 100 0 units, 101-200 5-8 units, over 200 10-14 units If your foot pain goes away after stopping Mounjaro, you can try Trulicity. We will talk in 3 weeks for plan. If you experience low blood sugar (under 70), treat this by eating a chewable fruit candy like skittles or jelly beans (about 8 pieces), 4 ounces (1/2 cup) of fruit juice (not diet), 1 tablespoon of honey or 4 glucose tablets. If your blood sugar is under 50, take double the amount of one of the above. Recheck your blood sugar in 15 minutes. Coding Level of Care Code Est Pt Level 4 (11974) Diagnoses Type 2 diabetes mellitus with diabetic polyneuropathy, with long-term current use of insulin E11.42; Z79.4 Diabetes mellitus intermediate insulin use: with intermodal truck driver use Diabetes mellitus complication status: with neurologic complications Diabetes mellitus complication detail: with polyneuropathy Obesity (BMI 30.0-34.9) E66.811 Dyslipidemia associated with type 2 diabetes mellitus E11.69; E78.5 CPT Codes Details - CPT: 34134 - Glucose monitoring, continuous-physician I&R ([id number])
[2025-05-20 10:06] VITALS: BP 116/64; PULSE 84; O2SAT 98; BMI 32.6
[2025-05-20 10:13] LABS: Glucose, Whole Blood 150 mg/dL (60-115)
--- OUTSIDE RECORDS SUMMARY | 2025-05-20 11:10 | XMS_ITS | Patient Health Record ---
Author Organization [facility] Address [address] [place] [address] Care Team Providers Care Lead Sprinkler Name Role Phone Kennedy Hurtado Primary Care Provider [phone] Reason For Referral No Information Medications Medication [...]
--- OUTSIDE RECORDS SUMMARY | 2025-05-20 11:10 | XMS_ITS | Clinical Summary ---
Author Organization [employer] Address [address] [place] [address] [address] [place] [address] Care Team Providers Care Strip Cutter Name Role Phone Unavailable Primary Care Provider [...]
--- OUTSIDE RECORDS SUMMARY | 2025-05-20 11:10 | XMS_ITS | Patient Health Record ---
Author Organization [facility] Address [address] [address] [place], [place] [id number] Care Team Providers Care Inspector Floor Name Role Phone dr Izaiah Bryan Unavailable Unavaila ble Reason For Referral No Information Medications Medication SIG (Take, Route, Frequency, Duration) Notes Start Date End Date Status FreeStyle [place]arez 14 Day [place] - as directed subq [id number]; Duration: 90 days Active BD Pen Needle [...] disorder associated with type II diabetes mellitus (003579473) Type 2 diabetes mellitus with other diabetic neurological complication (E11.49) Active confirmed Problem Hyperglycemia due to type 2 diabetes mellitus (241306963632547) Type 2 diabetes mellitus with hyperglycemia (E11.65) Active confirmed Problem Mixed hyperlipidemia (146177636) Mixed hyperlipidemia (E78.2) Active confirmed Problem Non-toxic nodular goiter (629951655) Nontoxic nodular goiter (E04.9) Active confirmed Problem Essential hypertension (76942494) Essential hypertension (I10) Active confirmed Problem Obese class I (finding) (321283185396551) Obesity (BMI 30.0-34.9) (E66.9) Active confirmed Problem Obesity (332893838) Obesity (BMI 30-39.9) (E66.9) Active confirmed Plan Of Treatment No Information Insurance Providers Payer Name Payer Address Payer Phone Subscriber Number Group Number Insured Name Patient Relationship to Insured Coverage Start Date Coverage End Date [facility] [address] [place] [address] [phone] [id number] Karon Ingram Self - patient is the insured 8 Medical (General) History Medical History History ICD Code back trouble diabetes Surgical History Surgery Date(Month/Year)
--- OUTSIDE RECORDS SUMMARY | 2025-05-20 11:10 | XMS_ITS | Clinical Summary ---
Author Organization [facility] [address] [place] [address] Address [address] [place] [address] Phone Care Team Providers Care Retail Operations Specialist Name Role Phone Yair Eaton MD Primary [...] polyneuropathy, with long-term current use of insulin ([facility] V24, CMS/HCC V28) Inject 0.5 mL [...] polyneuropathy, with long-term current use of insulin ([facility] V24, [facility] V28),Bilateral shoulder bursitis,Lateral epicondylitis of right elbow TAKE 1 TABLET BY MOUTH TWICE A DAY NEEDED FOR MILD PAIN 60 tablet 05/16/20 25 Active naproxen (NAPROSYN) 500 mg tabletIndication s:Type 2 diabetes mellitus with diabetic polyneuropathy, with long-term current use of insulin ([facility] V24, [facility] V28),Bilateral shoulder bursitis,Lateral epicondylitis of right elbow TAKE 1 TABLET BY MOUTH TWICE A DAY NEEDED FOR MILD PAIN 60 tablet 04/04/20 25 2024 Discontinued Active Problems Problem Noted Date Diagnosed Date Essential thrombocytosis 05/14/2024 Type 2 diabetes mellitus wit h diabetic polyneuropathy, with long-term current use of insulin 03/16/2024 Encounters Date Type Department Care Team Description 03/23/2025 Results Follow-Up [facility] Hematology Oncology [address] [place] [address] Chelo Valencai PA from Last 3 Months Immunizations Immunization Administration Dates Next Due Pfizer SARS-CoV-2 COVID-19, mRNA, LNP-S, preservative free 03/21/2022 Medical History Medical History Date Comments Diabetes mellitus ([facility] V24, [facility] V28) DX:Diabetes mellitus (HCC) Family History Medical [...] for your loved ones. For example, child adolescent psychiatrist or elderly care for an older adult? [...] on file Sexual Orientation Not on file Last Filed Vital Signs [...] Description 08/15/2025 10:00 AM EDT Office Visit [facility] Hematology Oncology [address] [place] [phone] Chelo Valencia PA [address] [place] [address] Health Maintenance Due Date Last Done Comments [...] 5 foot lb torque improvement of R livestock inspector strength. Met) Pt is Independent and compliant [...] 10 foot lb torque improvement of R livestock inspector strength. Pt will be Independent and compliant with final HEP. 01/28/2025 Pt will demonstrate B shoulder elevations to 140 degrees or better for overhead IADL's. Pt will demonstrate combined bilateral shoulder extension, adduction and IR to T12 or better for dressing behind back. Procedures Procedure Name Priority Date/Time Associated Diagnosis Comments EXTERNAL XRAY REPORT 04/18/2025 EXTERNAL XRAY REPORT 04/18/2025 EXTERNAL XRAY REPORT 04/18/2025 EXTERNAL XRAY REPORT 04/18/2025 CBC WITH AUTO DIFFERENTIAL Routine 03/17/2025 10:25 [...] use of insulin (CMS/HCC V24, CMS/HCC V28) EXTERNAL MAMMOGRAM REPORT 10/15/2024 MICROALBUMIN CREATININE URINE RATIO Routine 05/17/2024 12:06 PM EST Type 2 diabetes mellitus with diabetic polyneuropathy, with long-term current use of insulin (CMS/HCC V24, CMS/HCC V28) LIPID PANEL WITH REFLEX TO DIRECT LDL Routine 05/17/2024 12:06 PM EST Type 2 diabetes mellitus with diabetic polyneuropathy, with long-term current use of insulin (CMS/HCC V24, CMS/HCC V28) DIABETES FOOT EXAM Routine 02/04/2024 HEPATITIS C SCREENING Routine 11/13/2023 from Last 3 Months or Most Recently Relevant to Health Maintenance Results * External Xray Report (04/18/2025) Only the most recent of4 resultswithin the time period is included. Anatomical Region Laterality Modality Radiographic Hamida ging us Provider [facility] IMG XR PROCEDURES Final Result * (ABNORMAL) CBC auto differential (03/17/2025 10:25 AM EDT) WBC 7.9 4.8 - 10.8 K/mcL LAB HEMETOLOGY METHOD 03/17/2025 12:43 PM [facility] RBC 4.80 3.80 - 4.80 M/mcL LAB HEMETOLOGY METHOD 03/17/2025 12:43 PM [facility] Hemoglobin 13.5 11.5 - 16.0 g/dL LAB HEMETOLOGY METHOD 03/17/2025 12:43 PM [facility] Hematocrit 42.8 35.0 - 47.0 % LAB HEMETOLOGY METHOD 03/17/2025 12:43 PM [facility] MCV 89.9 79.0 - 98.0 FL LAB HEMETOLOGY METHOD 03/17/2025 12:43 PM [facility] MCH 28.4 27.0 - 32.0 pcg LAB HEMETOLOGY METHOD 03/17/2025 12:43 PM [facility] MCHC 31.5(L) 32.0 - 37.0 g/dL LAB HEMETOLOGY METHOD 03/17/2025 12:43 PM [facility] RDW 14.6 11.0 - 15.0 % LAB HEMETOLOGY METHOD 03/17/2025 12:43 PM [facility] Platelets 621(H) 130 - 400 K/mcL LAB HEMETOLOGY METHOD 03/17/2025 12:43 PM [facility] MPV 9.4 7.0 - 11.0 FL LAB HEMETOLOGY METHOD 03/17/2025 12:43 PM [facility] NRBC 0.0 <1.0 % LAB HEMETOLOGY METHOD [facility] NR[facility] Absolute 0.00 <0.10 K/mcL LAB HEMETOLOGY METHOD 03/17/2025 12:43 PM [facility] Neutrophils Relative 54.6 % LAB HEMETOLOGY METHOD 03/17/2025 12:43 PM [facility] Lymphocytes Relative 33.1 % LAB HEMETOLOGY METHOD 03/17/2025 12:43 PM [facility] Monocytes Relative 8.2 % LAB HEMETOLOGY METHOD 03/17/2025 12:43 PM [facility] Eosinophils Relative 3.0 % LAB HEMETOLOGY METHOD 03/17/2025 12:43 PM [facility] Basophils Relative 0.5 % LAB HEMETOLOGY METHOD 03/17/2025 12:43 PM [facility] Immature Granulocytes Relative 0.6 % LAB HEMETOLOGY METHOD 03/17/2025 12:43 PM [facility] Neutrophils Absolute 4.30 1.50 - 7.00 K/mcL LAB HEMETOLOGY METHOD 03/17/2025 12:43 PM [facility] Lymphocytes Absolute 2.61 1.00 - 5.00 K/mcL LAB HEMETOLOGY METHOD 03/17/2025 12:43 PM [facility] Monocytes Absolute 0.65 0.20 - 1.00 K/mcL LAB HEMETOLOGY METHOD 03/17/2025 12:43 PM [facility] Eosinophils Absolute 0.24 0.00 - 0.50 K/mcL LAB HEMETOLOGY METHOD 03/17/2025 12:43 PM [facility] Basophils Absolute 0.04 0.00 - 0.20 K/mcL LAB HEMETOLOGY METHOD 03/17/2025 12:43 PM EDT [facility] Immature Granulocytes Absolute 0.05(H) 0.00 - 0.03 K/mcL LAB HEMETOLOGY METHOD 03/17/2025 12:43 PM EDT [facility] Blood Venous blood specimen / Unknown Venipuncture / Unknown 03/17/2025 10:25 AM EDT 03/17/2025 12:10 PM EDT us Chelo HANKINS LAB BLOOD ORDERABLES Final Re sult [facility] [address] [place] [address], [place] [phone] * External clinical lab (03/11/2025) us Provider [facility] LAB BLOOD ORDERABLES Fin al Result * Creatinine (12/02/2024 10:35 AM EDT) Creatinine 0.62 0.50 - 1.10 mg/dL LAB CHEMISTRY METHOD 12/02/2024 1:14 PM EDT [facility] eGFR 103 >=60 mL/min/1. 73m2 LAB CHEMISTRY METHOD 12/02/2024 1:14 PM EDT [facility] Comment:Calculation based on the Chronic Kidney Disease Epidemiology Collaboration (CKD-EPI) equation refit without adjustment for race. Blood Venous blood specimen / Unknown Venipuncture / Unknown 12/02/2024 10:35 AM EDT 12/02/2024 10:35 AM EDT Patricia Lerma MD LAB BLOOD ORDERABLES Final Resul t Performing Organization Address City/[facility]/ZIP Co de Phone Number [facility] [address] [place] [address], [place] [phone] * (ABNORMAL) Hemoglobin A1c (12/02/2024 10:35 AM EDT) Hemoglobin A1C 8.2(H) <6.5 % LAB CHEMISTRY METHOD 12/02/2024 2:42 PM EDT [facility] Mean Bld Glu Estim. 189 mg/dL LAB CHEMISTRY METHOD 12/02/2024 2:42 PM EDT [facility] Blood Venous blood specimen / Unknown Venipuncture / Unknown 12/02/2024 10:35 AM EDT 12/02/2024 10:35 AM EDT Patricia Lerma MD LAB BLOOD ORDERABLES Final Resul t [facility] [address] [place] [address], [place] [phone] * External Mammogram Report (10/15/2024) Anatomical Region Laterality Modality Mammography us Provider [facility] IMG BI PROCEDURES Final Result * Lipid panel with reflex to direct LDL (05/17/2024 12:06 PM EST) Cholesterol 131 0 - 200 mg/dL LAB CHEMISTRY METHOD 05/17/2024 7:34 PM [facility] Triglycerides 83 0 - 150 mg/dL LAB CHEMISTRY METHOD 05/17/2024 7:34 PM [facility] HDL 49 >=40 mg/dL LAB CHEMISTRY METHOD 05/17/2024 7:34 PM [facility] LDL Calculated 65 0 - 100 mg/dL LAB CHEMISTRY METHOD 05/17/2024 7:34 PM [facility] VLDL Cholesterol Osman 16.6 mg/dL LAB CHEMISTRY METHOD 05/17/2024 7:34 PM [facility] Non HDL Chol. (LDL+VLDL) 82 <145 mg/dL LAB CHEMISTRY METHOD 05/17/2024 7:34 PM [facility] Chol/HDL Ratio 2.7 0.0 - 4.4 LAB CHEMISTRY METHOD 05/17/2024 7:34 PM EST [facility] Blood Venous blood specimen / Unknown Venipuncture / Unknown 05/17/2024 12:06 PM EST 05/17/2024 12:06 PM EST us Yair Eaton MD LAB BLOOD ORDERABLES F inal Result Performing Organization Address City/[facility]/ZIP Co de Phone Number [facility] [address] [place] [address], [place] [phone] * Microalbumin creatinine urine ratio (05/17/2024 12:06 PM EST) Pathologist [facility] Creatinine, Urine 141.0 mg/dL LAB CHEMISTRY METHOD 05/17/2024 5:59 PM EST [facility] Microalb, Ur 10.0 0.0 - 29.0 mg/L LAB CHEMISTRY METHOD 05/17/2024 5:59 PM EST [facility] Microalb/Creat Ratio 7 <30 mg/g creat LAB CHEMISTRY METHOD 05/17/2024 5:59 PM EST [facility] Urine Urine specimen obtained by clean catch procedure / Unknown Non-blood Collection / Unknown 05/17/2024 12:06 PM EST 05/17/2024 12:06 PM EST us Yair Eaton MD LAB URINE ORDERABLES F inal Result [facility] [address] [place] [address], [place] [phone] * Diabetes Foot Exam (02/04/2024) [facility]ologist [facility] Diabetes: Annual Foot Exam abstracted Historical Provider HEALTH MAINTENANCE Final Result * Hepatitis C Screening (11/13/2023) [facility]ologist [facility] Hepatitis C Screening abstracted Historical Provider HEALTH MAINTENANCE Final Result from Last 3 Months or Most Recently Relevant to Health Maintenance Insurance [facility] Care Teams Retail Operations Specialist Relationship Specialty Start Date End Date Yair Eaton MD [address] [place] [address] PCP - General 01/01/24
--- OUTSIDE RECORDS SUMMARY | 2025-05-20 11:11 | XMS_ITS | Clinical Summary ---
Author Organization [facility] Prior to 10/30/[address] [place] [address] Care Team Providers Care Overhead Cleaner Maintainer Name Role Phone Yair Eaton Primary Care [...] age to complete this topic Care Teams Overhead Cleaner Maintainer Relationship Specialty Start Date End Date Yair Eaton MBBS [address] [place] [address] PCP - General Internal Medicine 01/01/24
--- OUTSIDE RECORDS SUMMARY | 2025-05-20 11:11 | XMS_ITS | Clinical Summary ---
Author Organization [facility] Address [address] [place] [address] Care Team Providers Care Database Security Administrator Name Role Phone Claudette Diego DENTAL APPLIANCE REPAIRER Primary Care Provider [phone] Allergies Active Allergy Reactions Criticality Noted Date Comments Pollen Extracts Nasal congestion 11/01/2022 Medications flash glucose scanning reader (FreeStyle Juarez 2 Benton) [facility] Use to monitor blood sugars. 1 each [...] tablet 3 03/10/2025 1:14 PM EDT 5 09/10/19 26 Active atorvastatin (LIPITOR) 40 mg tablet Take 1 tablet (40 mg total) by mouth once a day. 90 tablet 3 03/10/2025 1:14 PM EDT 5 09/10/19 26 Active pen needle, diabetic (BD Ultra-Fine Short Pen Needle) 31 gauge x 5/16 needle Use to inject 4 times daily as directed 360 each 3 05/06/2025 11:40 PM EST 5 Active blood-glucose sensor (FreeStyle Juarez 3 Plus Sensor) device Change as directed every 15 days 6 each 3 04/18/2025 10:32 AM EST 5 Active blood-glucose,r eceiver,cont (FreeStyle Juarez 3 Benton) misc Use as directed to monitor sugars continuously 1 each 04/18/2025 10:32 AM EST 5 Active Lantus Solostar U-100 Insulin 100 unit/mL (3 mL) pen injection Inject 62 Units under the skin 2 times a day. 45 mL 3 05/06/2025 11:40 PM EST Active NovoLOG Flexpen U-100 Insulin 100 unit/mL (3 mL) injection pen Inject under the skin 3 times a day as directed. Max 42 units daily. <100: 10 units, <200: 12 units, >200: 14 Units. 15 mL 6 04/18/2025 10:32 AM EST Active Hospital, Clinic, or Other Facility Administered [...] Encounters Date Type Department Care Team Description 05/03/2025 [facility] Clinical Specialty Pharmacy [facility] [address] [place] [address] Sandie Mejia RN from Last 3 Months Immunizations Immunization Administration [...] Mammogram 01/11/2024 01/10/2022 Hemoglobin A1C 04/09/2024 10/08/2023, 032 08/2022, 06/28/2022, Additional history exists Alcohol/Substance Use Screening 06/02/2024 Depression Screening and Follow-Up 06/02/2024 Social Drivers of Health Annual Screening 06/02/2024 Influenza Vaccine (#1) 2024 04/01/2023, 2021 Cervical Cancer Screening 01/09/2025 Pap Smear 01/09/2025 01/09/2022, 06/0 11/2005, 03/29/2004, Additional history exists COVID-19 Vaccine ( - 2024- season) 2025 03/21/2022, 10/20/2020 Hepatitis B Vaccines Aged Out No long er eligible based on patient's age to complete this topic Procedures * Due to [place] cafe[place] law, this organization might not be sharing [...] to Health Maintenance Results * Due to [place] cafe[place] law, this organization might not be sharing negative HIV tests. * (ABNORMAL) POCT Glycosylated Hemoglobin (HGB A1C), interfaced (10/08/2023 4:19 PM EDT) Hemoglobin A1C, POCT 8.1(H) <=5.6 % 10/08/2023 4:32 PM EDT [facility] Comment: A1C Recommendation for Non- Adults with Diabetes: <7.0% ADA 2011 Standards of Medical Care in Diabetes Blood 10/08/2023 4:19 PM EDT 10/08/2023 4:32 PM EDT us Li Medina DENTAL APPLIANCE REPAIRER LAB POCT ORDERABLES - DEVICE Final Result [facility], [facility] [address] [place] [address], [place] * MADAI Bilateral Screening Digital Mammogram [...] obtain the completed interpretation. Claudette Diego NP IMStefan BI PROCEDURES Edited Resul t - Final * Pap w/Reflex HPV (11/06/2005 4:21 PM EDT) Path Procedure TPGA ([id number]) 1 Edited by: [id number] - 2 [facility] ANATOMIC PATHOLOGY - BIOTECH THREE Specimen Labeled As: 1 CERVICAL/ENDOCERVI RAFI CYTO MATERIAL - Edited by: [id number] [facility] ANATOMIC PATHOLOGY - BIOTECH THREE Diagnosis ThinPrep [...] test was examined in accordance with the [facility] Cytopathology Laboratory written policy. This Pap test was examined by the ThinPrep Imaging System, [employer], [place], [place]. Edited by: [id number] - [address] [facility] ANATOMIC PATHOLOGY - BIOTECH THREE Gynecologic Clinical Data Specimen source:, THINPREP (CERVICAL AND ENDOCERVICAL) [facility] ANATOMIC PATHOLOGY - BIOTECH THREE Gynecologic Clinical Data First date of LMP:, 10/13/05 [facility] ANATOMIC PATHOLOGY - BI[facility] THREE Marker 1 NILM,NILM [facility] ANATOMIC PATHOLOGY - BIOTECH THREE Marker 2 KATELYNN [facility] ANATOMIC PATHOLOGY - BIOTECH THREE Cc Results To LISA VALENTINE [id number] [facility] ANATOMIC PATHOLOGY - BIOTECH THREE Signature REPORT SIGNED: KATELYNN DUNBAR 11/12/05 [facility] ANATOMIC PATHOLOGY - BIOTECH THREE Sign Out Audit KATELYNN DUNBAR [id number] [facility] [id number] [facility] ANATOMIC PATHOLOGY - BIOTECH THREE Cytology / Unknown 6 4:21 PM EDT 11/07/2005 4:21 PM EDT us Soha Hodges MD LAB HISTORICAL RESULTS Li hall Result [facility] ANATOMIC PATHOLOGY - BIOTECH THREE [address] [place] [address], from Last 3 Months or Most Recently Relevant to Health Maintenance Insurance HSNO/FREE CARE [facility] Care Teams Database Security Administrator Relationship Specialty Start Date End Date Claudette Diego NP PCP - General 12/04/21
--- OUTSIDE RECORDS SUMMARY | 2025-05-20 11:11 | XMS_ITS | Patient Health Record ---
Author Organization [facility] Address [address] [facility] [address] [place] [address] Care Team Providers Care Environmental Field Technician Name Role Phone Lisandro Leija Primary Care Provider [phone] Reason For Referral No Information Medications Medication [...] Insured Coverage Start Date Coverage End Date [facility] [id number] [place] [address] [phone] Karon Ingram Self - patient is the insured Medical (General) History Medical History History ICD Code diabetes mellitus
--- OUTSIDE RECORDS SUMMARY | 2025-05-20 11:11 | XMS_ITS | Encounter Summary ---
Author Organization [facility] Address [address] [place] [address] Care Team Providers Care Storage Manager Name Role Phone Yair Eaton MD Primary Care Provider Encounter Details Date Type Department Care Team ([facility] st Contact Info) Description 03/23/2025 Results Follow-Up [facility] Hematology Oncology [address] [place] [phone] Chelo Valencia PA [address] [place] [address] Social History Tobacco Use Types Packs/Day Years [...] for your loved ones. For example, child care sitter or elderly care for an older adult? [...] Description 08/15/2025 10:00 AM EDT Office Visit [facility] Hematology Oncology [address] [place] [phone] Chelo Valencia PA [address] [place] [address] documented as of this encounter Goals Goal Patient Goal Type Associated Problems Recent Progress Patient-Stated? Author STG's 6 visits General Yes Heladio Ryagoza, PT Note: Pt will report a 50% or better decrease in B elbow pain during daily activities and work activities. (Met) Pt will demonstrate a 5 foot lb torque improvement of R catalogue clerk strength. Met) Pt is Independent and compliant [...] 10 foot lb torque improvement of R catalogue clerk strength. Pt will be Independent and compliant [...] documented as of this encounter Care Teams Storage Manager Relationship Specialty Start Date End Date Yair Eaton MD [address] [place] [address] PCP - General 01/01/24 documented as of this encounter
== END 2025-05-20 10:40 | disposition home or self-care (01) ==
LOC: HO.ENCR 10:01
PROVIDERS: PCP Internal Medicine; Visit Provider Physician Assistant Medical
DX: E11.42 Type 2 diabetes mellitus with diabetic polyneuropathy (principal); Z79.4 Long term (current) use of insulin; E66.811 Obesity, class 1; E11.69 Type 2 diabetes mellitus with other specified complication; E78.5 Hyperlipidemia, unspecified

== ENCOUNTER → 2025-05-20 10:00 | Outpatient (BNVA) | payer OTHER, SELFPAY | PROVIDERS: PCP Internal Medicine; Visit Provider Physician Assistant Medical | DX: E11.42 Type 2 diabetes mellitus with diabetic polyneuropathy (principal); E11.69 Type 2 diabetes mellitus with other specified complication; E78.5 Hyperlipidemia, unspecified; E66.811 Obesity, class 1; Z68.32 Body mass index [BMI] 32.0-32.9, adult; Z79.4 Long term (current) use of insulin; Z79.84 Long term (current) use of oral hypoglycemic drugs; Z79.899 Other long term (current) drug therapy | CPT/HCPCS: 82947; 99212 ==

== ENCOUNTER 2025-06-01 10:36 | Outpatient (REF) | payer OTHER, SELFPAY | END 2025-06-01 10:37 | disposition home or self-care (01) | LOC: HO.LNP 10:36 | PROVIDERS: PCP Internal Medicine; Visit Provider Obstetrics & Gynecology | DX: R87.612 Low grade squamous intraepithelial lesion on cytologic smear of cervix (LGSIL) (principal) | CPT/HCPCS: 57454; 88305; 88341; 88342 ==

== ENCOUNTER 2025-06-01 10:36 | Outpatient (AMB) | payer OTHER, SELFPAY ==
--- NOTE | 2025-06-01 10:45 | MHC.OFFVIS ---
Vital Signs 06/01/25 10:48 Height 5 ft 2 in Weight 175 lb BMI 32.0 BP 110/60 Intake Visit Reasons: Colposcopy Equipment Engineering Technician Required: No Allergies No Known Allergies Allergy (Verified 05/20/25 10:06) Post menopausal: Yes HPI Comments Details: Presenting referred from Belia Alvarez CNM regarding abnormal Pap smear showing low-grade JOHANA HPV positive, HPV 16/18 negative [facility] Medical History Dyslipidemia associated with type 2 diabetes mellitus Obesity (BMI 30.0-34.9) Type 2 diabetes mellitus Bloating Fibroid Pelvic pain High cholesterol Diabetes mellitus Surgical History H/O bilateral breast reduction surgery H/O abdominoplasty H/O myomectomy Hx of section Family History Maternal Aunt History of breast cancer Social History Housing: House Alcohol intake: current Alcohol intake frequency: holidays/special occasions only Alcohol type: wine Patient Tobacco Use Status: Never used Tobacco Current occupational status: employed Female Reproductive History Menstrual Age of Menarche: 10 Review of Systems Const All systems reviewed & are unremarkable except as noted in HPI and below Reports as per HPI and Reports no additional complaints GI Reports no additional complaints Reports no additional complaints Physical Exam Vital Signs: Last Vital Signs BP 110/60 06/01/25 10:48 BMI result Body Mass Index 32.0 Office Procedures Colposcopy Colposcopy: Pre-Procedure Counseling: Before beginning the procedure, I conducted comprehensive counseling with the patient. We thoroughly discussed the procedure itself, including its details, alternatives, and all associated risks. This included but not limited to the following complications such as bleeding, infection, and injury to the vagina, bladder, and vessels, as well as the potential need for transfusion with all its associated risks. Subsequently, the patient sign the consent. Pap smear result: LSIL/HPV positive, HPV 16/18 negative. Procedure: During the procedure, the following steps were performed: A speculum was inserted, and acetic acid was applied. Colposcopy was conducted, allowing visualization of the transformation zone. Acetowhite lesions were identified at the 7+ 11+ 1 o'clock position. Cervical biopsies were obtained from the 7+ 11+ 1 o'clock position, followed by an endocervical curettage (ECC). Vaginoscopy of the upper vagina revealed no evidence of aceto-white lesions. Hemostasis was achieved using Monsel solution, and the patient tolerated the procedure well. Post-Procedure Instructions: The patient was advised to promptly contact the office or the after hours answering service or go to the emergency room if experiencing a temperature exceeding 100.4?F, abdominal pain, nausea/vomiting, or bleeding. Additionally, the patient was instructed to abstain from vaginal intercourse and bathtub use. The patient confirmed understanding of these instructions. Discharge Instructions: The patient was instructed to schedule a follow-up appointment in 2 weeks for further evaluation and management. Please note that this note was generated using a voice recognition program, and errors may have occurred during religion professor. [id number] of cervix including upper vagina with biopsy and ECC Procedure code (CPT) selection complete Assessment & Plan Assessment & Plan (1) LGSIL on Pap smear of cervix: Comment: HPV positive, HPV 16/18 negative Code(s): R87.612 - Low grade squamous intraepithelial lesion on cytologic smear of cervix (LGSIL) Category: Medical Plan: Discussed with the patient the result of her abnormal pap, its significance, risk of progression, persistence, and regression. the false positive/negative rate of a Pap smear as a screening test in detecting cervical cancer and the indication for a diagnostic test -colposcopy, biopsy, endocervical curettage. The patient verbalized understanding and agreed with the plan, all questions answered. Colposcopy, biopsy /ECC done, see procedure note Orders: Orders AMB Colposcopy Today R87.612 - Low grade squamous intraepithelial lesion on cytologic smear of cervix (LGSIL) Coding Level of Care Code Procedure Only Diagnoses LGSIL on Pap smear of cervix R87.612 CPT Codes Colposcopy - CPT: 19965-Mrgxtlson of cervix including upper vagina with biopsy and ECC ([id number])
[2025-06-01 10:48] VITALS: BP 110/60; BMI 32.0
--- OUTSIDE RECORDS SUMMARY | 2025-06-01 11:50 | XMS_ITS | Patient Health Record ---
Author Organization Diabetes And Endocri nology [facility] Address [address] [facility] [address] [place], [place] [address] Care Team Providers Care Plaque Maker Name Role Phone dr Izaiah Bryan Unavailable Unavaila ble Reason For Referral No Information Medications Medication SIG (Take, Route, Frequency, Duration) Notes Start Date End Date Status FreeStyle Juarez 14 [facility] - Device as directed subq [id number]; Duration: 90 days Active BD Pen Needle Paulette U/F 32G X 4 MM Miscellaneous 5x daily 5xday; Duration: 90 days 06/11/2018 Active Lisinopril 10 MG Tablet 1 tablet Orally Once a day; Duration: 90 days Active Pravastatin Sodium 10 MG Tablet 1 tablet Orally Once a day; Duration: 90 days 04/07/2018 Active FreeStyle Juarez 14 Day Sensor - Miscellaneous as directed subq 14 days; Duration: 90 days Active Tresiba FlexTouch 100 UNIT/ML Solution Pen-injector as directed Subcutaneous 92u qhs; Duration: 90 days 10/30/2018 Active metFORMIN HCl 500 MG Tablet 1 tablet wit h meals Orally Twice a day; Duration: 90 days Active Jardiance 10 MG Tablet 1 tablet Orally O nce a day; Duration: 90 days 10/30/2018 Active HumaLOG KwikPen 100 UNIT/ML Solution Pen-injector 38u units AC TID Subcutaneous AC TID; Duration: 90 days Active Social History Tobacco Use: Social History Observation Description Date Details (start date - stop date) Never Smoker NA - NA Social History Tobacco Use: Social Info Question Answer Notes Tobacco Use/Smoking Are you a nonsmoker Problems Problem Type SNOMED Code ICD Code Onset Dates Problem Status W/U Status Risk Notes Problem Neurologic disorder associated with type II diabetes mellitus (427188426) Type 2 diabetes mellitus with other diabetic neurological complication (E11.49) Active confirmed Problem Hyperglycemia due to type 2 diabetes mellitus (725892843692631) Type 2 diabetes mellitus with hyperglycemia (E11.65) Active confirmed Problem Mixed hyperlipidemia (738526229) Mixed hyperlipidemia (E78.2) Active confirmed Problem Non-toxic nodular goiter (763874979) Nontoxic nodular goiter (E04.9) Active confirmed Problem Essential hypertension (56174154) Essential hypertension (I10) Active confirmed Problem Obese class I (finding) (189402311364017) Obesity (BMI 30.0-34.9) (E66.9) Active confirmed Problem Obesity (520709151) Obesity (BMI 30-39.9) (E66.9) Active confirmed Plan Of Treatment No Information Insurance Providers Payer Name Payer Address Payer Phone Subscriber Number Group Number Insured Name Patient Relationship to Insured Coverage Start Date Coverage End Date [facility] [address] [place] [address] [id number] Karon Ingram Self - patient is the insured 8 Medical (General) History Medical History History ICD Code back trouble diabetes Surgical History Surgery Date(Month/Year)
--- OUTSIDE RECORDS SUMMARY | 2025-06-01 11:50 | XMS_ITS | Clinical Summary ---
Author Organization [facility] Address [address] [place] [address] Care Team Providers Care Roentgenologist Name Role Phone Claudette Diego STAFF PHYSICAL THERAPY ASSISTANT Primary Care Provider [phone] Allergies Active Allergy Reactions Criticality Noted Date Comments Pollen Extracts Nasal congestion 11/01/2022 Medications flash glucose scanning reader (FreeStyle Juarez 2 [place]) [facility] [...] 5 Active blood-glucose,r eceiver,cont (FreeStyle Juarez 3 [place]) misc Use as directed to monitor sugars [...] Date Type Department Care Team Description 05/03/2025 [facility] Clinical Specialty Pharmacy [facility] [address] [place] [address] Sandie Mejia RN from Last 3 Months [...] this topic Procedures * Due to [place] PoolC[employer] law, this organization might not be sharing [...] Health Maintenance Results * Due to [place] PoolCubes law, this organization might not be sharing negative HIV tests. * (ABNORMAL) POCT Glycosylated Hemoglobin (HGB A1C), interfaced (10/08/2023 4:19 PM EDT) Hemoglobin A1C, POCT 8.1(H) <=5.6 % 10/08/2023 4:32 PM EDT [facility] Comment: A1C Recommendation for Non- Adults with Diabetes: <7.0% ADA 2011 Standards of Medical Care in Diabetes Blood 10/08/2023 4:19 PM EDT 10/08/2023 4:32 PM EDT us iL Medina STAFF PHYSICAL THERAPY ASSISTANT LAB POCT ORDERABLES - DEVICE Final Result [facility], POC [address] [place] [address], [place] * MADAI Bilateral Screening Digital Mammogram [...] (11/06/2005 4:21 PM EDT) Path Procedure TPGA (129306) 1 Edited by: [id number] - 2 [facility] ANATOMIC PATHOLOGY - BIOTECH THREE Specimen Labeled As: 1 CERVICAL/ENDOCERVI RAFI CYTO MATERIAL - Edited by: [id number] [facility] ANATOMIC PATHOLOGY - BIOTECH THREE [...] test was examined in accordance with the [facility] Cytopathology Laboratory written policy. This Pap test was examined by the [facility], [employer], [place], [place]. Edited by: [id number] - [address] [facility] ANATOMIC PATHOLOGY - BIOTECH THREE Gynecologic Clinical Data Specimen source:, THINPREP (CERVICAL AND ENDOCERVICAL) [facility] ANATOMIC PATHOLOGY - BIOTECH THREE Gynecologic Clinical Data First date of LMP:, 10/13/05 [facility] ANATOMIC PATHOLOGY - BIOTECH THREE Marker 1 NILM,NILM [facility] ANATOMIC PATHOLOGY - BIOTECH THREE Marker 2 KATELYNN BURTON [facility] ANATOMIC PATHOLOGY - BIOTECH THREE Cc Results To LISA VALENTINE [id number] [facility] ANATOMIC PATHOLOGY - BIOTECH THREE Signature REPORT SIGNED: KATELYNN DUNBAR 11/12/05 [facility] ANATOMIC PATHOLOGY - BIOTECH THREE Sign Out Audit KATELYNN DUNBAR [id number] [facility] [id number] [facility] ANATOMIC PATHOLOGY - BIOTECH THREE Cytology / Unknown 6 4:21 PM EDT 11/07/2005 4:21 PM EDT us Soha Hodges MD LAB HISTORICAL RESULTS Li hall Result [facility] ANATOMIC PATHOLOGY - BIOTECH THREE [address] [place] [address], from Last 3 Months or Most Recently Relevant to Health Maintenance Insurance HSNO/FREE CARE [facility] Care Teams Roentgenologist Relationship Specialty Start Date End Date Claudette Diego NP PCP - General 12/04/21
--- OUTSIDE RECORDS SUMMARY | 2025-06-01 11:50 | XMS_ITS | Patient Health Record ---
Author Organization [facility] Address [address] [facility] [address] [place] [address] Care Team Providers Care Cvor Nurse Name Role Phone Lisandro Leija Primary Care [...] Insured Coverage Start Date [facility]age End Date [facility] [id number] [address] Karon Ingram Self - patient is the insured Medical (General) History Medical History History ICD Code diabetes mellitus
--- OUTSIDE RECORDS SUMMARY | 2025-06-01 11:50 | XMS_ITS | Clinical Summary ---
Author Organization [facility] [address] [place] [address] Address [address] [place] [address] Phone Care Team Providers Care Fitting Room Inspector Name Role Phone Yair Eaton MD Primary [...] polyneuropathy, with long-term current use of insulin ([facility] V24, CMS/HCC V28) Inject 0.5 mL (2.5 [...] polyneuropathy, with long-term current use of insulin ([facility] V24, [facility] V28),Bilateral shoulder bursitis,Lateral epicondylitis of right elbow TAKE 1 TABLET BY MOUTH TWICE A DAY NEEDED FOR MILD PAIN 60 tablet 05/16/20 25 Active naproxen (NAPROSYN) 500 mg tabletIndication s:Type 2 diabetes mellitus with diabetic polyneuropathy, with long-term current use of insulin ([facility] V24, [facility] V28),Bilateral shoulder bursitis,Lateral epicondylitis of right elbow TAKE 1 TABLET BY MOUTH TWICE A DAY NEEDED FOR MILD PAIN 60 tablet 04/04/20 25 2024 Discontinued Active Problems Problem Noted Date Diagnosed Date Essential thrombocytosis 05/14/2024 Type 2 diabetes mellitus wit h diabetic polyneuropathy, with long-term current use of insulin 03/16/2024 Encounters Date Type Department Care Team Description 03/23/2025 Results Follow-Up [facility] Hematology Oncology [address] [place] [address] Chelo Valencia PA from Last 3 Months Immunizations Immunization Administration Dates Next Due Pfizer SARS-CoV-2 COVID-19, mRNA, LNP-S, preservative free 03/21/2022 Medical History Medical History Date Comments Diabetes mellitus ([facility] V24, [facility] V28) DX:Diabetes mellitus (HCC) Family History Medical [...] care for your loved ones. For example, children's nursery assistant or elderly care for an older adult? [...] Description 08/15/2025 10:00 AM EDT Office Visit [facility] Hematology Oncology [address] [place] [phone] Chelo Valencia PA [address] [place] [address] Health Maintenance Due Date Last Done Comments [...] 5 foot lb torque improvement of R ultrasound technologist sonographer strength. Met) Pt is Independent and compliant [...] 10 foot lb torque improvement of R ultrasound technologist sonographer strength. Pt will be Independent and compliant [...] K/mcL LAB HEMETOLOGY METHOD 03/17/2025 12:43 PM [facility] LAB RBC 4.80 3.80 - 4.80 M/mcL LAB HEMETOLOGY METHOD 03/17/2025 12:43 PM [facility] LAB Hemoglobin 13.5 11.5 - 16.0 g/dL LAB HEMETOLOGY METHOD 03/17/2025 12:43 PM [facility] LAB Hematocrit 42.8 35.0 - 47.0 % LAB HEMETOLOGY METHOD 03/17/2025 12:43 PM [facility] LAB MCV 89.9 79.0 - 98.0 FL LAB HEMETOLOGY METHOD 03/17/2025 12:43 PM [facility] LAB MCH 28.4 27.0 - 32.0 pcg LAB HEMETOLOGY METHOD 03/17/2025 12:43 PM [facility] LAB MCHC 31.5(L) 32.0 - 37.0 g/dL LAB HEMETOLOGY METHOD 03/17/2025 12:43 PM [facility] LAB RDW 14.6 11.0 - 15.0 % LAB HEMETOLOGY METHOD 03/17/2025 12:43 PM [facility] LAB Platelets 621(H) 130 - 400 K/mcL LAB HEMETOLOGY METHOD 03/17/2025 12:43 PM [facility] LAB MPV 9.4 7.0 - 11.0 FL LAB HEMETOLOGY METHOD 03/17/2025 12:43 PM [facility] LAB NRBC 0.0 <1.0 % LAB HEMETOLOGY METHOD 03/17[facility]2025 12:[facility] NRBC Absolute 0.00 <0.10 K/mcL LAB HEMETOLOGY METHOD 03/17/2025 12:43 PM [facility] LAB Neutrophils Relative 54.6 % LAB HEMETOLOGY METHOD 03/17/2025 12:43 PM [facility] Lymphocytes Relative 33.1 % LAB HEMETOLOGY METHOD 03/17/2025 12:43 PM [facility] Monocytes Relative 8.2 % LAB HEMETOLOGY METHOD 03/17/2025 12:43 PM [facility] Eosinophils Relative 3.0 % LAB HEMETOLOGY METHOD 03/17/2025 12:43 PM [facility] Basophils Relative 0.5 % LAB HEMETOLOGY METHOD 03/17/2025 12:43 PM [facility] Immature Granulocytes Relative 0.6 % LAB HEMETOLOGY METHOD 03/17/2025 12:43 PM [facility] Neutrophils Absolute 4.30 1.50 - 7.00 K/mcL LAB HEMETOLOGY METHOD 03/17/2025 12:43 PM [facility] Lymphocytes Absolute 2.61 1.00 - 5.00 K/mcL LAB HEMETOLOGY METHOD 03/17/2025 12:43 PM [facility] Monocytes Absolute 0.65 0.20 - 1.00 K/mcL LAB HEMETOLOGY METHOD 03/17/2025 12:43 PM [facility] LAB Eosinophils Absolute 0.24 0.00 - 0.50 K/mcL LAB HEMETOLOGY METHOD 03/17/2025 12:43 PM [facility] Basophils Absolute 0.04 0.00 - 0.20 [...] Re sult [facility] [address] [place] [address], [place] [phone] * External clinical lab (03/11/2025) us Provider [...] ORDERABLES Final Resul t Performing Organization Address City/[facility]/ZIP Co de Phone Number [facility] [address] [place] [address], [place] [phone] * (ABNORMAL) Hemoglobin A1c (12/02/2024 10:35 AM [...] MD LAB BLOOD ORDERABLES Final Resul t [facility] [address] [place] [address], [place] [phone] * External Mammogram Report (10/15/2024) Anatomical Region Laterality Modality Mammography us Provider [facility] IMG BI PROCEDURES Final Result * Lipid panel with reflex to direct LDL (05/17/2024 12:06 PM EST) Cholesterol 131 0 - 200 mg/dL LAB CHEMISTRY METHOD 05/17/2024 7:34 PM [facility] Triglycerides 83 0 - 150 mg/dL LAB CHEMISTRY METHOD 05/17/2024 7:34 PM [facility] HDL 49 >=40 mg/dL LAB CHEMISTRY METHOD 05/17/2024 7:34 PM [facility] LDL Calculated 65 0 - 100 mg/dL LAB CHEMISTRY METHOD 05/17/2024 7:34 PM [facility] VLDL Cholesterol Osman 16.6 mg/dL LAB CHEMISTRY METHOD 05/17/2024 7:34 PM [facility] Non HDL Chol. (LDL+VLDL) 82 <145 mg/dL LAB CHEMISTRY METHOD 05/17/2024 7:34 PM [facility] Chol/HDL Ratio 2.7 0.0 - 4.4 LAB CHEMISTRY METHOD 05/17/2024 7:34 PM EST [facility] Blood Venous blood specimen / Unknown Venipuncture / Unknown 05/17/2024 12:06 PM EST 05/17/2024 12:06 PM EST us Yair Eaton MD LAB BLOOD ORDERABLES F inal Result Performing Organization Address City/[facility]/ZIP Co de Phone Number [facility] [address] [place] [address], [place] [phone] * Microalbumin creatinine urine ratio (05/17/2024 12:06 PM EST) Pathologist [facility] Creatinine, Urine 141.0 mg/dL LAB CHEMISTRY METHOD 05/17/2024 5:59 PM EST [facility] Microalb, Ur 10.0 0.0 - 29.0 mg/L LAB CHEMISTRY METHOD 05/17/2024 5:59 PM EST [facility] Microalb/Creat Ratio 7 <30 mg/g creat LAB CHEMISTRY METHOD 05/17/2024 5:59 PM EST [facility] Urine Urine specimen obtained by clean catch procedure / Unknown Non-blood Collection / Unknown 05/17/2024 12:06 PM EST 05/17/2024 12:06 PM EST us Yair Eaton MD LAB URINE ORDERABLES F inal Result [facility] [address] [place] [address], [place] [phone] * Diabetes Foot Exam (02/04/2024) Pathologist [facility] Diabetes: Annual Foot Exam abstracted Historical Provider HEALTH MAINTENANCE Final Result * Hepatitis C Screening (11/13/2023) Pathologist [facility] Hepatitis C Screening abstracted Historical Provider HEALTH MAINTENANCE Final Result from Last 3 Months or Most Recently Relevant to Health Maintenance Insurance [facility] Care Teams Fitting Room Inspector Relationship Specialty Start Date End Date Yair Eaton MD [address] [place] [address] PCP - General 01/01/24
--- OUTSIDE RECORDS SUMMARY | 2025-06-01 11:50 | XMS_ITS | Clinical Summary ---
Author Organization [facility] Prior to 10/30/[address] [place] [address] Care Team Providers Care Director Manufacturing Engineering Name Role Phone Yair Eaton Primary Care [...] age to complete this topic Care Teams Director Manufacturing Engineering Relationship Specialty Start Date End Date Yair Eaton MBBS [address] [place] [address] PCP - General Internal Medicine 01/01/24
--- OUTSIDE RECORDS SUMMARY | 2025-06-01 11:50 | XMS_ITS | Clinical Summary ---
Author Organization [employer] Address [address] [place] [address] [address] [place] [address] Care Team Providers Care Service Desk Specialist Name Role Phone Unavailable Primary Care [...]
--- OUTSIDE RECORDS SUMMARY | 2025-06-01 11:50 | XMS_ITS | Data Portability ---
Author Organization [place] [facility] Address [address] [place] [address] Care Team Providers Care Cook Helper Juice Name Role Phone SALENA JONES Primary Care [...] Sensorineur al hearing loss of bilateral ears [id number] Active 2024 JUAN JOSE EUBANKS, Rachael [address] [facility], [place], [phone], [facility] 14:41:10 Referred otalgia of right ear [id number] 100 Active 2024 SUE VINCENT PA-C [address] [facility] [address], [place], [address], [facility] 15:14:58 Problem Notes None recorded. Procedures Surgical History Date Name Laterality Status Provider Name and Address Organization Details Recorded Time 09/24/2024 Comp Audio with Tymps - 88553 & 91921 completed JUAN JOSE EUBANKS, Rachael [address] [facility] [address], [place], [address], [facility] 09/24/2024 14:30:24 Imaging Results None recorded. [...] Updated DateTime 09/24/2024 157.48 cm 30.7 kg/m2 14392.52 g Va Shaffer [facility] 09/24/2024 14:53:18 Social History None recorded. Functional Status Question Answer Note LastModified by Organization D etails LastModified Time What is your level of alcohol consumption? None [email or web address] Information not available 09/24/2024 Mental Status None recorded. Family History Nothing Reported. Medical History Condition Response Allergies/Hayfever N Heart Problems N Anxiety N Tonsil Infections N Emphysema N Migraines N Thyroid Problems N Glaucoma N Developmental Delay N Depression N COPD N Nasal or Sinus Problems N Anemia N Immune System Disorder N Anesthesia Complications N Heart Attack ([place]) N Other Skin Condition N Diabetes Y [...] ICD10 Code Diagnosis IMO Codes Diagnosis Note [id number] SUE VINCENT PA-C [facility] [address] [place] [address] 09/24/2024 13:58:41 09/24/2024 16:00:49 Sensorineural hearing loss of bilateral ears [id number] H90.3 Audiologic al evaluation results: Right ear: Normal hearing from 250 through 4000 Hz sloping to a moderate sensorineu ral hearing loss with excellent word recognitio n. Left ear: Normal hearing from 250 through 4000 Hz sloping to a moderate sensorineu ral hearing loss with excellent word recognitio n. Tympanomet ry: Right Ear:Type A Left Ear:Type A Referred o talgia of right ear [id number] 280963 H92.01 Health Concerns Section Related Observation LastModified by Organization Detai ls LastModified Time None Recorded Concern Status LastModified by Organization Details LastModified Time None Recorded Advance Directives Directive None Recorded Payers Insurance Date Sequence Insurance Name Policy Number Policy Bender Covered Member ID Bender Member ID Guarantor Name 09/24/2024 1 [facility] (MEDICAID HMO) [id number] Karon Juan Jose [id number] [facility] Notes Date Note Type Note [...] loud noise exposure. SUE VINCENT PA-C [address] [place] [address], [phone], [facility] - [facility] 09/24/2024 15:15:12 OBGyn Episode No OBEpisode recorded.
--- OUTSIDE RECORDS SUMMARY | 2025-06-01 11:50 | XMS_ITS | Patient Health Record ---
Author Organization [facility] Address [address] [place] [address] Care Team Providers Care Service Aide Name Role Phone Kennedy Hurtado Primary Care [...]
== END 2025-06-01 11:17 | disposition home or self-care (01) ==
LOC: HO.HWS 10:36
PROVIDERS: PCP Internal Medicine; Visit Provider Obstetrics & Gynecology
DX: R87.612 Low grade squamous intraepithelial lesion on cytologic smear of cervix (LGSIL) (principal)
CPT/HCPCS: 57454